=== PATIENT | male | born 2005 | race Caucasian/White ===

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

== ENCOUNTER → 2023-03-06 08:36 | Outpatient (CLI) | payer OTHER, MEDICAID, SELFPAY ==
[2023-03-06 10:07] LABS: BUN Creatinine Ratio 24.2 (6-22); Blood Urea Nitrogen 15 mg/dL (9-20); Estimated Glomerular Filt Rate > 60 mL/min (>60)
[2023-03-06 10:17] LABS: Follicle Stimulating Hormone 1.41 mIU/mL; Luteinizing Hormone 10.4 mIU/mL
[2023-03-06 10:33] LABS: Estradiol, Total 148.1 pg/mL
[2023-03-06 20:47] LABS: HEMOLYSIS < 15 (0-50); Potassium 4.2 mmol/L (3.4-5.1)
[2023-03-06 21:24] LABS: Testosterone 436 ng/dL (132-813)
== END ==
PROVIDERS: Family Provider Pediatrics; PCP Pediatrics; Referring Provider Nurse Practitioner Family; Visit Provider Nurse Practitioner Family
DX: F64.9 Gender identity disorder, unspecified (principal)
CPT/HCPCS: 36415; 82565; 82670; 83001; 83002; 84132; 84403; 84520

== ENCOUNTER 2023-05-10 10:00 | Outpatient (RCR) | payer OTHER, MEDICAID, SELFPAY ==
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
--- NOTE | 2022-07-26 17:47 | PT.OPPOC ---
Physical, Occupational & Speech Therapy At [facility] Current Diagnoses Stiffness of unspecified joint, not elsewhere classified (07/26/22) Muscle weakness (generalized) (07/26/22) Other lack of coordination (07/26/22) Unspecified lack of coordination (07/26/22) Visit Care Team Role Provider Type Risa Drake DO Attending Provider Physician Family Provider Primary Care Provider Referring Provider Specialty: Pediatrics Address: [address] [place] [address], [id number] Email: Plan Of Care PT-OP-T Assessment and Plan Start: 07/26/22 15:22 Freq: Status: Active Protocol: Document 07/26/22 15:22 [facility] (Rec: 07/26/22 16:04 [facility] [id number]) Physical Therapy Assessment Rehab Potential Rehabilitation Potential Good Evaluation Complexity Number of Personal Factors/Comorbidities 3 or More Number of Body Systems Impaired 4 or More Clinical Presentation at Evaluation Stable Impairments Impairments Activity Tolerance,Balance, Coordination,Functional Activities,Functional Mobility ,Gait,Pain,Posture,ROM,Soft Tissue Mobility,Strength Goals coordination Short Term Goal (STG) Pt will be able to walk line fwd tandem w/o stepping off at least 20 ft. STG Duration 09/04/22 Chain Dyer Goal (LTG) Pt will be able to walk line backwards tandem w/o stepping off at least 15 ft. LTG Duration 10/18/22 pain Chain Dyer Goal (LTG) Pt will report a 75% reduction in abdomen, thigh pain and thoracic pain. LTG Duration 10/18/22 ROM Short Term Goal (STG) Pt will have B DF to neutral in knee flexed position STG Duration 09/04/22 Chain Dyer Goal (LTG) Pt will have B DF to at least 5 deg in knee ext and flexed positon to improve pt's ability to drive and imrpove LTG Duration 10/18/22 balance Short Term Goal (STG) Pt will be able to do SLS for at least 12 sec B STG Duration 08/30/22 Custodial Goal (LTG) Pt will be able to SLS for at least 30 sec B to show improved stability LTG Duration 10/18/22 Assessment Summary Assessment Pt presents w/dad w/their main complaints that pt trips a lot and has dec coordination. pt was born drug affected and was diagnosed w/ASD. 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 She has difficulty w/driving , which may be partially d/t pt has difficulty w/DF as she has restricted ROM . She does also demonstrate impaired coordination, balance, fwd flexed posture and dec response time w/balance activities. She would benefit from skilled PT to work on these deficits to help her be more indep and safe in order to be able to particiapte in job duties and more home duties. Physical Therapy Plan Frequency and Duration Frequency of Treatment 1-2x/wk Duration of treatment (weeks) 12 Plan of Care Start Date 07/26/22 Plan of Care End Date 10/18/22 Therapeutic Interventions Therapeutic Interventions Aquatic Therapy,Balance Training,Coordination Training ,Gait Training,Home Exercise Program,Joint Mobilizations, Manual Therapy,Neuromuscular Re-education,Orthotic/ Prosthetic Management,Patient/ Caregiver Education,Self-Care/ Home Management,Sensory Integration,Soft Tissue Mobilization,Taping, Therapeutic Activities, Therapeutic Exercises Modalities Cold Pack/Ice Massage,Electric Stimulation,Hot Packs Next Visit Focus/Plan Next Note Type Treatment Note Next Visit Plan assess pt consent for ankle mobilizations; teach self release w/tennis ball/foam roll; down dog stretch, stair stretch, DF at wall for HEP; obstacle course for balance, balance board w/balloon rangel Plan of Care Dates Plan of Care Start Date 07/26/22 Plan of Care End Date 10/18/22 Electronically Signed by: Annabelle Cooper, PT 07/26/22 2630 If you are in agreement with this Plan of Care, please return a signed and dated copy. I have reviewed this Plan of Care and certify that the skilled therapy services above are required to meet the patient?s needs. Physician Signature Date Printed Name and Credentials Clinical Instructor Signature Printed Name and Credentials
--- NOTE | 2022-08-02 17:04 | PT-OP ANOTE ---
Pt's dad called and VM left re: no show and policy. Edu of next 2 scheduled appts and asked to call if pt unable to attend future appts.
--- NOTE | 2022-08-09 15:43 | PT.OTN ---
Current Diagnoses Stiffness of unspecified joint, not elsewhere classified (08/09/22) Muscle weakness (generalized) (08/09/22) Other lack of coordination (08/09/22) Unspecified lack of coordination (08/09/22) Physical Therapy Treatment Note PT-OP-A Visit Information Start: 07/26/22 15:22 Freq: Status: Active Protocol: Document 08/09/22 10:43 [facility] (Rec: 08/09/22 15:43 [facility] [id number]) Out-Patient Physical Therapy Visit Information Visit Information Visit Type Treatment Note Visit Start Time 11:21 Visit Stop Time 12:01 Total Visit Minutes 40 Visit Number 2 Number of TEST EVALUATOR Visits 0 PT-OP-B Current Condition Start: 07/26/22 15:22 Freq: Status: Active Protocol: Document 07/26/22 15:22 [facility] (Rec: 07/26/22 16:04 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 Pt has bio brother that has been in PT since 4 months. Focus was on speech therapy. She didn't do any PT. She has had issues with coordination, toe walking and balance. They are noticing a problem while pt is working on driving. Recently they discovered she has low vit B 12 levels. Has eating disorder where she just eats when she feels like it and changes food preferences. She goes a couple days before [facility] has a good size bowel movement and has constipation and c/o lots of belly pain. She had acid reflux a lot as a kid. Pt reports she falls and trips a lot and will feel nervous going up/down big stair cases. 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 She has exercise induced asthma issues so struggles with longer distance heavy activity. Has hx of concussion w/running backwards. Pt did take dance when younger and liked them but wasn't advancing in them. Dad does report issues w/fine motor skills. Did get an eval w/OT here but was told she didn't need it. Pt reports ant B thighs cramp up and pain in mid thoracic. She has some L pec and lat region. Pt likes creative writing, theater, video creation, and video games. Pt had difficulty with balancing on a bike and went off the [place] trail and down into ditch. Treatment Goals Patient/Caregiver Goals Dec falling over and tripping; improve timing and coordination for dancing PT-OP-C Subjective Start: 07/26/22 15:22 Freq: Status: Active Protocol: Document 08/09/22 10:43 [facility] (Rec: 08/09/22 15:43 [facility] [id number]) OP-PT Subjective Patient Comments Patient Comments Pt agreeable to do exercises. Dad apologizes about missing last appt. pt had asthma attack at school and he was busy w/that and forgot to call PT-OP-D Balance Start: 07/26/22 15:22 Freq: Status: Active Protocol: Document 07/26/22 15:22 [facility] (Rec: 07/26/22 16:04 [facility] [id number]) Balance Tests Single Limb Standing Single Limb- Right 8 sec Single Limb- Left 8 sec Other Other Balance Tests Performed fwd walk tandem about 3 in a row max; can walk on line mult steps if not tandem-does keep arms out to side; backwards walk on line about 3 steps before stepping off w/hands out to sides to help w/balance ; pt can skip but shows dec reciprocation PT-OP-G Mobility & Gait Start: 07/26/22 15:22 Freq: Status: Active Protocol: Document 07/26/22 15:22 [facility] (Rec: 07/26/22 17:33 [facility] [id number]) OP Gait Assessment Comments Gait Comments Pt amb w/heel strike today but overall dec push off and significant toe out and pronation. Running: slower speed and dec push off and foot clearance, head down PT-OP-J Posture/Palpation/Skin Start: 07/26/22 15:22 Freq: Status: Active Protocol: Document 07/26/22 15:22 [facility] (Rec: 07/26/22 17:33 [facility] [id number]) Posture Evaluation Comments Posture Comments Pt stands and sits w/excessive thoracic kyphosis & cervical flexion and tends to walk w/ head down. PT-OP-K Range of Motion Start: 07/26/22 15:22 Freq: Status: Active Protocol: Document 07/26/22 15:22 [facility] (Rec: 07/26/22 17:33 [facility] [id number]) Ankle and Foot Goniometric Range of Motion Ankle and Foot Right Active Dorsiflexion with Knee Flexed 6 Dorsiflexion with Knee Extended 10 Comments lacking DF to neutral in both positions Left Active Dorsiflexion with Knee Flexed 16 Dorsiflexion with Knee Extended 22 Comments lacking DF to neutral in both positions PT-OP-Q Treatments Start: 07/26/22 15:22 Freq: Status: Active Protocol: Document 08/09/22 10:43 [facility] (Rec: 08/09/22 15:43 [facility] [id number]) Gym Equipment Shuttle Balance red clips Details WBOS fwd w/balloon volley w/ day w/occ 1 hand on rail Therapeutic Exercises Standing Exercises stretch Standing Exercise Name 1. DL step 2. fwd lean B Side bilateral Reps/Minutes 45 sec ea DF Side bilateral Reps/Minutes 15 Other Exercises roll out Other Exercise Name tennis ball, foam roll, rolling pin Side bilateral Reps/Minutes 5min downdog Side bilateral Reps/Minutes 15 sec x2 Neuro Re-Education Treatment Balance Activities beam Details fwd/back on beam w/occ TOOL SALVAGE WORKER Reps/Duration 6x Comments w/throwing mota bag at [place] t end tilt board Comments fwd & side facing board: w/ squat to get ball & roll at cones x10 ea PT-OP-T Assessment and Plan Start: 07/26/22 15:22 Freq: Status: Active Protocol: Document 08/09/22 10:43 [facility] (Rec: 08/09/22 15:43 [facility] [id number]) Physical Therapy Assessment Goals coordination Short Term Goal (STG) Pt will be able to walk line fwd tandem w/o stepping off at least 20 ft. STG Duration 09/04/22 Department Clerk Goal (LTG) Pt will be able to walk line backwards tandem w/o stepping off at least 15 ft. LTG Duration 10/18/22 pain Department Clerk Goal (LTG) Pt will report a 75% reduction in abdomen, thigh pain and thoracic pain. LTG Duration 10/18/22 ROM Short Term Goal (STG) Pt will have B DF to neutral in knee flexed position STG Duration 09/04/22 Department Clerk Goal (LTG) Pt will have B DF to at least 5 deg in knee ext and flexed positon to improve pt's ability to drive and imrpove LTG Duration 10/18/22 balance Short Term Goal (STG) Pt will be able to do SLS for at least 12 sec B STG Duration 08/30/22 Half-Way Goal (LTG) Pt will be able to SLS for at least 30 sec B to show improved stability LTG Duration 10/18/22 Assessment Summary Assessment Pt was challenged by all balance activities today and had a lot of difficulty with these activities. Inc cues required for all exercises for form and inc effort w/good form w/exercises. Physical Therapy Plan Frequency and Duration Frequency of Treatment 1-2x/wk Duration of treatment (weeks) 12 Plan of Care Start Date 07/26/22 Plan of Care End Date 10/18/22 Next Visit Focus/Plan Next Note Type Treatment Note Next Visit Plan review exercises, obstacle course for balance, balloon volley on board, other uneven surfaces w/throwing games
--- NOTE | 2022-08-16 18:03 | PT.OTN ---
Current Diagnoses Stiffness of unspecified joint, not elsewhere classified (08/16/22) Muscle weakness (generalized) (08/16/22) Other lack of coordination (08/16/22) Unspecified lack of coordination (08/16/22) Physical Therapy Treatment Note PT-OP-A Visit Information Start: 07/26/22 15:22 Freq: Status: Active Protocol: Document 08/16/22 16:54 [facility] (Rec: 08/16/22 18:03 [facility] [id number]) Out-Patient Physical Therapy Visit Information Visit Information Visit Type Treatment Note Visit Start Time 16:52 Visit Stop Time 17:35 Total Visit Minutes 43 Visit Number 3 Number of GENERAL REPAIRER Visits 0 PT-OP-B Current Condition Start: 07/26/22 15:22 Freq: Status: Active Protocol: Document 07/26/22 15:22 [facility] (Rec: 07/26/22 16:04 [facility] [id number]) Current Condition History of Current Condition Onset Date youth Current Complaints Dec coordination & inc falls History of Current Condition 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 Pt has bio brother that has been in PT since 4 months. Focus was on speech therapy. She didn't do any PT. She has had issues with coordination, toe walking and balance. They are noticing a problem while pt is working on driving. Recently they discovered she has low vit B 12 levels. Has eating disorder where she just eats when she feels like it and changes food preferences. She goes a couple days before [facility] has a good size bowel movement and has constipation and c/o lots of belly pain. She had acid reflux a lot as a kid. Pt reports she falls and trips a lot and will feel nervous going up/down big stair cases. 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 She has exercise induced asthma issues so struggles with longer distance heavy activity. Has hx of concussion w/running backwards. Pt did take dance when younger and liked them but wasn't advancing in them. Dad does report issues w/fine motor skills. Did get an eval w/OT here but was told she didn't need it. Pt reports ant B thighs cramp up and pain in mid thoracic. She has some L pec and lat region. Pt likes creative writing, theater, video creation, and video games. Pt had difficulty with balancing on a bike and went off the [place] trail and down into ditch. Treatment Goals Patient/Caregiver Goals Dec falling over and tripping; improve timing and coordination for dancing PT-OP-C Subjective Start: 07/26/22 15:22 Freq: Status: Active Protocol: Document 08/16/22 16:54 [facility] (Rec: 08/16/22 18:03 [facility] [id number]) OP-PT Subjective Patient Comments Patient Comments Pt reports doing her exercises PT-OP-D Balance Start: 07/26/22 15:22 Freq: Status: Active Protocol: Document 07/26/22 15: [facility] (Rec: 07/26/22 16:04 [facility] [id number]) Balance Tests Single Limb Standing Single Limb- Right 8 sec Single Limb- Left 8 sec Other Other Balance Tests Performed fwd walk tandem about 3 in a row max; can walk on line mult steps if not tandem-does keep arms out to side; backwards walk on line about 3 steps before stepping off w/hands out to sides to help w/balance ; pt can skip but shows dec reciprocation PT-OP-G Mobility & Gait Start: 07/26/22 15:22 Freq: Status: Active Protocol: Document 07/26/22 15:22 [facility] (Rec: 07/26/22 17:33 [facility] [id number]) OP Gait Assessment Comments Gait Comments Pt amb w/heel strike today but overall dec push off and significant toe out and pronation. Running: slower speed and dec push off and foot clearance, head down PT-OP-J Posture/Palpation/Skin Start: 07/26/22 15:22 Freq: Status: Active Protocol: Document 07/26/22 15:22 [facility] (Rec: 07/26/22 17:33 [facility] [id number]) Posture Evaluation Comments Posture Comments Pt stands and sits w/excessive thoracic kyphosis & cervical flexion and tends to walk w/ head down. PT-OP-K Range of Motion Start: 07/26/22 15:22 Freq: Status: Active Protocol: Document 07/26/22 15:22 [facility] (Rec: 07/26/22 17:33 [facility] [id number]) Ankle and Foot Goniometric Range of Motion Ankle and Foot Right Active Dorsiflexion with Knee Flexed 6 Dorsiflexion with Knee Extended 10 Comments lacking DF to neutral in both positions Left Active Dorsiflexion with Knee Flexed 16 Dorsiflexion with Knee Extended 22 Comments lacking DF to neutral in both positions PT-OP-Q Treatments Start: 07/26/22 15:22 Freq: Status: Active Protocol: Document 08/16/22 16:54 [facility] (Rec: 08/16/22 18:03 [facility] [id number]) Gym Equipment Shuttle Balance red clips Details WBOS fwd w/balloon volley w/ day w/occ 1 hand on rail Therapeutic Exercises Standing Exercises stretch Standing Exercise Name 1. DL step 2. fwd lean B Side bilateral Reps/Minutes 30 sec ea DF Side bilateral Reps/Minutes 15 Other Exercises roll out Other Exercise Name tennis ball, foam roll, rolling pin Side bilateral Reps/Minutes 5min downdog Side bilateral Reps/Minutes 15 sec x2 Manual Therapy Treatment Joint Mobilizations tibfib Joint distal B Direction AP Tibia FM talus Joint distraction B & AP FM calcaneus Joint distraction B FM Neuro Re-Education Treatment Balance Activities bosu Details black side w/1 SENIOR NETWORK ARCHITECT then throw ball foam Details squat (max cues for heels down and bend knees) to get ball to throw Reps/Duration 15 Self-Care/Home Management Treatment Education Caregiver Education discussed use of book or slant under toes to stretch calves in sitting. Discussed use of stretching brace during TV/ computer timex4 min PT-OP-T Assessment and Plan Start: 07/26/22 15:22 Freq: Status: Active Protocol: Document 08/16/22 16:54 [facility] (Rec: 08/16/22 18:03 [facility] [id number]) Physical Therapy Assessment Goals coordination Short Term Goal (STG) Pt will be able to walk line fwd tandem w/o stepping off at least 20 ft. STG Duration 09/04/22 Buncher Operator Goal (LTG) Pt will be able to walk line backwards tandem w/o stepping off at least 15 ft. LTG Duration 10/18/22 pain Long-Term Goal (LTG) Pt will report a 75% reduction in abdomen, thigh pain and thoracic pain. LTG Duration 10/18/22 ROM Short Term Goal (STG) Pt will have B DF to neutral in knee flexed position STG Duration 09/04/22 Buncher Operator Goal (LTG) Pt will have B DF to at least 5 deg in knee ext and flexed positon to improve pt's ability to drive and imrpove LTG Duration 10/18/22 balance Short Term Goal (STG) Pt will be able to do SLS for at least 12 sec B STG Duration 08/30/22 Long-Term Goal (LTG) Pt will be able to SLS for at least 30 sec B to show improved stability LTG Duration 10/18/22 Assessment Summary Assessment Pt did well with exercises w/ minimal cues but does require cues w/active DF exercise. Improved PROM ankles w/mobs but still limited by calves. Pt did better w/balance today Physical Therapy Plan Frequency and Duration Frequency of Treatment 1-2x/wk Duration of treatment (weeks) 12 Plan of Care Start Date 07/26/22 Plan of Care End Date 10/18/22 Next Visit Focus/Plan Next Note Type Treatment Note Next Visit Plan review exercises, obstacle course for balance, balloon volley on board, other uneven surfaces w/throwing games; seated Tball DF
--- NOTE | 2022-08-30 18:30 | PT.OTN ---
Current Diagnoses Stiffness of unspecified joint, not elsewhere classified (08/30/22) Muscle weakness (generalized) (08/30/22) Other lack of coordination (08/30/22) Unspecified lack of coordination (08/30/22) Physical Therapy Treatment Note PT-OP-A Visit Information Start: 07/26/22 15:22 Freq: Status: Active Protocol: Document 08/30/22 16:10 [facility] (Rec: 08/30/22 18:30 [facility] [id number]) Out-Patient Physical Therapy Visit Information Visit Information Visit Type Treatment Note Visit Start Time 16:07 Visit Stop Time 16:45 Total Visit Minutes 38 Visit Number 5 Number of SOCIAL WORK PROGRAM COORDINATOR Visits 0 PT-OP-B Current Condition Start: 07/26/22 15:22 Freq: Status: Active Protocol: Document 07/26/22 15:22 [facility] (Rec: 07/26/22 16:04 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 Pt has bio brother that has been in PT since 4 months. Focus was on speech therapy. She didn't do any PT. She has had issues with coordination, toe walking and balance. They are noticing a problem while pt is working on driving. Recently they discovered she has low vit B 12 levels. Has eating disorder where she just eats when she feels like it and changes food preferences. She goes a couple days before [facility] has a good size bowel movement and has constipation and c/o lots of belly pain. She had acid reflux a lot as a kid. Pt reports she falls and trips a lot and will feel nervous going up/down big stair cases. 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 She has exercise induced asthma issues so struggles with longer distance heavy activity. Has hx of concussion w/running backwards. Pt did take dance when younger and liked them but wasn't advancing in them. Dad does report issues w/fine motor skills. Did get an eval w/OT here but was told she didn't need it. Pt reports ant B thighs cramp up and pain in mid thoracic. She has some L pec and lat region. Pt likes creative writing, theater, video creation, and video games. Pt had difficulty with balancing on a bike and went off the [employer] trail and down into ditch. Treatment Goals Patient/Caregiver Goals Dec falling over and tripping; improve timing and coordination for dancing PT-OP-C Subjective Start: 07/26/22 15:22 Freq: Status: Active Protocol: Document 08/30/22 16:10 [facility] (Rec: 08/30/22 18:30 [facility] [id number]) OP-PT Subjective Patient Comments Patient Comments pt reports not doing exercises . dad bought her slant boards to use under her feet to stretch calves PT-OP-D Balance Start: 07/26/22 15:22 Freq: Status: Active Protocol: Document 07/26/22 15:22 [facility] (Rec: 07/26/22 16:04 [facility] [id number]) Balance Tests Single Limb Standing Single Limb- Right 8 sec Single Limb- Left 8 sec Other Other Balance Tests Performed fwd walk tandem about 3 in a row max; can walk on line mult steps if not tandem-does keep arms out to side; backwards walk on line about 3 steps before stepping off w/hands out to sides to help w/balance ; pt can skip but shows dec reciprocation PT-OP-G Mobility & Gait Start: 07/26/22 15:22 Freq: Status: Active Protocol: Document 07/26/22 15:22 [facility] (Rec: 07/26/22 17:33 [facility] [id number]) OP Gait Assessment Comments Gait Comments Pt amb w/heel strike today but overall dec push off and significant toe out and pronation. Running: slower speed and dec push off and foot clearance, head down PT-OP-J Posture/Palpation/Skin Start: 07/26/22 15:22 Freq: Status: Active Protocol: Document 07/26/22 15:22 [facility] (Rec: 07/26/22 17:33 [facility] [id number]) Posture Evaluation Comments Posture Comments Pt stands and sits w/excessive thoracic kyphosis & cervical flexion and tends to walk w/ head down. PT-OP-K Range of Motion Start: 07/26/22 15:22 Freq: Status: Active Protocol: Document 07/26/22 15:22 [facility] (Rec: 07/26/22 17:33 [facility] [id number]) Ankle and Foot Goniometric Range of Motion Ankle and Foot Right Active Dorsiflexion with Knee Flexed 6 Dorsiflexion with Knee Extended 10 Comments lacking DF to neutral in both positions Left Active Dorsiflexion with Knee Flexed 16 Dorsiflexion with Knee Extended 22 Comments lacking DF to neutral in both positions PT-OP-Q Treatments Start: 07/26/22 15:22 Freq: Status: Active Protocol: Document 08/30/22 16:10 [facility] (Rec: 08/30/22 18:30 [facility] [id number]) Gym Equipment Shuttle Balance red clips Details WBOS & NBOS fwd w/balloon volley w/day w/occ 1 hand on rail Therapeutic Ball walk outs Ball Size/Color 65cm Body Position Prone Reps/Duration 12 Comments to grab mota bag then throw mota bag at hoop seated Ball Size/Color 65cm Comments alt DF then march x6 B to grab mota bag then throw mota bag at hoop Therapeutic Exercises Standing Exercises stretch Standing Exercise Name 1. DL step 2. fwd lean B Side bilateral Reps/Minutes 30 sec ea DF Side bilateral Reps/Minutes 20 Comments alt Neuro Re-Education Treatment Balance Activities bosu Comments standing on blackside w/1 PHP SOFTWARE ENGINEER to throw at hoop step ups to blue side x6 B and balacne on top to throw at hoop beam Comments fwd walk on own & back walk PHP SOFTWARE ENGINEER x10 PT-OP-T Assessment and Plan Start: 07/26/22 15:22 Freq: Status: Active Protocol: Document 08/30/22 16:10 [facility] (Rec: 08/30/22 18:30 [facility] [id number]) Physical Therapy Assessment Goals coordination Short Term Goal (STG) Pt will be able to walk line fwd tandem w/o stepping off at least 20 ft. STG Duration 09/04/22 Correction Goal (LTG) Pt will be able to walk line backwards tandem w/o stepping off at least 15 ft. LTG Duration 10/18/22 pain Sports Book Writer Goal (LTG) Pt will report a 75% reduction in abdomen, thigh pain and thoracic pain. LTG Duration 10/18/22 ROM Short Term Goal (STG) Pt will have B DF to neutral in knee flexed position STG Duration 09/04/22 Correction Goal (LTG) Pt will have B DF to at least 5 deg in knee ext and flexed positon to improve pt's ability to drive and imrpove LTG Duration 10/18/22 balance Short Term Goal (STG) Pt will be able to do SLS for at least 12 sec B STG Duration 08/30/22 Sports Book Writer Goal (LTG) Pt will be able to SLS for at least 30 sec B to show improved stability LTG Duration 10/18/22 Assessment Summary Assessment Pt did well with balance activities today showing improved overall stability. Cueing still required w/ exercsies. Physical Therapy Plan Frequency and Duration Frequency of Treatment 1-2x/wk Duration of treatment (weeks) 12 Plan of Care Start Date 07/26/22 Plan of Care End Date 10/18/22 Next Visit Focus/Plan Next Note Type Treatment Note Next Visit Plan review exercises, obstacle course for balance, balloon volley on board, other uneven surfaces w/throwing games; seated Tball DF
--- NOTE | 2022-09-06 17:00 | PT.OTN ---
Current Diagnoses Stiffness of unspecified joint, not elsewhere classified (09/06/22) Muscle weakness (generalized) (09/06/22) Other lack of coordination (09/06/22) Unspecified lack of coordination (09/06/22) Physical Therapy Treatment Note PT-OP-A Visit Information Start: 07/26/22 15:22 Freq: Status: Active Protocol: Document 09/06/22 16:03 NB (Rec: 01/13/23 14:21 NB [id number]) Out-Patient Physical Therapy Visit Information Visit Information Visit Type Treatment Note Visit Start Time 16:05 Visit Stop Time 16:50 Total Visit Minutes 45 Visit Number 6 Number of SHANK INSPECTOR Visits 1 PT-OP-B Current Condition Start: 07/26/22 15:22 Freq: Status: Active Protocol: Document 07/26/22 15:22 [facility] (Rec: 07/26/22 16:04 [facility] [id number]) Current Condition History of Current Condition Onset Date youth Current Complaints Dec coordination & inc falls History of Current Condition 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 Pt has bio brother that has been in PT since 4 months. Focus was on speech therapy. She didn't do any PT. She has had issues with coordination, toe walking and balance. They are noticing a problem while pt is working on driving. Recently they discovered she has low vit B 12 levels. Has eating disorder where she just eats when she feels like it and changes food preferences. She goes a couple days before seh has a good size bowel movement and has constipation and c/o lots of belly pain. She had acid reflux a lot as a kid. Pt reports she falls and trips a lot and will feel nervous going up/down big stair cases. 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 She has exercise induced asthma issues so struggles with longer distance heavy activity. Has hx of concussion w/running backwards. Pt did take dance when younger and liked them but wasn't advancing in them. Dad does report issues w/fine motor skills. Did get an eval w/OT here but was told she didn't need it. Pt reports ant B thighs cramp up and pain in mid thoracic. She has some L pec and lat region. Pt likes creative writing, theater, video creation, and video games. Pt had difficulty with balancing on a bike and went [place] the [place] and down into ditch. Treatment Goals Patient/Caregiver Goals Dec falling over and tripping; improve timing and coordination for dancing PT-OP-C Subjective Start: 07/26/22 15:22 Freq: Status: Active Protocol: Document 09/06/22 16:03 [facility] (Rec: 01/13/23 14:21 [facility] [id number]) OP-PT Subjective Patient Comments Patient Comments Pt reports not doing ex's but looking into [facility] for home. PT-OP-D Balance Start: 07/26/22 15:22 Freq: Status: Active Protocol: Document 07/26/22 15:22 [facility] (Rec: 07/26/22 16:04 [facility] [id number]) Balance Tests Single Limb Standing Single Limb- Right 8 sec Single Limb- Left 8 sec Other Other Balance Tests Performed fwd walk tandem about 3 in a row max; can walk on line mult steps if not tandem-does keep arms out to side; backwards walk on line about 3 steps before stepping off w/hands out to sides to help w/balance ; pt can skip but shows dec reciprocation PT-OP-G Mobility & Gait Start: 07/26/22 15:22 Freq: Status: Active Protocol: Document 07/26/22 15:22 [facility] (Rec: 07/26/22 17:33 [facility] [id number]) OP Gait Assessment Comments Gait Comments Pt amb w/heel strike today but overall dec push off and significant toe out and pronation. Running: slower speed and dec push off and foot clearance, head down PT-OP-J Posture/Palpation/Skin Start: 07/26/22 15:22 Freq: Status: Active Protocol: Document 07/26/22 15:22 [facility] (Rec: 07/26/22 17:33 [facility] [id number]) Posture Evaluation Comments Posture Comments Pt stands and sits w/excessive thoracic kyphosis & cervical flexion and tends to walk w/ head down. PT-OP-K Range of Motion Start: 07/26/22 15:22 Freq: Status: Active Protocol: Document 07/26/22 15:22 [facility] (Rec: 07/26/22 17:33 [facility] [id number]) Ankle and Foot Goniometric Range of Motion Ankle and Foot Right Active Dorsiflexion with Knee Flexed 6 Dorsiflexion with Knee Extended 10 Comments lacking DF to neutral in both positions Left Active Dorsiflexion with Knee Flexed 16 Dorsiflexion with Knee Extended 22 Comments lacking DF to neutral in both positions PT-OP-Q Treatments Start: 07/26/22 15:22 Freq: Status: Active Protocol: Document 09/06/22 16:03 [facility] (Rec: 01/13/23 14:21 [facility] [id number]) Gym Equipment Shuttle Balance red clips Details a/p and m/l balloon volleyball in various stance: Comments anterioposterior: WBOS; hip internal rotation stance, staggered stance mediolateral: weightshifting; balloon volley w/dad w/occ 1 hand on rail Therapeutic Ball walk outs Ball Size/Color 65cm Body Position Prone Reps/Duration 12 Comments to grab mota bag then throw mota bag at hoop seated Exercise Details Double leg and Single leg Ball Size/Color 65cm Comments alt DF then october x6 B to grab mota bag then throw mota bag at bucket Therapeutic Exercises Standing Exercises stretch Standing Exercise Name 1. Double Leg DARRON 2. Calf stretch at wall (gastroc and soleus) Side bilateral Reps/Minutes 1. 30s 2. 60s ea (with pt singing for hold time at least 30s) DF Side bilateral Reps/Minutes 20 Comments alt PT-OP-T Assessment and Plan Start: 07/26/22 15:22 Freq: Status: Active Protocol: Document 09/06/22 16:03 [facility] (Rec: 01/13/23 14:21 [facility] [id number]) Physical Therapy Assessment Impairments Impairments Activity Tolerance,Balance, Coordination,Functional Activities,Functional Mobility ,Gait,Pain,Posture,ROM,Soft Tissue Mobility,Strength Goals coordination Short Term Goal (STG) Pt will be able to walk line fwd tandem w/o stepping off at least 20 ft. STG Duration 09/04/22 Rn Vascular Goal (LTG) Pt will be able to walk line backwards tandem w/o stepping off at least 15 ft. LTG Duration 10/18/22 pain Rn Vascular Goal (LTG) Pt will report a 75% reduction in abdomen, thigh pain and thoracic pain. LTG Duration 10/18/22 ROM Short Term Goal (STG) Pt will have B DF to neutral in knee flexed position STG Duration 09/04/22 Rn Vascular Goal (LTG) Pt will have B DF to at least 5 deg in knee ext and flexed positon to improve pt's ability to drive and imrpove LTG Duration 10/18/22 balance Short Term Goal (STG) Pt will be able to do SLS for at least 12 sec B STG Duration 08/30/22 Nursing Home Goal (LTG) Pt will be able to SLS for at least 30 sec B to show improved stability LTG Duration 10/18/22 Assessment Summary Assessment Pt requires cues for sufficient hold time with stretches and for upright posture with core ex's. She requires cues for glute activation and upright posture on shuttle balance. Physical Therapy Plan Frequency and Duration Frequency of Treatment 1x/wk Duration of treatment (weeks) 12 Plan of Care Start Date 07/26/22 Plan of Care End Date 10/18/22 Next Visit Focus/Plan Next Note Type Treatment Note Next Visit Plan review exercises, obstacle course for balance, balloon volley on board, other uneven surfaces w/throwing games; seated Tball DF
--- NOTE | 2022-09-12 17:00 | PT.OTN ---
Current Diagnoses Stiffness of unspecified joint, not elsewhere classified (09/12/22) Muscle weakness (generalized) (09/12/22) Other lack of coordination (09/12/22) Unspecified lack of coordination (09/12/22) Physical Therapy Treatment Note PT-OP-A Visit Information Start: 07/26/22 15:22 Freq: Status: Active Protocol: Document 09/12/22 15:25 [facility] (Rec: 09/12/22 16:10 [facility] [id number]) Out-Patient Physical Therapy Visit Information Visit Information Visit Type Treatment Note Visit Start Time 14:25 Visit Stop Time 16:10 Total Visit Minutes 45 Visit Number 7 Number of SCHOOL JANITOR Visits 2 PT-OP-B Current Condition Start: 07/26/22 15:22 Freq: Status: Active Protocol: Document 07/26/22 15:22 [facility] (Rec: 07/26/22 16:04 [facility] [id number]) Current Condition History of Current Condition Onset Date youth Current Complaints Dec coordination & inc falls History of Current Condition 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 Pt has bio brother that has been in PT since 4 months. Focus was on speech therapy. She didn't do any PT. She has had issues with coordination, toe walking and balance. They are noticing a problem while pt is working on driving. Recently they discovered she has low vit B 12 levels. Has eating disorder where she just eats when she feels like it and changes food preferences. She goes a couple days before seh has a good size bowel movement and has constipation and c/o lots of belly pain. She had acid reflux a lot as a kid. Pt reports she falls and trips a lot and will feel nervous going up/down big stair cases. 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 She has exercise induced asthma issues so struggles with longer distance heavy activity. Has hx of concussion w/running backwards. Pt did take dance when younger and liked them but wasn't advancing in them. Dad does report issues w/fine motor skills. Did get an eval w/OT here but was told she didn't need it. Pt reports ant B thighs cramp up and pain in mid thoracic. She has some L pec and lat region. Pt likes creative writing, theater, video creation, and video games. Pt had difficulty with balancing on a bike and went off the [place] trail and down into ditch. Treatment Goals Patient/Caregiver Goals Dec falling over and tripping; improve timing and coordination for dancing PT-OP-C Subjective Start: 07/26/22 15:22 Freq: Status: Active Protocol: Document 09/12/22 15:25 [facility] (Rec: 09/12/22 16:10 [facility] [id number]) OP-PT Subjective Patient Comments Patient Comments Pt and dad report pt got a slant board, [facility], and a foam pad, but pt is inconsistent using it. PT-OP-D Balance Start: 07/26/22 15:22 Freq: Status: Active Protocol: Document 07/26/22 15:22 [facility] (Rec: 07/26/22 16:04 [facility] [id number]) Balance Tests Single Limb Standing Single Limb- Right 8 sec Single Limb- Left 8 sec Other Other Balance Tests Performed fwd walk tandem about 3 in a row max; can walk on line mult steps if not tandem-does keep arms out to side; backwards walk on line about 3 steps before stepping off w/hands out to sides to help w/balance ; pt can skip but shows dec reciprocation PT-OP-G Mobility & Gait Start: 07/26/22 15:22 Freq: Status: Active Protocol: Document 07/26/22 15:22 [facility] (Rec: 07/26/22 17:33 [facility] [id number]) OP Gait Assessment Comments Gait Comments Pt amb w/heel strike today but overall dec push off and significant toe out and pronation. Running: slower speed and dec push off and foot clearance, head down PT-OP-J Posture/Palpation/Skin Start: 07/26/22 15:22 Freq: Status: Active Protocol: Document 07/26/22 15:22 [facility] (Rec: 07/26/22 17:33 [facility] [id number]) Posture Evaluation Comments Posture Comments Pt stands and sits w/excessive thoracic kyphosis & cervical flexion and tends to walk w/ head down. PT-OP-K Range of Motion Start: 07/26/22 15:22 Freq: Status: Active Protocol: Document 07/26/22 15:22 [facility] (Rec: 07/26/22 17:33 [facility] [id number]) Ankle and Foot Goniometric Range of Motion Ankle and Foot Right Active Dorsiflexion with Knee Flexed 6 Dorsiflexion with Knee Extended 10 Comments lacking DF to neutral in both positions Left Active Dorsiflexion with Knee Flexed 16 Dorsiflexion with Knee Extended 22 Comments lacking DF to neutral in both positions PT-OP-Q Treatments Start: 07/26/22 15:22 Freq: Status: Active Protocol: Document 09/12/22 15:25 [facility] (Rec: 01/13/23 14:57 [facility] [id number]) Gym Equipment Shuttle Balance red clips Details a/p and m/l balloon volleyball in various stance: Comments anterioposterior: WBOS; hip internal rotation stance, staggered stance mediolateral: balloon volley w /dad w/occ 1 hand on rail cues for glute activation and upright posture Therapeutic Ball walk outs Body Position Prone Reps/Duration 12 Comments to grab mota bag then throw mota bag at hoop seated Exercise Details Double leg and Single leg Ball Size/Color 65cm Comments alt DF then october x6 B to grab mota bag then throw mota bag at bucket Therapeutic Exercises Standing Exercises stretch Standing Exercise Name 1. Double Leg DARRON 2. Calf stretch at wall (gastroc and soleus) Side bilateral Reps/Minutes 1. 30s 2. 60s ea (with pt singing for hold time at least 30s) DF Side bilateral Reps/Minutes 20 Comments alt, visual target for max DF bilaterally Other Exercises downdog Side bilateral Reps/Minutes 15 sec x2 Neuro Re-Education Treatment Balance Activities bosu Comments -standing on blackside w/1 PROTECTION CONSULTANT to throw at hoop -step ups to blue side x6 B and balance on top to throw at hoop beam Details tandem fwd/bwd Reps/Duration 12 ft x5 ea Comments tandem fwd/bwd (floor is Purple Harrya game) tilt board Comments fwd & side facing board: w/ squat to get ball & roll at cones x10 ea [ End ] PT-OP-T Assessment and Plan Start: 07/26/22 15:22 Freq: Status: Active Protocol: Document 09/12/22 15:25 [facility] (Rec: 09/12/22 16:10 [facility] [id number]) Physical Therapy Assessment Impairments Impairments Activity Tolerance,Balance, Coordination,Functional Activities,Functional Mobility ,Gait,Pain,Posture,ROM,Soft Tissue Mobility,Strength Goals coordination Short Term Goal (STG) Pt will be able to walk line fwd tandem w/o stepping off at least 20 ft. STG Duration 09/04/22 Configuration Management Analyst Goal (LTG) Pt will be able to walk line backwards tandem w/o stepping off at least 15 ft. LTG Duration 10/18/22 pain Configuration Management Analyst Goal (LTG) Pt will report a 75% reduction in abdomen, thigh pain and thoracic pain. LTG Duration 10/18/22 ROM Short Term Goal (STG) Pt will have B DF to neutral in knee flexed position STG Duration 09/04/22 Care Home Goal (LTG) Pt will have B DF to at least 5 deg in knee ext and flexed positon to improve pt's ability to drive and imrpove LTG Duration 10/18/22 balance Short Term Goal (STG) Pt will be able to do SLS for at least 12 sec B STG Duration 08/30/22 Care Home Goal (LTG) Pt will be able to SLS for at least 30 sec B to show improved stability LTG Duration 10/18/22 Assessment Summary Assessment Pt is able to complete 5 laps forward and backward tandem on 12 ft beam without loss of balance today. They continue to require cues for glute activation and upright posture with tendency towards forward flexed posture. Physical Therapy Plan Frequency and Duration Frequency of Treatment 1-2x/wk Duration of treatment (weeks) 12 Plan of Care Start Date 07/26/22 Plan of Care End Date 10/18/22 Therapeutic Interventions Therapeutic Interventions Aquatic Therapy,Balance Training,Coordination Training ,Gait Training,Home Exercise Program,Joint Mobilizations, Manual Therapy,Neuromuscular Re-education,Orthotic/ Prosthetic Management,Patient/ Caregiver Education,Self-Care/ Home Management,Sensory Integration,Soft Tissue Mobilization,Taping, Therapeutic Activities, Therapeutic Exercises Modalities Cold Pack/Ice Massage,Electric Stimulation,Hot Packs Next Visit Focus/Plan Next Note Type Treatment Note Next Visit Plan review exercises, obstacle course for balance, balloon volley on board, other uneven surfaces w/throwing games; seated Tball DF
--- NOTE | 2022-09-27 16:07 | PT.OTN ---
Current Diagnoses Stiffness of unspecified joint, not elsewhere classified (09/27/22) Muscle weakness (generalized) (09/27/22) Other lack of coordination (09/27/22) Unspecified lack of coordination (09/27/22) Physical Therapy Treatment Note PT-OP-A Visit Information Start: 07/26/22 15:22 Freq: Status: Active Protocol: Document 09/27/22 14:29 [facility] (Rec: 09/27/22 16:07 [facility] [id number]) Out-Patient Physical Therapy Visit Information Visit Information Visit Type Treatment Note Visit Start Time 15:24 Visit Stop Time 16:02 Total Visit Minutes 38 Visit Number 7 Number of DATA WAREHOUSE SPECIALIST Visits 0 PT-OP-B Current Condition Start: 07/26/22 15:22 Freq: Status: Active Protocol: Document 07/26/22 15:22 [facility] (Rec: 07/26/22 16:04 [facility] [id number]) Current Condition History of Current Condition Onset Date youth Current Complaints Dec coordination & inc falls History of Current Condition 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 Pt has bio brother that has been in PT since 4 months. Focus was on speech therapy. She didn't do any PT. She has had issues with coordination, toe walking and balance. They are noticing a problem while pt is working on driving. Recently they discovered she has low vit B 12 levels. Has eating disorder where she just eats when she feels like it and changes food preferences. She goes a couple days before [facility] has a good size bowel movement and has constipation and c/o lots of belly pain. She had acid reflux a lot as a kid. Pt reports she falls and trips a lot and will feel nervous going up/down big stair cases. 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 She has exercise induced asthma issues so struggles with longer distance heavy activity. Has hx of concussion w/running backwards. Pt did take dance when younger and liked them but wasn't advancing in them. Dad does report issues w/fine motor skills. Did get an eval w/OT here but was told she didn't need it. Pt reports ant B thighs cramp up and pain in mid thoracic. She has some L pec and lat region. Pt likes creative writing, theater, video creation, and video games. Pt had difficulty with balancing on a bike and went off the [place] trail and down into ditch. Treatment Goals Patient/Caregiver Goals Dec falling over and tripping; improve timing and coordination for dancing PT-OP-C Subjective Start: 07/26/22 15:22 Freq: Status: Active Protocol: Document 09/27/22 14:29 [facility] (Rec: 09/27/22 16:07 [facility] [id number]) OP-PT Subjective Patient Comments Patient Comments Pt has been using bosu at home PT-OP-D Balance Start: 07/26/22 15:22 Freq: Status: Active Protocol: Document 07/26/22 15:22 [facility] (Rec: 07/26/22 16:04 [facility] [id number]) Balance Tests Single Limb Standing Single Limb- Right 8 sec Single Limb- Left 8 sec Other Other Balance Tests Performed fwd walk tandem about 3 in a row max; can walk on line mult steps if not tandem-does keep arms out to side; backwards walk on line about 3 steps before stepping off w/hands out to sides to help w/balance ; pt can skip but shows dec reciprocation PT-OP-G Mobility & Gait Start: 07/26/22 15:22 Freq: Status: Active Protocol: Document 07/26/22 15:22 [facility] (Rec: 07/26/22 17:33 [facility] [id number]) OP Gait Assessment Comments Gait Comments Pt amb w/heel strike today but overall dec push off and significant toe out and pronation. Running: slower speed and dec push off and foot clearance, head down PT-OP-J Posture/Palpation/Skin Start: 07/26/22 15:22 Freq: Status: Active Protocol: Document 07/26/22 15:22 [facility] (Rec: 07/26/22 17:33 [facility] [id number]) Posture Evaluation Comments Posture Comments Pt stands and sits w/excessive thoracic kyphosis & cervical flexion and tends to walk w/ head down. PT-OP-K Range of Motion Start: 07/26/22 15:22 Freq: Status: Active Protocol: Document 07/26/22 15:22 [facility] (Rec: 07/26/22 17:33 [facility] [id number]) Ankle and Foot Goniometric Range of Motion Ankle and Foot Right Active Dorsiflexion with Knee Flexed 6 Dorsiflexion with Knee Extended 10 Comments lacking DF to neutral in both positions Left Active Dorsiflexion with Knee Flexed 16 Dorsiflexion with Knee Extended 22 Comments lacking DF to neutral in both positions PT-OP-Q Treatments Start: 07/26/22 15:22 Freq: Status: Active Protocol: Document 09/27/22 14:29 [facility] (Rec: 09/27/22 16:07 [facility] [id number]) Gym Equipment Therapeutic Ball seated Ball Size/Color 65cm Comments alt DF then march x6 B to grab mota bag then throw mota bag at hoop Therapeutic Exercises Standing Exercises stretch Standing Exercise Name 1. DL step 2. fwd lean B Side bilateral Reps/Minutes 30 sec ea DF Side bilateral Reps/Minutes 20 Comments alt Other Exercises downdog Side bilateral Reps/Minutes 30 sec Neuro Re-Education Treatment Balance Activities bosu Comments 1. squats on blue side x5 2. marches x8 B 3. lat step ups w/catch & fwd step ups w/catch 4. blue side w/ball toss 5. black side throwing mota bags w/TRAVELING CRANE OPERATOR prn beam Comments fwd walk on own & back walk TRAVELING CRANE OPERATOR x10 PT-OP-T Assessment and Plan Start: 07/26/22 15:22 Freq: Status: Active Protocol: Document 09/27/22 14:29 [facility] (Rec: 09/27/22 16:07 [facility] [id number]) Physical Therapy Assessment Goals coordination Short Term Goal (STG) Pt will be able to walk line fwd tandem w/o stepping off at least 20 ft. STG Duration 09/04/22 Retirement Goal (LTG) Pt will be able to walk line backwards tandem w/o stepping off at least 15 ft. LTG Duration 10/18/22 pain Turn Machine Operator Goal (LTG) Pt will report a 75% reduction in abdomen, thigh pain and thoracic pain. LTG Duration 10/18/22 ROM Short Term Goal (STG) Pt will have B DF to neutral in knee flexed position STG Duration 09/04/22 Retirement Goal (LTG) Pt will have B DF to at least 5 deg in knee ext and flexed positon to improve pt's ability to drive and imrpove LTG Duration 10/18/22 balance Short Term Goal (STG) Pt will be able to do SLS for at least 12 sec B STG Duration 08/30/22 Retirement Goal (LTG) Pt will be able to SLS for at least 30 sec B to show improved stability LTG Duration 10/18/22 Assessment Summary Assessment Pt cont to improve w/balance activities and did well with them today. She did require cues w/all exercises Physical Therapy Plan Frequency and Duration Frequency of Treatment 1-2x/wk Duration of treatment (weeks) 12 Plan of Care Start Date 07/26/22 Plan of Care End Date 10/18/22 Next Visit Focus/Plan Next Note Type Treatment Note Next Visit Plan review exercises, obstacle course for balance, balloon volley on board, other uneven surfaces w/throwing games; seated Tball DF
--- NOTE | 2022-10-11 18:54 | PT.OTN ---
Current Diagnoses Stiffness of unspecified joint, not elsewhere classified (10/11/22) Muscle weakness (generalized) (10/11/22) Other lack of coordination (10/11/22) Unspecified lack of coordination (10/11/22) Physical Therapy Treatment Note PT-OP-A Visit Information Start: 07/26/22 15:22 Freq: Status: Active Protocol: Document 10/11/22 18:45 [facility] (Rec: 10/12/22 18:54 [facility] [id number]) Out-Patient Physical Therapy Visit Information Visit Information Visit Type Progress Note Visit Start Time 15:20 Visit Stop Time 16:00 Total Visit Minutes 40 Visit Number 8 Number of ROOF TRUSS MACHINE TENDER Visits 0 PT-OP-B Current Condition Start: 07/26/22 15:22 Freq: Status: Active Protocol: Document 07/26/22 15:22 [facility] (Rec: 07/26/22 16:04 [facility] [id number]) Current Condition History of Current Condition Onset Date youth Current Complaints Dec coordination & inc falls History of Current Condition 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 Pt has bio brother that has been in PT since 4 months. Focus was on speech therapy. She didn't do any PT. She has had issues with coordination, toe walking and balance. They are noticing a problem while pt is working on driving. Recently they discovered she has low vit B 12 levels. Has eating disorder where she just eats when she feels like it and changes food preferences. She goes a couple days before [facility] has a good size bowel movement and has constipation and c/o lots of belly pain. She had acid reflux a lot as a kid. Pt reports she falls and trips a lot and will feel nervous going up/down big stair cases. 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 She has exercise induced asthma issues so struggles with longer distance heavy activity. Has hx of concussion w/running backwards. Pt did take dance when younger and liked them but wasn't advancing in them. Dad does report issues w/fine motor skills. Did get an eval w/OT here but was told she didn't need it. Pt reports ant B thighs cramp up and pain in mid thoracic. She has some L pec and lat region. Pt likes creative writing, theater, video creation, and video games. Pt had difficulty with balancing on a bike and went off the [place] trail and down into ditch. Treatment Goals Patient/Caregiver Goals Dec falling over and tripping; improve timing and coordination for dancing PT-OP-C Subjective Start: 07/26/22 15:22 Freq: Status: Active Protocol: Document 10/11/22 18:45 [facility] (Rec: 10/12/22 18:54 [id number]-PT Subjective Patient Comments Patient Comments Pt reports not stretching much but cont to use bosu PT-OP-D Balance Start: 07/26/22 15:22 Freq: Status: Active Protocol: Document 10/11/22 18:45 [facility] (Rec: 10/12/22 18:54 [id number] Balance Tests Single Limb Standing Single Limb- Right 17 sec Single Limb- Left 13sec PT-OP-G Mobility & Gait Start: 07/26/22 15:22 Freq: Status: Active Protocol: Document 07/26/22 15:22 [facility] (Rec: 07/26/22 17:33 [id number] OP Gait Assessment Comments Gait Comments Pt amb w/heel strike today but overall dec push off and significant toe out and pronation. Running: slower speed and dec push off and foot clearance, head down PT-OP-J Posture/Palpation/Skin Start: 07/26/22 15:22 Freq: Status: Active Protocol: Document 07/26/22 15:22 [facility] (Rec: 07/26/22 17:33 [id number]) Posture Evaluation Comments Posture Comments Pt stands and sits w/excessive thoracic kyphosis & cervical flexion and tends to walk w/ head down. PT-OP-K Range of Motion Start: 07/26/22 15:22 Freq: Status: Active Protocol: Document 10/11/22 18:45 [facility] (Rec: 10/12/22 18:54 [facility] [id number]) Ankle and Foot Goniometric Range of Motion Ankle and Foot Right Active Dorsiflexion with Knee Flexed 7 Dorsiflexion with Knee Extended 16 Comments lacking DF to neutral in both positions Left Active Dorsiflexion with Knee Flexed 10 Dorsiflexion with Knee Extended 15 Comments lacking DF to neutral in both positions PT-OP-Q Treatments Start: 07/26/22 15:22 Freq: Status: Active Protocol: Document 10/11/22 18:45 [facility] (Rec: 10/12/22 18:54 [facility] [id number]) Therapeutic Exercises Standing Exercises stretch Standing Exercise Name fwd lean on bosu Side bilateral Reps/Minutes 30 sec Manual Therapy Treatment Soft Tissue Mobilization calf Body Location b Mobilization Type Rolling Intensity/Depth Moderate Comments w/passive DF Joint Mobilizations tibfib Joint distal B Direction AP Tibia FM talus Joint distraction B FM calcaneus Joint distraction B FM Neuro Re-Education Treatment Balance Activities SLS Details trials bosu Comments standing balance beam Comments fwd/back tandem walk on line PT-OP-T Assessment and Plan Start: 07/26/22 15:22 Freq: Status: Active Protocol: Document 10/11/22 18:45 [facility] (Rec: 10/12/22 18:54 [facility] [id number]) Physical Therapy Assessment Goals coordination Short Term Goal (STG) Pt will be able to walk line fwd tandem w/o stepping off at least 20 ft. 10/12-18ft STG Duration 12/03/22 Air Force Pilot Goal (LTG) Pt will be able to walk line backwards tandem w/o stepping off at least 15 ft. LTG Duration achieved 10/11 pain Nursing Home Goal (LTG) Pt will report a 75% reduction in abdomen, thigh pain and thoracic pain. 10/11-no change LTG Duration 01/03/23 ROM Short Term Goal (STG) Pt will have B DF to neutral in knee flexed position 10/12-improved on L but still limited STG Duration 11/19/22 Nursing Home Goal (LTG) Pt will have B DF to at least 5 deg in knee ext and flexed positon to improve pt's ability to drive and imrpove 10/12-improved on L but still limited LTG Duration 01/03/23 balance Short Term Goal (STG) Pt will be able to do SLS for at least 12 sec B STG Duration achieved 10/11 Nursing Home Goal (LTG) Pt will be able to SLS for at least 30 sec B to show improved stability 10/12-improved LTG Duration 01/03 Assessment Summary Assessment Pt is making excellent progrss w/balance and coordination but is stillv ludwig limited in DF ROM. She is not as active in her stretching activities at home as she is her balance activites. She would benefit from cont PT to work on DF ROM and strength. Physical Therapy Plan Frequency and Duration Frequency of Treatment 1-2x/wk Duration of treatment (weeks) 12 Plan of Care Start Date 10/11/22 Plan of Care End Date 01/03/23 Therapeutic Interventions Therapeutic Interventions Aquatic Therapy,Balance Training,Coordination Training ,Gait Training,Home Exercise Program,Joint Mobilizations, Manual Therapy,Neuromuscular Re-education,Orthotic/ Prosthetic Management,Patient/ Caregiver Education,Self-Care/ Home Management,Sensory Integration,Soft Tissue Mobilization,Taping, Therapeutic Activities, Therapeutic Exercises Modalities Cold Pack/Ice Massage,Electric Stimulation,Hot Packs Next Visit Focus/Plan Next Note Type Treatment Note Next Visit Plan review exercises, obstacle course for balance, balloon volley on board, other uneven surfaces w/throwing games; seated Tball DF
--- NOTE | 2022-10-11 18:55 | PT.OPPOC ---
Physical, Occupational & Speech Therapy At [facility] Current Diagnoses Stiffness of unspecified joint, not elsewhere classified (10/11/22) Muscle weakness (generalized) (10/11/22) Other lack of coordination (10/11/22) Unspecified lack of coordination (10/11/22) Visit Care Team Role Provider Type Risa Drake DO Attending Provider Physician Family Provider Primary Care Provider Referring Provider Specialty: Pediatrics Address: [address] [place] [address], [id number] Email: Plan Of Care PT-OP-T Assessment and Plan Start: 07/26/22 15:22 Freq: Status: Active Protocol: Document 10/11/22 18:45 [facility] (Rec: 10/12/22 18:54 [facility] [id number]) Physical Therapy Assessment Goals coordination Short Term Goal (STG) Pt will be able to walk line fwd tandem w/o stepping off at least 20 ft. 10/12-18ft STG Duration 12/03/22 Circulation Director Goal (LTG) Pt will be able to walk line backwards tandem w/o stepping off at least 15 ft. LTG Duration achieved 10/11 pain Prison Goal (LTG) Pt will report a 75% reduction in abdomen, thigh pain and thoracic pain. 10/11-no change LTG Duration 01/03/23 ROM Short Term Goal (STG) Pt will have B DF to neutral in knee flexed position 10/12-improved on L but still limited STG Duration 11/19/22 Circulation Director Goal (LTG) Pt will have B DF to at least 5 deg in knee ext and flexed positon to improve pt's ability to drive and imrpove 10/12-improved on L but still limited LTG Duration 01/03/23 balance Short Term Goal (STG) Pt will be able to do SLS for at least 12 sec B STG Duration achieved 10/11 Circulation Director Goal (LTG) Pt will be able to SLS for at least 30 sec B to show improved stability 10/12-improved LTG Duration 01/03 Assessment Summary Assessment Pt is making excellent progrss w/balance and coordination but is stillv ludwig limited in DF ROM. She is not as active in her stretching activities at home as she is her balance activites. She would benefit from cont PT to work on DF ROM and strength. Physical Therapy Plan Frequency and Duration Frequency of Treatment 1-2x/wk Duration of treatment (weeks) 12 Plan of Care Start Date 10/11/22 Plan of Care End Date 01/03/23 Therapeutic Interventions Therapeutic Interventions Aquatic Therapy,Balance Training,Coordination Training ,Gait Training,Home Exercise Program,Joint Mobilizations, Manual Therapy,Neuromuscular Re-education,Orthotic/ Prosthetic Management,Patient/ Caregiver Education,Self-Care/ Home Management,Sensory Integration,Soft Tissue Mobilization,Taping, Therapeutic Activities, Therapeutic Exercises Modalities Cold Pack/Ice Massage,Electric Stimulation,Hot Packs Next Visit Focus/Plan Next Note Type Treatment Note Next Visit Plan review exercises, obstacle course for balance, balloon volley on board, other uneven surfaces w/throwing games; seated Tball DF Plan of Care Dates Plan of Care Start Date 10/11/22 Plan of Care End Date 01/03/23 Electronically Signed by: Annabelle Cooper, PT 10/12/22 1729 If you are in agreement with this Plan of Care, please return a signed and dated copy. I have reviewed this Plan of Care and certify that the skilled therapy services above are required to meet the patient?s needs. Physician Signature Date Printed Name and Credentials Clinical Instructor Signature Printed Name and Credentials
--- NOTE | 2022-10-25 16:29 | PT.OTN ---
Current Diagnoses Stiffness of unspecified joint, not elsewhere classified (10/25/22) Muscle weakness (generalized) (10/25/22) Other lack of coordination (10/25/22) Unspecified lack of coordination (10/25/22) Physical Therapy Treatment Note PT-OP-A Visit Information Start: 07/26/22 15:22 Freq: Status: Active Protocol: Document 10/25/22 16:12 [facility] (Rec: 10/25/22 16:29 [facility] [id number]) Out-Patient Physical Therapy Visit Information Visit Information Visit Type Treatment Note Visit Start Time 15:22 Visit Stop Time 16:02 Total Visit Minutes 40 Visit Number 9 Number of LOCK MAINTENANCE SUPERVISOR Visits 0 PT-OP-B Current Condition Start: 07/26/22 15:22 Freq: Status: Active Protocol: Document 07/26/22 15:22 [facility] (Rec: 07/26/22 16:04 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 Pt has bio brother that has been in PT since 4 months. Focus was on speech therapy. She didn't do any PT. She has had issues with coordination, toe walking and balance. They are noticing a problem while pt is working on driving. Recently they discovered she has low vit B 12 levels. Has eating disorder where she just eats when she feels like it and changes food preferences. She goes a couple days before [facility] has a good size bowel movement and has constipation and c/o lots of belly pain. She had acid reflux a lot as a kid. Pt reports she falls and trips a lot and will feel nervous going up/down big stair cases. 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 She has exercise induced asthma issues so struggles with longer distance heavy activity. Has hx of concussion w/running backwards. Pt did take dance when younger and liked them but wasn't advancing in them. Dad does report issues w/fine motor skills. Did get an eval w/OT here but was told she didn't need it. Pt reports ant B thighs cramp up and pain in mid thoracic. She has some L pec and lat region. Pt likes creative writing, theater, video creation, and video games. Pt had difficulty with balancing on a bike and went off the [place] trail and down into ditch. Treatment Goals Patient/Caregiver Goals Dec falling over and tripping; improve timing and coordination for dancing PT-OP-C Subjective Start: 07/26/22 15:22 Freq: Status: Active Protocol: Document 10/25/22 16:12 [facility] (Rec: 10/25/22 16:29 [facility] [id number]) OP-PT Subjective Patient Comments Patient Comments Pt reports she cont to balance on bosu but doesn't stretch as much PT-OP-D Balance Start: 07/26/22 15:22 Freq: Status: Active Protocol: Document 10/11/22 18:45 [facility] (Rec: 10/12/22 18:54 [facility] [id number]) Balance Tests Single Limb Standing Single Limb- Right 17 sec Single Limb- Left 13sec PT-OP-G Mobility & Gait Start: 07/26/22 15:22 Freq: Status: Active Protocol: Document 07/26/22 15:22 [facility]Rec: [facility]26[facility]22 17:[id number] Gait Assessment Comments Gait Comments Pt amb w/heel strike today but overall dec push off and significant toe out and pronation. Running: slower speed and dec push off and foot clearance, head down PT-OP-J Posture/Palpation/Skin Start: 07/26/22 15:22 Freq: Status: Active Protocol: Document 07/26/22 15:22 [facility] (Rec: 07/26/22 17:33 [facility] [id number]) Posture Evaluation Comments Posture Comments Pt stands and sits w/excessive thoracic kyphosis & cervical flexion and tends to walk w/ head down. PT-OP-K Range of Motion Start: 07/26/22 15:22 Freq: Status: Active Protocol: Document 10/11/22 18:45 [facility] (Rec: 10/12/22 18:54 [facility] [id number]) Ankle and Foot Goniometric Range of Motion Ankle and Foot Right Active Dorsiflexion with Knee Flexed 7 Dorsiflexion with Knee Extended 16 Comments lacking DF to neutral in both positions Left Active Dorsiflexion with Knee Flexed 10 Dorsiflexion with Knee Extended 15 Comments lacking DF to neutral in both positions PT-OP-Q Treatments Start: 12/06/22 15:22 Freq: Status: Active Protocol: Document 10/25/22 16:12 [facility] (Rec: 10/25/22 16:29 [facility] [id number]) Manual Therapy Treatment Soft Tissue Mobilization calf Body Location b calf and achilles Mobilization Type Rolling Intensity/Depth Moderate Comments w/passive DF Joint Mobilizations talus Joint distraction B FM & R percussion AP calcaneus Joint distraction B FM Neuro Re-Education Treatment Balance Activities bosu Comments fwd step up and down x10 B sidestep up and down x5 B Coordination Activities step up/down Details 8 in step x10 B stairs Details up lobby stairs no rail, down w/rail Equipment red sm wt ball in hand Reps/Duration 1x Comments cues for full foot on step PT-OP-T Assessment and Plan Start: 07/26/22 15:22 Freq: Status: Active Protocol: Document 10/25/22 16:12 [facility] (Rec: 10/25/22 16:29 [facility] [id number]) Physical Therapy Assessment Goals coordination Short Term Goal (STG) Pt will be able to walk line fwd tandem w/o stepping off at least 20 ft. 10/12-18ft STG Duration 12/03/22 File Keeper Goal (LTG) Pt will be able to walk line backwards tandem w/o stepping off at least 15 ft. LTG Duration achieved 10/11 pain File Keeper Goal (LTG) Pt will report a 75% reduction in abdomen, thigh pain and thoracic pain. 10/11-no change LTG Duration 01/03/23 ROM Short Term Goal (STG) Pt will have B DF to neutral in knee flexed position 10/12-improved on L but still limited STG Duration 11/19/22 [facility] Goal (LTG) Pt will have B DF to at least 5 deg in knee ext and flexed positon to improve pt's ability to drive and imrpove 10/12-improved on L but still limited LTG Duration 01/03/23 balance Short Term Goal (STG) Pt will be able to do SLS for at least 12 sec B STG Duration achieved 10/11 File Keeper Goal (LTG) Pt will be able to SLS for at least 30 sec B to show improved stability 10/12-improved LTG Duration 01/03 Assessment Summary Assessment Pt did well with stair tasks today and showed good control w/step ups even w/wt in hand. 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 Physical Therapy Plan Frequency and Duration Frequency of Treatment 1-2x/wk Duration of treatment (weeks) 12 Plan of Care Start Date 10/11/22 Plan of Care End Date 01/03/23 Next Visit Focus/Plan Next Note Type Treatment Note Next Visit Plan review exercises, obstacle course for balance, balloon volley on board, other uneven surfaces w/throwing games; seated Tball DF & other active DF
--- NOTE | 2022-11-09 17:16 | PT.OTN ---
Current Diagnoses Stiffness of unspecified joint, not elsewhere classified (11/09/22) Muscle weakness (generalized) (11/09/22) Other lack of coordination (11/09/22) Unspecified lack of coordination (11/09/22) Physical Therapy Treatment Note PT-OP-A Visit Information Start: 07/26/22 15:22 Freq: Status: Active Protocol: Document 11/09/22 15:17 [facility] (Rec: 11/09/22 17:16 [facility] [id number]) Out-Patient Physical Therapy Visit Information Visit Information Visit Type Treatment Note Visit Start Time 13:19 Visit Stop Time 16:00 Total Visit Minutes 41 Visit Number 10 Number of ASSISTANT PRODUCER Visits 0 PT-OP-B Current Condition Start: 07/26/22 15:22 Freq: Status: Active Protocol: Document 07/26/22 15:22 [facility] (Rec: 07/26/22 16:04 [facility] [id number]) Current Condition History of Current Condition Onset Date youth Current Complaints Dec coordination & inc falls History of Current Condition 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 Pt has bio brother that has been in PT since 4 months. Focus was on speech therapy. She didn't do any PT. She has had issues with coordination, toe walking and balance. They are noticing a problem while pt is working on driving. Recently they discovered she has low vit B 12 levels. Has eating disorder where she just eats when she feels like it and changes food preferences. She goes a couple days before [facility] has a good size bowel movement and has constipation and c/o lots of belly pain. She had acid reflux a lot as a kid. Pt reports she falls and trips a lot and will feel nervous going up/down big stair cases. 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 She has exercise induced asthma issues so struggles with longer distance heavy activity. Has hx of concussion w/running backwards. Pt did take dance when younger and liked them but wasn't advancing in them. Dad does report issues w/fine motor skills. Did get an eval w/OT here but was told she didn't need it. Pt reports ant B thighs cramp up and pain in mid thoracic. She has some L pec and lat region. Pt likes creative writing, theater, video creation, and video games. Pt had difficulty with balancing on a bike and went off the [employer] trail and down into ditch. Treatment Goals Patient/Caregiver Goals Dec falling over and tripping; improve timing and coordination for dancing PT-OP-C Subjective Start: 07/26/22 15:22 Freq: Status: Active Protocol: Document 11/09/22 15:17 [facility] (Rec: 11/09/22 17:16 [facility] [id number]) OP-PT Subjective Patient Comments Patient Comments pt reports still not doing stretches PT-OP-D Balance Start: 07/26/22 15:22 Freq: Status: Active Protocol: Document 10/11/22 18:45 [facility] (Rec: 10/12/22 18:54 [facility] [id number]) Balance Tests Single Limb Standing Single Limb- Right 17 sec Single Limb- Left 13sec PT-OP-G Mobility & Gait Start: 07/26/22 15:22 Freq: Status: Active Protocol: Document 07/26/22 15:22 [facility] (Rec: 07/26/22 17:33 [facility] [id number]) OP Gait Assessment Comments Gait Comments Pt amb w/heel strike today but overall dec push off and significant toe out and pronation. Running: slower speed and dec push off and foot clearance, head down PT-OP-J Posture/Palpation/Skin Start: 07/26/22 15:22 Freq: Status: Active Protocol: Document 07/26/22 15:22 [facility] (Rec: 07/26/22 17:33 [facility] [id number]) Posture Evaluation Comments Posture Comments Pt stands and sits w/excessive thoracic kyphosis & cervical flexion and tends to walk w/ head down. PT-OP-K Range of Motion Start: 07/26/22 15:22 Freq: Status: Active Protocol: Document 10/11/22 18:45 [facility] (Rec: 10/12/22 18:54 [facility] [id number]) Ankle and Foot Goniometric Range of Motion Ankle and Foot Right Active Dorsiflexion with Knee Flexed 7 Dorsiflexion with Knee Extended 16 Comments lacking DF to neutral in both positions Left Active Dorsiflexion with Knee Flexed 10 Dorsiflexion with Knee Extended 15 Comments lacking DF to neutral in both positions PT-OP-Q Treatments Start: 07/26/22 15:22 Freq: Status: Active Protocol: Document 11/09/22 15:17 [facility] (Rec: 11/09/22 17:16 [facility] [id number]) Gym Equipment Shuttle Balance red clips Comments WBOS & NBOS fwd w/balloon volley w/aide w/occ 1 hand on rail Therapeutic Exercises Standing Exercises stretch Standing Exercise Name stairs Side bilateral Reps/Minutes 30 sec DF Side bilateral Reps/Minutes 20 Comments alt Other Exercises downdog Side bilateral Reps/Minutes 2x20 sec Manual Therapy Treatment Soft Tissue Mobilization calf Body Location b calf and achilles Mobilization Type Rolling Intensity/Depth Moderate Comments w/passive DF Joint Mobilizations tibfib Joint distal B Direction AP Tibia FM Comments percussion talus Joint distraction B FM & B percussion AP calcaneus Joint distraction B FM Neuro Re-Education Treatment Coordination Activities step up/down Details 2 8 in steps recip up and down 7# BUE Reps/Duration 8 Comments cues for slowly down; pt turned at top stairs Details up lobby stairs no rail, down occ hand touch rail Equipment 7# wt B hands Reps/Duration 1x Comments cues for full foot on step PT-OP-T Assessment and Plan Start: 07/26/22 15:22 Freq: Status: Active Protocol: Document 11/09/22 15:17 [facility] (Rec: 11/09/22 17:16 [facility] [id number]) Physical Therapy Assessment Goals coordination Short Term Goal (STG) Pt will be able to walk line fwd tandem w/o stepping off at least 20 ft. 10/12-18ft STG Duration 12/03/22 Longterm Goal (LTG) Pt will be able to walk line backwards tandem w/o stepping off at least 15 ft. LTG Duration achieved 10/11 pain Java Grails Developer Goal (LTG) Pt will report a 75% reduction in abdomen, thigh pain and thoracic pain. 10/11-no change LTG Duration 01/03/23 ROM Short Term Goal (STG) Pt will have B DF to neutral in knee flexed position 10/12-improved on L but still limited STG Duration 11/19/22 Longterm Goal (LTG) Pt will have B DF to at least 5 deg in knee ext and flexed positon to improve pt's ability to drive and imrpove 10/12-improved on L but still limited LTG Duration 01/03/23 balance Short Term Goal (STG) Pt will be able to do SLS for at least 12 sec B STG Duration achieved 10/11 Java Grails Developer Goal (LTG) Pt will be able to SLS for at least 30 sec B to show improved stability 10/12-improved LTG Duration 01/03 Assessment Summary Assessment Pt encouraged to do all exercises at home also. She did better w/balance on stairs but was nervous and required encouragement to reciprocate w /wts in B hands. improved DF w /manual Physical Therapy Plan Frequency and Duration Frequency of Treatment 1-2x/wk Duration of treatment (weeks) 12 Plan of Care Start Date 10/11/22 Plan of Care End Date 01/03/23 Next Visit Focus/Plan Next Note Type Treatment Note Next Visit Plan review exercises, obstacle course for balance, balloon volley on board, other uneven surfaces w/throwing games; seated Tball DF & other active DF
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
--- NOTE | 2022-12-14 17:49 | PT.OPPOC ---
Physical, Occupational & Speech Therapy At [facility] Current Diagnoses Stiffness of unspecified joint, not elsewhere classified (12/14/22) Muscle weakness (generalized) (12/14/22) Other lack of coordination (12/14/22) Unspecified lack of coordination (12/14/22) Visit Care Team Role Provider Type Risa Drake DO Attending Provider Physician Family Provider Primary Care Provider Referring Provider Specialty: Pediatrics Address: [address] [place] [address], [id number] Email: Plan Of Care PT-OP-T Assessment and Plan Start: 07/26/22 15:22 Freq: Status: Active Protocol: Document 12/14/22 17:04 [facility] (Rec: 12/14/22 17:48 [facility] [id number]) Physical Therapy Assessment Goals stairs Prison Goal (LTG) Pt will be able to reciprocate up/down stairs w/wt in hand ( like groceries) safely w/o rail. 12/14-pt able to but does occ have to step to catch her balance or lean against rail LTG Duration 03/08 coordination Short Term Goal (STG) Pt will be able to walk line fwd tandem w/o stepping off at least 20 ft. 10/12-18ft STG Duration achieved 12/14 Prison Goal (LTG) Pt will be able to walk line backwards tandem w/o stepping off at least 15 ft. LTG Duration achieved 10/11 pain Prison Goal (LTG) Pt will report a 75% reduction in abdomen, thigh pain and thoracic pain. 10/11-no change 12/14-dad reports about 30% fewer complaints LTG Duration 03/06 ROM Short Term Goal (STG) Pt will have B DF to neutral in knee flexed position 10/12-improved on L but still limited 12/14-improved but still limited STG Duration 01/19 R&D Lab Technician Goal (LTG) Pt will have B DF to at least 5 deg in knee ext and flexed positon to improve pt's ability to drive and imrpove 10/12-improved on L but still limited LTG Duration 03/08 balance Short Term Goal (STG) Pt will be able to do SLS for at least 12 sec B STG Duration achieved 10/11 R&D Lab Technician Goal (LTG) Pt will be able to SLS for at least 30 sec B to show improved stability 10/12-improved 12/14-22 sec L; 23 sec R LTG Duration 03/08 Assessment Summary Assessment Pt is making slow progress towards ankle mobility goals likely d/t achilles shortening being significant since she was a toddler and started toe walking and had no intervention until now. She has been unable to drive d/t inability to get DF ROM and dec DF control. She is improving w/balance though and is showing more stabiltiy w/ stairs which is important as she will be goign to college this year and will likely have to carry groceries and/or school equipment up/down stairs. Physical Therapy Plan Frequency and Duration Frequency of Treatment 1x/wk Duration of treatment (weeks) 12 Plan of Care Start Date 12/14/22 Plan of Care End Date 03/08/23 Therapeutic Interventions Therapeutic Interventions Aquatic Therapy,Balance Training,Coordination Training ,Gait Training,Home Exercise Program,Joint Mobilizations, Manual Therapy,Neuromuscular Re-education,Orthotic/ Prosthetic Management,Patient/ Caregiver Education,Self-Care/ Home Management,Sensory Integration,Soft Tissue Mobilization,Taping, Therapeutic Activities, Therapeutic Exercises Modalities Cold Pack/Ice Massage,Electric Stimulation,Hot Packs Next Visit Focus/Plan Next Note Type Treatment Note Next Visit Plan review exercises, obstacle course for balance, balloon volley on board, other uneven surfaces w/throwing games; seated Tball DF & other active DF; cont tow rok on stair ability Plan of Care Dates Plan of Care Start Date 12/14/22 Plan of Care End Date 03/08/23 Electronically Signed by: Annabelle Cooper, PT 12/14/22 [id number] If you are in agreement with this Plan of Care, please return a signed and dated copy. I have reviewed this Plan of Care and certify that the skilled therapy services above are required to meet the patient?s needs. Physician Signature Date Printed Name and Credentials Clinical Instructor Signature Printed Name and Credentials
--- NOTE | 2022-12-21 17:54 | PT.OTN ---
Current Diagnoses Stiffness of unspecified joint, not elsewhere classified (12/21/22) Muscle weakness (generalized) (12/21/22) Other lack of coordination (12/21/22) Unspecified lack of coordination (12/21/22) Physical Therapy Treatment Note PT-OP-A Visit Information Start: 07/26/22 15:22 Freq: Status: Active Protocol: Document 12/21/22 16:50 [facility] (Rec: 12/21/22 17:54 [facility] [id number]) Out-Patient Physical Therapy Visit Information Visit Information Visit Type Treatment Note Visit Start Time 16:48 Visit Stop Time 17:30 Total Visit Minutes 42 Visit Number 14 Number of ORANGE PEEL OPERATOR Visits 0 PT-OP-B Current Condition Start: 07/26/22 15:22 Freq: Status: Active Protocol: Document 07/26/22 15:22 [facility] (Rec: 07/26/22 16:04 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 Pt has bio brother that has been in PT since 4 months. Focus was on speech therapy. She didn't do any PT. She has had issues with coordination, toe walking and balance. They are noticing a problem while pt is working on driving. Recently they discovered she has low vit B 12 levels. Has eating disorder where she just eats when she feels like it and changes food preferences. She goes a couple days before [facility] has a good size bowel movement and has constipation and c/o lots of belly pain. She had acid reflux a lot as a kid. Pt reports she falls and trips a lot and will feel nervous going up/down big stair cases. 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 She has exercise induced asthma issues so struggles with longer distance heavy activity. Has hx of concussion w/running backwards. Pt did take dance when younger and liked them but wasn't advancing in them. Dad does report issues w/fine motor skills. Did get an eval w/OT here but was told she didn't need it. Pt reports ant B thighs cramp up and pain in mid thoracic. She has some L pec and lat region. Pt likes creative writing, theater, video creation, and video games. Pt had difficulty with balancing on a bike and went off the [place] trail and down into ditch. Treatment Goals Patient/Caregiver Goals Dec falling over and tripping; improve timing and coordination for dancing PT-OP-C Subjective Start: 07/26/22 15:22 Freq: Status: Active Protocol: Document 12/21/22 16:50 [facility] (Rec: 12/21/22 17:54 [facility] [id number]) OP-PT Subjective Patient Comments Patient Comments Pt reports doing her DF exercise only still PT-OP-D Balance Start: 07/26/22 15:22 Freq: Status: Active Protocol: Document 10/11/22 18:45 [facility] ([facility]12[facility]22 [id number] Balance Tests Single Limb Standing Single Limb- Right 17 sec Single Limb- Left 13sec PT-OP-G Mobility & Gait Start: 07/26/22 15:22 Freq: Status: Active Protocol: Document 07/26/22 15:22 [facility] (Rec: 07/26/22 17:33 [id number] OP Gait Assessment Comments Gait Comments Pt amb w/heel strike today but overall dec push off and significant toe out and pronation. Running: slower speed and dec push off and foot clearance, head down PT-OP-J Posture/Palpation/Skin Start: 07/26/22 15:22 Freq: Status: Active Protocol: Document 07/26/22 15:22 [facility] (Rec: 07/26/22 17:33 [facility] [id number]) Posture Evaluation Comments Posture Comments Pt stands and sits w/excessive thoracic kyphosis & cervical flexion and tends to walk w/ head down. PT-OP-K Range of Motion Start: 07/26/22 15:22 Freq: Status: Active Protocol: Document 12/14/22 17:04 [facility] (Rec: 12/14/22 17:48 [facility] [id number]) Ankle and Foot Goniometric Range of Motion Ankle and Foot Right Active Dorsiflexion with Knee Flexed 3 Dorsiflexion with Knee Extended 6 Comments lacking DF to neutral in both positions; PROM inn knee ext 1 Left Active Dorsiflexion with Knee Flexed 6 Dorsiflexion with Knee Extended 15 Comments lacking DF to neutral in both positions; PROM to 12 in knee ext PT-OP-Q Treatments Start: 07/26/22 15:22 Freq: Status: Active Protocol: Document 12/21/22 16:50 [facility] (Rec: 12/21/22 17:54 [facility] [id number]) Therapeutic Exercises Standing Exercises stretch Standing Exercise Name 1.stairs 2. fwd lean gastroc SL 2. fwd lean soleus SL Side bilateral Reps/Minutes 30 sec ea DF Side bilateral Reps/Minutes 20 Comments alt Other Exercises downdog Side bilateral Reps/Minutes 30 sec Manual Therapy Treatment Soft Tissue Mobilization calf Body Location b calf and achilles Mobilization Type Rolling Intensity/Depth Moderate Comments w/passive & active DF Neuro Re-Education Treatment Balance Activities bosu Comments fwd step up and down x10 B sidestep up and down x10 B 7lb wts in B hands Coordination Activities stairs Details up lobby stairs no rail, down occ hand touch rail Equipment 7# wt B hands Reps/Duration 1x Comments cues for full foot on step Self-Care/Home Management Treatment Education Other Education 4 min: brace set up and use; pt talked through set up B PT-OP-T Assessment and Plan Start: 07/26/22 15:22 Freq: Status: Active Protocol: Document 12/21/22 16:50 [facility] (Rec: 12/21/22 17:54 [facility] [id number]) Physical Therapy Assessment Goals stairs First Responder Goal (LTG) Pt will be able to reciprocate up/down stairs w/wt in hand ( like groceries) safely w/o rail. 12/14-pt able to but does occ have to step to catch her balance or lean against rail LTG Duration 03/08 coordination Short Term Goal (STG) Pt will be able to walk line fwd tandem w/o stepping off at least 20 ft. 10/12-18ft STG Duration achieved 12/14 First Responder Goal (LTG) Pt will be able to walk line backwards tandem w/o stepping off at least 15 ft. LTG Duration achieved 10/11 pain First Responder Goal (LTG) Pt will report a 75% reduction in abdomen, thigh pain and thoracic pain. 10/11-no change 12/14-dad reports about 30% fewer complaints LTG Duration 03/06 ROM Short Term Goal (STG) Pt will have B DF to neutral in knee flexed position 10/12-improved on L but still limited 12/14-improved but still limited STG Duration 01/19 [facility] Goal (LTG) Pt will have B DF to at least 5 deg in knee ext and flexed positon to improve pt's ability to drive and imrpove 10/12-improved on L but still limited LTG Duration 03/08 balance Short Term Goal (STG) Pt will be able to do SLS for at least 12 sec B STG Duration achieved 10/11 [facility] Goal (LTG) Pt will be able to SLS for at least 30 sec B to show improved stability 10/12-improved 12/14-22 sec L; 23 sec R LTG Duration 03/08 Assessment Summary Assessment Pt did better w/bosu step up/ downs along w/stairs today. She had initial difficulty w/ decent but that imrpoved by end of steps. Physical Therapy Plan Frequency and Duration Frequency of Treatment 1x/wk Duration of treatment (weeks) 12 Plan of Care Start Date 12/14/22 Plan of Care End Date 03/08/23 Next Visit Focus/Plan Next Note Type Treatment Note Next Visit Plan review exercises, obstacle course for balance, balloon volley on board, other uneven surfaces w/throwing games; seated Tball DF & other active DF; cont tow rok on stair ability
--- NOTE | 2023-01-05 08:17 | PT.OTN ---
Current Diagnoses Stiffness of unspecified joint, not elsewhere classified (01/05/23) Muscle weakness (generalized) (01/05/23) Other lack of coordination (01/05/23) Unspecified lack of coordination (01/05/23) Physical Therapy Treatment Note PT-OP-A Visit Information Start: 07/26/22 15:22 Freq: Status: Active Protocol: Document 01/05/23 07:27 [facility] (Rec: 01/05/23 08:17 [facility] [id number]) Out-Patient Physical Therapy Visit Information Visit Information Visit Type Treatment Note Visit Start Time 07:30 Visit Stop Time 08:13 Total Visit Minutes 43 Visit Number 15 Number of BOARD OF DIRECTORS Visits 0 PT-OP-B Current Condition Start: 07/26/22 15:22 Freq: Status: Active Protocol: Document 07/26/22 15:22 [facility] (Rec: 07/26/22 16:04 [facility] [id number]) Current Condition History of Current Condition Onset Date youth Current Complaints Dec coordination & inc falls History of Current Condition 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 Pt has bio brother that has been in PT since 4 months. Focus was on speech therapy. She didn't do any PT. She has had issues with coordination, toe walking and balance. They are noticing a problem while pt is working on driving. Recently they discovered she has low vit B 12 levels. Has eating disorder where she just eats when she feels like it and changes food preferences. She goes a couple days before [facility] has a good size bowel movement and has constipation and c/o lots of belly pain. She had acid reflux a lot as a kid. Pt reports she falls and trips a lot and will feel nervous going up/down big stair cases. 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 She has exercise induced asthma issues so struggles with longer distance heavy activity. Has hx of concussion w/running backwards. Pt did take dance when younger and liked them but wasn't advancing in them. Dad does report issues w/fine motor skills. Did get an eval w/OT here but was told she didn't need it. Pt reports ant B thighs cramp up and pain in mid thoracic. She has some L pec and lat region. Pt likes creative writing, theater, video creation, and video games. Pt had difficulty with balancing on a bike and went off the [place] trail and down into ditch. Treatment Goals Patient/Caregiver Goals Dec falling over and tripping; improve timing and coordination for dancing PT-OP-C Subjective Start: 07/26/22 15:22 Freq: Status: Active Protocol: Document 01/05/23 07:27 [facility] (Rec: 01/05/23 08:17 [facility] [id number]) OP-PT Subjective Patient Comments Patient Comments Pt reports doing her DF exercise only still PT-OP-D Balance Start: 07/26/22 15:22 Freq: Status: Active Protocol: Document 10/11/22 18:45 [facility] (Rec: 10/12/22 18:54 [id number] Balance Tests Single Limb Standing Single Limb- Right 17 sec Single Limb- Left 13sec PT-OP-G Mobility & Gait Start: 07/26/22 15:22 Freq: Status: Active Protocol: Document 07/26/22 15:22 [facility] (Rec: 07/26/22 17:33 [facility] [id number]) OP Gait Assessment Comments Gait Comments Pt amb w/heel strike today but overall dec push off and significant toe out and pronation. Running: slower speed and dec push off and foot clearance, head down PT-OP-J Posture/Palpation/Skin Start: 07/26/22 15:22 Freq: Status: Active Protocol: Document 07/26/22 15:22 [facility] (Rec: 07/26/22 17:33 [facility] [id number]) Posture Evaluation Comments Posture Comments Pt stands and sits w/excessive thoracic kyphosis & cervical flexion and tends to walk w/ head down. PT-OP-K Range of Motion Start: 07/26/22 15:22 Freq: Status: Active Protocol: Document 12/14/22 17:04 [facility] (Rec: 12/14/22 17:48 [facility] [id number]) Ankle and Foot Goniometric Range of Motion Ankle and Foot Right Active Dorsiflexion with Knee Flexed 3 Dorsiflexion with Knee Extended 6 Comments lacking DF to neutral in both positions; PROM inn knee ext 1 Left Active Dorsiflexion with Knee Flexed 6 Dorsiflexion with Knee Extended 15 Comments lacking DF to neutral in both positions; PROM to 12 in knee ext PT-OP-Q Treatments Start: 07/26/22 15:22 Freq: Status: Active Protocol: Document 01/05/23 07:27 [facility] (Rec: 01/05/23 08:17 [facility] [id number]) Therapeutic Exercises Standing Exercises DARRON Standing Exercise Name stretch Side bilateral Reps/Minutes 1 min stretch Standing Exercise Name 1.stairs 2. fwd lean gastroc SL 2. fwd lean soleus SL Side bilateral Reps/Minutes 1.45 sec 2.30 sec ea DF Side bilateral Reps/Minutes 10 Comments alt Other Exercises roll out Other Exercise Name tennis ball, foam roll, rolling pin Side bilateral Reps/Minutes 5min downdog Side bilateral Reps/Minutes 30 sec Manual Therapy Treatment Soft Tissue Mobilization calf Body Location b calf and achilles Mobilization Type Rolling Intensity/Depth Moderate Comments w/passive & active DF Neuro Re-Education Treatment Balance Activities dynadisc Comments blance w/occ min to mod A w/ throw of blue tball to dad bosu Comments fwd step up and down x10 B 5lb wts in B hands Coordination Activities stairs Details up lobby stairs no rail, down occ hand touch rail Equipment 5# wt B hands Reps/Duration 1x Comments cues for full foot on step PT-OP-T Assessment and Plan Start: 07/26/22 15:22 Freq: Status: Active Protocol: Document 01/05/23 07:27 [facility] (Rec: 01/05/23 08:17 [facility] [id number]) Physical Therapy Assessment Goals stairs Water Quality Analyst Goal (LTG) Pt will be able to reciprocate up/down stairs w/wt in hand ( like groceries) safely w/o rail. 12/14-pt able to but does occ have to step to catch her balance or lean against rail LTG Duration 03/08 coordination Short Term Goal (STG) Pt will be able to walk line fwd tandem w/o stepping off at least 20 ft. 10/12-18ft STG Duration achieved 12/14 Water Quality Analyst Goal (LTG) Pt will be able to walk line backwards tandem w/o stepping off at least 15 ft. LTG Duration achieved 10/11 pain Chcf Goal (LTG) Pt will report a 75% reduction in abdomen, thigh pain and thoracic pain. 10/11-no change 12/14-dad reports about 30% fewer complaints LTG Duration 03/06 ROM Short Term Goal (STG) Pt will have B DF to neutral in knee flexed position 10/12-improved on L but still limited 12/14-improved but still limited STG Duration 01/19 Water Quality Analyst Goal (LTG) Pt will have B DF to at least 5 deg in knee ext and flexed positon to improve pt's ability to drive and imrpove 10/12-improved on L but still limited LTG Duration 03/08 balance Short Term Goal (STG) Pt will be able to do SLS for at least 12 sec B STG Duration achieved 10/11 Water Quality Analyst Goal (LTG) Pt will be able to SLS for at least 30 sec B to show improved stability 10/12-improved 12/14-22 sec L; 23 sec R LTG Duration 03/08 Assessment Summary Assessment Pt requries some cues for set up still w/stretches and is encouraged to pick one more exercise to be doing at home also. She is doing better w/ step activities. Physical Therapy Plan Frequency and Duration Frequency of Treatment 1x/wk Duration of treatment (weeks) 12 Plan of Care Start Date 12/14/22 Plan of Care End Date 03/08/23 Next Visit Focus/Plan Next Note Type Treatment Note Next Visit Plan review exercises, obstacle course for balance, balloon volley on board, other uneven surfaces w/throwing games; seated Tball DF & other active DF; cont tow rok on stair ability
--- NOTE | 2023-01-12 08:20 | PT.OTN ---
Current Diagnoses Stiffness of unspecified joint, not elsewhere classified (01/12/23) Muscle weakness (generalized) (01/12/23) Other lack of coordination (01/12/23) Unspecified lack of coordination (01/12/23) Physical Therapy Treatment Note PT-OP-A Visit Information Start: 07/26/22 15:22 Freq: Status: Active Protocol: Document 01/12/23 07:31 [facility] (Rec: 01/12/23 08:20 [facility] [id number]) Out-Patient Physical Therapy Visit Information Visit Information Visit Type Treatment Note Visit Start Time 07:31 Visit Stop Time 08:13 Total Visit Minutes 42 Visit Number 16 Number of FISHING VESSEL OPERATOR Visits 0 PT-OP-B Current Condition Start: 07/26/22 15:22 Freq: Status: Active Protocol: Document 07/26/22 15:22 [facility] (Rec: 07/26/22 16:04 [facility] [id number]) Current Condition History of Current Condition Onset Date youth Current Complaints Dec coordination & inc falls History of Current Condition 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 Pt has bio brother that has been in PT since 4 months. Focus was on speech therapy. She didn't do any PT. She has had issues with coordination, toe walking and balance. They are noticing a problem while pt is working on driving. Recently they discovered she has low vit B 12 levels. Has eating disorder where she just eats when she feels like it and changes food preferences. She goes a couple days before [facility] has a good size bowel movement and has constipation and c/o lots of belly pain. She had acid reflux a lot as a kid. Pt reports she falls and trips a lot and will feel nervous going up/down big stair cases. 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 She has exercise induced asthma issues so struggles with longer distance heavy activity. Has hx of concussion w/running backwards. Pt did take dance when younger and liked them but wasn't advancing in them. Dad does report issues w/fine motor skills. Did get an eval w/OT here but was told she didn't need it. Pt reports ant B thighs cramp up and pain in mid thoracic. She has some L pec and lat region. Pt likes creative writing, theater, video creation, and video games. Pt had difficulty with balancing on a bike and went off the [place] trail and down into ditch. Treatment Goals Patient/Caregiver Goals Dec falling over and tripping; improve timing and coordination for dancing PT-OP-C Subjective Start: 07/26/22 15:22 Freq: Status: Active Protocol: Document 01/12/23 07:31 [facility] (Rec: 01/12/23 08:20 [facility] [id number]) OP-PT Subjective Patient Comments Patient Comments pt reports noncompliance w/ stretches PT-OP-D Balance Start: 07/26/22 15:22 Freq: Status: Active Protocol: Document 10/11/22 18:45 [facility] (Rec: 10/12/22 18:54 [id number]) Balance Tests Single Limb Standing Single Limb- Right 17 sec Single Limb- Left 13sec PT-OP-G Mobility & Gait Start: 07/26/22 15:22 Freq: Status: Active Protocol: Document 07/26/22 15:22 [facility] (Rec: 07/26/22 17:33 [id number] OP Gait Assessment Comments Gait Comments Pt amb w/heel strike today but overall dec push off and significant toe out and pronation. Running: slower speed and dec push off and foot clearance, head down PT-OP-J Posture/Palpation/Skin Start: 07/26/22 15:22 Freq: Status: Active Protocol: Document 07/26/22 15:22 [facility] (Rec: 07/26/22 17:33 [facility] [id number]) Posture Evaluation Comments Posture Comments Pt stands and sits w/excessive thoracic kyphosis & cervical flexion and tends to walk w/ head down. PT-OP-K Range of Motion Start: 07/26/22 15:22 Freq: Status: Active Protocol: Document 12/14/22 17:04 [facility] (Rec: 12/14/22 17:48 [facility] [id number]) Ankle and Foot Goniometric Range of Motion Ankle and Foot Right Active Dorsiflexion with Knee Flexed 3 Dorsiflexion with Knee Extended 6 Comments lacking DF to neutral in both positions; PROM inn knee ext 1 Left Active Dorsiflexion with Knee Flexed 6 Dorsiflexion with Knee Extended 15 Comments lacking DF to neutral in both positions; PROM to 12 in knee ext PT-OP-Q Treatments Start: 07/26/22 15:22 Freq: Status: Active Protocol: Document 01/12/23 07:31 [facility] (Rec: 01/12/23 08:20 [facility] [id number]) Manual Therapy Treatment Soft Tissue Mobilization calf Body Location b calf and achilles Mobilization Type Rolling Intensity/Depth Moderate Comments w/passive & active DF Joint Mobilizations calcaneus Joint distraction B FM Neuro Re-Education Treatment Balance Activities bosu Comments SLS blakc and blue side ea B squats black side x12 Coordination Activities stairs Details up lobby stairs no rail, down occ hand touch rail Equipment 10# wt B hands Reps/Duration 1x Comments cues for full foot on step PT-OP-T Assessment and Plan Start: 07/26/22 15:22 Freq: Status: Active Protocol: Document 01/12/23 07:31 [facility] (Rec: 01/12/23 08:20 [facility] [id number]) Physical Therapy Assessment Goals stairs Senior Sharepoint Architect Goal (LTG) Pt will be able to reciprocate up/down stairs w/wt in hand ( like groceries) safely w/o rail. 12/14-pt able to but does occ have to step to catch her balance or lean against rail LTG Duration 03/08 coordination Short Term Goal (STG) Pt will be able to walk line fwd tandem w/o stepping off at least 20 ft. 10/12-18ft STG Duration achieved 12/14 Senior Sharepoint Architect Goal (LTG) Pt will be able to walk line backwards tandem w/o stepping off at least 15 ft. LTG Duration achieved 10/11 pain Detention Goal (LTG) Pt will report a 75% reduction in abdomen, thigh pain and thoracic pain. 10/11-no change 12/14-dad reports about 30% fewer complaints LTG Duration 03/06 ROM Short Term Goal (STG) Pt will have B DF to neutral in knee flexed position 10/12-improved on L but still limited 12/14-improved but still limited STG Duration 01/19 Senior Sharepoint Architect Goal (LTG) Pt will have B DF to at least 5 deg in knee ext and flexed positon to improve pt's ability to drive and imrpove 10/12-improved on L but still limited LTG Duration 03/08 balance Short Term Goal (STG) Pt will be able to do SLS for at least 12 sec B STG Duration achieved 10/11 Senior Sharepoint Architect Goal (LTG) Pt will be able to SLS for at least 30 sec B to show improved stability 10/12-improved 12/14-22 sec L; 23 sec R LTG Duration 03/08 Assessment Summary Assessment Pt did well with seated DF but did require cues to keep toes up during lifts. She was encouraged to stretch at home. Bosu activities wwere dificult Physical Therapy Plan Frequency and Duration Frequency of Treatment 1x/wk Duration of treatment (weeks) 12 Plan of Care Start Date 12/14/22 Plan of Care End Date 03/08/23 Next Visit Focus/Plan Next Note Type Treatment Note Next Visit Plan review exercises, obstacle course for balance, balloon volley on board, other uneven surfaces w/throwing games; seated Tball DF & other active DF; cont tow rok on stair ability
--- NOTE | 2023-01-17 13:33 | PT.OTN ---
Current Diagnoses Stiffness of unspecified joint, not elsewhere classified (01/17/23) Muscle weakness (generalized) (01/17/23) Other lack of coordination (01/17/23) Unspecified lack of coordination (01/17/23) Physical Therapy Treatment Note PT-OP-A Visit Information Start: 07/26/22 15:22 Freq: Status: Active Protocol: Document 01/17/23 12:46 [facility] (Rec: 01/17/23 13:33 [facility] [id number]) Out-Patient Physical Therapy Visit Information Visit Information Visit Type Treatment Note Visit Start Time 12:46 Visit Stop Time 13:27 Total Visit Minutes 41 Visit Number 17 Number of ELECTRICAL SUPERINTENDENT Visits 0 PT-OP-B Current Condition Start: 07/26/22 15:22 Freq: Status: Active Protocol: Document 07/26/22 15:22 [facility] (Rec: 07/26/22 16:04 [facility] [id number]) Current Condition History of Current Condition Onset Date youth Current Complaints Dec coordination & inc falls History of Current Condition 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 Pt has bio brother that has been in PT since 4 months. Focus was on speech therapy. She didn't do any PT. She has had issues with coordination, toe walking and balance. They are noticing a problem while pt is working on driving. Recently they discovered she has low vit B 12 levels. Has eating disorder where she just eats when she feels like it and changes food preferences. She goes a couple days before [facility] has a good size bowel movement and has constipation and c/o lots of belly pain. She had acid reflux a lot as a kid. Pt reports she falls and trips a lot and will feel nervous going up/down big stair cases. 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 She has exercise induced asthma issues so struggles with longer distance heavy activity. Has hx of concussion w/running backwards. Pt did take dance when younger and liked them but wasn't advancing in them. Dad does report issues w/fine motor skills. Did get an eval w/OT here but was told she didn't need it. Pt reports ant B thighs cramp up and pain in mid thoracic. She has some L pec and lat region. Pt likes creative writing, theater, video creation, and video games. Pt had difficulty with balancing on a bike and went off the [place] trail and down into ditch. Treatment Goals Patient/Caregiver Goals Dec falling over and tripping; improve timing and coordination for dancing PT-OP-C Subjective Start: 07/26/22 15:22 Freq: Status: Active Protocol: Document 01/17/23 12:46 [facility] (Rec: 01/17/23 13:33 [id number] OP-PT Subjective Patient Comments Patient Comments Pt is worried aobut having to blance to do a quick change in her show. PT-OP-D Balance Start: 07/26/22 15:22 Freq: Status: Active Protocol: Document 10/11/22 18:45 [facility] (Rec: 10/12/22 18:54 [id number] Balance Tests Single Limb Standing Single Limb- Right 17 sec Single Limb- Left 13sec PT-OP-G Mobility & Gait Start: 07/26/22 15:22 Freq: Status: Active Protocol: Document 07/26/22 15:22 [facility] (Rec: 07/26/22 17:33 [id number] OP Gait Assessment Comments Gait Comments Pt amb w/heel strike today but overall dec push off and significant toe out and pronation. Running: slower speed and dec push off and foot clearance, head down PT-OP-J Posture/Palpation/Skin Start: 07/26/22 15:22 Freq: Status: Active Protocol: Document 07/26/22 15:22 [facility] (Rec: 07/26/22 17:33 [id number] Posture Evaluation Comments Posture Comments Pt stands and sits w/excessive thoracic kyphosis & cervical flexion and tends to walk w/ head down. PT-OP-K Range of Motion Start: 07/26/22 15:22 Freq: Status: Active Protocol: Document 12/14/22 17:04 [facility] (Rec: 12/14/22 17:48 [facility] [id number]) Ankle and Foot Goniometric Range of Motion Ankle and Foot Right Active Dorsiflexion with Knee Flexed 3 Dorsiflexion with Knee Extended 6 Comments lacking DF to neutral in both positions; PROM inn knee ext 1 Left Active Dorsiflexion with Knee Flexed 6 Dorsiflexion with Knee Extended 15 Comments lacking DF to neutral in both positions; PROM to 12 in knee ext PT-OP-Q Treatments Start: 07/26/22 15:22 Freq: Status: Active Protocol: Document 01/17/23 12:46 [facility] (Rec: 01/17/23 13:33 [facility] [id number]) Therapeutic Exercises Standing Exercises DARRON Standing Exercise Name stretch Side bilateral Reps/Minutes 1 min Manual Therapy Treatment Soft Tissue Mobilization calf Body Location b calf and achilles Mobilization Type Rolling Intensity/Depth Moderate Comments w/passive & active DF Joint Mobilizations midfoot Comments cuneiform gapping FM B (1 and 2) naviculr gapping FM B tibfib Joint PA tib FM B calcaneus Joint R distraction FM Neuro Re-Education Treatment Balance Activities SLS Comments imitating pulling up pant legs w/lifitng LEs x3 B bosu Comments black side squats x15 bosu lift LE imitating putting pants on B x10 ea Coordination Activities stairs Details up lobby stairs no rail, down occ hand touch rail Equipment 10# wt B hands Reps/Duration 1x Comments cues for full foot on step PT-OP-T Assessment and Plan Start: 07/26/22 15:22 Freq: Status: Active Protocol: Document 01/17/23 12:46 [facility] (Rec: 01/17/23 13:33 [facility] [id number]) Physical Therapy Assessment Goals stairs Automobile Wrecker Goal (LTG) Pt will be able to reciprocate up/down stairs w/wt in hand ( like groceries) safely w/o rail. 12/14-pt able to but does occ have to step to catch her balance or lean against rail LTG Duration 03/08 coordination Short Term Goal (STG) Pt will be able to walk line fwd tandem w/o stepping off at least 20 ft. 10/12-18ft STG Duration achieved 12/14 Automobile Wrecker Goal (LTG) Pt will be able to walk line backwards tandem w/o stepping off at least 15 ft. LTG Duration achieved 10/11 pain Automobile Wrecker Goal (LTG) Pt will report a 75% reduction in abdomen, thigh pain and thoracic pain. 10/11-no change 12/14-dad reports about 30% fewer complaints LTG Duration 03/06 ROM Short Term Goal (STG) Pt will have B DF to neutral in knee flexed position 10/12-improved on L but still limited 12/14-improved but still limited STG Duration 01/19 Automobile Wrecker Goal (LTG) Pt will have B DF to at least 5 deg in knee ext and flexed positon to improve pt's ability to drive and imrpove 10/12-improved on L but still limited LTG Duration 03/08 balance Short Term Goal (STG) Pt will be able to do SLS for at least 12 sec B STG Duration achieved 10/11 Automobile Wrecker Goal (LTG) Pt will be able to SLS for at least 30 sec B to show improved stability 10/12-improved 12/14-22 sec L; 23 sec R LTG Duration 03/08 Assessment Summary Assessment Pt did well with donning shoes in standing quickly an was able to do it in 5 sec. She struggled w/bosu imitation of lifitn gleg to pant leg but did it w/occ touch to PT. PT did best today w/stairs w/ weight Physical Therapy Plan Frequency and Duration Frequency of Treatment 1x/wk Duration of treatment (weeks) 12 Plan of Care Start Date 12/14/22 Plan of Care End Date 03/08/23 Next Visit Focus/Plan Next Note Type Treatment Note Next Visit Plan review exercises, obstacle course for balance, balloon volley on board, other uneven surfaces w/throwing games; seated Tball DF & other active DF; cont tow rok on stair ability
--- NOTE | 2023-01-25 18:12 | PT.OTN ---
Addendum entered by Stacey Buenrostro 01/25/23 18:14: . Original Note: Current Diagnoses Stiffness of unspecified joint, not elsewhere classified (01/25/23) Muscle weakness (generalized) (01/25/23) Other lack of coordination (01/25/23) Unspecified lack of coordination (01/25/23) Physical Therapy Treatment Note PT-OP-A Visit Information Start: 07/26/22 15:22 Freq: Status: Active Protocol: Document 01/25/23 17:38 (Rec: 01/25/23 18:11 [id number]) Out-Patient Physical Therapy Visit Information Visit Information Visit Type Treatment Note Visit Start Time 16:04 Visit Stop Time 16:46 Total Visit Minutes 42 Visit Number 18 Number of LANDSC[employer]ING [employer] GR[employer]DS[employer]ING [employer]ORER Visits 0 PT-OP-B Current Condition Start: 07/26/22 15:22 Freq: Status: Active Protocol: Document 07/26/22 15:22 [facility] (Rec: 07/26/22 16:04 [facility] [id number]) Current Condition History of Current Condition Onset Date youth Current Complaints Dec coordination & inc falls History of Current Condition 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 Pt has bio brother that has been in PT since 4 months. Focus was on speech therapy. She didn't do any PT. She has had issues with coordination, toe walking and balance. They are noticing a problem while pt is working on driving. Recently they discovered she has low vit B 12 levels. Has eating disorder where she just eats when she feels like it and changes food preferences. She goes a couple days before [facility] has a good size bowel movement and has constipation and c/o lots of belly pain. She had acid reflux a lot as a kid. Pt reports she falls and trips a lot and will feel nervous going up/down big stair cases. 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 She has exercise induced asthma issues so struggles with longer distance heavy activity. Has hx of concussion w/running backwards. Pt did take dance when younger and liked them but wasn't advancing in them. Dad does report issues w/fine motor skills. Did get an eval w/OT here but was told she didn't need it. Pt reports ant B thighs cramp up and pain in mid thoracic. She has some L pec and lat region. Pt likes creative writing, theater, video creation, and video games. Pt had difficulty with balancing on a bike and went off the [place] trail and down into ditch. Treatment Goals Patient/Caregiver Goals Dec falling over and tripping; improve timing and coordination for dancing PT-OP-C Subjective Start: 07/26/22 15:22 Freq: Status: Active Protocol: Document 01/25/23 17:38 (Rec: 01/25/23 18:11 [id number]) OP-PT Subjective Patient Comments Patient Comments Pt reports cramping in RLE. The cramping woke her up early in the morning. Would like instruction on how to put on brace. Pt notes that she has not been doing her exercises and stretches reguraly. PT-OP-D Balance Start: 07/26/22 15:22 Freq: Status: Active Protocol: Document 10/11/22 18:45 [facility] (Rec: 10/12/22 18:54 [facility] [id number]) Balance Tests Single Limb Standing Single Limb- Right 17 sec Single Limb- Left 13sec PT-OP-G Mobility & Gait Start: 07/26/22 15:22 Freq: Status: Active Protocol: Document 07/26/22 15:22 [facility] (Rec: 07/26/22 17:33 [facility] [id number]) OP Gait Assessment Comments Gait Comments Pt amb w/heel strike today but overall dec push off and significant toe out and pronation. Running: slower speed and dec push off and foot clearance, head down PT-OP-J Posture/Palpation/Skin Start: 07/26/22 15:22 Freq: Status: Active Protocol: Document 07/26/22 15:22 [facility] (Rec: 07/26/22 17:33 [facility] [id number]) Posture Evaluation Comments Posture Comments Pt stands and sits w/excessive thoracic kyphosis & cervical flexion and tends to walk w/ head down. PT-OP-K Range of Motion Start: 07/26/22 15:22 Freq: Status: Active Protocol: Document 12/14/22 17:04 [facility] (Rec: 12/14/22 17:48 [facility] [id number]) Ankle and Foot Goniometric Range of Motion Ankle and Foot Right Active Dorsiflexion with Knee Flexed 3 Dorsiflexion with Knee Extended 6 Comments lacking DF to neutral in both positions; PROM inn knee ext 1 Left Active Dorsiflexion with Knee Flexed 6 Dorsiflexion with Knee Extended 15 Comments lacking DF to neutral in both positions; PROM to 12 in knee ext PT-OP-Q Treatments Start: 07/26/22 15:22 Freq: Status: Active Protocol: Document 01/25/23 17:38 (Rec: 01/25/23 18:11 [id number]) Therapeutic Exercises Standing Exercises stretch Standing Exercise Name 1.stairs 2. fwd lean gastroc SL 3. fwd lean soleus SL Side bilateral Reps/Minutes 1.45 sec 2&3.30 sec ea DF Standing Exercise Name at stairs Side bilateral Reps/Minutes 10 Comments alt Manual Therapy Treatment Soft Tissue Mobilization calf Body Location b calf and achilles Mobilization Type Rolling Intensity/Depth Moderate Comments w/passive & active DF Neuro Re-Education Treatment Balance Activities bosu Comments black side squats x10 blue side SL step ups x4 ea Coordination Activities stairs Details up lobby stairs no rail, down occ hand touch rail Equipment 10# wt B hands Reps/Duration 1x Comments cues for full foot on step and to not use rail as support Self-Care/Home Management Treatment Education Caregiver Education Donning/doffing brace for stretching. How to appropriately tighten and placement of straps. Pt and dad did most of the activity w /PT talking them through and supervision x15 min Other Education Performing exercises/stretches routinely and correctly will help with sensations of cramping over time. PT-OP-T Assessment and Plan Start: 07/26/22 15:22 Freq: Status: Active Protocol: Document 01/25/23 17:38 (Rec: 01/25/23 18:11 [id number]) Physical Therapy Assessment Assessment Summary Assessment Pt reports major cramping in RLE. She struggled donning/ doffing her stretching brace. She was able to recall and demonstrate her exercises/ stretches with cueing. Pt verbalized feelings of tightness and dsicomfort while performing them. She struggled keeping knees apart during bosu squats. Physical Therapy Plan Frequency and Duration Frequency of Treatment 1x/wk Duration of treatment (weeks) 12 Plan of Care Start Date 12/14/22 Plan of Care End Date 03/08/23 Next Visit Focus/Plan Next Note Type Treatment Note Next Visit Plan dynamic coordination activities that include DF; monster walk; 3 way balance
--- NOTE | 2023-01-25 18:15 | PT.OTN ---
Current Diagnoses Stiffness of unspecified joint, not elsewhere classified (01/25/23) Muscle weakness (generalized) (01/25/23) Other lack of coordination (01/25/23) Unspecified lack of coordination (01/25/23) Physical Therapy Treatment Note PT-OP-A Visit Information Start: 07/26/22 15:22 Freq: Status: Active Protocol: Document 01/25/23 17:38 (Rec: 01/25/23 18:11 [id number]) Out-Patient Physical Therapy Visit Information Visit Information Visit Type Treatment Note Visit Start Time 16:04 Visit Stop Time 16:46 Total Visit Minutes 42 Visit Number 18 Number of REPORTING LEAD Visits 0 PT-OP-B Current Condition Start: 07/26/22 15:22 Freq: Status: Active Protocol: Document 07/26/22 15:22 [facility] (Rec: 07/26/22 16:04 [facility] [id number]) Current Condition History of Current Condition Onset Date youth Current Complaints Dec coordination & inc falls History of Current Condition 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 Pt has bio brother that has been in PT since 4 months. Focus was on speech therapy. She didn't do any PT. She has had issues with coordination, toe walking and balance. They are noticing a problem while pt is working on driving. Recently they discovered she has low vit B 12 levels. Has eating disorder where she just eats when she feels like it and changes food preferences. She goes a couple days before seh has a good size bowel movement and has constipation and c/o lots of belly pain. She had acid reflux a lot as a kid. Pt reports she falls and trips a lot and will feel nervous going up/down big stair cases. 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 She has exercise induced asthma issues so struggles with longer distance heavy activity. Has hx of concussion w/running backwards. Pt did take dance when younger and liked them but wasn't advancing in them. Dad does report issues w/fine motor skills. Did get an eval w/OT here but was told she didn't need it. Pt reports ant B thighs cramp up and pain in mid thoracic. She has some L pec and lat region. Pt likes creative writing, theater, video creation, and video games. Pt had difficulty with balancing on a bike and went off the [place] trail and down into ditch. Treatment Goals Patient/Caregiver Goals Dec falling over and tripping; improve timing and coordination for dancing PT-OP-C Subjective Start: 07/26/22 15:22 Freq: Status: Active Protocol: Document 01/25/23 17:38 [facility] (Rec: 01/25/23 18:11 [id number]) OP-PT Subjective Patient Comments Patient Comments Pt reports cramping in RLE. The cramping woke her up early in the morning. Would like instruction on how to put on brace. Pt notes that she has not been doing her exercises and stretches reguraly. PT-OP-D Balance Start: 07/26/22 15:22 Freq: Status: Active Protocol: Document 10/11/22 18:45 [facility] (Rec: 10/12/22 18:54 [facility] [id number]) Balance Tests Single Limb Standing Single Limb- Right 17 sec Single Limb- Left 13sec PT-OP-G Mobility & Gait Start: 07/26/22 15:22 Freq: Status: Active Protocol: Document 07/26/22 15:22 [facility] (Rec: 07/26/22 17:33 [facility] [id number]) OP Gait Assessment Comments Gait Comments Pt amb w/heel strike today but overall dec push off and significant toe out and pronation. Running: slower speed and dec push off and foot clearance, head down PT-OP-J Posture/Palpation/Skin Start: 07/26/22 15:22 Freq: Status: Active Protocol: Document 07/26/22 15:22 [facility] (Rec: 07/26/22 17:33 [facility] [id number]) Posture Evaluation Comments Posture Comments Pt stands and sits w/excessive thoracic kyphosis & cervical flexion and tends to walk w/ head down. PT-OP-K Range of Motion Start: 07/26/22 15:22 Freq: Status: Active Protocol: Document 12/14/22 17:04 [facility] (Rec: 12/14/22 17:48 [facility] [id number]) Ankle and Foot Goniometric Range of Motion Ankle and Foot Right Active Dorsiflexion with Knee Flexed 3 Dorsiflexion with Knee Extended 6 Comments lacking DF to neutral in both positions; PROM inn knee ext 1 Left Active Dorsiflexion with Knee Flexed 6 Dorsiflexion with Knee Extended 15 Comments lacking DF to neutral in both positions; PROM to 12 in knee ext PT-OP-Q Treatments Start: 07/26/22 15:22 Freq: Status: Active Protocol: Document 01/25/23 17:38 (Rec: 01/25/23 18:11 [id number]) Therapeutic Exercises Standing Exercises stretch Standing Exercise Name 1.stairs 2. fwd lean gastroc SL 3. fwd lean soleus SL Side bilateral Reps/Minutes 1.45 sec 2&3.30 sec ea DF Standing Exercise Name at stairs Side bilateral Reps/Minutes 10 Comments alt Manual Therapy Treatment Soft Tissue Mobilization calf Body Location b calf and achilles Mobilization Type Rolling Intensity/Depth Moderate Comments w/passive & active DF Neuro Re-Education Treatment Balance Activities bosu Comments black side squats x10 blue side SL step ups x4 ea Coordination Activities stairs Details up lobby stairs no rail, down occ hand touch rail Equipment 10# wt B hands Reps/Duration 1x Comments cues for full foot on step and to not use rail as support Self-Care/Home Management Treatment Education Caregiver Education Donning/doffing brace for stretching. How to appropriately tighten and placement of straps. Pt and dad did most of the activity w /PT talking them through and supervision x15 min Other Education Performing exercises/stretches routinely and correctly will help with sensations of cramping over time. PT-OP-T Assessment and Plan Start: 07/26/22 15:22 Freq: Status: Active Protocol: Document 01/25/23 17:38 (Rec: 01/25/23 18:11 [id number]) Physical Therapy Assessment Assessment Summary Assessment Pt reports major cramping in RLE. She struggled donning/ doffing her stretching brace. She was able to recall and demonstrate her exercises/ stretches with cueing. Pt verbalized feelings of tightness and dsicomfort while performing them. She struggled keeping knees apart during bosu squats. Physical Therapy Plan Frequency and Duration Frequency of Treatment 1x/wk Duration of treatment (weeks) 12 Plan of Care Start Date 12/14/22 Plan of Care End Date 03/08/23 Next Visit Focus/Plan Next Note Type Treatment Note Next Visit Plan dynamic coordination activities that include DF; monster walk; 3 way balance
--- NOTE | 2023-01-25 18:40 | PT.OTN ---
Current Diagnoses Stiffness of unspecified joint, not elsewhere classified (01/25/23) Muscle weakness (generalized) (01/25/23) Other lack of coordination (01/25/23) Unspecified lack of coordination (01/25/23) Physical Therapy Treatment Note PT-OP-A Visit Information Start: 07/26/22 15:22 Freq: Status: Active Protocol: Document 01/25/23 17:38 (Rec: 01/25/23 18:11 [id number]) Out-Patient Physical Therapy Visit Information Visit Information Visit Type Treatment Note Visit Start Time 16:04 Visit Stop Time 16:46 Total Visit Minutes 42 Visit Number 18 Number of CLIENT SERVICES ACCOUNT MANAGER Visits 0 PT-OP-B Current Condition Start: 07/26/22 15:22 Freq: Status: Active Protocol: Document 07/26/22 15:22 [facility] (Rec: 07/26/22 16:04 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 Pt has bio brother that has been in PT since 4 months. Focus was on speech therapy. She didn't do any PT. She has had issues with coordination, toe walking and balance. They are noticing a problem while pt is working on driving. Recently they discovered she has low vit B 12 levels. Has eating disorder where she just eats when she feels like it and changes food preferences. She goes a couple days before seh has a good size bowel movement and has constipation and c/o lots of belly pain. She had acid reflux a lot as a kid. Pt reports she falls and trips a lot and will feel nervous going up/down big stair cases. 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 She has exercise induced asthma issues so struggles with longer distance heavy activity. Has hx of concussion w/running backwards. Pt did take dance when younger and liked them but wasn't advancing in them. Dad does report issues w/fine motor skills. Did get an eval w/OT here but was told she didn't need it. Pt reports ant B thighs cramp up and pain in mid thoracic. She has some L pec and lat region. Pt likes creative writing, theater, video creation, and video games. Pt had difficulty with balancing on a bike and went off the [place] trail and down into ditch. Treatment Goals Patient/Caregiver Goals Dec falling over and tripping; improve timing and coordination for dancing PT-OP-C Subjective Start: 07/26/22 15:22 Freq: Status: Active Protocol: Document 01/25/23 17:38 [facility] (Rec: 01/25/23 18:11 [id number]) OP-PT Subjective Patient Comments Patient Comments Pt reports cramping in RLE. The cramping woke her up early in the morning. Would like instruction on how to put on brace. Pt notes that she has not been doing her exercises and stretches reguraly. PT-OP-D Balance Start: 07/26/22 15:22 Freq: Status: Active Protocol: Document 10/11/22 18:45 [facility] (Rec: 10/12/22 18:54 [facility] [id number]) Balance Tests Single Limb Standing Single Limb- Right 17 sec Single Limb- Left 13sec PT-OP-G Mobility & Gait Start: 07/26/22 15:22 Freq: Status: Active Protocol: Document 07/26/22 15:22 [facility] (Rec: 07/26/22 17:33 [facility] [id number]) OP Gait Assessment Comments Gait Comments Pt amb w/heel strike today but overall dec push off and significant toe out and pronation. Running: slower speed and dec push off and foot clearance, head down PT-OP-J Posture/Palpation/Skin Start: 07/26/22 15:22 Freq: Status: Active Protocol: Document 07/26/22 15:22 [facility] (Rec: 07/26/22 17:33 [facility] [id number]) Posture Evaluation Comments Posture Comments Pt stands and sits w/excessive thoracic kyphosis & cervical flexion and tends to walk w/ head down. PT-OP-K Range of Motion Start: 07/26/22 15:22 Freq: Status: Active Protocol: Document 12/14/22 17:04 [facility] (Rec: 12/14/22 17:48 [facility] [id number]) Ankle and Foot Goniometric Range of Motion Ankle and Foot Right Active Dorsiflexion with Knee Flexed 3 Dorsiflexion with Knee Extended 6 Comments lacking DF to neutral in both positions; PROM inn knee ext 1 Left Active Dorsiflexion with Knee Flexed 6 Dorsiflexion with Knee Extended 15 Comments lacking DF to neutral in both positions; PROM to 12 in knee ext PT-OP-Q Treatments Start: 07/26/22 15:22 Freq: Status: Active Protocol: Document 01/25/23 17:38 (Rec: 01/25/23 18:11 [id number]) Therapeutic Exercises Standing Exercises stretch Standing Exercise Name 1.stairs 2. fwd lean gastroc SL 3. fwd lean soleus SL Side bilateral Reps/Minutes 1.45 sec 2&3.30 sec ea DF Standing Exercise Name at stairs Side bilateral Reps/Minutes 10 Comments alt Manual Therapy Treatment Soft Tissue Mobilization calf Body Location b calf and achilles Mobilization Type Rolling Intensity/Depth Moderate Comments w/passive & active DF Neuro Re-Education Treatment Balance Activities bosu Comments black side squats x10 blue side SL step ups x4 ea Coordination Activities stairs Details up lobby stairs no rail, down occ hand touch rail Equipment 10# wt B hands Reps/Duration 1x Comments cues for full foot on step and to not use rail as support Self-Care/Home Management Treatment Education Caregiver Education Donning/doffing brace for stretching. How to appropriately tighten and placement of straps. Pt and dad did most of the activity w /PT talking them through and supervision x15 min Other Education Performing exercises/stretches routinely and correctly will help with sensations of cramping over time. PT-OP-T Assessment and Plan Start: 07/26/22 15:22 Freq: Status: Active Protocol: Document 01/25/23 17:38 (Rec: 01/25/23 18:11 [id number]) Physical Therapy Assessment Assessment Summary Assessment Pt reports major cramping in RLE. She struggled donning/ doffing her stretching brace. She was able to recall and demonstrate her exercises/ stretches with cueing. Pt verbalized feelings of tightness and dsicomfort while performing them. She struggled keeping knees apart during bosu squats. Physical Therapy Plan Frequency and Duration Frequency of Treatment 1x/wk Duration of treatment (weeks) 12 Plan of Care Start Date 12/14/22 Plan of Care End Date 03/08/23 Next Visit Focus/Plan Next Note Type Treatment Note Next Visit Plan dynamic coordination activities that include DF; monster walk; 3 way balance
--- NOTE | 2023-02-02 18:09 | PT.OTN ---
Addendum entered and electronically signed by Annabelle Cooper, PT 02/02/23 18:17: PT direct supervision to PT student. Original Note: Current Diagnoses Stiffness of unspecified joint, not elsewhere classified (02/02/23) Muscle weakness (generalized) (02/02/23) Other lack of coordination (02/02/23) Unspecified lack of coordination (02/02/23) Physical Therapy Treatment Note PT-OP-A Visit Information Start: 07/26/22 15:22 Freq: Status: Active Protocol: Document 02/02/23 14:24 (Rec: 02/02/23 14:38 [id number]) Out-Patient Physical Therapy Visit Information Visit Information Visit Type Treatment Note Visit Start Time 11:33 Visit Stop Time 12:16 Total Visit Minutes 43 Visit Number 19 Number of DESULPHURIZER OPERATOR Visits 0 PT-OP-B Current Condition Start: 07/26/22 15:22 Freq: Status: Active Protocol: Document 07/26/22 15:22 [facility] (Rec: 07/26/22 16:04 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 Pt has bio brother that has been in PT since 4 months. Focus was on speech therapy. She didn't do any PT. She has had issues with coordination, toe walking and balance. They are noticing a problem while pt is working on driving. Recently they discovered she has low vit B 12 levels. Has eating disorder where she just eats when she feels like it and changes food preferences. She goes a couple days before h has a good size bowel movement and has constipation and c/o lots of belly pain. She had acid reflux a lot as a kid. Pt reports she falls and trips a lot and will feel nervous going up/down big stair cases. 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 She has exercise induced asthma issues so struggles with longer distance heavy activity. Has hx of concussion w/running backwards. Pt did take dance when younger and liked them but wasn't advancing in them. Dad does report issues w/fine motor skills. Did get an eval w/OT here but was told she didn't need it. Pt reports ant B thighs cramp up and pain in mid thoracic. She has some L pec and lat region. Pt likes creative writing, theater, video creation, and video games. Pt had difficulty with balancing on a bike and went off the [place] trail and down into ditch. Treatment Goals Patient/Caregiver Goals Dec falling over and tripping; improve timing and coordination for dancing PT-OP-C Subjective Start: 07/26/22 15:22 Freq: Status: Active Protocol: Document 02/02/23 14:24 (Rec: 02/02/23 14:38 [id number]) OP-PT Subjective Patient Comments Patient Comments Pt notes that they did not do any stretching. Cramping still wakes them up in the night. PT-OP-D Balance Start: 07/26/22 15:22 Freq: Status: Active Protocol: Document 10/11/22 18:45 [facility] (Rec: 10/12/22 18:54 [facility] [id number]) Balance Tests Single Limb Standing Single Limb- Right 17 sec Single Limb- Left 13sec PT-OP-G Mobility & Gait Start: 07/26/22 15:22 Freq: Status: Active Protocol: Document 07/26/22 15:22 [facility] (Rec: 07/26/22 17:33 [facility] [id number]) OP Gait Assessment Comments Gait Comments Pt amb w/heel strike today but overall dec push off and significant toe out and pronation. Running: slower speed and dec push off and foot clearance, head down PT-OP-J Posture/Palpation/Skin Start: 07/26/22 15:22 Freq: Status: Active Protocol: Document 07/26/22 15:22 [facility] (Rec: 07/26/22 17:33 [facility] [id number]) Posture Evaluation Comments Posture Comments Pt stands and sits w/excessive thoracic kyphosis & cervical flexion and tends to walk w/ head down. PT-OP-K Range of Motion Start: 07/26/22 15:22 Freq: Status: Active Protocol: Document 12/14/22 17:04 [facility] (Rec: 12/14/22 17:48 [facility] [id number]) Ankle and Foot Goniometric Range of Motion Ankle and Foot Right Active Dorsiflexion with Knee Flexed 3 Dorsiflexion with Knee Extended 6 Comments lacking DF to neutral in both positions; PROM inn knee ext 1 Left Active Dorsiflexion with Knee Flexed 6 Dorsiflexion with Knee Extended 15 Comments lacking DF to neutral in both positions; PROM to 12 in knee ext PT-OP-Q Treatments Start: 07/26/22 15:22 Freq: Status: Active Protocol: Document 02/02/23 14:24 (Rec: 02/02/23 14:38 [id number]) Gym Equipment Therapeutic Ball seated Ball Size/Color Green yoga ball Comments alt DF then october x6 B to grab mota bag then throw mota bag at hoop Therapeutic Exercises Standing Exercises stretch Standing Exercise Name 1.stairs 2. fwd lean gastroc SL 3. fwd lean soleus SL Side bilateral Reps/Minutes 1.2x30 sec 2&3 2x30 sec ea DF Standing Exercise Name at stairs Side bilateral Reps/Minutes 12x Comments alt Manual Therapy Treatment Soft Tissue Mobilization calf Body Location b calf and achilles Mobilization Type Rolling Intensity/Depth Moderate Comments w/passive & active DF Joint Mobilizations calcaneus Joint R & L distraction FM Neuro Re-Education Treatment Balance Activities bosu Comments black side squats x10 blue side:SL step ups, step on and over, side step on and over x4 ea tilt board Comments fwd & side facing board: working on trunk control and posture. Practicing wt shifting fwd/back and side/ side [ End ] Coordination Activities stairs Details up lobby stairs no rail, down occ hand touch rail Equipment 10# wt B hands Reps/Duration 1x Comments cues for full foot on step going up and down PT-OP-T Assessment and Plan Start: 07/26/22 15:22 Freq: Status: Active Protocol: Document 02/02/23 14:24 (Rec: 02/02/23 14:38 [id number]) Physical Therapy Assessment Goals stairs Intermediate Goal (LTG) Pt will be able to reciprocate up/down stairs w/wt in hand ( like groceries) safely w/o rail. 12/14-pt able to but does occ have to step to catch her balance or lean against rail LTG Duration 03/08 coordination Short Term Goal (STG) Pt will be able to walk line fwd tandem w/o stepping off at least 20 ft. 10/12-18ft STG Duration achieved 12/14 Intermediate Goal (LTG) Pt will be able to walk line backwards tandem w/o stepping off at least 15 ft. LTG Duration achieved 10/11 pain Rubber Compounder Mixer Goal (LTG) Pt will report a 75% reduction in abdomen, thigh pain and thoracic pain. 10/11-no change 12/14-dad reports about 30% fewer complaints LTG Duration 03/06 ROM Short Term Goal (STG) Pt will have B DF to neutral in knee flexed position 10/12-improved on L but still limited 12/14-improved but still limited STG Duration 01/19 Intermediate Goal (LTG) Pt will have B DF to at least 5 deg in knee ext and flexed positon to improve pt's ability to drive and imrpove 10/12-improved on L but still limited LTG Duration 03/08 balance Short Term Goal (STG) Pt will be able to do SLS for at least 12 sec B STG Duration achieved 10/11 Intermediate Goal (LTG) Pt will be able to SLS for at least 30 sec B to show improved stability 10/12-improved 12/14-22 sec L; 23 sec R LTG Duration 03/08 Assessment Summary Assessment Pt reports that they are still getting cramping in B leg at night. She sleeps with a massage tool at night for relief. She was able to demonstrate exercises and stretches but needed cueing for posture and trunk control. She was able to go up and down the stairs with #10 today without leaning on the rail. Physical Therapy Plan Frequency and Duration Frequency of Treatment 1x/wk Duration of treatment (weeks) 12 Plan of Care Start Date 12/14/22 Plan of Care End Date 03/08/23 Next Visit Focus/Plan Next Note Type Treatment Note Next Visit Plan dynamic coordination activities monster walk; 3 way balance to challenge DF and coordination.
--- NOTE | 2023-02-09 17:09 | PT.OTN ---
Addendum entered and electronically signed by Annabelle Cooper, PT 02/09/23 17:33: PT direct supervision and direction to PT student. Original Note: Current Diagnoses Stiffness of unspecified joint, not elsewhere classified (02/09/23) Muscle weakness (generalized) (02/09/23) Other lack of coordination (02/09/23) Unspecified lack of coordination (02/09/23) Physical Therapy Treatment Note PT-OP-A Visit Information Start: 07/26/22 15:22 Freq: Status: Active Protocol: Document 02/09/23 12:43 (Rec: 02/09/23 12:59 [id number]) Out-Patient Physical Therapy Visit Information Visit Information Visit Type Treatment Note Visit Start Time 11:33 Visit Stop Time 12:15 Total Visit Minutes 42 Visit Number 20 Number of METEOROLOGICAL OBSERVER Visits 0 PT-OP-B Current Condition Start: 07/26/22 15:22 Freq: Status: Active Protocol: Document 07/26/22 15:22 [facility] (Rec: 07/26/22 16:04 [facility] [id number]) Current Condition History of Current Condition Onset Date youth Current Complaints Dec coordination & inc falls History of Current Condition 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 Pt has bio brother that has been in PT since 4 months. Focus was on speech therapy. She didn't do any PT. She has had issues with coordination, toe walking and balance. They are noticing a problem while pt is working on driving. Recently they discovered she has low vit B 12 levels. Has eating disorder where she just eats when she feels like it and changes food preferences. She goes a couple days before h has a good size bowel movement and has constipation and c/o lots of belly pain. She had acid reflux a lot as a kid. Pt reports she falls and trips a lot and will feel nervous going up/down big stair cases. 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 She has exercise induced asthma issues so struggles with longer distance heavy activity. Has hx of concussion w/running backwards. Pt did take dance when younger and liked them but wasn't advancing in them. Dad does report issues w/fine motor skills. Did get an eval w/OT here but was told she didn't need it. Pt reports ant B thighs cramp up and pain in mid thoracic. She has some L pec and lat region. Pt likes creative writing, theater, video creation, and video games. Pt had difficulty with balancing on a bike and went off the [place] and down into ditch. Treatment Goals Patient/Caregiver Goals Dec falling over and tripping; improve timing and coordination for dancing PT-OP-C Subjective Start: 07/26/22 15:22 Freq: Status: Active Protocol: Document 02/09/23 12:43 (Rec: 02/09/23 12:59 [id number]) OP-PT Subjective Patient Comments Patient Comments Pt did not do exercises at home. PT-OP-D Balance Start: 07/26/22 15:22 Freq: Status: Active Protocol: Document 10/11/22 18:45 [facility] (Rec: 10/12/22 18:54 [facility] [id number]) Balance Tests Single Limb Standing Single Limb- Right 17 sec Single Limb- Left 13sec PT-OP-G Mobility & Gait Start: 07/26/22 15:22 Freq: Status: Active Protocol: Document 07/26/22 15:22 [facility] (Rec: 07/26/22 17:33 [facility] [id number]) OP Gait Assessment Comments Gait Comments Pt amb w/heel strike today but overall dec push off and significant toe out and pronation. Running: slower speed and dec push off and foot clearance, head down PT-OP-J Posture/Palpation/Skin Start: 07/26/22 15:22 Freq: Status: Active Protocol: Document 07/26/22 15:22 [facility] (Rec: 07/26/22 17:33 [facility] [id number]) Posture Evaluation Comments Posture Comments Pt stands and sits w/excessive thoracic kyphosis & cervical flexion and tends to walk w/ head down. PT-OP-K Range of Motion Start: 07/26/22 15:22 Freq: Status: Active Protocol: Document 12/14/22 17:04 [facility] (Rec: 12/14/22 17:48 [facility] [id number]) Ankle and Foot Goniometric Range of Motion Ankle and Foot Right Active Dorsiflexion with Knee Flexed 3 Dorsiflexion with Knee Extended 6 Comments lacking DF to neutral in both positions; PROM inn knee ext 1 Left Active Dorsiflexion with Knee Flexed 6 Dorsiflexion with Knee Extended 15 Comments lacking DF to neutral in both positions; PROM to 12 in knee ext PT-OP-Q Treatments Start: 07/26/22 15:22 Freq: Status: Active Protocol: Document 02/09/23 12:43 (Rec: 02/09/23 12:59 [id number]) Therapeutic Exercises Standing Exercises Band walks Standing Exercise Name lateral side step and monster walks Resistance blue band Reps/Minutes 2x20ft ea Comments cues for feet position, dont drag feet, and posture DARRON Standing Exercise Name while doing balloon toss Side bilateral Reps/Minutes 2x 1 min stretch Standing Exercise Name 1.stairs 2. fwd lean gastroc SL 3. fwd lean soleus SL Side bilateral Reps/Minutes 1.2x30 sec &3 2x30 sec ea Manual Therapy Treatment Soft Tissue Mobilization calf Body Location b calf and achilles Mobilization Type Rolling Intensity/Depth Moderate Comments w/passive & active DF Neuro Re-Education Treatment Balance Activities 3 way balance Equipment 3 foam rollers as targets Reps/Duration 15x ea Comments tandem stance reaching 3 different directions bosu Comments black side squats x10 Coordination Activities stairs Details up lobby stairs no rail, down occ hand touch rail Equipment 10# wt B hands Reps/Duration 1x Comments cues for full foot on step going up and down PT-OP-T Assessment and Plan Start: 07/26/22 15:22 Freq: Status: Active Protocol: Document 02/09/23 12:43 (Rec: 02/09/23 12:59 [id number]) Physical Therapy Assessment Goals stairs Care Home Goal (LTG) Pt will be able to reciprocate up/down stairs w/wt in hand ( like groceries) safely w/o rail. 12/14-pt able to but does occ have to step to catch her balance or lean against rail LTG Duration 03/08 coordination Short Term Goal (STG) Pt will be able to walk line fwd tandem w/o stepping off at least 20 ft. 10/12-18ft STG Duration achieved 12/14 Care Home Goal (LTG) Pt will be able to walk line backwards tandem w/o stepping off at least 15 ft. LTG Duration achieved 10/11 pain Care Home Goal (LTG) Pt will report a 75% reduction in abdomen, thigh pain and thoracic pain. 10/11-no change 12/14-dad reports about 30% fewer complaints LTG Duration 03/06 ROM Short Term Goal (STG) Pt will have B DF to neutral in knee flexed position 10/12-improved on L but still limited 12/14-improved but still limited STG Duration 01/19 Roof Truss Machine Tender Goal (LTG) Pt will have B DF to at least 5 deg in knee ext and flexed positon to improve pt's ability to drive and imrpove 10/12-improved on L but still limited LTG Duration 03/08 balance Short Term Goal (STG) Pt will be able to do SLS for at least 12 sec B STG Duration achieved 10/11 Care Home Goal (LTG) Pt will be able to SLS for at least 30 sec B to show improved stability 10/12-improved 12/14-22 sec L; 23 sec R LTG Duration 03/08 Assessment Summary Assessment Pt reports that they are still experiencing cramping. She was able to do her stretches without cuing. New balance exercises were challenging. banded lateral side steps and monster walks required cueing and encouragement. Going up and down stairs today required less cuing and she was able to complete it without leaning into the rail. Physical Therapy Plan Frequency and Duration Frequency of Treatment 1x/wk Duration of treatment (weeks) 12 Plan of Care Start Date 12/14/22 Plan of Care End Date 03/08/23 Next Visit Focus/Plan Next Note Type Treatment Note Next Visit Plan incorporate more dynamic coordination activities; review HEP, banded side steps and monster walks, and 3 way balance
--- NOTE | 2023-02-23 17:24 | PT.OTN ---
Addendum entered and electronically signed by Annabelle Cooper, PT 02/27/23 07:56: PT direct supervision and direction to PT student. Original Note: Current Diagnoses Stiffness of unspecified joint, not elsewhere classified (02/23/23) Muscle weakness (generalized) (02/23/23) Other lack of coordination (02/23/23) Unspecified lack of coordination (02/23/23) Physical Therapy Treatment Note PT-OP-A Visit Information Start: 07/26/22 15:22 Freq: Status: Active Protocol: Document 02/23/23 13:41 (Rec: 02/23/23 14:14 [id number]) Out-Patient Physical Therapy Visit Information Visit Information Visit Type Progress Note Visit Start Time 11:35 Visit Stop Time 12:18 Total Visit Minutes 43 Visit Number 21 Number of BOILER CONTROL TECHNICIAN Visits 0 PT-OP-B Current Condition Start: 07/26/22 15:22 Freq: Status: Active Protocol: Document 07/26/22 15:22 [facility] (Rec: 07/26/22 16:04 [facility] [id number]) Current Condition History of Current Condition Onset Date youth Current Complaints Dec coordination & inc falls History of Current Condition 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 Pt has bio brother that has been in PT since 4 months. Focus was on speech therapy. She didn't do any PT. She has had issues with coordination, toe walking and balance. They are noticing a problem while pt is working on driving. Recently they discovered she has low vit B 12 levels. Has eating disorder where she just eats when she feels like it and changes food preferences. She goes a couple days before h has a good size bowel movement and has constipation and c/o lots of belly pain. She had acid reflux a lot as a kid. Pt reports she falls and trips a lot and will feel nervous going up/down big stair cases. 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 She has exercise induced asthma issues so struggles with longer distance heavy activity. Has hx of concussion w/running backwards. Pt did take dance when younger and liked them but wasn't advancing in them. Dad does report issues w/fine motor skills. Did get an eval w/OT here but was told she didn't need it. Pt reports ant B thighs cramp up and pain in mid thoracic. She has some L pec and lat region. Pt likes creative writing, theater, video creation, and video games. Pt had difficulty with balancing on a bike and went off the [place] trail and down into ditch. Treatment Goals Patient/Caregiver Goals Dec falling over and tripping; improve timing and coordination for dancing PT-OP-C Subjective Start: 07/26/22 15:22 Freq: Status: Active Protocol: Document 02/23/23 13:41 (Rec: 02/23/23 14:14 [id number]) OP-PT Subjective Patient Comments Patient Comments Pt fell asleep in the sun at camp and got a sunburn all over her body. Pt not doing exercises or HEP routinely. PT-OP-D Balance Start: 07/26/22 15:22 Freq: Status: Active Protocol: Document 10/11/22 18:45 [facility] (Rec: 10/12/22 18:54 [facility] [id number]) Balance Tests Single Limb Standing Single Limb- Right 17 sec Single Limb- Left 13sec PT-OP-G Mobility & Gait Start: 07/26/22 15:22 Freq: Status: Active Protocol: Document 07/26/22 15:22 [facility] (Rec: 07/26/22 17:33 [facility] [id number]) OP Gait Assessment Comments Gait Comments Pt amb w/heel strike today but overall dec push off and significant toe out and pronation. Running: slower speed and dec push off and foot clearance, head down PT-OP-J Posture/Palpation/Skin Start: 07/26/22 15:22 Freq: Status: Active Protocol: Document 07/26/22 15:22 [facility] (Rec: 07/26/22 17:33 [facility] [id number]) Posture Evaluation Comments Posture Comments Pt stands and sits w/excessive thoracic kyphosis & cervical flexion and tends to walk w/ head down. PT-OP-K Range of Motion Start: 07/26/22 15:22 Freq: Status: Active Protocol: Document 02/23/23 13:41 (Rec: 02/23/23 16:27 [id number]) Ankle and Foot Goniometric Range of Motion Ankle and Foot Right Active Dorsiflexion with Knee Flexed 3 Dorsiflexion with Knee Extended 5 Comments lacking DF to neutral in both positions Left Active Dorsiflexion with Knee Flexed 5 Dorsiflexion with Knee Extended 9 Comments lacking DF in both directions PT-OP-Q Treatments Start: 07/26/22 15:22 Freq: Status: Active Protocol: Document 02/23/23 13:41 (Rec: 02/23/23 14:14 [id number]) Cardio Equipment Treadmill Duration (Minutes) 8 Speed 1.5 Incline 1.0 Other speed- 1.5 for 4 min/2 for 4min. Therapeutic Exercises Standing Exercises Band walks Standing Exercise Name lateral side step and monster walks Side bilateral Resistance blue band Reps/Minutes 2x20ft ea Comments cues for feet position, dont drag feet, and posture DARRON Side bilateral Reps/Minutes 2x 1 min stretch Standing Exercise Name 1.stairs 2. fwd lean gastroc SL 3. fwd lean soleus SL Side bilateral Reps/Minutes 1.2x30 sec ea DF Standing Exercise Name at stairs Side bilateral Reps/Minutes 12x Comments alt Neuro Re-Education Treatment Balance Activities SLS Details standing on one leg Comments 30 sec ea bosu Comments black side squats x10 Coordination Activities stairs Details up lobby stairs no rail, down occ hand touch rail Equipment 10# wt B hands Reps/Duration 1x Comments cues for full foot on step going up and down PT-OP-T Assessment and Plan Start: 07/26/22 15:22 Freq: Status: Active Protocol: Document 02/23/23 13:41 (Rec: 02/23/23 14:14 [id number]) Physical Therapy Assessment Goals walking Short Term Goal (STG) pt elvira be able to walk 3 blocks so that they can walk to class on campus w/out increased pain STG Duration 04/09/23 Planning Engineer Goal (LTG) Pt will be able to walk at least 1/2 mile with weight to simualte a backapack so that they can walk to classes on campus w/out increased pain. LTG Duration 05/18/23 stairs Care Home Goal (LTG) Pt will be able to reciprocate up/down stairs w/wt in hand ( like groceries) safely w/o rail. 12/14-pt able to but does occ have to step to catch her balance or lean against rail 02/23/23- pt able to walk up/ down stairs with 10# no rail assistance LTG Duration achieved 02/23/23 coordination Short Term Goal (STG) Pt will be able to walk line fwd tandem w/o stepping off at least 20 ft. 10/12-18ft STG Duration achieved 12/14 Planning Engineer Goal (LTG) Pt will be able to walk line backwards tandem w/o stepping off at least 15 ft. LTG Duration achieved 10/11 pain Care Home Goal (LTG) Pt will report a 75% reduction in abdomen, thigh pain and thoracic pain. 10/11-no change 12/14-dad reports about 30% fewer complaints 02/23/23- pt reports that she only gets abdominal pain if someone touches it. She reports no thigh or thoracic pain. LTG Duration achieved 02/23/23 ROM Short Term Goal (STG) Pt will have B DF to neutral in knee flexed position 10/12-improved on L but still limited 12/14-improved but still limited STG Duration 04/09/23 Care Home Goal (LTG) Pt will have B DF to at least 5 deg in knee ext and flexed positon to improve pt's ability to drive and imrpove 10/12-improved on L but still limited LTG Duration 05/18/23 balance Short Term Goal (STG) Pt will be able to do SLS for at least 12 sec B STG Duration achieved 10/11 Planning Engineer Goal (LTG) Pt will be able to SLS for at least 30 sec B to show improved stability 10/12-improved 12/14-22 sec L; 23 sec R 02/23/23- 25sec L, 23 sec R LTG Duration 05/18/23 Assessment Summary Assessment Pt has an intense sunburn on their body from falling asleep in the sun manual was not done today. Pt has shown improvement in thier ability to carry wt up and down stairs without the need of support. She still is still unstable with balance activities. She still lacks dorsifelxion in bilateral ankles. 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 Physical Therapy Plan Frequency and Duration Frequency of Treatment 1x/wk Duration of treatment (weeks) 12 Plan of Care Start Date 02/23/23 Plan of Care End Date 05/18/23 Therapeutic Interventions Therapeutic Interventions Aquatic Therapy,Balance Training,Coordination Training ,Gait Training,Home Exercise Program,Joint Mobilizations, Manual Therapy,Neuromuscular Re-education,Orthotic/ Prosthetic Management,Patient/ Caregiver Education,Self-Care/ Home Management,Sensory Integration,Soft Tissue Mobilization,Taping, Therapeutic Activities, Therapeutic Exercises Modalities Cold Pack/Ice Massage,Electric Stimulation,Hot Packs Next Visit Focus/Plan Next Note Type Treatment Note Next Visit Plan incorporate more dynamic coordination activities; review HEP, banded side steps and monster walks. incorporate more treadmill for strength/ endurance activities.
--- NOTE | 2023-02-23 17:25 | PT.OPPOC ---
Physical, Occupational & Speech Therapy At [facility] Current Diagnoses Stiffness of unspecified joint, not elsewhere classified (02/23/23) Muscle weakness (generalized) (02/23/23) Other lack of coordination (02/23/23) Unspecified lack of coordination (02/23/23) Visit Care Team Role Provider Type Risa Drake DO Attending Provider Physician Family Provider Primary Care Provider Referring Provider Specialty: Pediatrics Address: [address] [place] [address], [id number] Email: Plan Of Care PT-OP-T Assessment and Plan Start: 07/26/22 15:22 Freq: Status: Active Protocol: Document 02/23/23 13:41 (Rec: 02/23/23 14:14 [id number]) Physical Therapy Assessment Goals walking Short Term Goal (STG) pt elvira be able to walk 3 blocks so that they can walk to class on campus w/out increased pain STG Duration 04/09/23 Longterm Goal (LTG) Pt will be able to walk at least 1/2 mile with weight to simualte a backapack so that they can walk to classes on campus w/out increased pain. LTG Duration 05/18/23 stairs Sander And Buffer Goal (LTG) Pt will be able to reciprocate up/down stairs w/wt in hand ( like groceries) safely w/o rail. 12/14-pt able to but does occ have to step to catch her balance or lean against rail 02/23/23- pt able to walk up/ down stairs with 10# no rail assistance LTG Duration achieved 02/23/23 coordination Short Term Goal (STG) Pt will be able to walk line fwd tandem w/o stepping off at least 20 ft. 10/12-18ft STG Duration achieved 12/14 Longterm Goal (LTG) Pt will be able to walk line backwards tandem w/o stepping off at least 15 ft. LTG Duration achieved 10/11 pain Longterm Goal (LTG) Pt will report a 75% reduction in abdomen, thigh pain and thoracic pain. 10/11-no change 12/14-dad reports about 30% fewer complaints 02/23/23- pt reports that she only gets abdominal pain if someone touches it. She reports no thigh or thoracic pain. LTG Duration achieved 02/23/23 ROM Short Term Goal (STG) Pt will have B DF to neutral in knee flexed position 10/12-improved on L but still limited 12/14-improved but still limited STG Duration 04/09/23 Longterm Goal (LTG) Pt will have B DF to at least 5 deg in knee ext and flexed positon to improve pt's ability to drive and imrpove 10/12-improved on L but still limited LTG Duration 05/18/23 balance Short Term Goal (STG) Pt will be able to do SLS for at least 12 sec B STG Duration achieved 10/11 Longterm Goal (LTG) Pt will be able to SLS for at least 30 sec B to show improved stability 10/12-improved 12/14-22 sec L; 23 sec R 02/23/23- 25sec L, 23 sec R LTG Duration 05/18/23 Assessment Summary Assessment Pt has an intense sunburn on their body from falling asleep in the sun manual was not done today. Pt has shown improvement in thier ability to carry wt up and down stairs without the need of support. She still is still unstable with balance activities. She still lacks dorsifelxion in bilateral ankles. 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 Physical Therapy Plan Frequency and Duration Frequency of Treatment 1x/wk Duration of treatment (weeks) 12 Plan of Care Start Date 02/23/23 Plan of Care End Date 05/18/23 Therapeutic Interventions Therapeutic Interventions Aquatic Therapy,Balance Training,Coordination Training ,Gait Training,Home Exercise Program,Joint Mobilizations, Manual Therapy,Neuromuscular Re-education,Orthotic/ Prosthetic Management,Patient/ Caregiver Education,Self-Care/ Home Management,Sensory Integration,Soft Tissue Mobilization,Taping, Therapeutic Activities, Therapeutic Exercises Modalities Cold Pack/Ice Massage,Electric Stimulation,Hot Packs Next Visit Focus/Plan Next Note Type Treatment Note Next Visit Plan incorporate more dynamic coordination activities; review HEP, banded side steps and monster walks. incorporate more treadmill for strength/ endurance activities. Plan of Care Dates Plan of Care Start Date 02/23/23 Plan of Care End Date 05/18/23 Electronically Signed by: Annabelle Cooper, PT 02/23/23 2548 If you are in agreement with this Plan of Care, please return a signed and dated copy. I have reviewed this Plan of Care and certify that the skilled therapy services above are required to meet the patient?s needs. Physician Signature Date Printed Name and Credentials Clinical Instructor Signature Printed Name and Credentials
--- NOTE | 2023-03-02 17:59 | PT.OTN ---
Addendum entered and electronically signed by Annabelle Cooper, PT 03/02/23 18:06: PT direct supervision and direction to PT student. Original Note: Current Diagnoses Stiffness of unspecified joint, not elsewhere classified (03/02/23) Muscle weakness (generalized) (03/02/23) Other lack of coordination (03/02/23) Unspecified lack of coordination (03/02/23) Physical Therapy Treatment Note PT-OP-A Visit Information Start: 07/26/22 15:22 Freq: Status: Active Protocol: Document 03/02/23 11:29 (Rec: 03/02/23 12:23 [id number]) Out-Patient Physical Therapy Visit Information Visit Information Visit Type Treatment Note Visit Start Time 11:31 Visit Stop Time 12:15 Total Visit Minutes 44 Visit Number 22 Number of PRACTICAL NURSING TEACHER Visits 0 PT-OP-B Current Condition Start: 07/26/22 15:22 Freq: Status: Active Protocol: Document 07/26/22 15:22 [facility] (Rec: 07/26/22 16:04 [facility] [id number]) Current Condition History of Current Condition Onset Date youth Current Complaints Dec coordination & inc falls History of Current Condition 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 Pt has bio brother that has been in PT since 4 months. Focus was on speech therapy. She didn't do any PT. She has had issues with coordination, toe walking and balance. They are noticing a problem while pt is working on driving. Recently they discovered she has low vit B 12 levels. Has eating disorder where she just eats when she feels like it and changes food preferences. She goes a couple days before h has a good size bowel movement and has constipation and c/o lots of belly pain. She had acid reflux a lot as a kid. Pt reports she falls and trips a lot and will feel nervous going up/down big stair cases. 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 She has exercise induced asthma issues so struggles with longer distance heavy activity. Has hx of concussion w/running backwards. Pt did take dance when younger and liked them but wasn't advancing in them. Dad does report issues w/fine motor skills. Did get an eval w/OT here but was told she didn't need it. Pt reports ant B thighs cramp up and pain in mid thoracic. She has some L pec and lat region. Pt likes creative writing, theater, video creation, and video games. Pt had difficulty with balancing on a bike and went off the [place] trail and down into ditch. Treatment Goals Patient/Caregiver Goals Dec falling over and tripping; improve timing and coordination for dancing PT-OP-C Subjective Start: 07/26/22 15:22 Freq: Status: Active Protocol: Document 03/02/23 11:29 [facility] (Rec: 03/02/23 12:23 [id number]) OP-PT Subjective Patient Comments Patient Comments pt has nothing new to report. She has not been doing her HEP and did not go for a walk. PT-OP-D Balance Start: 07/26/22 15:22 Freq: Status: Active Protocol: Document 10/11/22 18:45 [facility] (Rec: 10/12/22 18:54 [facility] [id number]) Balance Tests Single Limb Standing Single Limb- Right 17 sec Single Limb- Left 13sec PT-OP-G Mobility & Gait Start: 07/26/22 15:22 Freq: Status: Active Protocol: Document 07/26/22 15:22 [facility] (Rec: 07/26/22 17:33 [facility] [id number]) OP Gait Assessment Comments Gait Comments Pt amb w/heel strike today but overall dec push off and significant toe out and pronation. Running: slower speed and dec push off and foot clearance, head down PT-OP-J Posture/Palpation/Skin Start: 07/26/22 15:22 Freq: Status: Active Protocol: Document 07/26/22 15:22 [facility] (Rec: 07/26/22 17:33 [facility] [id number]) Posture Evaluation Comments Posture Comments Pt stands and sits w/excessive thoracic kyphosis & cervical flexion and tends to walk w/ head down. PT-OP-K Range of Motion Start: 07/26/22 15:22 Freq: Status: Active Protocol: Document 02/23/23 13:41 [facility] (Rec: 02/23/23 16:27 [id number]) Ankle and Foot Goniometric Range of Motion Ankle and Foot Right Active Dorsiflexion with Knee Flexed 3 Dorsiflexion with Knee Extended 5 Comments lacking DF to neutral in both positions Left Active Dorsiflexion with Knee Flexed 5 Dorsiflexion with Knee Extended 9 Comments lacking DF in both directions PT-OP-Q Treatments Start: 07/26/22 15:22 Freq: Status: Active Protocol: Document 03/02/23 11:29 (Rec: 03/02/23 12:23 [id number]) Cardio Equipment Treadmill Duration (Minutes) 8 Speed 1.5 Incline 1.0 Other speed 2 for 5 min/ 1.5 for 3min Therapeutic Exercises Standing Exercises Step ups Standing Exercise Name step ups with with high knee, 5 second hold w/ ext support. Equipment Used 8 box Reps/Minutes 10x Comments ext support and LINE HAUL TRUCK DRIVER as needed. max cues for posture and head positioning Drinking Birds Standing Exercise Name Standing drinking birds w/ support. Small dips. Side bilateral Reps/Minutes 10x Comments max cues for posture and body position Band walks Standing Exercise Name lateral side step and monster walks Side bilateral Resistance blue band Reps/Minutes 2x20ft ea Comments cues for feet position, dont drag feet, and posture DARRON Side bilateral Reps/Minutes 2x 1 min stretch Standing Exercise Name seated HS stretch Side bilateral Reps/Minutes 2x 30 sec DF Standing Exercise Name seated w/ 2# ankle wts to lift mota bags Side bilateral Reps/Minutes 18x Comments alt Neuro Re-Education Treatment Balance Activities SLS Details standing on one leg w/ half moons Comments 30 sec ea x2 Coordination Activities stairs Details No rails encouraged Equipment 10# wt B hands, #2 ankle wts Reps/Duration 1x Comments 1. only ankle wts up down stairs in clinic 4 & 6. x4 2. ankle wts & 10# B hands wtsup down stairs in clinic 4 & 6. x4 3.ankle wts and 10# B hands stairs in lobby cues for full foot on step going up and down. Pt needed more encouragement stepping down PT-OP-T Assessment and Plan Start: 07/26/22 15:22 Freq: Status: Active Protocol: Document 03/02/23 11:29 (Rec: 03/02/23 13:12 [id number]) Physical Therapy Assessment Goals walking Short Term Goal (STG) pt elvira be able to walk 3 blocks so that they can walk to class on campus w/out increased pain STG Duration 04/09/23 Shelter Goal (LTG) Pt will be able to walk at least 1/2 mile with weight to simualte a backapack so that they can walk to classes on campus w/out increased pain. LTG Duration 05/18/23 stairs Sailing Instructor Goal (LTG) Pt will be able to reciprocate up/down stairs w/wt in hand ( like groceries) safely w/o rail. 12/14-pt able to but does occ have to step to catch her balance or lean against rail 02/23/23- pt able to walk up/ down stairs with 10# no rail assistance LTG Duration achieved 02/23/23 coordination Short Term Goal (STG) Pt will be able to walk line fwd tandem w/o stepping off at least 20 ft. 10/12-18ft STG Duration achieved 12/14 Sailing Instructor Goal (LTG) Pt will be able to walk line backwards tandem w/o stepping off at least 15 ft. LTG Duration achieved 10/11 pain Shelter Goal (LTG) Pt will report a 75% reduction in abdomen, thigh pain and thoracic pain. 10/11-no change 12/14-dad reports about 30% fewer complaints 02/23/23- pt reports that she only gets abdominal pain if someone touches it. She reports no thigh or thoracic pain. LTG Duration achieved 02/23/23 ROM Short Term Goal (STG) Pt will have B DF to neutral in knee flexed position 10/12-improved on L but still limited 12/14-improved but still limited STG Duration 04/09/23 Shelter Goal (LTG) Pt will have B DF to at least 5 deg in knee ext and flexed positon to improve pt's ability to drive and imrpove 10/12-improved on L but still limited LTG Duration 05/18/23 balance Short Term Goal (STG) Pt will be able to do SLS for at least 12 sec B STG Duration achieved 10/11 Shelter Goal (LTG) Pt will be able to SLS for at least 30 sec B to show improved stability 10/12-improved 12/14-22 sec L; 23 sec R 02/23/23- 25sec L, 23 sec R LTG Duration 05/18/23 Assessment Summary Assessment Pt notes that her sunburn in better, still manual was not done today. pt needed cueing for foot placement when walking on the trreadmill. LINE HAUL TRUCK DRIVER was offered during step up and balance exercises. pt did well with increased wt. She required more verbal support when stepping down the stairs. slow walking was encouraged. Physical Therapy Plan Frequency and Duration Frequency of Treatment 1x/wk Duration of treatment (weeks) 12 Plan of Care Start Date 02/23/23 Plan of Care End Date 05/18/23 Next Visit Focus/Plan Next Note Type Treatment Note Next Visit Plan incorporate more dynamic coordination activities; review HEP, banded side steps and monster walks. incorporate more treadmill for strength/ endurance activities.
--- NOTE | 2023-03-09 17:50 | PT.OTN ---
Addendum entered and electronically signed by Annabelle Cooper, PT 03/09/23 18:10: PT direct supervision and direction to PT student. Original Note: Current Diagnoses Stiffness of unspecified joint, not elsewhere classified (03/09/23) Muscle weakness (generalized) (03/09/23) Other lack of coordination (03/09/23) Unspecified lack of coordination (03/09/23) Physical Therapy Treatment Note PT-OP-A Visit Information Start: 07/26/22 15:22 Freq: Status: Active Protocol: Document 03/09/23 13:12 (Rec: 03/09/23 13:22 [id number]) Out-Patient Physical Therapy Visit Information Visit Information Visit Type Treatment Note Visit Start Time 11:34 Visit Stop Time 12:15 Total Visit Minutes 41 Visit Number 23 Number of BOLT MAKER Visits 0 PT-OP-B Current Condition Start: 07/26/22 15:22 Freq: Status: Active Protocol: Document 07/26/22 15:22 [facility] (Rec: 07/26/22 16:04 [facility] [id number]) Current Condition History of Current Condition Onset Date youth Current Complaints Dec coordination & inc falls History of Current Condition 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 Pt has bio brother that has been in PT since 4 months. Focus was on speech therapy. She didn't do any PT. She has had issues with coordination, toe walking and balance. They are noticing a problem while pt is working on driving. Recently they discovered she has low vit B 12 levels. Has eating disorder where she just eats when she feels like it and changes food preferences. She goes a couple days before h has a good size bowel movement and has constipation and c/o lots of belly pain. She had acid reflux a lot as a kid. Pt reports she falls and trips a lot and will feel nervous going up/down big stair cases. 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 She has exercise induced asthma issues so struggles with longer distance heavy activity. Has hx of concussion w/running backwards. Pt did take dance when younger and liked them but wasn't advancing in them. Dad does report issues w/fine motor skills. Did get an eval w/OT here but was told she didn't need it. Pt reports ant B thighs cramp up and pain in mid thoracic. She has some L pec and lat region. Pt likes creative writing, theater, video creation, and video games. Pt had difficulty with balancing on a bike and went off the [employer] trail and down into ditch. Treatment Goals Patient/Caregiver Goals Dec falling over and tripping; improve timing and coordination for dancing PT-OP-C Subjective Start: 07/26/22 15:22 Freq: Status: Active Protocol: Document 03/09/23 13:12 (Rec: 03/09/23 13:22 [id number]) OP-PT Subjective Patient Comments Patient Comments pt has not been doing her HEP and has not been going on walks. sHe does do some self manual occasionally. PT-OP-D Balance Start: 07/26/22 15:22 Freq: Status: Active Protocol: Document 10/11/22 18:45 [facility] (Rec: 10/12/22 18:54 [facility] [id number]) Balance Tests Single Limb Standing Single Limb- Right 17 sec Single Limb- Left 13sec PT-OP-G Mobility & Gait Start: 07/26/22 15:22 Freq: Status: Active Protocol: Document 07/26/22 15:22 [facility] (Rec: 07/26/22 17:33 [facility] [id number]) OP Gait Assessment Comments Gait Comments Pt amb w/heel strike today but overall dec push off and significant toe out and pronation. Running: slower speed and dec push off and foot clearance, head down PT-OP-J Posture/Palpation/Skin Start: 07/26/22 15:22 Freq: Status: Active Protocol: Document 07/26/22 15:22 [facility] (Rec: 07/26/22 17:33 [facility] [id number]) Posture Evaluation Comments Posture Comments Pt stands and sits w/excessive thoracic kyphosis & cervical flexion and tends to walk w/ head down. PT-OP-K Range of Motion Start: 07/26/22 15:22 Freq: Status: Active Protocol: Document 02/23/23 13:41 (Rec: 02/23/23 16:27 [id number]) Ankle and Foot Goniometric Range of Motion Ankle and Foot Right Active Dorsiflexion with Knee Flexed 3 Dorsiflexion with Knee Extended 5 Comments lacking DF to neutral in both positions Left Active Dorsiflexion with Knee Flexed 5 Dorsiflexion with Knee Extended 9 Comments lacking DF in both directions PT-OP-Q Treatments Start: 07/26/22 15:22 Freq: Status: Active Protocol: Document 03/09/23 13:12 (Rec: 03/09/23 13:22 [id number]) Cardio Equipment Treadmill Duration (Minutes) 8 Speed 2-2.4 Incline 2-4 Other incline 2 for 4min/4 for 4min. cues knee position Therapeutic Exercises Standing Exercises Drinking Birds Standing Exercise Name 1.Standing drinking birds w/ support. Small dips. 2. progressed to walking Side bilateral Reps/Minutes 10x Comments max cues for posture and body position Band walks Standing Exercise Name lateral side step and monster walks Side bilateral Resistance blue band Reps/Minutes 2x20ft ea Comments cues for feet position, dont drag feet, and posture DARRON Side bilateral Reps/Minutes 2x 1 min stretch Standing Exercise Name seated HS stretch Side bilateral Reps/Minutes 2x 30 sec Manual Therapy Treatment Soft Tissue Mobilization calf Body Location b calf and achilles Mobilization Type Rolling Intensity/Depth Moderate Comments w/passive & active DF Joint Mobilizations calcaneus Joint R & L distraction FM Neuro Re-Education Treatment Coordination Activities stairs Details No rails encouraged Equipment 10# wt B hands, #2 ankle wts Reps/Duration 2x Comments 1.ankle wts and 10# B hands stairs in lobby 2.no ankle wts on #10 B hands stairs in lobby cues for full foot on step going up and down. Pt needed more encouragement stepping down PT-OP-T Assessment and Plan Start: 07/26/22 15:22 Freq: Status: Active Protocol: Document 03/09/23 13:12 (Rec: 03/09/23 13:22 [id number]) Physical Therapy Assessment Goals walking Short Term Goal (STG) pt elvira be able to walk 3 blocks so that they can walk to class on campus w/out increased pain STG Duration 04/09/23 Retirement Goal (LTG) Pt will be able to walk at least 1/2 mile with weight to simualte a backapack so that they can walk to classes on campus w/out increased pain. LTG Duration 05/18/23 stairs Retirement Goal (LTG) Pt will be able to reciprocate up/down stairs w/wt in hand ( like groceries) safely w/o rail. 12/14-pt able to but does occ have to step to catch her balance or lean against rail 02/23/23- pt able to walk up/ down stairs with 10# no rail assistance LTG Duration achieved 02/23/23 coordination Short Term Goal (STG) Pt will be able to walk line fwd tandem w/o stepping off at least 20 ft. 10/12-18ft STG Duration achieved 12/14 Retirement Goal (LTG) Pt will be able to walk line backwards tandem w/o stepping off at least 15 ft. LTG Duration achieved 10/11 pain Tactical Deception Plans Officer Goal (LTG) Pt will report a 75% reduction in abdomen, thigh pain and thoracic pain. 10/11-no change 12/14-dad reports about 30% fewer complaints 02/23/23- pt reports that she only gets abdominal pain if someone touches it. She reports no thigh or thoracic pain. LTG Duration achieved 02/23/23 ROM Short Term Goal (STG) Pt will have B DF to neutral in knee flexed position 10/12-improved on L but still limited 12/14-improved but still limited STG Duration 04/09/23 Tactical Deception Plans Officer Goal (LTG) Pt will have B DF to at least 5 deg in knee ext and flexed positon to improve pt's ability to drive and imrpove 10/12-improved on L but still limited LTG Duration 05/18/23 balance Short Term Goal (STG) Pt will be able to do SLS for at least 12 sec B STG Duration achieved 10/11 Tactical Deception Plans Officer Goal (LTG) Pt will be able to SLS for at least 30 sec B to show improved stability 10/12-improved 12/14-22 sec L; 23 sec R 02/23/23- 25sec L, 23 sec R LTG Duration 05/18/23 Assessment Summary Assessment pts sunburn is no longer an issue. following the treadmill manual was done to her achilles and Lower leg. Following manual treatment she did show improved ROM during exercises. She still reports that she is not doing her stretches regularly at home. Pt still needs max cueing for porper mechanics during all exercises and verbal encouragement. She was able to carry the wts up the stairs w / ease after ankle wts were taken off, showing improved strength. Physical Therapy Plan Frequency and Duration Frequency of Treatment 1x/wk Duration of treatment (weeks) 12 Plan of Care Start Date 02/23/23 Plan of Care End Date 05/18/23 Next Visit Focus/Plan Next Note Type Treatment Note Next Visit Plan incorporate more dynamic coordination activities; review HEP, banded side steps and monster walks. incorporate more treadmill for strength/ endurance activities.
--- NOTE | 2023-03-16 14:37 | PT.OTN ---
Addendum entered and electronically signed by Annabelle Cooper, PT 03/16/23 15:54: PT direct supervision and direction to PT student. Original Note: Current Diagnoses Stiffness of unspecified joint, not elsewhere classified (03/16/23) Muscle weakness (generalized) (03/16/23) Other lack of coordination (03/16/23) Unspecified lack of coordination (03/16/23) Physical Therapy Treatment Note PT-OP-A Visit Information Start: 07/26/22 15:22 Freq: Status: Active Protocol: Document 03/16/23 11:36 (Rec: 03/16/23 11:39 [id number]) Out-Patient Physical Therapy Visit Information Visit Information Visit Type Treatment Note Visit Start Time 11:33 Visit Stop Time 12:15 Total Visit Minutes 42 Visit Number 24 Number of RELASTER Visits 0 PT-OP-B Current Condition Start: 07/26/22 15:22 Freq: Status: Active Protocol: Document 07/26/22 15:22 [facility] (Rec: 07/26/22 16:04 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 Pt has bio brother that has been in PT since 4 months. Focus was on speech therapy. She didn't do any PT. She has had issues with coordination, toe walking and balance. They are noticing a problem while pt is working on driving. Recently they discovered she has low vit B 12 levels. Has eating disorder where she just eats when she feels like it and changes food preferences. She goes a couple days before h has a good size bowel movement and has constipation and c/o lots of belly pain. She had acid reflux a lot as a kid. Pt reports she falls and trips a lot and will feel nervous going up/down big stair cases. 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 She has exercise induced asthma issues so struggles with longer distance heavy activity. Has hx of concussion w/running backwards. Pt did take dance when younger and liked them but wasn't advancing in them. Dad does report issues w/fine motor skills. Did get an eval w/OT here but was told she didn't need it. Pt reports ant B thighs cramp up and pain in mid thoracic. She has some L pec and lat region. Pt likes creative writing, theater, video creation, and video games. Pt had difficulty with balancing on a bike and went off the [employer] trail and down into ditch. Treatment Goals Patient/Caregiver Goals Dec falling over and tripping; improve timing and coordination for dancing PT-OP-C Subjective Start: 07/26/22 15:22 Freq: Status: Active Protocol: Document 03/16/23 11:36 [facility] (Rec: 03/16/23 11:39 [id number]) OP-PT Subjective Patient Comments Patient Comments pt notes that she has been feeling some nausea but feels a little better today. She has not been doing her HEP or stretching. PT-OP-D Balance Start: 07/26/22 15:22 Freq: Status: Active Protocol: Document 10/11/22 18:45 [facility] (Rec: 10/12/22 18:54 [facility] [id number]) Balance Tests Single Limb Standing Single Limb- Right 17 sec Single Limb- Left 13sec PT-OP-G Mobility & Gait Start: 07/26/22 15:22 Freq: Status: Active Protocol: Document 07/26/22 15:22 [facility] (Rec: 07/26/22 17:33 [facility] [id number]) OP Gait Assessment Comments Gait Comments Pt amb w/heel strike today but overall dec push off and significant toe out and pronation. Running: slower speed and dec push off and foot clearance, head down PT-OP-J Posture/Palpation/Skin Start: 07/26/22 15:22 Freq: Status: Active Protocol: Document 07/26/22 15:22 [facility] (Rec: 07/26/22 17:33 [facility] [id number]) Posture Evaluation Comments Posture Comments Pt stands and sits w/excessive thoracic kyphosis & cervical flexion and tends to walk w/ head down. PT-OP-K Range of Motion Start: 07/26/22 15:22 Freq: Status: Active Protocol: Document 02/23/23 13:41 [facility] (Rec: 02/23/23 16:27 [id number]) Ankle and Foot Goniometric Range of Motion Ankle and Foot Right Active Dorsiflexion with Knee Flexed 3 Dorsiflexion with Knee Extended 5 Comments lacking DF to neutral in both positions Left Active Dorsiflexion with Knee Flexed 5 Dorsiflexion with Knee Extended 9 Comments lacking DF in both directions PT-OP-Q Treatments Start: 07/26/22 15:22 Freq: Status: Active Protocol: Document 03/16/23 11:36 (Rec: 03/16/23 11:39 [id number]) Cardio Equipment Treadmill Duration (Minutes) 9 Speed 2-2.4 Incline 2-4 Other incline 1 for 2min/2 for 5min/ 4 for 1min/ 0 for 1min. cue knee position Therapeutic Exercises Sitting Exercises AROM DF Sitting Exercise Name cues for full DF. blue band around feet like seated march. Side bilateral Reps/Minutes 12x ea Standing Exercises squat Standing Exercise Name 1. knot picker cloth milk crate w/#15 and carry 10ft. 2. squat @rail for position Side bilateral Equipment Used milk crate w/ wt Comments max cues for getting butt lower and posture Haliimaile carry Standing Exercise Name #7 dumbells in ea hand w/#4 ankle wts around clinic Side bilateral Reps/Minutes 344ft Comments cues for knees up Band walks Standing Exercise Name lateral side step and monster walks Side bilateral Resistance blue band Reps/Minutes 2x20ft ea Comments cues for feet position, dont drag feet, and posture DARRON Side bilateral Reps/Minutes 1 min stretch Standing Exercise Name seated HS stretch Side bilateral Reps/Minutes 2x 30 sec Neuro Re-Education Treatment Coordination Activities stairs Details No rails encouraged Equipment Milk crate w/ weight to simulate laundry Reps/Duration 2x Comments 1.milk crate w/#4 2.milk crate w/#8 cues for full foot on step going up and down. Pt needed more encouragement stepping down PT-OP-T Assessment and Plan Start: 07/26/22 15:22 Freq: Status: Active Protocol: Document 03/16/23 11:36 (Rec: 03/16/23 11:39 [id number]) Physical Therapy Assessment Goals walking Short Term Goal (STG) pt elvira be able to walk 3 blocks so that they can walk to class on campus w/out increased pain STG Duration 04/09/23 Pullman Clerk Goal (LTG) Pt will be able to walk at least 1/2 mile with weight to simualte a backapack so that they can walk to classes on campus w/out increased pain. LTG Duration 05/18/23 stairs Pullman Clerk Goal (LTG) Pt will be able to reciprocate up/down stairs w/wt in hand ( like groceries) safely w/o rail. 12/14-pt able to but does occ have to step to catch her balance or lean against rail 02/23/23- pt able to walk up/ down stairs with 10# no rail assistance LTG Duration achieved 02/23/23 coordination Short Term Goal (STG) Pt will be able to walk line fwd tandem w/o stepping off at least 20 ft. 10/12-18ft STG Duration achieved 12/14 Snf Goal (LTG) Pt will be able to walk line backwards tandem w/o stepping off at least 15 ft. LTG Duration achieved 10/11 pain Snf Goal (LTG) Pt will report a 75% reduction in abdomen, thigh pain and thoracic pain. 10/11-no change 12/14-dad reports about 30% fewer complaints 02/23/23- pt reports that she only gets abdominal pain if someone touches it. She reports no thigh or thoracic pain. LTG Duration achieved 02/23/23 ROM Short Term Goal (STG) Pt will have B DF to neutral in knee flexed position 10/12-improved on L but still limited 12/14-improved but still limited STG Duration 04/09/23 Pullman Clerk Goal (LTG) Pt will have B DF to at least 5 deg in knee ext and flexed positon to improve pt's ability to drive and imrpove 10/12-improved on L but still limited LTG Duration 05/18/23 balance Short Term Goal (STG) Pt will be able to do SLS for at least 12 sec B STG Duration achieved 10/11 Snf Goal (LTG) Pt will be able to SLS for at least 30 sec B to show improved stability 10/12-improved 12/14-22 sec L; 23 sec R 02/23/23- 25sec L, 23 sec R LTG Duration 05/18/23 Assessment Summary Assessment pt did really well w/strength exercises today. She did need verbal encouragement and max cues for posture for all exercises. Pt still lacks dorsiflexion which makes squatting difficult and she has discomfort maintaining proper mechanics. She notes that she was impressed w/ herself that she was able to carry #15 w/ the milk crate. pt did really well going up and down the stairs w/the milk crate. Her speed has improved when carrying things up and down the stairs but she still needs verbal encouragement. Physical Therapy Plan Frequency and Duration Frequency of Treatment 1x/wk Duration of treatment (weeks) 12 Plan of Care Start Date 02/23/23 Plan of Care End Date 05/18/23 Next Visit Focus/Plan Next Note Type Treatment Note Next Visit Plan incorporate more dynamic coordination activities; review HEP, banded side steps and monster walks. advance treadmill as tolerated for strength/endurance activities. Further challenge strength.
--- NOTE | 2023-03-20 09:03 | PT.OTN ---
Current Diagnoses Stiffness of unspecified joint, not elsewhere classified (03/20/23) Muscle weakness (generalized) (03/20/23) Other lack of coordination (03/20/23) Unspecified lack of coordination (03/20/23) Physical Therapy Treatment Note PT-OP-A Visit Information Start: 07/26/22 15:22 Freq: Status: Active Protocol: Document 03/20/23 08:22 [facility] (Rec: 03/20/23 09:03 [facility] [id number]) Out-Patient Physical Therapy Visit Information Visit Information Visit Type Treatment Note Visit Start Time 08:19 Visit Stop Time 09:00 Total Visit Minutes 41 Visit Number 25 Number of MATERIALS BRANCH CHIEF Visits 0 PT-OP-B Current Condition Start: 07/26/22 15:22 Freq: Status: Active Protocol: Document 07/26/22 15:22 [facility] (Rec: 07/26/22 16:04 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 Pt has bio brother that has been in PT since 4 months. Focus was on speech therapy. She didn't do any PT. She has had issues with coordination, toe walking and balance. They are noticing a problem while pt is working on driving. Recently they discovered she has low vit B 12 levels. Has eating disorder where she just eats when she feels like it and changes food preferences. She goes a couple days before [facility] has a good size bowel movement and has constipation and c/o lots of belly pain. She had acid reflux a lot as a kid. Pt reports she falls and trips a lot and will feel nervous going up/down big stair cases. 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 She has exercise induced asthma issues so struggles with longer distance heavy activity. Has hx of concussion w/running backwards. Pt did take dance when younger and liked them but wasn't advancing in them. Dad does report issues w/fine motor skills. Did get an eval w/OT here but was told she didn't need it. Pt reports ant B thighs cramp up and pain in mid thoracic. She has some L pec and lat region. Pt likes creative writing, theater, video creation, and video games. Pt had difficulty with balancing on a bike and went off the [place] and down into ditch. Treatment Goals Patient/Caregiver Goals Dec falling over and tripping; improve timing and coordination for dancing PT-OP-C Subjective Start: 07/26/22 15:22 Freq: Status: Active Protocol: Document 03/20/23 08:22 [facility] (Rec: 03/20/23 09:03 [facility] [id number]) OP-PT Subjective Patient Comments Patient Comments Pt walked at the campus yesterday PT-OP-D Balance Start: 07/26/22 15:22 Freq: Status: Active Protocol: Document 10/11/22 18:45 [facility] (Rec: 10/12/22 18:54 [facility] [id number]) Balance Tests Single Limb Standing Single Limb- Right 17 sec Single Limb- Left 13sec PT-OP-G Mobility & Gait Start: 07/26/22 15:22 Freq: Status: Active Protocol: Document 07/26/22 15:22 [facility] (Rec: 07/26/22 17:33 [facility] [id number]) OP Gait Assessment Comments Gait Comments Pt amb w/heel strike today but overall dec push off and significant toe out and pronation. Running: slower speed and dec push off and foot clearance, head down PT-OP-J Posture/Palpation/Skin Start: 07/26/22 15:22 Freq: Status: Active Protocol: Document 07/26/22 15:22 [facility] (Rec: 07/26/22 17:33 [facility] [id number]) Posture Evaluation Comments Posture Comments Pt stands and sits w/excessive thoracic kyphosis & cervical flexion and tends to walk w/ head down. PT-OP-K Range of Motion Start: 07/26/22 15:22 Freq: Status: Active Protocol: Document 02/23/23 13:41 [facility] (Rec: 02/23/23 16:27 [facility] [id number]) Ankle and Foot Goniometric Range of Motion Ankle and Foot Right Active Dorsiflexion with Knee Flexed 3 Dorsiflexion with Knee Extended 5 Comments lacking DF to neutral in both positions Left Active Dorsiflexion with Knee Flexed 5 Dorsiflexion with Knee Extended 9 Comments lacking DF in both directions PT-OP-Q Treatments Start: 07/26/22 15:22 Freq: Status: Active Protocol: Document 03/20/23 08:22 [facility] (Rec: 03/20/23 09:03 [facility] [id number]) Cardio Equipment Treadmill Duration (Minutes) 9 Speed 1.5-2.5 Incline 3-4 Other gradual inc of incline and speed Gym Equipment Shuttle Balance red clips Details fwd/back wt shift then throw mota bag Reps/Duration 12 Therapeutic Ball seated Exercise Details 2# wt on foot Ball Size/Color Green yoga ball Comments alt DF then october x10 B to grab mota bag then throw mota bag at bin Therapeutic Exercises Sitting Exercises AROM DF Sitting Exercise Name cues for full DF. blue band around feet like seated october. Side bilateral Reps/Minutes 12x ea Standing Exercises Band walks Standing Exercise Name lateral side step and monster walks fwd then back walk Side bilateral Resistance blue band Reps/Minutes 2x20ft ea Comments cues for feet position, dont drag feet, and posture DARRON Side bilateral Reps/Minutes 2 min stretch Standing Exercise Name standing fwd lean 1. gastroc 2 . soleus Side bilateral Reps/Minutes 30 sec ea DF Standing Exercise Name fwd walking DF Side bilateral Reps/Minutes 40ft Neuro Re-Education Treatment Coordination Activities stairs Details No rails encouraged Equipment Milk crate w/ weight to simulate laundry Reps/Duration 2x Comments 1.milk crate w/#10 cues for full foot on step going up and down. Pt needed more encouragement stepping down PT-OP-T Assessment and Plan Start: 07/26/22 15:22 Freq: Status: Active Protocol: Document 03/20/23 08:22 [facility] (Rec: 03/20/23 09:03 [facility] [id number]) Physical Therapy Assessment Goals walking Short Term Goal (STG) pt elvira be able to walk 3 blocks so that they can walk to class on campus w/out increased pain STG Duration 04/09/23 Halfway Goal (LTG) Pt will be able to walk at least 1/2 mile with weight to simualte a backapack so that they can walk to classes on campus w/out increased pain. LTG Duration 05/18/23 stairs Ramp Flight Attendant Goal (LTG) Pt will be able to reciprocate up/down stairs w/wt in hand ( like groceries) safely w/o rail. 12/14-pt able to but does occ have to step to catch her balance or lean against rail 02/23/23- pt able to walk up/ down stairs with 10# no rail assistance LTG Duration achieved 02/23/23 coordination Short Term Goal (STG) Pt will be able to walk line fwd tandem w/o stepping off at least 20 ft. 10/12-18ft STG Duration achieved 12/14 Ramp Flight Attendant Goal (LTG) Pt will be able to walk line backwards tandem w/o stepping off at least 15 ft. LTG Duration achieved 10/11 pain Ramp Flight Attendant Goal (LTG) Pt will report a 75% reduction in abdomen, thigh pain and thoracic pain. 10/11-no change 12/14-dad reports about 30% fewer complaints 02/23/23- pt reports that she only gets abdominal pain if someone touches it. She reports no thigh or thoracic pain. LTG Duration achieved 02/23/23 ROM Short Term Goal (STG) Pt will have B DF to neutral in knee flexed position 10/12-improved on L but still limited 12/14-improved but still limited STG Duration 04/09/23 Ramp Flight Attendant Goal (LTG) Pt will have B DF to at least 5 deg in knee ext and flexed positon to improve pt's ability to drive and imrpove 10/12-improved on L but still limited LTG Duration 05/18/23 balance Short Term Goal (STG) Pt will be able to do SLS for at least 12 sec B STG Duration achieved 10/11 Ramp Flight Attendant Goal (LTG) Pt will be able to SLS for at least 30 sec B to show improved stability 10/12-improved 12/14-22 sec L; 23 sec R 02/23/23- 25sec L, 23 sec R LTG Duration 05/18/23 Assessment Summary Assessment Pt did well with stairs w/less difficulty noted today w/ recipication up/down stairs. She is showing improved initiation w/descending. She required encouragement throughout session. Physical Therapy Plan Frequency and Duration Frequency of Treatment 1x/wk Duration of treatment (weeks) 12 Plan of Care Start Date 02/23/23 Plan of Care End Date 05/18/23 Next Visit Focus/Plan Next Note Type Treatment Note Next Visit Plan cont to work dynamic coordination activities especially to focus on ability to DF
--- NOTE | 2023-04-13 09:03 | PT.OTN ---
Current Diagnoses Stiffness of unspecified joint, not elsewhere classified (04/13/23) Muscle weakness (generalized) (04/13/23) Other lack of coordination (04/13/23) Unspecified lack of coordination (04/13/23) Physical Therapy Treatment Note PT-OP-A Visit Information Start: 07/26/22 15:22 Freq: Status: Active Protocol: Document 04/13/23 07:32 [facility] (Rec: 04/13/23 09:03 [facility] [id number]) Out-Patient Physical Therapy Visit Information Visit Information Visit Type Treatment Note Visit Start Time 08:20 Visit Stop Time 09:00 Total Visit Minutes 40 Visit Number 26 Number of CLOTH BIN PACKER Visits 0 PT-OP-B Current Condition Start: 07/26/22 15:22 Freq: Status: Active Protocol: Document 07/26/22 15:22 [facility] (Rec: 07/26/22 16:04 [facility] [id number]) Current Condition History of Current Condition Onset Date youth Current Complaints Dec coordination & inc falls History of Current Condition 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 Pt has bio brother that has been in PT since 4 months. Focus was on speech therapy. She didn't do any PT. She has had issues with coordination, toe walking and balance. They are noticing a problem while pt is working on driving. Recently they discovered she has low vit B 12 levels. Has eating disorder where she just eats when she feels like it and changes food preferences. She goes a couple days before [facility] has a good size bowel movement and has constipation and c/o lots of belly pain. She had acid reflux a lot as a kid. Pt reports she falls and trips a lot and will feel nervous going up/down big stair cases. 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 She has exercise induced asthma issues so struggles with longer distance heavy activity. Has hx of concussion w/running backwards. Pt did take dance when younger and liked them but wasn't advancing in them. Dad does report issues w/fine motor skills. Did get an eval w/OT here but was told she didn't need it. Pt reports ant B thighs cramp up and pain in mid thoracic. She has some L pec and lat region. Pt likes creative writing, theater, video creation, and video games. Pt had difficulty with balancing on a bike and went off the [place] and down into ditch. Treatment Goals Patient/Caregiver Goals Dec falling over and tripping; improve timing and coordination for dancing PT-OP-C Subjective Start: 07/26/22 15:22 Freq: Status: Active Protocol: Document 04/13/23 07:32 [facility] (Rec: 04/13/23 09:03 [facility] [id number]) OP-PT Subjective Patient Comments Patient Comments Pt reports walking a bit in [place]. Reports she didn't remember a lot of ankle/foot pain. PT-OP-D Balance Start: 07/26/22 15:22 Freq: Status: Active Protocol: Document 10/11/22 18:45 [facility] (Rec: 10/12/22 18:54 [facility] [id number]) Balance Tests Single Limb Standing Single Limb- Right 17 sec Single Limb- Left 13sec PT-OP-G Mobility & Gait Start: 07/26/22 15:22 Freq: Status: Active Protocol: Document 07/26/22 15:22 [facility] (Rec: 07/26/22 17:33 [facility] [id number]) OP Gait Assessment Comments Gait Comments Pt amb w/heel strike today but overall dec push off and significant toe out and pronation. Running: slower speed and dec push off and foot clearance, head down PT-OP-J Posture/Palpation/Skin Start: 07/26/22 15:22 Freq: Status: Active Protocol: Document 07/26/22 15:22 [facility] (Rec: 07/26/22 17:33 [facility] [id number]) Posture Evaluation Comments Posture Comments Pt stands and sits w/excessive thoracic kyphosis & cervical flexion and tends to walk w/ head down. PT-OP-K Range of Motion Start: 07/26/22 15:22 Freq: Status: Active Protocol: Document 02/23/23 13:41 [facility] (Rec: 02/23/23 16:27 [facility] [id number]) Ankle and Foot Goniometric Range of Motion Ankle and Foot Right Active Dorsiflexion with Knee Flexed 3 Dorsiflexion with Knee Extended 5 Comments lacking DF to neutral in both positions Left Active Dorsiflexion with Knee Flexed 5 Dorsiflexion with Knee Extended 9 Comments lacking DF in both directions PT-OP-Q Treatments Start: 07/26/22 15:22 Freq: Status: Active Protocol: Document 04/13/23 07:32 [facility] (Rec: 04/13/23 09:03 [facility] [id number]) Cardio Equipment Treadmill Duration (Minutes) 8 Speed 2-2.5 Incline 2-4 Other gradual inc of incline and speed Therapeutic Exercises Standing Exercises Band walks Standing Exercise Name lateral side step and monster walks fwd then back walk Side bilateral Resistance blue band Reps/Minutes 2x20ft ea Comments cues for feet position, dont drag feet, and posture stretch Standing Exercise Name step stretch Side bilateral Reps/Minutes 1 min DF Standing Exercise Name fwd walking DF Side bilateral Reps/Minutes 40ft Manual Therapy Treatment Soft Tissue Mobilization calf Body Location b calf and achilles Mobilization Type Rolling Intensity/Depth Moderate Comments w/passive & active DF Joint Mobilizations calcaneus Joint B distraction Neuro Re-Education Treatment Balance Activities bosu Comments 1.black side squats x10 2. step up to SLS x10 B 3. lat step up to SLS x10 B Coordination Activities stairs Details No rails encouraged Equipment Milk crate w/ weight to simulate laundry Reps/Duration 1x Comments 1.milk crate w/#10 cues for full foot on step going up and down. Pt needed more encouragement stepping down PT-OP-T Assessment and Plan Start: 07/26/22 15:22 Freq: Status: Active Protocol: Document 04/13/23 07:32 [facility] (Rec: 04/13/23 09:03 [facility] [id number]) Physical Therapy Assessment Goals walking Short Term Goal (STG) pt elvira be able to walk 3 blocks so that they can walk to class on campus w/out increased pain STG Duration 04/09/23 Deaf/Hard Of Hearing Specialist Goal (LTG) Pt will be able to walk at least 1/2 mile with weight to simualte a backapack so that they can walk to classes on campus w/out increased pain. LTG Duration 05/18/23 stairs Deaf/Hard Of Hearing Specialist Goal (LTG) Pt will be able to reciprocate up/down stairs w/wt in hand ( like groceries) safely w/o rail. 12/14-pt able to but does occ have to step to catch her balance or lean against rail 02/23/23- pt able to walk up/ down stairs with 10# no rail assistance LTG Duration achieved 02/23/23 coordination Short Term Goal (STG) Pt will be able to walk line fwd tandem w/o stepping off at least 20 ft. 10/12-18ft STG Duration achieved 12/14 Deaf/Hard Of Hearing Specialist Goal (LTG) Pt will be able to walk line backwards tandem w/o stepping off at least 15 ft. LTG Duration achieved 10/11 pain Deaf/Hard Of Hearing Specialist Goal (LTG) Pt will report a 75% reduction in abdomen, thigh pain and thoracic pain. 10/11-no change 12/14-dad reports about 30% fewer complaints 02/23/23- pt reports that she only gets abdominal pain if someone touches it. She reports no thigh or thoracic pain. LTG Duration achieved 02/23/23 ROM Short Term Goal (STG) Pt will have B DF to neutral in knee flexed position 10/12-improved on L but still limited 12/14-improved but still limited STG Duration 04/09/23 Deaf/Hard Of Hearing Specialist Goal (LTG) Pt will have B DF to at least 5 deg in knee ext and flexed positon to improve pt's ability to drive and imrpove 10/12-improved on L but still limited LTG Duration 05/18/23 balance Short Term Goal (STG) Pt will be able to do SLS for at least 12 sec B STG Duration achieved 10/11 Fpc Goal (LTG) Pt will be able to SLS for at least 30 sec B to show improved stability 10/12-improved 12/14-22 sec L; 23 sec R 02/23/23- 25sec L, 23 sec R LTG Duration 05/18/23 Assessment Summary Assessment Pt did better w/carrying wt during decentt rocio even w/ heavier weight. She requires ceus for DF during steppign exercsies w/bands. Physical Therapy Plan Frequency and Duration Frequency of Treatment 1x/wk Duration of treatment (weeks) 12 Plan of Care Start Date 02/23/23 Plan of Care End Date 05/18/23 Next Visit Focus/Plan Next Note Type Treatment Note Next Visit Plan cont to work dynamic coordination activities especially to focus on ability to DF
--- NOTE | 2023-04-19 14:20 | PT.OTN ---
Current Diagnoses Stiffness of unspecified joint, not elsewhere classified (04/19/23) Muscle weakness (generalized) (04/19/23) Other lack of coordination (04/19/23) Unspecified lack of coordination (04/19/23) Physical Therapy Treatment Note PT-OP-A Visit Information Start: 07/26/22 15:22 Freq: Status: Active Protocol: Document 04/19/23 13:48 [facility] (Rec: 04/19/23 14:20 [facility] [id number]) Out-Patient Physical Therapy Visit Information Visit Information Visit Type Treatment Note Visit Start Time 13:38 Visit Stop Time 14:16 Total Visit Minutes 38 Visit Number 27 Number of COMBATANT SWIMMER Visits 0 PT-OP-B Current Condition Start: 07/26/22 15:22 Freq: Status: Active Protocol: Document 07/26/22 15:22 [facility] (Rec: 07/26/22 16:04 [facility] [id number]) Current Condition History of Current Condition Onset Date youth Current Complaints Dec coordination & inc falls History of Current Condition 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 Pt has bio brother that has been in PT since 4 months. Focus was on speech therapy. She didn't do any PT. She has had issues with coordination, toe walking and balance. They are noticing a problem while pt is working on driving. Recently they discovered she has low vit B 12 levels. Has eating disorder where she just eats when she feels like it and changes food preferences. She goes a couple days before [facility] has a good size bowel movement and has constipation and c/o lots of belly pain. She had acid reflux a lot as a kid. Pt reports she falls and trips a lot and will feel nervous going up/down big stair cases. 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 She has exercise induced asthma issues so struggles with longer distance heavy activity. Has hx of concussion w/running backwards. Pt did take dance when younger and liked them but wasn't advancing in them. Dad does report issues w/fine motor skills. Did get an eval w/OT here but was told she didn't need it. Pt reports ant B thighs cramp up and pain in mid thoracic. She has some L pec and lat region. Pt likes creative writing, theater, video creation, and video games. Pt had difficulty with balancing on a bike and went off the [place] trail and down into ditch. Treatment Goals Patient/Caregiver Goals Dec falling over and tripping; improve timing and coordination for dancing PT-OP-C Subjective Start: 07/26/22 15:22 Freq: Status: Active Protocol: Document 04/19/23 13:48 [facility] (Rec: 04/19/23 14:20 [facility] [id number]) OP-PT Subjective Patient Comments Patient Comments Pt denies doing exercises. PT-OP-D Balance Start: 07/26/22 15:22 Freq: Status: Active Protocol: Document 10/11/22 18:45 [facility] (Rec: 10/12/22 18:54 [facility] [id number]) Balance Tests Single Limb Standing Single Limb- Right 17 sec Single Limb- Left 13sec PT-OP-G Mobility & Gait Start: 07/26/22 15:22 Freq: Status: Active Protocol: Document 07/26/22 15:22 [facility] (Rec: 07/26/22 17:33 [facility] [id number]) OP Gait Assessment Comments Gait Comments Pt amb w/heel strike today but overall dec push off and significant toe out and pronation. Running: slower speed and dec push off and foot clearance, head down PT-OP-J Posture/Palpation/Skin Start: 07/26/22 15:22 Freq: Status: Active Protocol: Document 07/26/22 15:22 [facility] (Rec: 07/26/22 17:33 [facility] [id number]) Posture Evaluation Comments Posture Comments Pt stands and sits w/excessive thoracic kyphosis & cervical flexion and tends to walk w/ head down. PT-OP-K Range of Motion Start: 07/26/22 15:22 Freq: Status: Active Protocol: Document 02/23/23 13:41 [facility] (Rec: 02/23/23 16:27 [facility] [id number]) Ankle and Foot Goniometric Range of Motion Ankle and Foot Right Active Dorsiflexion with Knee Flexed 3 Dorsiflexion with Knee Extended 5 Comments lacking DF to neutral in both positions Left Active Dorsiflexion with Knee Flexed 5 Dorsiflexion with Knee Extended 9 Comments lacking DF in both directions PT-OP-Q Treatments Start: 07/26/22 15:22 Freq: Status: Active Protocol: Document 04/19/23 13:48 [facility] (Rec: 04/19/23 14:20 [facility] [id number]) Cardio Equipment Treadmill Duration (Minutes) 9 Speed 2.2-3 mph Incline 3 Other gradual inc of incline and speed(.37miles) Therapeutic Exercises Standing Exercises DARRON Side bilateral Reps/Minutes 1 min stretch Standing Exercise Name stair B; standing fwd lean :1. gastroc 2. soleus Side bilateral Reps/Minutes 1 min ea Manual Therapy Treatment Soft Tissue Mobilization calf Body Location b calf and achilles Mobilization Type Rolling Intensity/Depth Moderate Comments w/passive & active DF Joint Mobilizations talus Joint B distraction calcaneus Joint B distraction Neuro Re-Education Treatment Balance Activities bosu Comments 1.black side squats x10 2. step up to SLS x10 B 3. lat step up to SLS x10 B Coordination Activities stairs Details No rails encouraged Equipment Milk crate w/ weight to simulate laundry Reps/Duration 1x Comments 1.milk crate w/#15 cues for full foot on step going up and down. Pt needed more encouragement stepping down PT-OP-T Assessment and Plan Start: 07/26/22 15:22 Freq: Status: Active Protocol: Document 04/19/23 13:48 [facility] (Rec: 04/19/23 14:20 [facility] [id number]) Physical Therapy Assessment Goals walking Short Term Goal (STG) pt elvira be able to walk 3 blocks so that they can walk to class on campus w/out increased pain STG Duration 04/09/23 Kitchen Worker Goal (LTG) Pt will be able to walk at least 1/2 mile with weight to simualte a backapack so that they can walk to classes on campus w/out increased pain. LTG Duration 05/18/23 stairs Kitchen Worker Goal (LTG) Pt will be able to reciprocate up/down stairs w/wt in hand ( like groceries) safely w/o rail. 12/14-pt able to but does occ have to step to catch her balance or lean against rail 02/23/23- pt able to walk up/ down stairs with 10# no rail assistance LTG Duration achieved 02/23/23 coordination Short Term Goal (STG) Pt will be able to walk line fwd tandem w/o stepping off at least 20 ft. 10/12-18ft STG Duration achieved 12/14 [facility] Goal (LTG) Pt will be able to walk line backwards tandem w/o stepping off at least 15 ft. LTG Duration achieved 10/11 pain Kitchen Worker Goal (LTG) Pt will report a 75% reduction in abdomen, thigh pain and thoracic pain. 10/11-no change 12/14-dad reports about 30% fewer complaints 02/23/23- pt reports that she only gets abdominal pain if someone touches it. She reports no thigh or thoracic pain. LTG Duration achieved 02/23/23 ROM Short Term Goal (STG) Pt will have B DF to neutral in knee flexed position 10/12-improved on L but still limited 12/14-improved but still limited STG Duration 04/09/23 [facility] Goal (LTG) Pt will have B DF to at least 5 deg in knee ext and flexed positon to improve pt's ability to drive and imrpove 10/12-improved on L but still limited LTG Duration 05/18/23 balance Short Term Goal (STG) Pt will be able to do SLS for at least 12 sec B STG Duration achieved 10/11 [facility] Goal (LTG) Pt will be able to SLS for at least 30 sec B to show improved stability 10/12-improved 12/14-22 sec L; 23 sec R 02/23/23- 25sec L, 23 sec R LTG Duration 05/18/23 Assessment Summary Assessment Pt required very little cueing w/stretches, mostly for soleus fwd lean stretch. She did well with balance activities but does require ceus to not reach for rails Physical Therapy Plan Frequency and Duration Frequency of Treatment 1x/wk Duration of treatment (weeks) 12 Plan of Care Start Date 02/23/23 Plan of Care End Date 05/18/23 Next Visit Focus/Plan Next Note Type Treatment Note Next Visit Plan cont to work dynamic coordination activities especially to focus on ability to DF
--- NOTE | 2023-05-02 11:20 | PT.OTN ---
Current Diagnoses Stiffness of unspecified joint, not elsewhere classified (05/02/23) Muscle weakness (generalized) (05/02/23) Other lack of coordination (05/02/23) Unspecified lack of coordination (05/02/23) Physical Therapy Treatment Note PT-OP-A Visit Information Start: 07/26/22 15:22 Freq: Status: Active Protocol: Document 05/02/23 09:27 [facility] (Rec: 05/02/23 10:17 [facility] [id number]) Out-Patient Physical Therapy Visit Information Visit Information Visit Type Treatment Note Visit Start Time 09:30 Visit Stop Time 10:12 Total Visit Minutes 42 Visit Number 28 Number of REHABILITATION TEAM LEAD Visits 1 PT-OP-B Current Condition Start: 07/26/22 15:22 Freq: Status: Active Protocol: Document 07/26/22 15:22 [facility] (Rec: 07/26/22 16:04 [facility] [id number]) Current Condition History of Current Condition Onset Date youth Current Complaints Dec coordination & inc falls History of Current Condition 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 Pt has bio brother that has been in PT since 4 months. Focus was on speech therapy. She didn't do any PT. She has had issues with coordination, toe walking and balance. They are noticing a problem while pt is working on driving. Recently they discovered she has low vit B 12 levels. Has eating disorder where she just eats when she feels like it and changes food preferences. She goes a couple days before [facility] has a good size bowel movement and has constipation and c/o lots of belly pain. She had acid reflux a lot as a kid. Pt reports she falls and trips a lot and will feel nervous going up/down big stair cases. 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 She has exercise induced asthma issues so struggles with longer distance heavy activity. Has hx of concussion w/running backwards. Pt did take dance when younger and liked them but wasn't advancing in them. Dad does report issues w/fine motor skills. Did get an eval w/OT here but was told she didn't need it. Pt reports ant B thighs cramp up and pain in mid thoracic. She has some L pec and lat region. Pt likes creative writing, theater, video creation, and video games. Pt had difficulty with balancing on a bike and [place] the [place] and down into ditch. Treatment Goals Patient/Caregiver Goals Dec falling over and tripping; improve timing and coordination for dancing PT-OP-C Subjective Start: 07/26/22 15:22 Freq: Status: Active Protocol: Document 05/02/23 09:27 [facility] (Rec: 05/02/23 10:17 [facility] [id number]) OP-PT Subjective Patient Comments Patient Comments Nola reports not doing HEP. They start school at [employer] in a couple of weeks. PT-OP-D Balance Start: 07/26/22 15:22 Freq: Status: Active Protocol: Document 10/11/22 18:45 [facility] (Rec: 10/12/22 18:54 [facility] [id number]) Balance Tests Single Limb Standing Single Limb- Right 17 sec Single Limb- Left 13sec PT-OP-G Mobility & Gait Start: 07/26/22 15:22 Freq: Status: Active Protocol: Document 07/26/22 15:22 [facility] (Rec: 07/26/22 17:33 [facility] [id number]) OP Gait Assessment Comments Gait Comments Pt amb w/heel strike today but overall dec push off and significant toe out and pronation. Running: slower speed and dec push off and foot clearance, head down PT-OP-J Posture/Palpation/Skin Start: 07/26/22 15:22 Freq: Status: Active Protocol: Document 07/26/22 15:22 [facility] (Rec: 07/26/22 17:33 [facility] [id number]) Posture Evaluation Comments Posture Comments Pt stands and sits w/excessive thoracic kyphosis & cervical flexion and tends to walk w/ head down. PT-OP-K Range of Motion Start: 07/26/22 15:22 Freq: Status: Active Protocol: Document 02/23/23 13:41 [facility] (Rec: 02/23/23 16:27 [facility] [id number]) Ankle and Foot Goniometric Range of Motion Ankle and Foot Right Active Dorsiflexion with Knee Flexed 3 Dorsiflexion with Knee Extended 5 Comments lacking DF to neutral in both positions Left Active Dorsiflexion with Knee Flexed 5 Dorsiflexion with Knee Extended 9 Comments lacking DF in both directions PT-OP-Q Treatments Start: 12/06/22 15:22 Freq: Status: Active Protocol: Document 05/02/23 09:27 [facility] (Rec: 05/02/23 10:17 [facility] [id number]) Cardio Equipment Treadmill Duration (Minutes) 9 Speed 2.2-3.3 mph Incline 3 Other gradual inc of incline and speed (.38miles) Therapeutic Exercises Standing Exercises DARRON Side bilateral Reps/Minutes 1 min stretch Standing Exercise Name stair B; standing fwd lean :1. gastroc 2. soleus Side bilateral Reps/Minutes 1 min ea Manual Therapy Treatment Soft Tissue Mobilization calf Body Location b calf and achilles Mobilization Type Rolling Intensity/Depth Moderate Comments w/passive & active DF Joint Mobilizations calcaneus Joint B distraction Neuro Re-Education Treatment Balance Activities bosu Comments 1.black side squats x10 2. step up to SLS x10 B 3. lat step up to SLS x10 B ( flamingo hold) Coordination Activities stairs Details No rails encouraged Equipment Milk crate w/ weight to simulate laundry Speed 6<>4 Reps/Duration 1x ea Comments 1.milk crate w/#15 no cues needed for full foot on step going up and down. PT-OP-T Assessment and Plan Start: 07/26/22 15:22 Freq: Status: Active Protocol: Document 05/02/23 09:27 [facility] (Rec: 05/02/23 10:17 [facility] [id number]) Physical Therapy Assessment Goals walking Short Term Goal (STG) pt elvira be able to walk 3 blocks so that they can walk to class on campus w/out increased pain STG Duration 04/09/23 Senior Care Goal (LTG) Pt will be able to walk at least 1/2 mile with weight to simualte a backapack so that they can walk to classes on campus w/out increased pain. LTG Duration 05/18/23 stairs Senior Care Goal (LTG) Pt will be able to reciprocate up/down stairs w/wt in hand ( like groceries) safely w/o rail. 12/14-pt able to but does occ have to step to catch her balance or lean against rail 02/23/23- pt able to walk up/ down stairs with 10# no rail assistance LTG Duration achieved 02/23/23 coordination Short Term Goal (STG) Pt will be able to walk line fwd tandem w/o stepping off at least 20 ft. 10/12-18ft STG Duration achieved 12/14 Senior Care Goal (LTG) Pt will be able to walk line backwards tandem w/o stepping off at least 15 ft. LTG Duration achieved 10/11 pain Foreign Policy Officer Goal (LTG) Pt will report a 75% reduction in abdomen, thigh pain and thoracic pain. 10/11-no change 12/14-dad reports about 30% fewer complaints 02/23/23- pt reports that she only gets abdominal pain if someone touches it. She reports no thigh or thoracic pain. LTG Duration achieved 02/23/23 ROM Short Term Goal (STG) Pt will have B DF to neutral in knee flexed position 10/12-improved on L but still limited 12/14-improved but still limited STG Duration 04/09/23 Foreign Policy Officer Goal (LTG) Pt will have B DF to at least 5 deg in knee ext and flexed positon to improve pt's ability to drive and imrpove 10/12-improved on L but still limited LTG Duration 05/18/23 balance Short Term Goal (STG) Pt will be able to do SLS for at least 12 sec B STG Duration achieved 10/11 Foreign Policy Officer Goal (LTG) Pt will be able to SLS for at least 30 sec B to show improved stability 10/12-improved 12/14-22 sec L; 23 sec R 02/23/23- 25sec L, 23 sec R LTG Duration 05/18/23 Assessment Summary Assessment Next visit last scheduled before pt moves for school. Pt continues to require little cueing for stretches except for soleus. Pt is able to teach back ex's except for lateral step-ups to single leg stance on BOSU. They are able to perform crate carry w/ 15# lifting from floor walking 15 ft then up/down recip on 4 and 6 training steps without cueing for full foot on step. Palpable tightess to calves noted R>L. Squat form on flat BOSU improves with cues for hip hinge. Physical Therapy Plan Frequency and Duration Frequency of Treatment 1x/wk Duration of treatment (weeks) 12 Plan of Care Start Date 02/23/23 Plan of Care End Date 05/18/23 Therapeutic Interventions Therapeutic Interventions Aquatic Therapy,Balance Training,Coordination Training ,Gait Training,Home Exercise Program,Joint Mobilizations, Manual Therapy,Neuromuscular Re-education,Orthotic/ Prosthetic Management,Patient/ Caregiver Education,Self-Care/ Home Management,Sensory Integration,Soft Tissue Mobilization,Taping, Therapeutic Activities, Therapeutic Exercises Modalities Cold Pack/Ice Massage,Electric Stimulation,Hot Packs Next Visit Focus/Plan Next Note Type Treatment Note Next Visit Plan cont to work dynamic coordination activities especially to focus on ability to DF
--- NOTE | 2023-05-10 10:49 | PT.OTN ---
Current Diagnoses Stiffness of unspecified joint, not elsewhere classified (05/10/23) Muscle weakness (generalized) (05/10/23) Other lack of coordination (05/10/23) Unspecified lack of coordination (05/10/23) Physical Therapy Treatment Note PT-OP-A Visit Information Start: 07/26/22 15:22 Freq: Status: Active Protocol: Document 05/10/23 10:02 [facility] (Rec: 05/10/23 10:49 [facility] [id number]) Out-Patient Physical Therapy Visit Information Visit Information Visit Type Discharge Summary Visit Start Time 10:01 Visit Stop Time 10:43 Total Visit Minutes 42 Visit Number 29 Number of RADIOISOTOPE TECHNOLOGIST Visits 0 PT-OP-B Current Condition Start: 07/26/22 15:22 Freq: Status: Active Protocol: Document 07/26/22 15:22 [facility] (Rec: 07/26/22 16:04 [facility] [id number]) Current Condition History of Current Condition Onset Date youth Current Complaints Dec coordination & inc falls History of Current Condition 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 Pt has bio brother that has been in PT since 4 months. Focus was on speech therapy. She didn't do any PT. She has had issues with coordination, toe walking and balance. They are noticing a problem while pt is working on driving. Recently they discovered she has low vit B 12 levels. Has eating disorder where she just eats when she feels like it and changes food preferences. She goes a couple days before [facility] has a good size bowel movement and has constipation and c/o lots of belly pain. She had acid reflux a lot as a kid. Pt reports she falls and trips a lot and will feel nervous going up/down big stair cases. 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 She has exercise induced asthma issues so struggles with longer distance heavy activity. Has hx of concussion w/running backwards. Pt did take dance when younger and liked them but wasn't advancing in them. Dad does report issues w/fine motor skills. Did get an eval w/OT here but was told she didn't need it. Pt reports ant B thighs cramp up and pain in mid thoracic. She has some L pec and lat region. Pt likes creative writing, theater, video creation, and video games. Pt had difficulty with balancing on a bike and went off the [place] trail and down into ditch. Treatment Goals Patient/Caregiver Goals Dec falling over and tripping; improve timing and coordination for dancing PT-OP-C Subjective Start: 07/26/22 15:22 Freq: Status: Active Protocol: Document 05/10/23 10:02 [facility] (Rec: 05/10/23 10:49 [facility] [id number]) OP-PT Subjective Patient Comments Patient Comments Pt moves to school tomorrow. PT-OP-D Balance Start: 07/26/22 15:22 Freq: Status: Active Protocol: Document 05/10/23 10:02 [facility] (Rec: 05/10/23 10:49 [facility] [id number]) Balance Tests Single Limb Standing Single Limb- Right 22 sec Single Limb- Left 30 sec PT-OP-G Mobility & Gait Start: 07/26/22 15:22 Freq: Status: Active Protocol: Document 07/26/22 15:22 [facility] (Rec: 07/26/22 17:33 [facility] [id number]) OP Gait Assessment Comments Gait Comments Pt amb w/heel strike today but overall dec push off and significant toe out and pronation. Running: slower speed and dec push off and foot clearance, head down PT-OP-J Posture/Palpation/Skin Start: 07/26/22 15:22 Freq: Status: Active Protocol: Document 07/26/22 15:22 [facility] (Rec: 07/26/22 17:33 [facility] [id number]) Posture Evaluation Comments Posture Comments Pt stands and sits w/excessive thoracic kyphosis & cervical flexion and tends to walk w/ head down. PT-OP-K Range of Motion Start: 07/26/22 15:22 Freq: Status: Active Protocol: Document 05/10/23 10:02 [facility] (Rec: 05/10/23 10:49 [facility] [id number]) Ankle and Foot Goniometric Range of Motion Ankle and Foot Right Active Dorsiflexion with Knee Flexed 1 Dorsiflexion with Knee Extended 7 Comments lacking DF to neutral in knee ext B Left Active Dorsiflexion with Knee Flexed 0 Dorsiflexion with Knee Extended 10 Comments lacking DF in both in knee ext PT-OP-Q Treatments Start: 07/26/22 15:22 Freq: Status: Active Protocol: Document 05/10/23 10:02 [facility] (Rec: 05/10/23 10:49 [facility] [id number]) Cardio Equipment Treadmill Duration (Minutes) 9 Speed 2.7-3.3 mph Incline 3 Therapeutic Exercises Standing Exercises DARRON Side bilateral Reps/Minutes 1 min stretch Standing Exercise Name stair B; standing fwd lean :1. gastroc 2. soleus Side bilateral Reps/Minutes 1 min ea DF Standing Exercise Name w/back at wall Side bilateral Reps/Minutes 20 Other Exercises roll out Other Exercise Name foam roll & ball Side bilateral Reps/Minutes 3 min downdog Side bilateral Reps/Minutes 30 sec Manual Therapy Treatment Soft Tissue Mobilization calf Body Location b calf and achilles Mobilization Type Rolling Intensity/Depth Moderate Comments w/passive & active DF Neuro Re-Education Treatment Balance Activities SLS Details B trials Coordination Activities stairs Details No rails encouraged Equipment Milk crate w/ weight to simulate laundry Reps/Duration 1x ea Comments 1.milk crate w/#15 no cues needed for full foot on step going up and down. on loby stairs 2. on outside steps PT-OP-T Assessment and Plan Start: 07/26/22 15:22 Freq: Status: Active Protocol: Document 05/10/23 10:02 [facility] (Rec: 05/10/23 10:49 [facility] [id number]) Physical Therapy Assessment Goals walking Short Term Goal (STG) pt elvira be able to walk 3 blocks so that they can walk to class on campus w/out increased pain STG Duration achieved Clinical Microbiologist Goal (LTG) Pt will be able to walk at least 1/2 mile with weight to simualte a backapack so that they can walk to classes on campus w/out increased pain. LTG Duration has not tried stairs Mcc Goal (LTG) Pt will be able to reciprocate up/down stairs w/wt in hand ( like groceries) safely w/o rail. 12/14-pt able to but does occ have to step to catch her balance or lean against rail 02/23/23- pt able to walk up/ down stairs with 10# no rail assistance LTG Duration achieved 02/23/23 coordination Short Term Goal (STG) Pt will be able to walk line fwd tandem w/o stepping off at least 20 ft. 10/12-18ft STG Duration achieved 12/14 Mcc Goal (LTG) Pt will be able to walk line backwards tandem w/o stepping off at least 15 ft. LTG Duration achieved 10/11 pain Mcc Goal (LTG) Pt will report a 75% reduction in abdomen, thigh pain and thoracic pain. 10/11-no change 12/14-dad reports about 30% fewer complaints 02/23/23- pt reports that she only gets abdominal pain if someone touches it. She reports no thigh or thoracic pain. LTG Duration achieved 02/23/23 ROM Short Term Goal (STG) Pt will have B DF to neutral in knee flexed position 10/12-improved on L but still limited 12/14-improved but still limited STG Duration achieved Mcc Goal (LTG) Pt will have B DF to at least 5 deg in knee ext and flexed positon to improve pt's ability to drive and imrpove 10/12-improved on L but still limited LTG Duration advancing balance Short Term Goal (STG) Pt will be able to do SLS for at least 12 sec B STG Duration achieved 10/11 Clinical Microbiologist Goal (LTG) Pt will be able to SLS for at least 30 sec B to show improved stability 10/12-improved 12/14-22 sec L; 23 sec R 02/23/23- 25sec L, 23 sec R LTG Duration achieved on L Assessment Summary Assessment Pt has made excellent progress w/PT and is able to balance much better and do functional activities with greater ease and confidence. She sitll lacks DF and has options for stretching at home. DC to [facility]. Physical Therapy Plan Discharge Physical Therapy Discharge Comments pt moving for school
--- NOTE | 2023-05-10 14:56 | PT.OPDS ---
Current Diagnoses Stiffness of unspecified joint, not elsewhere classified (05/10/23) Muscle weakness (generalized) (05/10/23) Other lack of coordination (05/10/23) Unspecified lack of coordination (05/10/23) Visit Care Team Role Provider Type Risa Drake DO Attending Provider Physician Family Provider Primary Care Provider Referring Provider Specialty: Pediatrics Address: [address] [place] [address], [facility] Email: Visit Number Visit Number 29 Discharge Summary PT-OP-B Current Condition Start: 07/26/22 15:22 Freq: Status: Active Protocol: Document 07/26/22 15:22 [facility] (Rec: 07/26/22 16:04 [facility] [id number]) Current Condition History of Current Condition Onset Date youth Current Complaints Dec coordination & inc falls History of Current Condition 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 Pt has bio brother that has been in PT since 4 months. Focus was on speech therapy. She didn't do any PT. She has had issues with coordination, toe walking and balance. They are noticing a problem while pt is working on driving. Recently they discovered she has low vit B 12 levels. Has eating disorder where she just eats when she feels like it and changes food preferences. She goes a couple days before h has a good size bowel movement and has constipation and c/o lots of belly pain. She had acid reflux a lot as a kid. Pt reports she falls and trips a lot and will feel nervous going up/down big stair cases. 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 She has exercise induced asthma issues so struggles with longer distance heavy activity. Has hx of concussion w/running backwards. Pt did take dance when younger and liked them but wasn't advancing in them. Dad does report issues w/fine motor skills. Did get an eval w/OT here but was told she didn't need it. Pt reports ant B thighs cramp up and pain in mid thoracic. She has some L pec and lat region. Pt likes creative writing, theater, video creation, and video games. Pt had difficulty with balancing on a bike and went off the [place] trail and down into ditch. Treatment Goals Patient/Caregiver Goals Dec falling over and tripping; improve timing and coordination for dancing PT-OP-C Subjective Start: 07/26/22 15:22 Freq: Status: Active Protocol: Document 05/10/23 10:02 [facility] (Rec: 05/10/23 10:49 [facility] [id number]) OP-PT Subjective Patient Comments Patient Comments Pt moves to school tomorrow. PT-OP-D Balance Start: 07/26/22 15:22 Freq: Status: Active Protocol: Document 05/10/23 10:02 [facility] (Rec: 05/10/23 10:49 [facility] [id number]) Balance Tests Single Limb Standing Single Limb- Right 22 sec Single Limb- Left 30 sec PT-OP-G Mobility & Gait Start: 07/26/22 15:22 Freq: Status: Active Protocol: Document 07/26/22 15:22 [facility] (Rec: 07/26/22 17:33 [facility] [id number]) OP Gait Assessment Comments Gait Comments Pt amb w/heel strike today but overall dec push off and significant toe out and pronation. Running: slower speed and dec push off and foot clearance, head down PT-OP-J Posture/Palpation/Skin Start: 07/26/22 15:22 Freq: Status: Active Protocol: Document 07/26/22 15:22 [facility] (Rec: 07/26/22 17:33 [facility] [id number]) Posture Evaluation Comments Posture Comments Pt stands and sits w/excessive thoracic kyphosis & cervical flexion and tends to walk w/ head down. PT-OP-K Range of Motion Start: 07/26/22 15:22 Freq: Status: Active Protocol: Document 05/10/23 10:02 [facility] (Rec: 05/10/23 10:49 [facility] [id number]) Ankle and Foot Goniometric Range of Motion Ankle and Foot Right Active Dorsiflexion with Knee Flexed 1 Dorsiflexion with Knee Extended 7 Comments lacking DF to neutral in knee ext B Left Active Dorsiflexion with Knee Flexed 0 Dorsiflexion with Knee Extended 10 Comments lacking DF in both in knee ext PT-OP-T Assessment and Plan Start: 07/26/22 15:22 Freq: Status: Active Protocol: Document 05/10/23 10:02 [facility] (Rec: 05/10/23 10:49 [facility] [id number]) Physical Therapy Assessment Goals walking Short Term Goal (STG) pt elvira be able to walk 3 blocks so that they can walk to class on campus w/out increased pain STG Duration achieved Ela Teacher Goal (LTG) Pt will be able to walk at least 1/2 mile with weight to simualte a backapack so that they can walk to classes on campus w/out increased pain. LTG Duration has not tried stairs Retirement Goal (LTG) Pt will be able to reciprocate up/down stairs w/wt in hand ( like groceries) safely w/o rail. 12/14-pt able to but does occ have to step to catch her balance or lean against rail 02/23/23- pt able to walk up/ down stairs with 10# no rail assistance LTG Duration achieved 02/23/23 coordination Short Term Goal (STG) Pt will be able to walk line fwd tandem w/o stepping off at least 20 ft. 10/12-18ft STG Duration achieved 12/14 Ela Teacher Goal (LTG) Pt will be able to walk line backwards tandem w/o stepping off at least 15 ft. LTG Duration achieved 10/11 pain Retirement Goal (LTG) Pt will report a 75% reduction in abdomen, thigh pain and thoracic pain. 10/11-no change 12/14-dad reports about 30% fewer complaints 02/23/23- pt reports that she only gets abdominal pain if someone touches it. She reports no thigh or thoracic pain. LTG Duration achieved 02/23/23 ROM Short Term Goal (STG) Pt will have B DF to neutral in knee flexed position 10/12-improved on L but still limited 12/14-improved but still limited STG Duration achieved Ela Teacher Goal (LTG) Pt will have B DF to at least 5 deg in knee ext and flexed positon to improve pt's ability to drive and imrpove 10/12-improved on L but still limited LTG Duration advancing balance Short Term Goal (STG) Pt will be able to do SLS for at least 12 sec B STG Duration achieved 10/11 Retirement Goal (LTG) Pt will be able to SLS for at least 30 sec B to show improved stability 10/12-improved 12/14-22 sec L; 23 sec R 02/23/23- 25sec L, 23 sec R LTG Duration achieved on L Assessment Summary Assessment Pt has made excellent progress w/PT and is able to balance much better and do functional activities with greater ease and confidence. She sitll lacks DF and has options for stretching at home. DC to [facility]. Physical Therapy Plan Discharge Physical Therapy Discharge Comments pt moving for school
== END 2023-05-11 13:19 ==
LOC: PHYS 10:00
PROVIDERS: Family Provider Pediatrics; PCP Pediatrics; Referring Provider Pediatrics; Visit Provider Pediatrics
DX: M25.60 Stiffness of unspecified joint, not elsewhere classified (principal); R27.9 Unspecified lack of coordination; R27.8 Other lack of coordination; M62.81 Muscle weakness (generalized)
CPT/HCPCS: 97110; 97112; 97140; 97161; 97535

== ENCOUNTER → 2023-10-28 11:20 | Outpatient (CLI) | payer OTHER, MEDICAID, SELFPAY ==
[2023-10-28 12:17] LABS: Add Manual Diff / Slide Review NO; Basophils Absolute Auto 0 /uL (0-100); Basophils Percent Auto 0.3 % (0-2); Eosinophils Absolute Auto 100 /uL (0-450); Eosinophils Percent Auto 0.8 % (2-4); Hematocrit 37.3 % (41-53); Hemoglobin 12.4 g/dL (13.5-17.5); Lymphocytes Absolute Auto 2200 /uL (1100-4500); Lymphocytes Percent Auto 30.3 % (25-40); Mean Corpuscular HGB Conc 33.3 % (30-36); Mean Corpuscular Hemoglobin 30.7 PG (26-34); Mean Corpuscular Volume 92.2 fL (80-100); Monocytes Absolute Auto 600 /uL (0-900); Monocytes Percent Auto 7.9 % (3-14); Neutrophils Absolute Auto 4500 /uL (1500-7000); Neutrophils Percent Auto 60.7 % (50-75); Platelet Count 348 X10^3/uL (150-400); Red Blood Cell Count 4.04 X10^6/uL (4.5-5.9); White Blood Cell Count 7.4 X10^3/uL (4.5-11.0)
[2023-10-28 12:37] LABS: HEMOLYSIS < 15 (0-50); Iron 103 ug/dL (49-181)
[2023-10-28 12:39] LABS: Alanine Aminotransferase 16 IU/L (<50); Albumin Globulin Ratio 1.6 (1.0-2.8); Alkaline Phosphatase 63 U/L (38-126); Aspartate Aminotransferase 18 IU/L (17-59); BUN Creatinine Ratio 16.3 (6-22); Bilirubin Total 0.7 mg/dL (0.2-1.3); Blood Urea Nitrogen 8 mg/dL (9-20); Calcium 9.1 mg/dL (8.4-10.2); Carbon Dioxide 25 mmol/L (22-32); Chloride 109 mmol/L (98-107); Cholesterol 198 mg/dL (140-199); Estimated Glomerular Filt Rate > 60 mL/min (>60); Globulin 2.5 g/dL (1.7-4.1); Glucose 96 mg/dL (70-100); HDL Cholesterol 82 mg/dL (40-60); HEMOLYSIS < 15 (0-50); Hemoglobin A1C% w Est Avg Glu 5.3 % (4.0-6.0); LDL Cholesterol Calculated 86 mg/dL (<100); Potassium 4.4 mmol/L (3.4-5.1); Sodium 140 mmol/L (137-145); Total Protein 6.5 g/dL (6.3-8.2); Triglycerides 152 mg/dL (35-150)
[2023-10-28 12:50] LABS: Percent Iron Saturation 32 % (20-50); Total Iron Binding Capacity 322 ug/dL (261-462); Transferrin 270 mg/dL (206-381)
[2023-10-28 13:10] LABS: TSH w/ Reflex to FT4 1.08 uIU/mL (0.47-4.68)
[2023-10-28 13:44] LABS: Folate 9.8 ng/mL (2.76-20.0); Vitamin B12 426 pg/mL (239-931)
[2023-10-28 14:46] LABS: Vitamin D 25 Hydroxy (D3) 52.1 ng/mL (30.0-100.0)
[2023-10-28 15:02] LABS: Estradiol, Total 289.7 pg/mL
== END ==
PROVIDERS: Family Provider Pediatrics; PCP Pediatrics; Referring Provider Psychiatry & Neurology Child & Adolescent Psychiatry; Visit Provider Psychiatry & Neurology Child & Adolescent Psychiatry
DX: F50.82 Avoidant/restrictive food intake disorder (principal)
CPT/HCPCS: 36415; 80053; 80061; 82306; 82607; 82670; 82746; 83036; 83540; 83550; 84443; 85025

== ENCOUNTER 2023-12-19 13:45 | Outpatient (RCR) | payer MEDICARE, MEDICAID, SELFPAY ==
--- NOTE | 2023-11-28 16:00 | OT.OPPOC ---
Physical, Occupational & Speech Therapy At [facility] Nola Ward [id number] 2005 Visit Care Team Role Provider Type Janet Marvin MD Attending Provider Physician Family Provider Primary Care Provider Referring Provider Address: [facility] [place], [address] Fax: Occupational Therapy Plan of Care OT Outpatient Adult Evaluation Start: 11/29/23 09:14 Freq: Status: Active Protocol: Document 11/28/23 16:00 [facility] (Rec: 11/29/23 09:41 [facility] [id number]) General Information - Adult Visit Information Visit Number 1 Plan of Care Dates 11/28/23 - 01/09/24 Insurance Information [employer]; *Pre-auth initial x 12 visits; x 12 visits PCY; 24 PT/OT PCY Session Time Visit Start Time 13:45 Visit Stop Time 14:28 Setting Treatment Setting Outpatient Care Visit Type Note Type Initial Evaluation Referral Referring Physician Janet Marvin MD Identification Identification Confirmed Yes Identification Confirmed By Self, Nola Goals Treatment Treatment Tool manipulation. Short Term Goals Short Term Goals 1. Nola will actively participate in additional standardized assessments in order to establish baseline. Detention Goals Solar Thermal Installer Goals 1. Nola will be modified independent with home exercise program with support of family utilizing written/ visual instructions as needed. Assessment/Plan Assessment Treatment Assessment Nola is 18 years old and is right hand dominant. Medical history is significant for allergies/tape/latex, arthritis, back pain, depression, shortness of breath, psychological disorder and spectrum disorder. She has received extra support since she was younger and has a brother that is 1 1/2 years younger. Family goals include addressing tool manipulation and supporting functional motor coordination/functional independence. QuickDASH UE Outcome Measure Score = 65.91; she is currently not working or playing a sport or playing an instrument. Pain Assessment Grid was completed; indication of 6 out of 10 superior (tops of bilateral shoulders, 7 out of 10 pain of the radial surface distal to L deltoid, 8 out of 10 pain just distal to L elbow/prox to medial R forearm, 3 out of 10 pain bilateral posterior shoulders, 3 out of 10 pain dorsal bilateral knees, 2 out of 10 pain R toes, 3 out of 10 L toes, and 4 out of 10 pain of the abdominant region. Hand/ Wrist Pain Assessment Grid was also completed; 5 out of 10 pain volar surface of L thumb CMC -> MPJ, 2 out of 10 volar surface of L 2-5 MPJs, and 2 out of 10 volar surface medial L 4th metacarpal --> proximal to PIPJ and 4 out of 10 pain L CMCJ dorsally, 5 out of 10 pain L MPJ distally to PIPJ and 2 out of 10 pain between 4th and 5th digits, 3rd and 4th digits, 2nd and 3rd digits , and 1st and 2nd digits. 3 out of 10 pain R CMCJ, 2 out of 10 pain volar surface of R 2-5 MPJs, 4 out of 10 volar surface R 4th MCPJ --> PIPJ, 3 out of 10 dorsal surface of R 4th PIPJ, and 2 out of 10 pain between 4th and 5th digits, 3rd and 4th digits, 2nd and 3rd digits, and 1st and 2nd digits. Please refer to EMR/scanned in Pain Assessment Grids. Nola was attending class in person and completing schoolwork online; she reportedly prefers keyboarding /typing and is able to complete this skill much faster than handwritten work. Handwriting speed and efficiency is a concern, as well as legibility. Nola was attending class in person and completing schoolwork online; she reportedly prefers keyboarding/typing and is able to complete this skill much faster than handwritten work. Handwriting speed and efficiency is a concern, as well as legibility. She was able to rotate pencil x 10 consecutive trials CW on 1 attempt w/ R hand; initially performance was variable. She struggles with g/h tasks, including brushing her hair ( particularly the back area), although, she was observed to be able to fingercomb hair particularly w/ the R hand 4-5 inches from her scalp w/ increased time. Her wardrobe has been adjusted given speed and efficiency w/ fasteners, particularly buttons, w/ most clothing items having elastic bands and shoes are step-in/ slide in with no laces. She also reportedly struggles w/ simple meal preparation and light house keeping tasks. Demonstrates UE ROM WFL; able to oppose thumbs bilaterally to each digit pad. Dynamometer II strength testing results = 32.0# of force R laundry room attendant w/ elbow in 90 degrees flex vs 45 .0# of force L laundry room attendant w/ elbow in 90 degrees flex. Pinchometer strength testing results = 9.0# of force R lateral downing pinch vs 10.0# of force L lateral downing pinch; 5.0 # of force bilateral tip pinch ; 8.0# of force R 3-jaw pinch 6.5# of force L 3-jaw pinch. OT to support functional coordination and functional independence. Plan Length of treatment (weeks) 6 Plan of Care Start Date 11/28/23 Plan of Care End Date 01/09/24 Treatment Frequency Once a Week Therapeutic Contents Active Range of Motion, Adaptive Equipment Education, Functional Activities,Home Exercise Program,Joint Protection,Education, Neurodevelopment Treatment, Neuromuscular Re-Education, Self-Care,Stretching/ Flexibility Activities, Therapeutic Activities, Therapeutic Exercises Functional Wrist/Hand Scan Hand Side Sensory Assessment Sensory Profile2 Electronically Signed by: Phoebe Aldana OT 11/29/23 2729 If you are in agreement with this Plan of Care, please return a signed and dated copy. I have reviewed this Plan of Care and certify that the skilled therapy services above are required to meet the patient?s needs. Physician Signature Date Printed Name and Credentials Clinical Instructor Signature Printed Name and Credentials
--- NOTE | 2023-12-05 15:48 | OT.OP.TRT ---
Visit Care Team Role Provider Type Janet Marvin MD Attending Provider Physician Family Provider Primary Care Provider Referring Provider Specialty: Family Practice CHILD'S NURSE Address: [address] [place], [address] Fax: Email: [email or web address] Occupational Therapy Treatment Note OT Outpatient Treatment Note - Adult Start: 11/29/23 09:14 Freq: Status: Active Protocol: Document 12/05/23 15:34 AMS (Rec: 12/05/23 15:48 AMS [id number]) OT Outpatient Adult Treatment Note Session Time Visit Start Time 13:45 Visit Stop Time 14:28 Visit Information Visit Number 2 Plan of Care Dates 11/28/23 - 01/09/24 Insurance Information Stevens; *Pre-auth initial x 12 visits; x 12 visits PCY; 24 PT/OT PCY Setting Treatment Setting Outpatient Care Visit Type Note Type Treatment Note General Information General Information Nola is 18 years old and is right hand dominant. Medical history is significant for allergies/tape/latex, arthritis, back pain, depression, shortness of breath, psychological disorder and spectrum disorder. She has received extra support since she was younger and has a brother that is 1 1/2 years younger. - Subjective Observations Nola is considering returning to school in the fall; she is also considering applying to a summer program. She is interested in creative writing (screen plays, fictional writings) and considering rivet passer given that her Mother is a retired nurse. Nola indicated that her Mother retired from [employer] after she gave to Nola . Nola came to session equipped with personal hair brush; she indicated that she has difficulties w/ braiding her hair and putting her hair in a pony tail. Parent/Guardian/Ticket Chopper Assembler Expectation/ Address tool manipulation/ Goals support functional motor coordination/ind - Objective Objective Measurements Please refer to below for progress towards meeting established OT goals: 12/05/23 = WFL w/ brushing hair (without visual feedback) Short Term Goals 1. Nola will actively participate in additional standardized assessments in order to establish baseline. Parcel Post Carrier Goals 1. Nola will be modified independent with home exercise program with support of family utilizing written/ visual instructions as needed. - Treatment 3 Descriptor Finger/hand strengthening. Resistant clothespins. 1# of force to 8# of force; R hand only w/ clipping and unclipping clothespins. 2 Descriptor In-hand manipulation. 2-small sized bouncy balls in palm of hand. CCW rotation. Leap frog. L <-> R in-hand manipulation. Palm -> fingertips. 1 Descriptor Functional activities. Brushing of hair. - Assessment Assessment of Improvement Nola demonstrated WFL w/ brushing of hair utilizing personal hair brush w/ increased time needed; this may be d/t length of time between brushings or d/t length of hair. Able to brush from base of neck/back of head /top of head w/ hair brush. Report of inability to braid hair, put hair in a pony tail, or put hair half-up into half bun. Able to manage resistant clothespins w/ R hand w/ encouragement. Report of inability to shuffle deck of cards w/ primary use of computer for [place]/engaging in card games with peers. Intermittent success w/ rotating pencil in R hand x 5 trials, as well as walking pencil from between thumb and 2nd digit --> between 4th and 5th digits w/ R hand x 4 trials. Intermittent success w / rotating stress balls around one another in palm of hand/ execution of moving 1 ball over the top of other ball, and w/ translation and moving ball from radial <-> ulnar surface w/ observed choice to execute w/ non-dominant hand. OT to support functional coordination and functional independence. - Plan Therapy Recommendations Advance per Rehabilitation Protocol
--- NOTE | 2023-12-19 14:51 | OT.OP.TRT ---
Visit Care Team Role Provider Type Janet Marvin MD Attending Provider Physician Family Provider Primary Care Provider Referring Provider Specialty: Family Practice QUOTATION CHECKER Address: [facility] [place], [address] Fax: Email: [email or web address] Occupational Therapy Treatment Note OT Outpatient Treatment Note - Adult Start: 11/29/23 09:14 Freq: Status: Active Protocol: Document 12/19/23 14:37 AMS (Rec: 12/19/23 14:51 AMS [id number]) OT Outpatient Adult Treatment Note Session Time Visit Start Time 13:45 Visit Stop Time 14:28 Visit Information Visit Number 3 Plan of Care Dates 11/28/23 - 01/09/24 Insurance Information Stevens; *Pre-auth initial x 12 visits; x 12 visits PCY; 24 PT/OT PCY Setting Treatment Setting Outpatient Care Visit Type Note Type Treatment Note General Information General Information Nola is 18 years old and is right hand dominant. Medical history is significant for allergies/tape/latex, arthritis, back pain, depression, shortness of breath, psychological disorder and spectrum disorder. She has received extra support since she was younger and has a brother that is 1 1/2 years younger. - Subjective Observations Nola is considering returning to school in the fall; she is also considering applying to a summer program. She is interested in creative writing (screen plays, fictional writings). Nola came to session equipped with personal hair brush; she indicated that she has difficulties w/ braiding her hair and putting her hair in a pony tail. Parent/Guardian/Taker Off Braker Machine Expectation/ Address tool manipulation/ Goals support functional motor coordination/ind - Objective Objective Measurements Please refer to below for progress towards meeting established OT goals: 12/05/23 = WFL w/ brushing hair (without visual feedback) Short Term Goals 1. Nola will actively participate in additional standardized assessments in order to establish baseline. [facility]cf Goals 1. Nola will be modified independent with home exercise program with support of family utilizing written/ visual instructions as needed. - Treatment 3 Descriptor Finger/hand strengthening. Resistant clothespins. 1# of force to 8# of force; R hand w / intermittent L hand assist clipping and unclipping clothespins. Red flex-bar. Supination. 1 x 10. Red flex-bar. Pronation. 1 x 10. Passing of 6.6# weighted spherical ball between hands. 1 x 10. Picking up of and replacing weighted spherical ball on TT. 5.5# weighted spherical ball 1 x 10. 6.6# weighted spherical ball 1 x 10. Blue theraputty. Formation of ball. Twisting of putty. Lateral downing pinch strengthening. 2 Descriptor In-hand manipulation. 2-small sized bouncy balls in palm of hand. CCW rotation. Leap frog. L <-> R in-hand manipulation. Palm -> fingertips. 1 Descriptor Functional activities. Brushing of hair. Placement of rubberbands on bottle. 2-handed approach. Twisting of rubberband onto handle of brush. 2-handed approach. - Assessment Assessment of Improvement Nola demonstrated WFL w/ brushing of hair utilizing personal hair brush w/ increased time needed. Able to brush from base of neck/back of head/top of head w/ hair brush. Report of inability to braid hair, put hair in a pony tail, or put hair half-up into half bun; worked on positioning of rubberband around plastic bottle and on handle of hair brush. She was able to do these motor tasks utilizing various approaches relative to transferring of rubberband from wrist -> around bottle. Nola did quite well w/ manipulating the blue, firm theraputty and manipulating the red flex-bar. She indicated that she did not wish to bring the blue theraputty home. Nola also did quite well w/ transporting and manipulating the weighted spherical balls of resistance 5.5# and 6.6#. May need to have pony tail readily available to determine motor approach w/ putting hair up. Given that Nola did quite well with the blue, firm theraputty, weighted spherical balls, and red flex bar, rec increased time spent on functional motor planning w/ intermixing of distal UE strengthening activities time permitting. OT to support functional coordination and functional independence. - Plan Therapy Recommendations Advance per Rehabilitation Protocol
--- NOTE | 2024-01-19 11:22 | OT.OP.DC ---
Visit Care Team Role Provider Type Janet Marvin MD Attending Provider Physician Family Provider Primary Care Provider Referring Provider Address[facility] [address] [place], [place] [address] [place], [address] Fax: Email: [email or web address] OT Outpatient OT Outpatient Adult Evaluation Start: 11/29/23 09:14 Freq: Status: Active Protocol: Document 11/28/23 16:00 AMS (Rec: 11/29/23 09:41 AMS [id number]) General Information - Adult Visit Information Visit Number 1 Plan of Care Dates 11/28/23 - 01/09/24 Insurance Information Stevens; *Pre-auth initial x 12 visits; x 12 visits PCY; 24 PT/OT PCY Session Time Visit Start Time 13:45 Visit Stop Time 14:28 Setting Treatment Setting Outpatient Care Visit Type Note Type Initial Evaluation Referral Referring Physician Janet Marvin MD Identification Identification Confirmed Yes Identification Confirmed By Self, Nola Goals Treatment Treatment Tool manipulation. Short Term Goals Short Term Goals 1. Nola will actively participate in additional standardized assessments in order to establish baseline. Carry Out Clerk Goals Carry Out Clerk Goals 1. Nola will be modified independent with home exercise program with support of family utilizing written/ visual instructions as needed. Assessment/Plan Assessment Treatment Assessment Nola is 18 years old and is right hand dominant. Medical history is significant for allergies/tape/latex, arthritis, back pain, depression, shortness of breath, psychological disorder and spectrum disorder. She has received extra support since she was younger and has a brother that is 1 1/2 years younger. Family goals include addressing tool manipulation and supporting functional motor coordination/functional independence. QuickDASH UE Outcome Measure Score = 65.91; she is currently not working or playing a sport or playing an instrument. Pain Assessment Grid was completed; indication of 6 out of 10 superior (tops of bilateral shoulders, 7 out of 10 pain of the radial surface distal to L deltoid, 8 out of 10 pain just distal to L elbow/prox to medial R forearm, 3 out of 10 pain bilateral posterior shoulders, 3 out of 10 pain dorsal bilateral knees, 2 out of 10 pain R toes, 3 out of 10 L toes, and 4 out of 10 pain of the abdominant region. Hand/ Wrist Pain Assessment Grid was also completed; 5 out of 10 pain volar surface of L thumb CMC -> MPJ, 2 out of 10 volar surface of L 2-5 MPJs, and 2 out of 10 volar surface medial L 4th metacarpal --> proximal to PIPJ and 4 out of 10 pain L CMCJ dorsally, 5 out of 10 pain L MPJ distally to PIPJ and 2 out of 10 pain between 4th and 5th digits, 3rd and 4th digits, 2nd and 3rd digits , and 1st and 2nd digits. 3 out of 10 pain R CMCJ, 2 out of 10 pain volar surface of R 2-5 MPJs, 4 out of 10 volar surface R 4th MCPJ --> PIPJ, 3 out of 10 dorsal surface of R 4th PIPJ, and 2 out of 10 pain between 4th and 5th digits, 3rd and 4th digits, 2nd and 3rd digits, and 1st and 2nd digits. Please refer to EMR/scanned in Pain Assessment Grids. Nola was attending class in person and completing schoolwork online; she reportedly prefers keyboarding /typing and is able to complete this skill much faster than handwritten work. Handwriting speed and efficiency is a concern, as well as legibility. Nola was attending class in person and completing schoolwork online; she reportedly prefers keyboarding/typing and is able to complete this skill much faster than handwritten work. Handwriting speed and efficiency is a concern, as well as legibility. She was able to rotate pencil x 10 consecutive trials CW on 1 attempt w/ R hand; initially performance was variable. She struggles with g/h tasks, including brushing her hair ( particularly the back area), although, she was observed to be able to fingercomb hair particularly w/ the R hand 4-5 inches from her scalp w/ increased time. Her wardrobe has been adjusted given speed and efficiency w/ fasteners, particularly buttons, w/ most clothing items having elastic bands and shoes are step-in/ slide in with no laces. She also reportedly struggles w/ simple meal preparation and light house keeping tasks. Demonstrates UE ROM WFL; able to oppose thumbs bilaterally to each digit pad. Dynamometer II strength testing results = 32.0# of force R gang pusher w/ elbow in 90 degrees flex vs 45 .0# of force L gang pusher w/ elbow in 90 degrees flex. Pinchometer strength testing results = 9.0# of force R lateral downing pinch vs 10.0# of force L lateral downing pinch; 5.0 # of force bilateral tip pinch ; 8.0# of force R 3-jaw pinch 6.5# of force L 3-jaw pinch. OT to support functional coordination and functional independence. Plan Length of treatment (weeks) 6 Plan of Care Start Date 11/28/23 Plan of Care End Date 01/09/24 Treatment Frequency Once a Week Therapeutic Contents Active Range of Motion, Adaptive Equipment Education, Functional Activities,Home Exercise Program,Joint Protection,Education, Neurodevelopment Treatment, Neuromuscular Re-Education, Self-Care,Stretching/ Flexibility Activities, Therapeutic Activities, Therapeutic Exercises Functional Wrist/Hand Scan Hand Side Sensory Assessment Sensory Profile2 OT Outpatient Treatment Note - Adult Start: 11/29/23 09:14 Freq: Status: Active Protocol: Document 01/19/24 11:20 [facility] (Rec: 01/19/24 11:22 [facility] [id number]) OT Outpatient Adult Treatment Note Visit Information Visit Number 3 Plan of Care Dates 11/28/23 - 01/09/24 Insurance Information Stevens; *Pre-auth initial x 12 visits; x 12 visits PCY; 24 PT/OT PCY Setting Treatment Setting Outpatient Care Visit Type Note Type Discharge Summary General Information General Information Nola is 18 years old and is right hand dominant. Medical history is significant for allergies/tape/latex, arthritis, back pain, depression, shortness of breath, psychological disorder and spectrum disorder. She has received extra support since she was younger and has a brother that is 1 1/2 years younger. - Subjective Observations Nola has not been seen in the outpatient setting by OT since 12/19/23 and OT POC on 01/09/24; thus, recommend d/c from outpatient OT and re-evaluate as deemed appropriate by PCP with receipt of new referral. - Objective Objective Measurements Please refer to below for progress towards meeting established OT goals: 12/05/23 = WFL w/ brushing hair (without visual feedback) Short Term Goals ALL GOALS D/C 01/19/24 1. Nola will actively participate in additional standardized assessments in order to establish baseline. Detention Goals ALL GOALS D/C 5/31/24 1. Nola will be modified independent with home exercise program with support of family utilizing written/ visual instructions as needed. - - Assessment Assessment of Improvement Nola has not been seen in the outpatient setting by OT since 12/19/23 and OT POC on 01/09/24; thus, recommend d/c from outpatient OT and re-evaluate as deemed appropriate by PCP with receipt of new referral. - Plan Therapy Recommendations Discharge from Occupational Therapy
== END 2024-02-19 14:06 | disposition home or self-care (01) ==
LOC: OT 13:45
PROVIDERS: Family Provider Family Medicine; PCP Family Medicine; Referring Provider Family Medicine; Visit Provider Family Medicine
DX: Z78.9 Other specified health status (principal); R29.818 Other symptoms and signs involving the nervous system; R29.898 Other symptoms and signs involving the musculoskeletal system; F64.0 Transsexualism
CPT/HCPCS: 97165; 97530

== ENCOUNTER → 2024-03-13 13:09 | Outpatient (CLI) | payer MEDICARE, MEDICAID, SELFPAY ==
[2024-03-13 14:36] LABS: HEMOLYSIS < 15 (0-50); Iron 127 ug/dL (49-181)
[2024-03-13 14:47] LABS: Percent Iron Saturation 39 % (20-50); Total Iron Binding Capacity 323 ug/dL (261-462); Transferrin 283 mg/dL (206-381)
[2024-03-13 15:10] LABS: Ferritin 30 ng/mL (18-464); TSH w/ Reflex to FT4 0.84 uIU/mL (0.47-4.68)
[2024-03-13 18:40] LABS: Follicle Stimulating Hormone < 0.66 mIU/mL; Luteinizing Hormone < 0.216 mIU/mL
[2024-03-13 18:55] LABS: Estradiol, Total 181.9 pg/mL
== END ==
PROVIDERS: Family Provider Family Medicine; PCP Family Medicine; Referring Provider Family Medicine; Visit Provider Family Medicine
DX: F64.0 Transsexualism (principal); R53.82 Chronic fatigue, unspecified
CPT/HCPCS: 36415; 82670; 82728; 83001; 83002; 83540; 83550; 84402; 84403; 84443

== ENCOUNTER → 2024-04-08 09:22 | Outpatient (CLI) | payer MEDICARE, MEDICAID, SELFPAY ==
[2024-04-08 11:31] LABS: Hemoglobin A1C% w Est Avg Glu 5.3 % (4.0-6.0)
[2024-04-08 11:40] LABS: Erythrocyte Sedimentation Rate 7 MM/HR (0-15)
[2024-04-08 11:43] LABS: C-Reactive Protein Quant 0.6 mg/dL (<1.0); Creatine Kinase 55 U/L (55-170)
[2024-04-08 11:49] LABS: Rheumatoid Factor < 8.6 IU/mL (<12.0)
== END ==
PROVIDERS: Family Provider Family Medicine; PCP Family Medicine; Referring Provider Family Medicine; Visit Provider Family Medicine
DX: Z13.1 Encounter for screening for diabetes mellitus (principal); M25.50 Pain in unspecified joint; R53.83 Other fatigue
CPT/HCPCS: 36415; 82550; 83036; 85651; 86140; 86200; 86430

== ENCOUNTER 2024-04-26 20:11 | Emergency (ER) | payer MEDICARE, MEDICAID, SELFPAY ==
[2024-04-26 20:21] VITALS: BP 108/69; PULSE 74; RESP 18; TEMP 36.4; O2SAT 96; BMI 31.4
[2024-04-26 21:38] LABS: Add Manual Diff / Slide Review NO; Basophils Absolute Auto 100 /uL (0-100); Basophils Percent Auto 0.7 % (0-2); Eosinophils Absolute Auto 100 /uL (0-450); Eosinophils Percent Auto 0.6 % (2-4); Hematocrit 39.3 % (41-53); Hemoglobin 13.4 g/dL (13.5-17.5); Lymphocytes Absolute Auto 3000 /uL (1100-4500); Mean Corpuscular HGB Conc 34.1 % (30-36); Mean Corpuscular Hemoglobin 30.8 PG (26-34); Mean Corpuscular Volume 90.3 fL (80-100); Monocytes Absolute Auto 800 /uL (0-900); Monocytes Percent Auto 7.7 % (3-14); Neutrophils Absolute Auto 6100 /uL (1500-7000); Platelet Count 305 X10^3/uL (150-400); Red Blood Cell Count 4.36 X10^6/uL (4.5-5.9); Red Cell Distribution Width 13.2 % (11.6-14.8); White Blood Cell Count 9.9 X10^3/uL (4.5-11.0)
[2024-04-26 21:49] LABS: Alanine Aminotransferase 24 IU/L (<50); Albumin 4.3 g/dL (3.5-5.0); Albumin Globulin Ratio 1.5 (1.0-2.8); Alkaline Phosphatase 72 U/L (38-126); Aspartate Aminotransferase 25 IU/L (17-59); BUN Creatinine Ratio 23.9 (6-22); Bilirubin Total 0.5 mg/dL (0.2-1.3); Blood Urea Nitrogen 11 mg/dL (9-20); Calcium 9.1 mg/dL (8.4-10.2); Carbon Dioxide 24 mmol/L (22-32); Chloride 104 mmol/L (98-107); Estimated Glomerular Filt Rate > 60 mL/min (>60); Globulin 2.9 g/dL (1.7-4.1); Glucose 113 mg/dL (70-100); HEMOLYSIS < 15 (0-50); Lipase 45 U/L (23-300); Potassium 4.1 mmol/L (3.4-5.1); Sodium 137 mmol/L (137-145); Total Protein 7.2 g/dL (6.3-8.2)
[2024-04-26 22:45] VITALS: BP 109/68; PULSE 75; O2SAT 95
[2024-04-26 23:00] VITALS: BP 99/65; PULSE 76; O2SAT 95
[2024-04-26 23:30] VITALS: BP 104/61; PULSE 86; O2SAT 97
--- NOTE | 2024-04-26 23:44 | ED.ABDPAIN ---
HPI - Abdominal Pain General Chief Complaint: Abdominal Pain Stated Complaint: intense abd pain Time Seen by Provider: 04/26/24 23:35 Source: patient and family Mode of arrival: Ambulatory History of Present Illness HPI narrative: Patient is a 18-year-old transgender male to female currently on hormones prior abdominal surgery presenting today with abdominal pain. She reports she has had worsening pain from left upper quadrant or right lower quadrant today. Quite tender to touch. No vomiting fever or flank pain. She has had ongoing abdominal pain for awhile. She has suffered chronic constipation as well. No painful frequent urination no significant back pain chest pain or cough. Is scheduled for an ultrasound in a couple of days. She has not had any further imaging of this ongoing abdominal pain. Related Data Home Medications Medication Instructions Recorded Confirmed docusate sodium 100 mg capsule ##0 11/21/17 04/19/24 (Colace) melatonin 3 mg tablet ##0 11/21/17 04/19/24 Histrelin implant implant 07/08/23 04/19/24 ziprasidone HCl 40 mg capsule 40 mg PO DAILY 07/08/23 04/19/24 estradiol 2 mg tablet mg PO 11/22/23 04/19/24 lamotrigine 25 mg tablet mg PO BID 11/22/23 04/19/24 sertraline 50 mg tablet 50 mg PO DAILY 11/22/23 04/19/24 Previous Rx's Medication Instructions Recorded cholecalciferol (vitamin D3) 100 4,000 unit PO Q DAY #90 caps 03/28/17 mcg (4,000 unit) capsule (Vitamin D3) fluticasone propionate 50 2 spray intranasal Q DAY ##1 03/28/17 mcg/actuation nasal spray,suspension (Flonase Allergy Relief) inhalational spacing device #1 ea 01/15/19 ([facility] spacer) [L-methylfolate] 15 mg PO Q DAY #90 caplets 10/16/19 gabapentin 100 mg capsule See Rx Instructions .Route 06/11/20 .COMPLEX #0 caps ziprasidone HCl 20 mg capsule See Rx Instructions .Route 06/11/20 .COMPLEX #0 caps albuterol sulfate 90 mcg/actuation 2 inh inhalation Q6H PRN shortness 12/17/21 breath activated powder inhaler of breath or wheezing #2 ea (ProAir RespiClick) prochlorperazine maleate 5 mg 5 mg PO TID PRN nausea, headache 04/19/24 tablet (Compazine) #30 tabs Allergies Allergy/AdvReac Type Severity Reaction Status Date / Time Penicillins AdvReac Intermediate Rash Verified 04/19/24 15:53 Patient History Medical History Abdominal pain Postnasal drip Joint pain Poor fine motor skills Sore throat Excessive cerumen in right ear canal [id number] transgender person Anxiety ADHD (attention deficit hyperactivity disorder), combined type Autism spectrum disorder Sensorineural hearing loss (SNHL) of right ear Social History Smoking Status: Never smoker Smoking Status: Never smoker Exam Initial Vital Signs Initial Vital Signs: Vital Signs Temperature 97.5 F L 04/26/24 20:21 Pulse Rate 74 04/26/24 20:21 Respiratory Rate 18 04/26/24 20:21 Blood Pressure 108/69 04/26/24 20:21 Pulse Oximetry 96 04/26/24 20:21 Oxygen Delivery Method Room Air 04/26/24 20:21 GENERAL: Alert well-appearing 18-year-old female and in no acute distress. HEENT: Head atraumatic,EOMI, pupils reactive, face symmetric, moist mucous membranes CARDIOVASCULAR: Regular rate and rhythm without murmurs, rubs or gallops. RESPIRATORY: Breath sounds equal bilaterally, no wheezes rales or rhonchi. ABDOMEN: Soft, mild tenderness no significant distention no guarding or rebound no right upper quadrant pain mild right lower quadrant pain mild left upper quadrant pain mild periumbilical : No CVA tenderness EXTREMITIES: Normal range of motion, no clubbing or edema. Neurovascularly intact NEUROLOGICAL: Alert and oriented x4.Normal gait and speech. SKIN: Warm, dry, no laceration, no petechiae, no rashes or lesions. Course Orders Ordered: ED Orders 04/26/24 21:25 Complete Blood Count AUTO DIFF Stat Comprehensive Metabolic Panel Stat Lipase Stat 04/26/24 23:50 CT abdomen pelvis w con Stat Discontinued Medications Ketorolac Tromethamine (Ketorolac 30 Mg/Ml Vial) 15 mg IV NOW ONE Stop: 04/26/24 23:51 Last Admin: 04/26/24 23:56 Dose: 15 mg Documented By: Ondansetron HCl (Ondansetron 4 Mg/2 Ml Inj) 4 mg IV NOW PRN PRN Reason: Nausea And Vomiting Last Admin: 04/26/24 23:56 Dose: 4 mg Documented By: Ondansetron HCl (Ondansetron 4 Mg Odt) 4 mg PO NOW PRN PRN Reason: Nausea And Vomiting Vital Signs Vital signs: Vital Signs - 8 hr 04/26/24 22:45 04/26/24 22:45 04/26/24 23:00 Pulse Rate 75 76 Blood Pressure 109/68 Pulse Oximetry 95 95 04/26/24 23:00 04/26/24 23:30 04/26/24 23:30 Pulse Rate 86 Blood Pressure 99/65 104/61 Pulse Oximetry 97 04/27/24 00:00 04/27/24 01:18 04/27/24 01:18 Pulse Rate 74 78 Blood Pressure 105/72 Pulse Oximetry 98 95 MDM - Abdominal Pain Lab Data 04/26/24 21:25 04/26/24 21:25 Labs: Lab Results 04/26/24 Range/Units 21:25 WBC 9.9 (4.5-11.0) X10^3/uL RBC 4.36 L (4.5-5.9) X10^6/uL Hgb 13.4 L (13.5-17.5) g/dL Hct 39.3 L (41-53) % MCV 90.3 (80-100) fL MCH 30.8 (26-34) PG MCHC 34.1 (30-36) % RDW 13.2 (11.6-14.8) % Plt Count 305 (150-400) X10^3/uL Neut % (Auto) 61.0 (50-75) % Lymph % (Auto) 30.0 (25-40) % Rains % (Auto) 7.7 (3-14) % Eos % (Auto) 0.6 L (2-4) % Baso % (Auto) 0.7 (0-2) % Neut # (Auto) 6100 (2833-0649) /uL Lymph # (Auto) 3000 (5554-0399) /uL Rains # (Auto) 800 (0-900) /uL Eos # (Auto) 100 (0-450) /uL Baso # (Auto) 100 (0-100) /uL Sodium 137 (137-145) mmol/L Potassium 4.1 (3.4-5.1) mmol/L Chloride 104 (98-107) mmol/L Carbon Dioxide 24 (22-32) mmol/L BUN 11 (9-20) mg/dL Creatinine 0.46 L (0.66-1.25) mg/dL Estimated GFR > 60 (>60) mL/min BUN/Creatinine Ratio 23.9 H (6-22) Glucose 113 H (70-100) mg/dL Calcium 9.1 (8.4-10.2) mg/dL Total Bilirubin 0.5 (0.2-1.3) mg/dL AST 25 (17-59) IU/L ALT 24 (<50) IU/L Alkaline Phosphatase 72 (38-126) U/L Total Protein 7.2 (6.3-8.2) g/dL Albumin 4.3 (3.5-5.0) g/dL Globulin 2.9 (1.7-4.1) g/dL Albumin/Globulin Ratio 1.5 (1.0-2.8) Lipase 45 (23-300) U/L Point of care testing: Point of Care Testing Test Results Negative Urine Dip Bedside Urine Glucose Negative Bedside Urine Bilirubin - Negative Bedside Urine Ketone - Negative Urine Specific [place] 1.015 Bedside Urine Occult Blood - Negative Bedside Urine pH 6.5 Bedside Urine Protein +/- 15 Bedside Urine Urobilinogen - Negative Bedside Urine Nitrite - Negative Bedside Urine Leukocytes - Negative Esterase Imaging Data CT scan - abdomen/pelvis: Radiologist's Impression: PROCEDURE: CT ABDOMEN PELVIS W CON INDICATIONS: mid ab pain TECHNIQUE: After the administration of intravenous contrast, axial sections acquired from the lung bases to the pubic symphysis. Coronal and sagittal reformats were performed. For radiation dose reduction, the following was used: automated exposure control, adjustment of mA and/or kV according to patient size. COMPARISON: None. FINDINGS: Image quality: Diagnostic. Lower Chest: No significant findings. ABDOMEN: Liver: Hepatomegaly. Prominent hepatic steatosis with geographic areas of fat sparing. No solid mass. Gallbladder: No wall thickening or calcified stones. Biliary ducts: No biliary dilation. Pancreas: No ductal dilation. Spleen: Size is within normal limits. Adrenal Glands: No adrenal nodules. Kidneys and Ureters: No hydronephrosis. No solid mass. No complex renal cystic lesion which requires follow up. Stomach and Bowel: Stomach and small bowel loops are normal caliber. The appendix was not well seen. The terminal ileum is fluid-filled. Other bowel loops are fairly decompressed. Normal colon. Peritoneum: No abnormal intraperitoneal fluid. No free air. Ventral Wall: No significant ventral hernia. Abdominal Nodes: No retroperitoneal or mesenteric adenopathy by size criteria. Vessels: The abdominal aorta, IVC, and portal vein are of normal caliber. PELVIS: Pelvic Organs: Extremely atrophied prostate gland. Bladder: No bladder wall thickening, accounting for underdistention. Pelvic Nodes: No enlarged lymph nodes. Miscellaneous: No inguinal hernias are seen. Bones: No aggressive osseous abnormality. IMPRESSION: Hepatomegaly and hepatic steatosis. Consider steatohepatitis. Dictated by: Tamika Claire M.D. on 04/27/2024 at 0:52 MDM Narrative Medical decision making narrative: Patient 18-year-old female presenting today with ongoing abdominal pain. It sounds like it has been ongoing for awhile no significant workup has been done it is worse today. Blood work has been reviewed she has no leukocytosis anemia electrolyte abnormality LEIGH or pancreatitis. Urinalysis also does not show any evidence of UTI CT shows hepatomegaly and hepatic steatosis but no acute abnormality She was given Toradol which did help a little bit for her pain At this time no further indication for workup can follow-up as an outpatient Differential diagnosis nephrolithiasis pancreatitis diverticulitis appendicitis Discharge Plan Departure Patient Disposition: Home Clinical Impression: Abdominal pain Instructions: DI for Abdominal Pain-Adult Activity Restrictions/Additional Instructions: *You have been diagnosed with abdominal *What to do: At this time blood work is overall reassuring. CT scan does show mild fatty liver but this is not likely causing your pain and discomfort. You may need referral to GI. *Continue to take medications as directed *Follow up with your primary care provider in 2-3 days or call [phone] *Return to ER if you should have increasing pain persistent vomiting or any new, worsening or concerning symptoms Prescriptions: No Action (DME) [facility] Goldstein [facility] spacer See Dose Instructions .ROUTE .MEDSUPPLY Qty: 1 0RF Dose Instruction: As directed Rx Instructions: As directed gabapentin 100 mg capsule See Rx Instructions .ROUTE .COMPLEX MDD 1200mg Qty: 0 0RF Rx Instructions: Take 100mg (1 capsule) by mouth in the morning, and 300mg (3 capsules) by mouth in the evening. ziprasidone HCl 20 mg capsule See Rx Instructions .ROUTE .COMPLEX Qty: 0 1RF Rx Instructions: Take 20mg at lunch, take 60mg at bedtime. prochlorperazine maleate [Compazine] 5 mg tablet 5 mg PO TID PRN (Reason: nausea, headache) Qty: 30 0RF ProAir RespiClick 90 mcg/actuation aerosol powdr breath activated 2 inh inhalation Q6H PRN (Reason: shortness of breath or wheezing) Qty: 2 0RF Rx Instructions: Use 15 minutes before activity ziprasidone HCl 40 mg capsule 40 mg PO DAILY Histrelin implant implant estradiol 2 mg tablet PO lamotrigine 25 mg tablet PO BID sertraline 50 mg tablet 50 mg PO DAILY fluticasone propionate [Flonase Allergy Relief] 9.9 ML spray,suspension 2 spray Intranasal Q DAY Qty: 1 3RF cholecalciferol (vitamin D3) [Vitamin D3] 4,000 UNIT capsule 4,000 unit PO Q DAY Qty: 90 3RF Hold Instructions: not taking melatonin 3 MG tablet Qty: 0 Hold Instructions: not taking docusate sodium [Colace] 100 MG capsule Qty: 0 Hold Instructions: not taking [L-methylfolate] 15 mg PO Q DAY Qty: 90 3RF Referrals: Janet Marvin MD [Primary Care Provider] - Stand Alone Forms: Patient Portal/API
--- NOTE | 2024-04-26 23:50 | DI.CT.S_ITS ---
PROCEDURE: CT ABDOMEN PELVIS W CON INDICATIONS: mid ab pain TECHNIQUE: After the administration of intravenous contrast, axial sections acquired from the lung bases to the pubic symphysis. Coronal and sagittal reformats were performed. For radiation dose reduction, the following was used: automated exposure control, adjustment of mA and/or kV according to patient size. COMPARISON: None. FINDINGS: Image quality: Diagnostic. Lower Chest: No significant findings. ABDOMEN: Liver: Hepatomegaly. Prominent hepatic steatosis with geographic areas of fat sparing. No solid mass. Gallbladder: No wall thickening or calcified stones. Biliary ducts: No biliary dilation. Pancreas: No ductal dilation. Spleen: Size is within normal limits. Adrenal Glands: No adrenal nodules. Kidneys and Ureters: No hydronephrosis. No solid mass. No complex renal cystic lesion which requires follow up. Stomach and Bowel: Stomach and small bowel loops are normal caliber. The appendix was not well seen. The terminal ileum is fluid-filled. Other bowel loops are fairly decompressed. Normal colon. Peritoneum: No abnormal intraperitoneal fluid. No free air. Ventral Wall: No significant ventral hernia. Abdominal Nodes: No retroperitoneal or mesenteric adenopathy by size criteria. Vessels: The abdominal aorta, IVC, and portal vein are of normal caliber. PELVIS: Pelvic Organs: Extremely atrophied prostate gland. Bladder: No bladder wall thickening, accounting for underdistention. Pelvic Nodes: No enlarged lymph nodes. Miscellaneous: No inguinal hernias are seen. Bones: No aggressive osseous abnormality. IMPRESSION: Hepatomegaly and hepatic steatosis. Consider steatohepatitis. Dictated by: Tamika Claire M.D. on 04/27/2024 at 0:52 Approved by: Tamika Claire M.D. on 04/27/2024 at 1:05
[2024-04-26] MEDS: ONDANSETRON 4 MG/2 ML INJ IV (23:56)
[2024-04-26] MEDS: KETOROLAC 30 MG/ML VIAL 15 MG IV (23:56)
[2024-04-27] VITALS: PULSE 74; O2SAT 98
[2024-04-27 01:18] VITALS: BP 105/72; PULSE 78; O2SAT 95
== END 2024-04-27 01:22 | disposition home or self-care (01) ==
PROVIDERS: Emergency Provider Emergency Medicine; Family Provider Family Medicine; PCP Family Medicine
DX: R10.9 Unspecified abdominal pain (principal)
CPT/HCPCS: 36415; 74177; 80053; 81003; 81025; 83690; 85025; 96374; 96375; 99284; J1885; J2405; Q9967

== ENCOUNTER → 2024-05-02 07:25 | Outpatient (CLI) | payer OTHER, MEDICAID, SELFPAY ==
--- NOTE | 2024-05-02 07:45 | DI.US.S_ITS ---
PROCEDURE: US ABDOMEN COMPLETE INDICATIONS: nausea + postprandial abd , r/o gallstones TECHNIQUE: Real-time scanning was performed of the abdominal and retroperitoneal organs, with image documentation. COMPARISON: [facility], CT, CT ABDOMEN PELVIS W CON, 04/26/2024, 23:57. FINDINGS: Liver: Liver is normal in size and steatosis. Gallbladder: Unremarkable. Biliary ducts: Intrahepatic bile ducts are non-dilated. Extrahepatic bile duct caliber measures 3.6 mm. Normal is 6-7 mm or less in diameter, or 10 mm or less post-cholecystectomy. Pancreas: Visualized portions of the pancreas are sonographically normal. Spleen: Spleen is normal in size and homogeneous in echotexture. Kidneys: Kidneys are normal in size and echotexture. Right kidney measures 10.7 cm long; left kidney measures 11.0 cm long. No hydronephrosis or nephrolithiasis. No solid masses. Aorta: Visualized aorta is normal in caliber at less than 3 cm. Iliacs: Proximal common iliac arteries are not well seen. IVC: Intrahepatic inferior vena cava is patent. Miscellaneous: No free abdominal fluid. IMPRESSION: Hepatic steatosis. Dictated by: Jacque Gurrola M.D. on 05/02/2024 at 12:03 Approved by: Jacque Gurrola M.D. on 05/02/2024 at 13:05
== END ==
LOC: US 07:26
PROVIDERS: Family Provider Family Medicine; PCP Family Medicine; Referring Provider Family Medicine; Visit Provider Family Medicine
DX: K76.0 Fatty (change of) liver, not elsewhere classified (principal); R11.0 Nausea; R10.9 Unspecified abdominal pain
CPT/HCPCS: 76700

== ENCOUNTER → 2025-03-04 09:45 | Outpatient (CLI) | payer MEDICARE, MEDICAID, SELFPAY ==
[2025-03-04 10:32] LABS: Add Manual Diff / Slide Review NO; Hematocrit 38.7 % (41-53); Hemoglobin 12.8 g/dL (13.5-17.5); Lymphocytes Absolute Auto 3000 /uL (1100-4500); Mean Corpuscular HGB Conc 33.1 % (30-36); Mean Corpuscular Hemoglobin 30.3 PG (26-34); Mean Corpuscular Volume 91.6 fL (80-100); Platelet Count 263 X10^3/uL (150-400)
[2025-03-04 10:40] LABS: Hemoglobin A1C% w Est Avg Glu 5.4 % (4.0-6.0)
[2025-03-04 10:52] LABS: Alanine Aminotransferase 65 IU/L (<50); Albumin 4.3 g/dL (3.5-5.0); Albumin Globulin Ratio 1.9 (1.0-2.8); Alkaline Phosphatase 76 U/L (38-126); Blood Urea Nitrogen 8 mg/dL (9-20); Calcium 9.3 mg/dL (8.4-10.2); Carbon Dioxide 24 mmol/L (22-32); Chloride 104 mmol/L (98-107); Cholesterol 230 mg/dL (140-199); Estimated Glomerular Filt Rate > 60 mL/min (>60); Globulin 2.3 g/dL (1.7-4.1); Glucose 99 mg/dL (70-99); HDL Cholesterol 71 mg/dL (40-60); HEMOLYSIS < 15 (0-50); Magnesium 1.7 mg/dL (1.6-2.3); Potassium 4.4 mmol/L (3.4-5.1); Sodium 139 mmol/L (137-145); Total Protein 6.6 g/dL (6.3-8.2); Triglycerides 181 mg/dL (35-150)
[2025-03-04 11:23] LABS: TSH w/ Reflex to FT4 4.61 uIU/mL (0.47-4.68)
== END ==
PROVIDERS: PCP Family Medicine; Referring Provider Psychiatry & Neurology Child & Adolescent Psychiatry; Visit Provider Psychiatry & Neurology Child & Adolescent Psychiatry
DX: Z13.1 Encounter for screening for diabetes mellitus (principal); Z51.81 Encounter for therapeutic drug level monitoring; E63.9 Nutritional deficiency, unspecified; R79.89 Other specified abnormal findings of blood chemistry; F50.82 Avoidant/restrictive food intake disorder; F64.0 Transsexualism; K76.0 Fatty (change of) liver, not elsewhere classified
CPT/HCPCS: 36415; 80053; 80061; 82672; 83036; 83735; 84403; 84443; 85025

== ENCOUNTER 2025-03-14 09:01 | Emergency (ER) | payer MEDICARE, MEDICAID, SELFPAY ==
[2025-03-14] VITALS (49 sets, daily range): BP systolic 100–203; BP diastolic 61–112; PULSE 97–155; RESP 20–63; TEMP 31.5; O2SAT 50–97; BMI 34.4
--- NOTE | 2025-03-14 09:11 | DI.RAD.S_ITS ---
PROCEDURE: XR CHEST 1V INDICATIONS: Shortness of breath TECHNIQUE: One view of the chest was acquired. COMPARISON: [facility], CT, CT ABDOMEN PELVIS W CON, 04/26/2024, 23:57. FINDINGS: Surgical changes and devices: None. Lungs and pleura: Diffuse left-sided pneumonia. Mediastinum: Mediastinal contours appear normal. Heart size is normal. Bones and chest wall: No suspicious bony lesions. Overlying soft tissues appear unremarkable. IMPRESSION: Diffuse left-sided pneumonia. Comment: Progress films are recommended until clear. Dictated by: Lebron Padilla M.D. on 03/14/2025 at 10:05 Approved by: Lebron Padilla M.D. on 03/14/2025 at 10:06
[2025-03-14] MEDS: ALBUTEROL/IPRATROPIUM 3 ML AMPUL INH (09:15)
--- NOTE | 2025-03-14 09:17 | ED.SOB ---
HPI - SOB/Dyspnea General Chief Complaint: Shortness of Breath/Dyspnea Stated Complaint: Strep, Poss. Sepsis Time Seen by Provider: 03/14/25 09:04 Source: patient Mode of arrival: EMS History of Present Illness HPI Narrative: Subjective: Pt presents to the ER with a past medical history significant for asthma and fibromyalgia. Nola was recently diagnosed with strep throat and prescribed antibiotics, which she has not been taking. This morning, she experienced shortness of breath and difficulty breathing, prompting her to call emergency services. Upon arrival, her oxygen saturation was in the low 80s on room air. She was given oxygen therapy, initially on 15 liters non-rebreather, then transitioned to an oxymask, but her saturation remained low at 74%. Nola reports having a sore throat, congestion, and cough. She also mentions mild body aches and recent diarrhea earlier today. She has a history of asthma but hasn't used her inhaler in a few years. Nola is a transgender patient. She denies alcohol use or recreational drug use. She was seen at a facility in [place] where a strep and CoViD test was done and only positive for strep. Related Data Home Medications ?Medication ?Instructions ?Recorded ?Confirmed Histrelin implant implant replaced 01/1207/08/23 02/26/25 NatureMade melatonin w/L theanine PO 05/06/24 02/26/25 and ramila melatonin 5 mg disintegrating 5 mg PO Sleep aid 02/20/25 02/26/25 tablet escitalopram oxalate 5 mg tablet 5 mg PO DAILY 02/26/25 03/14/25 ziprasidone HCl 20 mg capsule See Rx Instructions .Route .COMPLEX 02/26/25 03/14/25 estradiol 2 mg tablet 2 mg PO BID 03/14/25 03/14/25 Previous Rx's ?Medication ?Instructions ?Recorded cholecalciferol (vitamin D3) 100 4,000 unit PO Q DAY #90 caps 03/28/17 mcg (4,000 unit) capsule (Vitamin D3) Held on 06/11/20. Instructions: not taking fluticasone propionate 50 2 spray intranasal Q DAY ##1 03/28/17 mcg/actuation nasal spray,suspension (Flonase Allergy Relief) inhalational spacing device #1 ea 01/15/19 ([facility] spacer) gabapentin 100 mg capsule See Rx Instructions .Route 06/11/20 .COMPLEX #0 caps ondansetron 4 mg disintegrating 4 mg PO Q8H PRN nausea and 06/27/24 tablet vomiting #30 tabs Allergies Allergy/AdvReac Type Severity Reaction Status Date / Time Penicillins AdvReac Intermediate Rash Verified 03/14/25 09:03 Patient History Medical History (Updated 03/15/25 @ 15:59 by Jeff Vieira MD) Fibromyalgia Obesity NAFLD (nonalcoholic fatty liver disease) Elevated LFTs Abdominal pain Postnasal drip Joint pain Poor fine motor skills Sore throat Excessive cerumen in right ear canal [id number] transgender person Anxiety ADHD (attention deficit hyperactivity disorder), combined type Autism spectrum disorder Sensorineural hearing loss (SNHL) of right ear Social History Smoking Status: Never smoker Smoking Status: Never smoker Exam Narrative Exam Narrative: VS as noted above Focused physical exam as follows: General: Well developed, well nourished, morbidly obese, anxious appearing, speaking in few word sentences HEENT: pink palpebral conjunctiva, anicteric sclera, JAMES, moist mucous membranes, no JVD, no cervical lymphadenopathy Lungs: crackles in lung berry bilaterally but primarily on the left, moderate tachypnea Heart: normal rate, regular rhythm, no appreciable murmurs Abdomen: soft, nontender, no rebound or rigidity Musculoskeletal: no gross deformities with full ROM in all extremities, no pedal edema Skin: pink, warm; no rashes Neuro: ?AAOx3, GCS 15, nonfocal exam Psyche: no SI/HI, anxious appearing Initial Vital Signs Initial Vital Signs: Vital Signs Pulse Rate 115 H 03/14/25 09:03 Respiratory Rate 36 H 03/14/25 09:03 Blood Pressure 118/74 03/14/25 09:03 Pulse Oximetry 75 L 03/14/25 09:03 Oxygen Delivery Method Non -Rebreather 03/14/25 09:03 Oxygen Flow Rate 15 03/14/25 09:03 Procedures Intubation Time of Intubation: 12:45 Time out performed: Yes sedative: Etomidate Mg Given: 30 paralytic: Rocuronium Mg Given: 100 Laryngoscope: [place] Assist Device Used: fiber optic device ET Tube Size: 7 ET Tube Uncuffed: No Tube Secured Depth (cm): 22 Tube Secured Location: teeth Tube Placement Confirmation: Equal breath sounds bilaterally, No breath sounds over epigastrium, Confirmation by capnometry and Chest Xray Intubation Complications: difficult intubation Additional Comments: multiple attempts were made complicated by pt's morbid obesity/body habitus and copious secretions obscuring the vocal cords Course Orders Ordered: Discontinued Medications Albuterol/Ipratropium (Albuterol/Ipratropium 3 Ml Ampul) 3 ml INH NOW ONE Stop: 03/14/25 09:12 Last Admin: 03/14/25 09:15 Dose: 3 ml Documented By: ROXANA Dexamethasone (Dexamethasone 10 Mg/Ml Vial) 6 mg IV NOW ONE Stop: 03/14/25 11:09 Last Admin: 03/14/25 11:23 Dose: 6 mg Documented By: Diazepam (Diazepam 10 Mg/2 Ml Syringe) 5 mg IV NOW ONE Stop: 03/14/25 13:09 Last Admin: 03/14/25 13:12 Dose: 5 mg Documented By: Etomidate (Etomidate 2 Mg/Ml 10 Ml Vial) 29.9 mg 0.3 mg/kg (29.9 mg) IV NOW ONE Stop: 03/14/25 14:22 Last Admin: 03/14/25 13:38 Dose: 29.9 mg Documented By: Furosemide (Furosemide 40 Mg/4 Ml Vial) 40 mg IV NOW ONE Stop: 03/14/25 14:02 Last Admin: 03/14/25 14:08 Dose: 40 mg Documented By: Heparin Sodium (Porcine) (Heparin 5,000 Unit/Ml Vial) 5,000 unit IV NOW ONE Stop: 03/14/25 10:39 Last Admin: 03/14/25 10:54 Dose: 5,000 unit Documented By: Sodium Chloride (Normal Saline 0.9%) 1,000 mls @ 1,000 mls/hr IV BOLUS ONE Stop: 03/14/25 10:12 Last Admin: 03/14/25 10:03 Dose: Not Given Documented By: RB Sodium Chloride (Normal Saline 0.9%) 2,993.7 mls @ 997.9 mls/hr 30 ml/kg infuse over 3 hr (2993.7 ml) IV NOW ONE Stop: 03/14/25 12:30 Last Admin: 03/14/25 09:45 Dose: 997.9 mls/hr Documented By: Ceftriaxone Sodium 2,000 mg/ (Sodium Chloride) 100 mls @ 200 mls/hr IV NOW ONE Stop: 03/14/25 10:04 Last Infusion: 03/14/25 10:47 Dose: Infused Documented By: Admin: 03/14/25 10:09 Dose: 200 mls/hr Documented By: Doxycycline Hyclate 100 mg/ (Sodium Chloride) 100 mls @ 100 mls/hr IV NOW ONE Stop: 03/14/25 10:04 Last Infusion: 03/14/25 11:43 Dose: Infused Documented By: Admin: 03/14/25 10:44 Dose: 100 mls/hr Documented By: Heparin Sodium/Dextrose (Heparin Drip) 25,000 unit in 500 mls @ 23.95 mls/hr IV CONT GABE; Protocol Last Admin: 03/14/25 10:55 Dose: 12 units/kg/hr, 23.95 mls/hr Documented By: Co-signed By: HE Remdesivir 200 mg/ Sodium (Chloride) 250 mls @ 250 mls/hr IV NOW ONE Stop: 03/14/25 11:53 Last Infusion: 03/14/25 13:16 Dose: Infused Documented By: Admin: 03/14/25 11:24 Dose: 250 mls/hr Documented By: Propofol (Diprivan) 1,000 mg in 100 mls @ 2.994 mls/hr IV TITRATE GABE; Protocol Last Admin: 03/14/25 13:50 Dose: 5 mcg/kg/min, 2.994 mls/hr Documented By: Ondansetron HCl (Ondansetron 4 Mg/2 Ml Inj) 4 mg IV NOW PRN PRN Reason: Nausea And Vomiting Last Admin: 03/14/25 10:29 Dose: 4 mg Documented By: Ondansetron HCl (Ondansetron 4 Mg Odt) 4 mg PO NOW PRN PRN Reason: Nausea And Vomiting Rocuronium [place] (Rocuronium 50 Mg/5 Ml Inj) 99 mg IV NOW ONE Stop: 03/14/25 14:23 Last Admin: 03/14/25 13:40 Dose: 99 mg Documented By: Rocuronium [place] (Rocuronium 50 Mg/5 Ml Inj) 60 mg 0.6 mg/kg (60 mg) IV NOW ONE Stop: 03/14/25 14:30 Last Admin: 03/14/25 13:39 Dose: 60 mg Documented By: Vital Signs Vital signs: Vital Signs - 8 hr 03/14/25 09:03 03/14/25 09:03 03/14/25 09:08 Pulse Rate 115 H 112 H 114 H Respiratory Rate 36 H Blood Pressure 118/74 Pulse Oximetry 75 L 84 L 72 L Oxygen Delivery Method Non -Rebreather Oxygen Flow Rate 15 Fraction of Inspired Oxygen 03/14/25 09:08 03/14/25 09:15 03/14/25 09:30 Pulse Rate 114 H 110 H Respiratory Rate 52 H 41 H Blood Pressure 118/74 Pulse Oximetry 89 L 88 L Oxygen Delivery Method Non -Rebreather Non -Rebreather Oxygen Flow Rate 15 Fraction of Inspired Oxygen 03/14/25 09:30 03/14/25 09:35 03/14/25 09:35 Pulse Rate 109 H Respiratory Rate 50 H Blood Pressure 123/61 107/65 Pulse Oximetry 82 L Oxygen Delivery Method Oxygen Flow Rate Fraction of Inspired Oxygen 03/14/25 09:40 03/14/25 09:40 03/14/25 09:40 Pulse Rate 114 H 106 H Respiratory Rate 52 H 49 H Blood Pressure 100/69 Pulse Oximetry 89 L 88 L Oxygen Delivery Method Heated High Flow Oxygen Flow Rate 45 Fraction of Inspired Oxygen 100 03/14/25 09:45 03/14/25 09:45 03/14/25 09:50 Pulse Rate 104 H 105 H Respiratory Rate 40 H 35 H Blood Pressure 105/73 Pulse Oximetry 82 L 82 L Oxygen Delivery Method Oxygen Flow Rate Fraction of Inspired Oxygen 03/14/25 09:50 03/14/25 09:55 03/14/25 09:55 Pulse Rate 104 H Respiratory Rate 35 H Blood Pressure 109/73 112/75 Pulse Oximetry 89 L Oxygen Delivery Method Oxygen Flow Rate Fraction of Inspired Oxygen 03/14/25 10:00 03/14/25 10:00 03/14/25 10:05 Pulse Rate 99 H Respiratory Rate 41 H Blood Pressure 112/82 117/80 Pulse Oximetry 96 Oxygen Delivery Method Oxygen Flow Rate Fraction of Inspired Oxygen 03/14/25 10:05 03/14/25 10:10 03/14/25 10:10 Pulse Rate 97 H 105 H Respiratory Rate 37 H 41 H Blood Pressure 115/68 Pulse Oximetry 97 83 L Oxygen Delivery Method Heated High Flow Oxygen Flow Rate Fraction of Inspired Oxygen 03/14/25 10:15 03/14/25 10:15 03/14/25 10:21 Pulse Rate 99 H Respiratory Rate 37 H Blood Pressure 117/72 117/66 Pulse Oximetry 82 L Oxygen Delivery Method Oxygen Flow Rate Fraction of Inspired Oxygen 03/14/25 10:21 03/14/25 10:25 03/14/25 10:25 Pulse Rate 111 H 106 H Respiratory Rate 41 H 41 H Blood Pressure 127/75 Pulse Oximetry 84 L 89 L Oxygen Delivery Method Heated High Flow Oxygen Flow Rate Fraction of Inspired Oxygen 03/14/25 10:30 03/14/25 10:30 03/14/25 10:46 Pulse Rate 104 H Respiratory Rate 47 H Blood Pressure 115/72 161/91 H Pulse Oximetry 83 L Oxygen Delivery Method Oxygen Flow Rate Fraction of Inspired Oxygen 03/14/25 10:46 03/14/25 10:47 03/14/25 10:47 Pulse Rate 105 H 106 H Respiratory Rate 49 H 43 H Blood Pressure 123/86 Pulse Oximetry 81 L 82 L Oxygen Delivery Method Oxygen Flow Rate Fraction of Inspired Oxygen 03/14/25 11:00 03/14/25 11:00 03/14/25 11:15 Pulse Rate 112 H Respiratory Rate 52 H Blood Pressure 115/83 128/96 H Pulse Oximetry 84 L Oxygen Delivery Method Oxygen Flow Rate Fraction of Inspired Oxygen 03/14/25 11:15 03/14/25 11:30 03/14/25 11:30 Pulse Rate 106 H 110 H Respiratory Rate 48 H 53 H Blood Pressure 118/83 Pulse Oximetry 76 L 69 L Oxygen Delivery Method Oxygen Flow Rate Fraction of Inspired Oxygen 03/14/25 11:45 03/14/25 11:45 03/14/25 12:00 Pulse Rate 106 H 108 H Respiratory Rate 53 H 56 H Blood Pressure 114/72 Pulse Oximetry 73 L 71 L Oxygen Delivery Method Oxygen Flow Rate Fraction of Inspired Oxygen 03/14/25 12:02 03/14/25 12:02 03/14/25 12:11 Pulse Rate 109 H 104 H Respiratory Rate 51 H 35 H Blood Pressure 112/76 115/72 Pulse Oximetry 71 L 70 L Oxygen Delivery Method Oxygen Flow Rate Fraction of Inspired Oxygen 03/14/25 12:15 03/14/25 12:15 03/14/25 12:30 Pulse Rate 106 H 116 H Respiratory Rate 47 H 54 H Blood Pressure 115/80 Pulse Oximetry 73 L 70 L Oxygen Delivery Method High Flow Nasal Cannula Oxygen Flow Rate Fraction of Inspired Oxygen 03/14/25 12:30 03/14/25 12:45 03/14/25 12:45 Pulse Rate 129 H Respiratory Rate 56 H Blood Pressure 131/94 H 115/78 Pulse Oximetry 63 L Oxygen Delivery Method Oxygen Flow Rate Fraction of Inspired Oxygen 03/14/25 13:00 03/14/25 13:00 03/14/25 13:15 Pulse Rate 116 H Respiratory Rate 63 H Blood Pressure 116/82 Pulse Oximetry 82 L Oxygen Delivery Method Oxygen Flow Rate Fraction of Inspired Oxygen 100 03/14/25 13:30 03/14/25 13:37 03/14/25 13:37 Pulse Rate 119 H 122 H Respiratory Rate 53 H 61 H Blood Pressure 108/68 Pulse Oximetry 81 L 81 L Oxygen Delivery Method BiPAP Oxygen Flow Rate Fraction of Inspired Oxygen 03/14/25 13:40 03/14/25 13:40 03/14/25 13:45 Pulse Rate 131 H Respiratory Rate 59 H Blood Pressure 127/83 203/91 H Pulse Oximetry 56 L Oxygen Delivery Method Oxygen Flow Rate Fraction of Inspired Oxygen 03/14/25 13:45 03/14/25 13:50 03/14/25 13:50 Pulse Rate 111 H 144 H Respiratory Rate 26 H 23 Blood Pressure 177/109 H Pulse Oximetry 59 L 72 L Oxygen Delivery Method Oxygen Flow Rate Fraction of Inspired Oxygen 03/14/25 13:55 03/14/25 13:55 03/14/25 14:00 Pulse Rate 148 H Respiratory Rate 20 Blood Pressure 158/96 H 146/92 H Pulse Oximetry 50 L Oxygen Delivery Method Mechanical Ventilation Oxygen Flow Rate Fraction of Inspired Oxygen 03/14/25 14:00 03/14/25 14:05 03/14/25 14:05 Pulse Rate 132 H 128 H Respiratory Rate 20 21 Blood Pressure 146/103 H Pulse Oximetry 63 L 64 L Oxygen Delivery Method Oxygen Flow Rate Fraction of Inspired Oxygen 03/14/25 14:10 03/14/25 14:10 03/14/25 14:15 Pulse Rate 138 H 137 H Respiratory Rate 20 22 Blood Pressure 153/103 H Pulse Oximetry 62 L 57 L Oxygen Delivery Method Mechanical Ventilation Oxygen Flow Rate Fraction of Inspired Oxygen 03/14/25 14:15 Pulse Rate Respiratory Rate Blood Pressure 159/112 H Pulse Oximetry Oxygen Delivery Method Oxygen Flow Rate Fraction of Inspired Oxygen MDM - SOB/Dyspnea Lab Data 03/14/25 09:08 03/14/25 09:08 Labs: Lab Results 03/14/25 03/14/25 03/14/25 Range/Units 09:08 09:08 09:08 WBC 16.0 H (4.5-11.0) X10^3/uL RBC 3.79 L (4.5-5.9) X10^6/uL Hgb 11.7 L (13.5-17.5) g/dL Hct 34.6 L (41-53) % MCV 91.1 (80-100) fL MCH 30.8 (26-34) PG MCHC 33.8 (30-36) % RDW 14.0 (11.6-14.8) % Plt Count 285 (150-400) X10^3/uL Neut % (Auto) 88.6 H (50-75) % Lymph % (Auto) 6.5 L (25-40) % [place] % (Auto) 4.4 (3-14) % Eos % (Auto) 0.1 L (2-4) % Baso % (Auto) 0.4 (0-2) % Neut # (Auto) 86840 H (4759-9907) /uL Lymph # (Auto) 1000 L (6198-9116) /uL [place] # (Auto) 700 (0-900) /uL Eos # (Auto) 0 (0-450) /uL Baso # (Auto) 100 (0-100) /uL PT 13.0 H (9.4-12.5) SECONDS INR 1.1 (0.9-1.3) APTT 25 L (25.1-36.5) SECONDS D-Dimer 397 (<500) ng/ml ABG Sample Site ABG pH (7.35-7.45) ABG pCO2 (35-45) mmHg ABG pO2 (80-100) mmHg ABG HCO3 (23-27) mmol/L ABG Total CO2 (23-27) mmol/L ABG O2 Saturation (95-100) % ABG Base Excess (-2-3) mmol/L Dimitry Test Respiration Rate O2 Delivery Device Mode of Support FiO2 % % PEEP or CPAP Sodium Cancelled 137 Potassium Cancelled 3.4 Chloride Cancelled Carbon Dioxide BUN Creatinine Estimated GFR BUN/Creatinine Ratio Glucose Lactate (0.7-2.1) mmol/L Calcium Total Bilirubin AST ALT Alkaline Phosphatase Troponin I (0.01-0.034) ng/mL NT-Pro-B Natriuret Pep (<125) pg/mL Total Protein Albumin Globulin Albumin/Globulin Ratio Lipase (23-300) U/L Procalcitonin (<0.5) ng/mL SARS-CoV-2 (PCR) (Negative) Influenza A (RT-PCR) (NEGATIVE) Influenza B (RT-PCR) (NEGATIVE) RSV (PCR) (Negative) Blood Type Antibody Screen 03/14/25 03/14/25 03/14/25 Range/Units 09:08 09:08 09:08 WBC (4.5-11.0) X10^3/uL RBC (4.5-5.9) X10^6/uL Hgb (13.5-17.5) g/dL Hct (41-53) % MCV (80-100) fL MCH (26-34) PG MCHC (30-36) % RDW (11.6-14.8) % Plt Count (150-400) X10^3/uL Neut % (Auto) (50-75) % Lymph % (Auto) (25-40) % [place] % (Auto) (3-14) % Eos % (Auto) (2-4) % Baso % (Auto) (0-2) % Neut # (Auto) (1159-7091) /uL Lymph # (Auto) (8019-7496) /uL [place] # (Auto) (0-900) /uL Eos # (Auto) (0-450) /uL Baso # (Auto) (0-100) /uL PT (9.4-12.5) SECONDS INR (0.9-1.3) APTT (25.1-36.5) SECONDS D-Dimer (<500) ng/ml ABG Sample Site ABG pH (7.35-7.45) ABG pCO2 (35-45) mmHg ABG pO2 (80-100) mmHg ABG HCO3 (23-27) mmol/L ABG Total CO2 (23-27) mmol/L ABG O2 Saturation (95-100) % ABG Base Excess (-2-3) mmol/L Dimitry Test Respiration Rate O2 Delivery Device Mode of Support FiO2 % % PEEP or CPAP Sodium Potassium Chloride 105 Carbon Dioxide Cancelled 23 BUN Cancelled 11 Creatinine Cancelled Estimated GFR BUN/Creatinine Ratio Glucose Lactate (0.7-2.1) mmol/L Calcium Total Bilirubin AST ALT Alkaline Phosphatase Troponin I (0.01-0.034) ng/mL NT-Pro-B Natriuret Pep (<125) pg/mL Total Protein Albumin Globulin Albumin/Globulin Ratio Lipase (23-300) U/L Procalcitonin (<0.5) ng/mL SARS-CoV-2 (PCR) (Negative) Influenza A (RT-PCR) (NEGATIVE) Influenza B (RT-PCR) (NEGATIVE) RSV (PCR) (Negative) Blood Type Antibody Screen 03/14/25 03/14/25 03/14/25 Range/Units 09:08 09:08 09:08 WBC (4.5-11.0) X10^3/uL RBC (4.5-5.9) X10^6/uL Hgb (13.5-17.5) g/dL Hct (41-53) % MCV (80-100) fL MCH (26-34) PG MCHC (30-36) % RDW (11.6-14.8) % Plt Count (150-400) X10^3/uL Neut % (Auto) (50-75) % Lymph % (Auto) (25-40) % [place] % (Auto) (3-14) % Eos % (Auto) (2-4) % Baso % (Auto) (0-2) % Neut # (Auto) (7637-6537) /uL Lymph # (Auto) (0775-9761) /uL [place] # (Auto) (0-900) /uL Eos # (Auto) (0-450) /uL Baso # (Auto) (0-100) /uL PT (9.4-12.5) SECONDS INR (0.9-1.3) APTT (25.1-36.5) SECONDS D-Dimer (<500) ng/ml ABG Sample Site ABG pH (7.35-7.45) ABG pCO2 (35-45) mmHg ABG pO2 (80-100) mmHg ABG HCO3 (23-27) mmol/L ABG Total CO2 (23-27) mmol/L ABG O2 Saturation (95-100) % ABG Base Excess (-2-3) mmol/L Dimitry Test Respiration Rate O2 Delivery Device Mode of Support FiO2 % % PEEP or CPAP Sodium Potassium Chloride Carbon Dioxide BUN Creatinine 0.61 L Estimated GFR Cancelled > 60 BUN/Creatinine Ratio Cancelled 18.0 Glucose Cancelled Lactate (0.7-2.1) mmol/L Calcium Total Bilirubin AST ALT Alkaline Phosphatase Troponin I (0.01-0.034) ng/mL NT-Pro-B Natriuret Pep (<125) pg/mL Total Protein Albumin Globulin Albumin/Globulin Ratio Lipase (23-300) U/L Procalcitonin (<0.5) ng/mL SARS-CoV-2 (PCR) (Negative) Influenza A (RT-PCR) (NEGATIVE) Influenza B (RT-PCR) (NEGATIVE) RSV (PCR) (Negative) Blood Type Antibody Screen 03/14/25 03/14/25 03/14/25 Range/Units 09:08 09:08 09:08 WBC (4.5-11.0) X10^3/uL RBC (4.5-5.9) X10^6/uL Hgb (13.5-17.5) g/dL Hct (41-53) % MCV (80-100) fL MCH (26-34) PG MCHC (30-36) % RDW (11.6-14.8) % Plt Count (150-400) X10^3/uL Neut % (Auto) (50-75) % Lymph % (Auto) (25-40) % [place] % (Auto) (3-14) % Eos % (Auto) (2-4) % Baso % (Auto) (0-2) % Neut # (Auto) (5881-3848) /uL Lymph # (Auto) (5695-3632) /uL [place] # (Auto) (0-900) /uL Eos # (Auto) (0-450) /uL Baso # (Auto) (0-100) /uL PT (9.4-12.5) SECONDS INR (0.9-1.3) APTT (25.1-36.5) SECONDS D-Dimer (<500) ng/ml ABG Sample Site ABG pH (7.35-7.45) ABG pCO2 (35-45) mmHg ABG pO2 (80-100) mmHg ABG HCO3 (23-27) mmol/L ABG Total CO2 (23-27) mmol/L ABG O2 Saturation (95-100) % ABG Base Excess (-2-3) mmol/L Dimitry Test Respiration Rate O2 Delivery Device Mode of Support FiO2 % % PEEP or CPAP Sodium Potassium Chloride Carbon Dioxide BUN Creatinine Estimated GFR BUN/Creatinine Ratio Glucose 138 H Lactate 1.7 (0.7-2.1) mmol/L Calcium Cancelled 8.0 L Total Bilirubin Cancelled 0.6 AST Cancelled ALT Alkaline Phosphatase Troponin I (0.01-0.034) ng/mL NT-Pro-B Natriuret Pep (<125) pg/mL Total Protein Albumin Globulin Albumin/Globulin Ratio Lipase (23-300) U/L Procalcitonin (<0.5) ng/mL SARS-CoV-2 (PCR) (Negative) Influenza A (RT-PCR) (NEGATIVE) Influenza B (RT-PCR) (NEGATIVE) RSV (PCR) (Negative) Blood Type Antibody Screen 03/14/25 03/14/25 03/14/25 Range/Units 09:08 09:08 09:08 WBC (4.5-11.0) X10^3/uL RBC (4.5-5.9) X10^6/uL Hgb (13.5-17.5) g/dL Hct (41-53) % MCV (80-100) fL MCH (26-34) PG MCHC (30-36) % RDW (11.6-14.8) % Plt Count (150-400) X10^3/uL Neut % (Auto) (50-75) % Lymph % (Auto) (25-40) % [place] % (Auto) (3-14) % Eos % (Auto) (2-4) % Baso % (Auto) (0-2) % Neut # (Auto) (2416-0173) /uL Lymph # (Auto) (3642-9391) /uL [place] # (Auto) (0-900) /uL Eos # (Auto) (0-450) /uL Baso # (Auto) (0-100) /uL PT (9.4-12.5) SECONDS INR (0.9-1.3) APTT (25.1-36.5) SECONDS D-Dimer (<500) ng/ml ABG Sample Site ABG pH (7.35-7.45) ABG pCO2 (35-45) mmHg ABG pO2 (80-100) mmHg ABG HCO3 (23-27) mmol/L ABG Total CO2 (23-27) mmol/L ABG O2 Saturation (95-100) % ABG Base Excess (-2-3) mmol/L Dimitry Test Respiration Rate O2 Delivery Device Mode of Support FiO2 % % PEEP or CPAP Sodium Potassium Chloride Carbon Dioxide BUN Creatinine Estimated GFR BUN/Creatinine Ratio Glucose Lactate (0.7-2.1) mmol/L Calcium Total Bilirubin AST 61 H ALT Cancelled 64 H Alkaline Phosphatase Cancelled 60 Troponin I 0.169 H* (0.01-0.034) ng/mL NT-Pro-B Natriuret Pep 5870 H (<125) pg/mL Total Protein Cancelled Albumin Globulin Albumin/Globulin Ratio Lipase (23-300) U/L Procalcitonin (<0.5) ng/mL SARS-CoV-2 (PCR) (Negative) Influenza A (RT-PCR) (NEGATIVE) Influenza B (RT-PCR) (NEGATIVE) RSV (PCR) (Negative) Blood Type Antibody Screen 03/14/25 03/14/25 03/14/25 Range/Units 09:08 09:08 09:08 WBC (4.5-11.0) X10^3/uL RBC (4.5-5.9) X10^6/uL Hgb (13.5-17.5) g/dL Hct (41-53) % MCV (80-100) fL MCH (26-34) PG MCHC (30-36) % RDW (11.6-14.8) % Plt Count (150-400) X10^3/uL Neut % (Auto) (50-75) % Lymph % (Auto) (25-40) % [place] % (Auto) (3-14) % Eos % (Auto) (2-4) % Baso % (Auto) (0-2) % Neut # (Auto) (2872-7648) /uL Lymph # (Auto) (5780-6708) /uL [place] # (Auto) (0-900) /uL Eos # (Auto) (0-450) /uL Baso # (Auto) (0-100) /uL PT (9.4-12.5) SECONDS INR (0.9-1.3) APTT (25.1-36.5) SECONDS D-Dimer (<500) ng/ml ABG Sample Site ABG pH (7.35-7.45) ABG pCO2 (35-45) mmHg ABG pO2 (80-100) mmHg ABG HCO3 (23-27) mmol/L ABG Total CO2 (23-27) mmol/L ABG O2 Saturation (95-100) % ABG Base Excess (-2-3) mmol/L Dimitry Test Respiration Rate O2 Delivery Device Mode of Support FiO2 % % PEEP or CPAP Sodium Potassium Chloride Carbon Dioxide BUN Creatinine Estimated GFR BUN/Creatinine Ratio Glucose Lactate (0.7-2.1) mmol/L Calcium Total Bilirubin AST ALT Alkaline Phosphatase Troponin I (0.01-0.034) ng/mL NT-Pro-B Natriuret Pep (<125) pg/mL Total Protein 6.3 Albumin Cancelled 3.8 Globulin Cancelled 2.5 Albumin/Globulin Ratio Cancelled Lipase (23-300) U/L Procalcitonin (<0.5) ng/mL SARS-CoV-2 (PCR) (Negative) Influenza A (RT-PCR) (NEGATIVE) Influenza B (RT-PCR) (NEGATIVE) RSV (PCR) (Negative) Blood Type Antibody Screen 03/14/25 03/14/25 03/14/25 Range/Units 09:08 09:27 09:35 WBC (4.5-11.0) X10^3/uL RBC (4.5-5.9) X10^6/uL Hgb (13.5-17.5) g/dL Hct (41-53) % MCV (80-100) fL MCH (26-34) PG MCHC (30-36) % RDW (11.6-14.8) % Plt Count (150-400) X10^3/uL Neut % (Auto) (50-75) % Lymph % (Auto) (25-40) % [place] % (Auto) (3-14) % Eos % (Auto) (2-4) % Baso % (Auto) (0-2) % Neut # (Auto) (9698-0170) /uL Lymph # (Auto) (6532-6648) /uL [place] # (Auto) (0-900) /uL Eos # (Auto) (0-450) /uL Baso # (Auto) (0-100) /uL PT (9.4-12.5) SECONDS INR (0.9-1.3) APTT (25.1-36.5) SECONDS D-Dimer (<500) ng/ml ABG Sample Site Right radial ABG pH 7.39 (7.35-7.45) ABG pCO2 38.6 (35-45) mmHg ABG pO2 63 L (80-100) mmHg ABG HCO3 24 (23-27) mmol/L ABG Total CO2 22 L (23-27) mmol/L ABG O2 Saturation 92 L (95-100) % ABG Base Excess -1.2 (-2-3) mmol/L Dimitry Test Positive Respiration Rate O2 Delivery Device nrb Mode of Support FiO2 % % PEEP or CPAP Sodium Potassium Chloride Carbon Dioxide BUN Creatinine Estimated GFR BUN/Creatinine Ratio Glucose Lactate (0.7-2.1) mmol/L Calcium Total Bilirubin AST ALT Alkaline Phosphatase Troponin I (0.01-0.034) ng/mL NT-Pro-B Natriuret Pep (<125) pg/mL Total Protein Albumin Globulin Albumin/Globulin Ratio 1.5 Lipase 22 L (23-300) U/L Procalcitonin 0.171 (<0.5) ng/mL SARS-CoV-2 (PCR) Positive H (Negative) Influenza A (RT-PCR) Flu a negative (NEGATIVE) Influenza B (RT-PCR) Flu b negative (NEGATIVE) RSV (PCR) Negative (Negative) Blood Type A Positive Antibody Screen Negative 03/14/25 03/14/25 03/14/25 Range/Units 11:50 13:02 14:22 WBC (4.5-11.0) X10^3/uL RBC (4.5-5.9) X10^6/uL Hgb (13.5-17.5) g/dL Hct (41-53) % MCV (80-100) fL MCH (26-34) PG MCHC (30-36) % RDW (11.6-14.8) % Plt Count (150-400) X10^3/uL Neut % (Auto) (50-75) % Lymph % (Auto) (25-40) % [place] % (Auto) (3-14) % Eos % (Auto) (2-4) % Baso % (Auto) (0-2) % Neut # (Auto) (4503-2462) /uL Lymph # (Auto) (8289-3679) /uL [place] # (Auto) (0-900) /uL Eos # (Auto) (0-450) /uL Baso # (Auto) (0-100) /uL PT (9.4-12.5) SECONDS INR (0.9-1.3) APTT (25.1-36.5) SECONDS D-Dimer (<500) ng/ml ABG Sample Site Right radial Left brachial ABG pH 7.30 L 7.16 L* (7.35-7.45) ABG pCO2 42.1 68.7 H* (35-45) mmHg ABG pO2 56 L 51 L (80-100) mmHg ABG HCO3 21 L 24 (23-27) mmol/L ABG Total CO2 20 L 24 (23-27) mmol/L ABG O2 Saturation 86 L 74 L* (95-100) % ABG Base Excess -5.2 L -5.8 L (-2-3) mmol/L Dimitry Test Positive N/a Respiration Rate 20 O2 Delivery Device High flow noe cannul Mode of Support Assist cont ventilat FiO2 % 100.0 % 100.0 % % PEEP or CPAP 12 Sodium Potassium Chloride Carbon Dioxide BUN Creatinine Estimated GFR BUN/Creatinine Ratio Glucose Lactate (0.7-2.1) mmol/L Calcium Total Bilirubin AST ALT Alkaline Phosphatase Troponin I 0.340 H* (0.01-0.034) ng/mL NT-Pro-B Natriuret Pep (<125) pg/mL Total Protein Albumin Globulin Albumin/Globulin Ratio Lipase (23-300) U/L Procalcitonin (<0.5) ng/mL SARS-CoV-2 (PCR) (Negative) Influenza A (RT-PCR) (NEGATIVE) Influenza B (RT-PCR) (NEGATIVE) RSV (PCR) (Negative) Blood Type Antibody Screen Imaging Data Chest x-ray: Radiologist's Impression: IMPRESSION: The tip of the endotracheal tube is seen 5-6 cm above the linnea. Clear interval worsening of the appearance of the lungs compared to the study performed earlier in the day, now with complete opacification of the left hemithorax and significant interval worsening of the right lung centrally. Given the rapid change, please consider significant pulmonary edema. Initial CXR: Radiologist's Impression: IMPRESSION: Diffuse left-sided pneumonia. Comment: Progress films are recommended until clear. ECG Data Interpretation: 0920 - sinus tach @ 116; nonspecific STTW changes; QTc 472 MDM Narrative Medical decision making narrative: HPI, PMHx, PSHx, Medication list, Allergies, ROS and Focused exam were reviewed above. ?Differential diagnosis as noted below. ?Social determinants affecting care considered. ?All of these were taken into consideration warranting above listed work up. ?Consultations as deemed necessary were documented below (if listed). Labs (if ordered and noted) were independently reviewed by me. Imaging studies (if ordered and noted) were independently reviewed by me EKG (if noted) was independently reviewed by me External documents (if reviewed) are documented above Initial VS noted above. ? Differential diagnosis considered include (but not limited to) the following: pneumonia, viral resp illness, CHF, cardiac dysrhythmia, cardiomyopathy, PE, pleural effusion, PTX, sepsis, asthma exacerbation, liver or kidney failure, symptomatic anemia, adverse effect of illicit drug/ETOH Pt interviewed and examined. Currently on NRB mask and POx in the 80s. Pt awake, alert and oriented. POCUS of the lungs showed Isauro B lines on the L but none on the R. Normal sliding lung sign. CXR showed diffuse infiltrates on the L. Duoneb Tx, Rocephin, Doxycycline IV ordered while awaiting studies. Bedside EKG showed sinus tachycardia with no ST elevation. ABG results reviewed. Will place pt on high flow oxygen at this time. No intubation is indicated at this time. Pt meets sepsis criteria. Sepsis identified @ 0930 Initial Troponin noted to be 0.169. Will recheck in 2 hours. BNP noted to be 5870 Lactate noted to be 1.7. Discussed case with Dr. Ward (floor representative) who reviewed EKG and feels this is type 2 NSTEMI (demand ischemia) secondary to sepsis/pneumonia. He feels pt can be admitted here, heparin x 48 hours, repeat Trop, echo and consider diuresis. Will admit to hospitalist once work up is complete. D-dimer noted to be normal - PE is less likely. CXR read by radiologist as diffuse L sided pneumonia Pt is CoViD positive. Rpt Troponin has doubled in value. No change in management at this time as pt is already on Heparin. Discussed case with Dr. Hernandez (hospitalist) - due to limitations in staffing, we are unable to take pt here at our facility as her care needs exceeds what we can provide. Recommends transfer to facility with higher level of care. See Dr. Hernandez's consultation note. 1230 - Discussed case with Dr. Ruelas (profiler operator @ ) - will recheck ABG, lactate, attempt Bipap. Called for transfer via [facility]. 1300 - pt continues to appear ill, tachypneic and poor POx readings despite HFNC. Attempted BiPAP but provided no additional improvement in ventilation. Pt now appearing weak and current respiratory effort does not appear sustainable without aggressive intervention. Will go ahead and intubate pt. See procedure note for intubation. See consult notes from anesthesia as well Intubation was complicated by body habitus, copious clear, frothy secretions noted in the posterior pharynx and coming out from the vocal cords. Requiring several intubation attempts and ultimately intubated with the assistance of nurse high school band teacher who came down to assist from the OR. After the ETT was secured, inline suctioning was aggressively performed. In line albuterol nebulizer treatments (continuous) was administered. Post-intubation CXR showed ETT above linnea but now near white out of both lung berry. Lasix 40mg IV ordered. Pt was started on Propofol drip for sedation/ventilation. [employer] crew arrived and secured pt for transport. Severe Sepsis Criteria POSITIVE FINDINGS ARE BOLDED Definition: 1. Source of infection or suspected infection; 2. Two SIRS Criteria (HR >90, Temp >38 or <36, RR >20, WBC <4k or >12k, or >10% bands); 3. At least 1 organ dysfunction: SBP <90mmHg or MAP<65mmHg ? SBP decrease >40mmHg from baseline ? Lactate >2 ? Mechanical ventilation ? Altered mental status Cr > 2.0 or UO < 0.5ml for 2 hours ? Bilirubin > 2 ? Platelets < 100,000 ? INR > 1.5 or aPTT > 60 sec ? Documentation of severe sepsis Severe Sepsis Determination The patient has been screened and ??DOES / ?does not meet criteria for severe sepsis Within 3 Hours Within 6 Hours Blood cultures drawn (prior to antibiotics) ? Antibiotics administered ? Lactic acid level checked Repeat lactic acid if initial is > 2.0 Critical Care Time Critical Care Time Critical Care Time: Yes Total Critical Care Time: 75 Attestation: Pt requiring close monitoring and life saving intervention considering rapidly progressing respiratory failure, failing less invasive respiratory support and ultimately requiring intubation and rpt vent setting changes Discharge Plan Departure Patient Disposition: [facility] Clinical Impression: Acute hypoxemic respiratory failure due to COVID-19, Acute non-ST elevation myocardial infarction (NSTEMI), COVID-19 Sepsis Qualifiers: Sepsis type: sepsis due to unspecified organism Sepsis acute organ dysfunction status: with acute organ dysfunction Severe sepsis acute organ dysfunction type: acute respiratory failure Acute respiratory failure type: with hypoxia Severe sepsis shock status: without septic shock Qualified Code(s): A41.9 - Sepsis, unspecified organism Pneumonia Qualifiers: Pneumonia type: due to unspecified organism Laterality: left Lung location: unspecified part of lung Qualified Code(s): J18.9 - Pneumonia, unspecified organism Acute CHF Qualifiers: Heart failure type: unspecified Qualified Code(s): I50.9 - Heart failure, unspecified Prescriptions: No Action (DME) [facility] spacer See Dose Instructions .ROUTE .MEDSUPPLY Qty: 1 0RF Dose Instruction: As directed Rx Instructions: As directed gabapentin 100 mg capsule See Rx Instructions .ROUTE .COMPLEX MDD 1200mg Qty: 0 0RF Rx Instructions: Take 100mg (1 capsule) by mouth in the morning, and 300mg (3 capsules) by mouth in the evening. NatureMade melatonin w/L theanine and ramila PO ondansetron 4 mg tablet,disintegrating 4 mg PO Q8H PRN (Reason: nausea and vomiting) Qty: 30 2RF melatonin 5 mg tablet,disintegrating 5 mg PO Histrelin implant implant fluticasone propionate [Flonase Allergy Relief] 9.9 ML spray,suspension 2 spray Intranasal Q DAY Qty: 1 3RF Vitamin D3 4,000 UNIT capsule 4,000 unit PO Q DAY Qty: 90 3RF escitalopram oxalate 5 mg tablet 5 mg PO DAILY ziprasidone HCl 20 mg capsule See Rx Instructions .ROUTE .COMPLEX Rx Instructions: Take 20mg at lunch, take 40mg at bedtime. estradiol 2 mg tablet 2 mg PO BID Referrals: Janet Marvin MD [Primary Care Provider, Family Practice]
--- NOTE | 2025-03-14 09:19 | EKG_ITS ---
[address] [address] Test Date: 2025-03-14 Pat Name: Nola Ward Department: [facility] Room: Gender: Male In Processing Instructor: JAROD : 2005 Requested By: Order Number: [id number] Reading MD: Dimitry Morillo Measurements Intervals [place] Rate: 116 P: 52 IA: 130 QRS: 53 QRSD: 78 T: 6 QT: 340 QTc: 472 Interpretive Statements Sinus tachycardia Electronically Signed On 03-28-2025 8:09:47 PDT by Dimitry Morillo
--- NOTE | 2025-03-14 09:20 | PC.NURSE ---
Pt arrives by EMS on 15L per NRB. Pt is able to respond with one word. Pt is awake and alert. Looking around the room.
[2025-03-14 09:29] LABS: Add Manual Diff / Slide Review NO; Hematocrit 34.6 % (41-53); Hemoglobin 11.7 g/dL (13.5-17.5); Lymphocytes Absolute Auto 1000 /uL (1100-4500); Mean Corpuscular HGB Conc 33.8 % (30-36); Mean Corpuscular Hemoglobin 30.8 PG (26-34); Mean Corpuscular Volume 91.1 fL (80-100); Platelet Count 285 X10^3/uL (150-400)
[2025-03-14 09:32] LABS: INR 1.1 (0.9-1.3); Prothrombin Time 13.0 SECONDS (9.4-12.5)
[2025-03-14 09:34] LABS: Allen Test for ABG Passed? Positive; Blood Gas Collection Site Right Radial; Delivery System nrb; HCO3 ABG 24 mmol/L (23-27); Oxygen Saturation ABG 92 % (95-100); PCO2 ABG 38.6 mmHg (35-45); PO2 ABG 63 mmHg (80-100); TCO2 ABG 22 mmol/L (23-27)
[2025-03-14 09:35] LABS: Lactate (Lactic Acid) 1.7 mmol/L (0.7-2.1); PTT Partial Thromboplastin Tim 25 SECONDS (25.1-36.5)
[2025-03-14 09:36] LABS: Alanine Aminotransferase 64 IU/L (<50); Albumin 3.8 g/dL (3.5-5.0); Albumin Globulin Ratio 1.5 (1.0-2.8); Alkaline Phosphatase 60 U/L (38-126); Blood Urea Nitrogen 11 mg/dL (9-20); Calcium 8.0 mg/dL (8.4-10.2); Carbon Dioxide 23 mmol/L (22-32); Chloride 105 mmol/L (98-107); Estimated Glomerular Filt Rate > 60 mL/min (>60); Globulin 2.5 g/dL (1.7-4.1); Glucose 138 mg/dL (70-99); HEMOLYSIS < 15 (0-50); Lipase 22 U/L (23-300); Potassium 3.4 mmol/L (3.4-5.1); Sodium 137 mmol/L (137-145); Total Protein 6.3 g/dL (6.3-8.2)
--- NOTE | 2025-03-14 09:41 | PC.NURSE ---
High flow NC started by RT. Sats improve to 97%.
[2025-03-14] MEDS: SODIUM CHLORIDE 0.9% 2,993.7 ML 997.9 ML IV (09:45)
[2025-03-14 09:48] LABS: NT-proBNP (BNP-Adult 18+) 5870 pg/mL (<125)
[2025-03-14 09:53] LABS: Procalcitonin 0.171 ng/mL (<0.5)
[2025-03-14 09:54] LABS: Troponin I 0.169 ng/mL (0.01-0.034)
[2025-03-14] MEDS: cefTRIAXone 2,000 MG in SODIUM CHLORIDE 0.9% 100 ML 200 MG IV (10:09)
[2025-03-14 10:15] LABS: Influenza A - CEPHEID Flu A NEGATIVE (NEGATIVE); Influenza B - CEPHEID Flu B NEGATIVE (NEGATIVE)
--- NOTE | 2025-03-14 10:15 | PC.NURSE ---
Pt sats from 83-95and back down to 84. Dr Nicole notified. RT at bedside, discussed plan of care.
[2025-03-14 10:16] LABS: COVID-19 CEPHEID 4-PLEX PCR POSITIVE (Negative)
[2025-03-14] MEDS: ONDANSETRON 4 MG/2 ML INJ IV (10:29)
--- NOTE | 2025-03-14 10:32 | RT ---
pt rohit nice tx well, placed back on NRB and abg obtained followed by DIMA. at bedside
[2025-03-14] MEDS: DOXYCYCLINE 100 MG in SODIUM CHLORIDE 0.9% 100 ML IV (10:44)
[2025-03-14] MEDS: HEPARIN 5,000 UNIT/ML VIAL 5000 UNIT IV (10:54)
[2025-03-14] MEDS: HEPARIN DRIP 25,000 UNIT/500 ML IV.SOLN 23.95 UNIT IV (10:55)
--- NOTE | 2025-03-14 11:11 | PC.NURSE ---
MD aware of High Flow sats 73%.
[2025-03-14] MEDS: DEXAMETHASONE 10 MG/ML VIAL 6 MG IV (11:23)
[2025-03-14] MEDS: REMDESIVIR 200 MG in SODIUM CHLORIDE 0.9% 250 ML 250 MG IV (11:24)
--- NOTE | 2025-03-14 11:35 | PM.CN ---
History of Present Illness Consult details Date Patient Seen: 03/14/25 Time Patient Seen: 11:52 Chief complaint: Respiratory failure secondary to COVID pneumonia Reason for consult: Recommendations for clinical management Requesting provider: Jeff Vieira Narrative: Chief complaint: Dyspnea and respiratory failure secondary to COVID pneumonia and Streptococcus History of present illness: 19-year-old trans female (male to female) was recently diagnosed with strep throat and was taking an antibiotic which she had discontinued because she started feeling weird and increasing short of breath and difficulty breathing this morning. Was brought into the emergency room with hypoxia. Her oxygen requirement escalated from 15 L non breather to high-flow nasal oxygen. Findings in the emergency department significant for COVID positive on screening chest x-ray which shows a large left-sided pneumonia diffusely and densely affecting 80% +of the airspace of the left lung and patchy infiltrates of the right lung. White blood cell count was 22281 with 89% neutrophils arterial blood gas 7.39 pCO2 39 PO2 63 on non-rebreather. Basic metabolic unremarkable pro BNP 5900 troponin slightly out of reference range at 0.17 EKG shows a sinus tachycardia rate of 116 Review of systems: Patient is autistic and unable to verbally respond to a review of systems Physical exam: Young morbidly obese phenotypically-appearing female in extremis with respiratory rate of 110 HEENT unremarkable Breath sounds could not be appreciated Heart sounds very distant Extremities no edema and no cyanosis Moves all extremities regards with eyes Recommendations: Transfer to tertiary care intensive care unit by stat flight helicopter Acute respiratory failure with hypoxia secondary to COVID SARS with COVID infection with Streptococcus testing positive Significant risk of mortality in this patient given the advanced respiratory failure pulmonary infiltrates and obese habitus High-dose Decadron and remdesivir Clindamycin intravenously for Streptococcus for bacteriostatic effect and reduction of toxemia Transfer to tertiary care ICU Screening for HIV [facility] does not have staffing: Pulmonology Infectious Disease or reproduction order processor on-site Anticipate subacute imminent need for mechanical ventilation for hypoxic respiratory failure but should delay as long as possible due to risk of barotrauma Prognosis very guarded 65 minutes were involved in the management of this patient discussion with patient's family emergency room staff and consultants review of imaging and laboratory findings. Meds Home Medications and Allergies Home Medications ?Medication ?Instructions ?Recorded ?Confirmed ?Type cholecalciferol (vitamin D3) 100 4,000 unit PO Q DAY #90 caps 03/28/17 03/14/25 Rx mcg (4,000 unit) capsule (Vitamin D3) Held on 06/11/20. Instructions: not taking fluticasone propionate 50 2 spray intranasal Q DAY ##1 03/28/17 02/26/25 Rx mcg/actuation nasal spray,suspension (Flonase Allergy Relief) inhalational spacing device #1 ea 01/15/19 12/20/24 Rx (OptiChamber [facility] spacer) gabapentin 100 mg capsule See Rx Instructions .Route 06/11/20 03/14/25 Rx .COMPLEX #0 caps Histrelin implant implant replaced 01/1207/08/23 02/26/25 History NatureMade melatonin w/L theanine PO 05/06/24 02/26/25 History and ramila ondansetron 4 mg disintegrating 4 mg PO Q8H PRN nausea and 06/27/24 03/14/25 Rx tablet vomiting #30 tabs melatonin 5 mg disintegrating 5 mg PO Sleep aid 02/20/25 02/26/25 History tablet escitalopram oxalate 5 mg tablet 5 mg PO DAILY 02/26/25 03/14/25 History ziprasidone HCl 20 mg capsule See Rx Instructions .Route .COMPLEX 02/26/25 03/14/25 History estradiol 2 mg tablet 2 mg PO BID 03/14/25 03/14/25 History Allergies Allergy/AdvReac Type Severity Reaction Status Date / Time Penicillins AdvReac Intermediate Rash Verified 03/14/25 09:03 Exam Vital Signs (past 8 hours): - 03/14/25 09:03 03/14/25 09:03 03/14/25 09:08 Pulse Rate 115 H 112 H 114 H Respiratory Rate 36 H Blood Pressure 118/74 Pulse Oximetry 75 L 84 L 72 L Oxygen Delivery Method Non -Rebreather Oxygen Flow Rate 15 Fraction of Inspired Oxygen 03/14/25 09:08 03/14/25 09:15 03/14/25 09:30 Pulse Rate 114 H 110 H Respiratory Rate 52 H 41 H Blood Pressure 118/74 Pulse Oximetry 89 L 88 L Oxygen Delivery Method Non -Rebreather Non -Rebreather Oxygen Flow Rate 15 Fraction of Inspired Oxygen 03/14/25 09:30 03/14/25 09:35 03/14/25 09:35 Pulse Rate 109 H Respiratory Rate 50 H Blood Pressure 123/61 107/65 Pulse Oximetry 82 L Oxygen Delivery Method Oxygen Flow Rate Fraction of Inspired Oxygen 03/14/25 09:40 03/14/25 09:40 03/14/25 09:40 Pulse Rate 114 H 106 H Respiratory Rate 52 H 49 H Blood Pressure 100/69 Pulse Oximetry 89 L 88 L Oxygen Delivery Method Heated High Flow Oxygen Flow Rate 45 Fraction of Inspired Oxygen 100 03/14/25 09:45 03/14/25 09:45 03/14/25 09:50 Pulse Rate 104 H 105 H Respiratory Rate 40 H 35 H Blood Pressure 105/73 Pulse Oximetry 82 L 82 L Oxygen Delivery Method Oxygen Flow Rate Fraction of Inspired Oxygen 03/14/25 09:50 03/14/25 09:55 03/14/25 09:55 Pulse Rate 104 H Respiratory Rate 35 H Blood Pressure 109/73 112/75 Pulse Oximetry 89 L Oxygen Delivery Method Oxygen Flow Rate Fraction of Inspired Oxygen 03/14/25 10:00 03/14/25 10:00 03/14/25 10:05 Pulse Rate 99 H Respiratory Rate 41 H Blood Pressure 112/82 117/80 Pulse Oximetry 96 Oxygen Delivery Method Oxygen Flow Rate Fraction of Inspired Oxygen 03/14/25 10:05 03/14/25 10:10 03/14/25 10:10 Pulse Rate 97 H 105 H Respiratory Rate 37 H 41 H Blood Pressure 115/68 Pulse Oximetry 97 83 L Oxygen Delivery Method Heated High Flow Oxygen Flow Rate Fraction of Inspired Oxygen 03/14/25 10:15 03/14/25 10:15 03/14/25 10:21 Pulse Rate 99 H Respiratory Rate 37 H Blood Pressure 117/72 117/66 Pulse Oximetry 82 L Oxygen Delivery Method Oxygen Flow Rate Fraction of Inspired Oxygen 03/14/25 10:21 03/14/25 10:25 03/14/25 10:25 Pulse Rate 111 H 106 H Respiratory Rate 41 H 41 H Blood Pressure 127/75 Pulse Oximetry 84 L 89 L Oxygen Delivery Method Heated High Flow Oxygen Flow Rate Fraction of Inspired Oxygen 03/14/25 10:30 03/14/25 10:30 Pulse Rate 104 H Respiratory Rate 47 H Blood Pressure 115/72 Pulse Oximetry 83 L Oxygen Delivery Method Oxygen Flow Rate Fraction of Inspired Oxygen Fraction of Inspired Oxygen 100 SaO2/FiO2 Ratio 93 Oxygen Delivery Method Heated High Flow Oxygen Flow Rate 45 Objective Labs 03/14/25 09:08 03/14/25 09:08 Labs: Laboratory Results - last 24 hr 03/14/25 03/14/25 03/14/25 09:08 09:08 09:08 WBC 16.0 H RBC 3.79 L Hgb 11.7 L Hct 34.6 L MCV 91.1 MCH 30.8 MCHC 33.8 RDW 14.0 Plt Count 285 Neut % (Auto) 88.6 H Lymph % (Auto) 6.5 L [place] % (Auto) 4.4 Eos % (Auto) 0.1 L Baso % (Auto) 0.4 Neut # (Auto) 06760 H Lymph # (Auto) 1000 L [place] # (Auto) 700 Eos # (Auto) 0 Baso # (Auto) 100 PT 13.0 H INR 1.1 APTT 25 L D-Dimer 397 ABG Sample Site ABG pH ABG pCO2 ABG pO2 ABG HCO3 ABG Total CO2 ABG O2 Saturation ABG Base Excess Dimitry Test O2 Delivery Device Sodium Cancelled 137 Potassium Cancelled 3.4 Chloride Cancelled Carbon Dioxide BUN Creatinine Estimated GFR BUN/Creatinine Ratio Glucose Lactate Calcium Total Bilirubin AST ALT Alkaline Phosphatase Troponin I NT-Pro-B Natriuret Pep Total Protein Albumin Globulin Albumin/Globulin Ratio Lipase Procalcitonin SARS-CoV-2 (PCR) Influenza A (RT-PCR) Influenza B (RT-PCR) RSV (PCR) Blood Type Antibody Screen 03/14/25 03/14/25 03/14/25 09:08 09:08 09:08 WBC RBC Hgb Hct MCV MCH MCHC RDW Plt Count Neut % (Auto) Lymph % (Auto) [place] % (Auto) Eos % (Auto) Baso % (Auto) Neut # (Auto) Lymph # (Auto) [place] # (Auto) Eos # (Auto) Baso # (Auto) PT INR APTT D-Dimer ABG Sample Site ABG pH ABG pCO2 ABG pO2 ABG HCO3 ABG Total CO2 ABG O2 Saturation ABG Base Excess Dimitry Test O2 Delivery Device Sodium Potassium Chloride 105 Carbon Dioxide Cancelled 23 BUN Cancelled 11 Creatinine Cancelled Estimated GFR BUN/Creatinine Ratio Glucose Lactate Calcium Total Bilirubin AST ALT Alkaline Phosphatase Troponin I NT-Pro-B Natriuret Pep Total Protein Albumin Globulin Albumin/Globulin Ratio Lipase Procalcitonin SARS-CoV-2 (PCR) Influenza A (RT-PCR) Influenza B (RT-PCR) RSV (PCR) Blood Type Antibody Screen 03/14/25 03/14/25 03/14/25 09:08 09:08 09:08 WBC RBC Hgb Hct MCV MCH MCHC RDW Plt Count Neut % (Auto) Lymph % (Auto) [place] % (Auto) Eos % (Auto) Baso % (Auto) Neut # (Auto) Lymph # (Auto) [place] # (Auto) Eos # (Auto) Baso # (Auto) PT INR APTT D-Dimer ABG Sample Site ABG pH ABG pCO2 ABG pO2 ABG HCO3 ABG Total CO2 ABG O2 Saturation ABG Base Excess Dimitry Test O2 Delivery Device Sodium Potassium Chloride Carbon Dioxide BUN Creatinine 0.61 L Estimated GFR Cancelled > 60 BUN/Creatinine Ratio Cancelled 18.0 Glucose Cancelled Lactate Calcium Total Bilirubin AST ALT Alkaline Phosphatase Troponin I NT-Pro-B Natriuret Pep Total Protein Albumin Globulin Albumin/Globulin Ratio Lipase Procalcitonin SARS-CoV-2 (PCR) Influenza A (RT-PCR) Influenza B (RT-PCR) RSV (PCR) Blood Type Antibody Screen 03/14/25 03/14/25 03/14/25 09:08 09:08 09:08 WBC RBC Hgb Hct MCV MCH MCHC RDW Plt Count Neut % (Auto) Lymph % (Auto) [place] % (Auto) Eos % (Auto) Baso % (Auto) Neut # (Auto) Lymph # (Auto) [place] # (Auto) Eos # (Auto) Baso # (Auto) PT INR APTT D-Dimer ABG Sample Site ABG pH ABG pCO2 ABG pO2 ABG HCO3 ABG Total CO2 ABG O2 Saturation ABG Base Excess Dimitry Test O2 Delivery Device Sodium Potassium Chloride Carbon Dioxide BUN Creatinine Estimated GFR BUN/Creatinine Ratio Glucose 138 H Lactate 1.7 Calcium Cancelled 8.0 L Total Bilirubin Cancelled 0.6 AST Cancelled ALT Alkaline Phosphatase Troponin I NT-Pro-B Natriuret Pep Total Protein Albumin Globulin Albumin/Globulin Ratio Lipase Procalcitonin SARS-CoV-2 (PCR) Influenza A (RT-PCR) Influenza B (RT-PCR) RSV (PCR) Blood Type Antibody Screen 03/14/25 03/14/25 03/14/25 09:08 09:08 09:08 WBC RBC Hgb Hct MCV MCH MCHC RDW Plt Count Neut % (Auto) Lymph % (Auto) [place] % (Auto) Eos % (Auto) Baso % (Auto) Neut # (Auto) Lymph # (Auto) [place] # (Auto) Eos # (Auto) Baso # (Auto) PT INR APTT D-Dimer ABG Sample Site ABG pH ABG pCO2 ABG pO2 ABG HCO3 ABG Total CO2 ABG O2 Saturation ABG Base Excess Dimitry Test O2 Delivery Device Sodium Potassium Chloride Carbon Dioxide BUN Creatinine Estimated GFR BUN/Creatinine Ratio Glucose Lactate Calcium Total Bilirubin AST 61 H ALT Cancelled 64 H Alkaline Phosphatase Cancelled 60 Troponin I 0.169 H* NT-Pro-B Natriuret Pep 5870 H Total Protein Cancelled Albumin Globulin Albumin/Globulin Ratio Lipase Procalcitonin SARS-CoV-2 (PCR) Influenza A (RT-PCR) Influenza B (RT-PCR) RSV (PCR) Blood Type Antibody Screen 03/14/25 03/14/25 03/14/25 09:08 09:08 09:08 WBC RBC Hgb Hct MCV MCH MCHC RDW Plt Count Neut % (Auto) Lymph % (Auto) [place] % (Auto) Eos % (Auto) Baso % (Auto) Neut # (Auto) Lymph # (Auto) [place] # (Auto) Eos # (Auto) Baso # (Auto) PT INR APTT D-Dimer ABG Sample Site ABG pH ABG pCO2 ABG pO2 ABG HCO3 ABG Total CO2 ABG O2 Saturation ABG Base Excess Dimitry Test O2 Delivery Device Sodium Potassium Chloride Carbon Dioxide BUN Creatinine Estimated GFR BUN/Creatinine Ratio Glucose Lactate Calcium Total Bilirubin AST ALT Alkaline Phosphatase Troponin I NT-Pro-B Natriuret Pep Total Protein 6.3 Albumin Cancelled 3.8 Globulin Cancelled 2.5 Albumin/Globulin Ratio Cancelled Lipase Procalcitonin SARS-CoV-2 (PCR) Influenza A (RT-PCR) Influenza B (RT-PCR) RSV (PCR) Blood Type Antibody Screen 03/14/25 03/14/25 03/14/25 09:08 09:27 09:35 WBC RBC Hgb Hct MCV MCH MCHC RDW Plt Count Neut % (Auto) Lymph % (Auto) [place] % (Auto) Eos % (Auto) Baso % (Auto) Neut # (Auto) Lymph # (Auto) [place] # (Auto) Eos # (Auto) Baso # (Auto) PT INR APTT D-Dimer ABG Sample Site Right radial ABG pH 7.39 ABG pCO2 38.6 ABG pO2 63 L ABG HCO3 24 ABG Total CO2 22 L ABG O2 Saturation 92 L ABG Base Excess -1.2 Dimitry Test Positive O2 Delivery Device nrb Sodium Potassium Chloride Carbon Dioxide BUN Creatinine Estimated GFR BUN/Creatinine Ratio Glucose Lactate Calcium Total Bilirubin AST ALT Alkaline Phosphatase Troponin I NT-Pro-B Natriuret Pep Total Protein Albumin Globulin Albumin/Globulin Ratio 1.5 Lipase 22 L Procalcitonin 0.171 SARS-CoV-2 (PCR) Positive H Influenza A (RT-PCR) Flu a negative Influenza B (RT-PCR) Flu b negative RSV (PCR) Negative Blood Type A Positive Antibody Screen Negative [facility] Medical History (Updated 03/14/25 @ 10:47 by Jeff Vieira MD) Fibromyalgia Obesity NAFLD (nonalcoholic fatty liver disease) Elevated LFTs Abdominal pain Postnasal drip Joint pain Poor fine motor skills Sore throat Excessive cerumen in right ear canal [id number] transgender person Anxiety ADHD (attention deficit hyperactivity disorder), combined type Autism spectrum disorder Sensorineural hearing loss (SNHL) of right ear Tobacco & Substance Use Smoking Status: Never smoker Assessment & Plan Time-Based Coding :: [TOTAL MINUTES] spent with patient and on the chart (including review of chart, obtaining history, exam, reviewing outside data, placing orders, documenting exam and treatment plan, and counseling patient) on [DATE].
--- NOTE | 2025-03-14 12:10 | PC.NURSE ---
Pt trialed on BiPap briefly. PT not able to tolerate. MD notified. Prepared for intubation. RT at bedside. Anesthesia called to assist in placing tube.
--- NOTE | 2025-03-14 12:12 | PC.NURSE ---
Pt sats 76% on high flow NC. aware, RT in room adjusting high flow for pt comfort. Pt reports that NC is too irritating.
[2025-03-14 12:33] LABS: Troponin I 0.340 ng/mL (0.01-0.034)
--- NOTE | 2025-03-14 12:36 | PC.NURSE ---
Pt continues to sat 73% on CO High Flow, notified. Dr Nicole asking this RN to call RT to possibly trial BiPap. RT called, RT in room with pt turning pt per Covid protocol
[2025-03-14 13:18] LABS: Allen Test for ABG Passed? Positive; Blood Gas Collection Site Right Radial; Delivery System High Flow Nas Cannul; HCO3 ABG 21 mmol/L (23-27); Oxygen Saturation ABG 86 % (95-100); PCO2 ABG 42.1 mmHg (35-45); PO2 ABG 56 mmHg (80-100); TCO2 ABG 20 mmol/L (23-27)
[2025-03-14] MEDS: ETOMIDATE 2 MG/ML 10 ML VIAL 29.9 MG IV (13:38)
[2025-03-14] MEDS: ROCURONIUM 50 MG/5 ML INJ 60 MG IV (13:39)
[2025-03-14] MEDS: ROCURONIUM 50 MG/5 ML INJ 99 MG IV (13:40)
--- NOTE | 2025-03-14 13:48 | DI.RAD.S_ITS ---
PROCEDURE: XR CHEST 1V INDICATIONS: intubation TECHNIQUE: One view of the chest was acquired. COMPARISON: [facility], CR, XR CHEST 1V, 03/14/2025, 9:05. FINDINGS: Surgical changes and devices: An endotracheal tube is seen, with the tip 5-6 cm above the linnea. A gastric tube is seen, with the tip not visible, yet traversing below the level of the diaphragm. Lungs and pleura: There is complete opacification of the left chest cavity, with air bronchograms seen. There is significant opacification now seen within the central right lung. Mediastinum: Mediastinal contours appear normal. Heart size is normal. Bones and chest wall: No suspicious bony lesions. Overlying soft tissues appear unremarkable. IMPRESSION: The tip of the endotracheal tube is seen 5-6 cm above the linnea. Clear interval worsening of the appearance of the lungs compared to the study performed earlier in the day, now with complete opacification of the left hemithorax and significant interval worsening of the right lung centrally. Given the rapid change, please consider significant pulmonary edema. Dictated by: Sanford Wright M.D. on 03/14/2025 at 13:10 Approved by: Sanford Wright M.D. on 03/14/2025 at 13:12
[2025-03-14] MEDS: FUROSEMIDE 40 MG/4 ML VIAL IV (14:08)
[2025-03-14 14:27] LABS: Blood Gas Collection Site Left Brachial; Blood Gas Mode Assist Cont Ventilat; HCO3 ABG 24 mmol/L (23-27); Oxygen Saturation ABG 74 % (95-100); PCO2 ABG 68.7 mmHg (35-45); PEEP 12; PO2 ABG 51 mmHg (80-100); TCO2 ABG 24 mmol/L (23-27)
--- NOTE | 2025-03-14 16:52 | PM.PROC.1 ---
Procedures Date/Time Date of procedure: 03/14/25 Time of procedure: 13:50 Intubation Sedative: etomidate (given by ER physician prior to my arrival) Paralytic: rocuronium (given by ER physician prior to my arrival) Laryngoscope: other (Glidescope) ET tube size: 7 ET tube uncuffed: No Tube secured depth (cm): 22 Tube secured location: teeth Tube placement confirmation: visualized tube passing through cords, equal breath sounds bilaterally, no breath sounds over epigastrium and confirmation by capnometry Patient tolerated procedure: well and no complications Intubation complications: none Additional comments: Was called to bedside for difficult intubation, with previous intubation attempted unsuccessfully by ER physician x at least once. At time of arrival, RT was ventilating with OPA and bag mask with positive etco2 return and SpO2 in the 40's. Optimized patient into sniffing position using 3 blankets stacked under shoulders. Utilizing glidescope, initial visualization of glottic aperture was obscured by secretions. After suctioning with yankauer a grade 2b view was revealed. ETT was then passed through cords in atraumatic fashion. Breath sounds were course and equal bilaterally with +etCO2 return on initial bag mask ventilation. In line suction was performed by RT. Tube was secured. Propofol gtt initiated by nursing. Assisted RT in optimizing ventilator setting prior to leaving bedside and at this time SpO2 was improving to the 70's on 15 of PEEP, with peak pressures in the high 30's. Suggested albuterol neb which was being initiated as I left bedside.
== END 2025-03-14 15:40 | disposition short-term general hospital (02) ==
PROVIDERS: Emergency Provider Emergency Medicine; PCP Family Medicine
DX: J96.01 Acute respiratory failure with hypoxia (principal); U07.1 COVID-19; I21.4 Non-ST elevation (NSTEMI) myocardial infarction; A41.9 Sepsis, unspecified organism; J18.9 Pneumonia, unspecified organism; I50.9 Heart failure, unspecified
CPT/HCPCS: 31500; 36415; 36600; 71045; 80053; 82805; 83605; 83690; 83880; 84145; 84484; 85025; 85379; 85610; 85730; 86850; 86900; 86901; 87040; 87637; 93005; 94640; 94660; 94799; 96365; 96366; 96367; 96375; 99285; 99291; 99292; J0696; J1100; J1644; J1938; J2405; J2704; J3360

== ENCOUNTER 2025-07-02 14:30 | Outpatient (RCR) | payer MEDICARE, MEDICAID, SELFPAY ==
[2025-04-08 16:41] VITALS: PULSE 155; RESP 26; O2SAT 72; BMI 35.2
--- NOTE | 2025-04-25 12:49 | OT.OPPOC ---
Physical, Occupational & Speech Therapy At [facility] Nola Ward [id number] 2005 Visit Care Team Role Provider Type Janet Marvin MD Attending Provider Physician Primary Care Provider Referring Provider Address: [facility] [place], [address] Fax: Occupational Therapy Plan of Care OT Outpatient Adult Evaluation Start: 04/24/25 11:26 Freq: Status: Active Protocol: Document 04/25/25 10:45 (Rec: 04/24/25 11:45 [id number]) General Information - Adult Visit Information Visit Number 1 of 12 Plan of Care Dates 04/24/25-07/18/25 Insurance no preauth;no copay;KX modifier required after 19 OT Information visits pcy Session Time Visit Start Date 04/25/25 Visit Start Time 10:45 Visit Stop Time 11:30 Setting Treatment Setting Outpatient Care Visit Type Note Type Initial Evaluation Referral Referring Physician Dr. Janet Marvin Reason for Referral s/p COVID PNA Identification Identification Yes Confirmed Identification EMR Confirmed By Patient Patient Goals incr BUE strength and coord for ADL/IADL performance and incr endurance Medical Information Medical History ASD, ADHD, NAFLD, Fibromyalgia, Anemia, sensorineural hearing loss of R ear, male to female transgender Pt with recent hospitalization for covid PNA with ARDS during which she required intubation and ECMO with subsequent readmission for right PE at at which time she was started on Lovenox and transitioned to Eliquis Previous Therapy Current Therapy/ Receiving PT at [facility] since 04/03/25 2x/week Therapies Social Information Social History Its so early and I am so tired; father present for eval to assist with interview Patient Questionnaires Quick Dash- Upper Extremity Quick Dash UE Score 63.6 Quick Dash UE 60 to 79% Impaired (Score 60-79) Impairment ADLs Feeding Devices adapted knife Goals Objective Measurements Objective ~Nine Hole Peg Test: Measurements R hand: 32.67 seconds L hand: 28.95 seconds ~Manual Muscle Testing (UE): Grossly 4/5 in all planes bilaterally ~BUE AROM grossly WFL ~Admissions Assistant Strength (average of 3 trials): R hand: 26.7 lbs (40, 15, 25) L hand: 12.0 lbs (25, 5, 6) ~3-jaw marvin (tripod) pinch (average of 3 trials): R hand: 9.7 lbs (9, 9, 11) L hand: 7.3 lbs (7, 6, 9) ~Lateral/downing pinch (average of 3 trials): R hand: 9.0 lbs (8, 10, 9) L hand: 9.7 lbs (12, 9, 8) with mild pain reported in L hand Treatment Treatment Patient and father were educated on the role and goals of occupational therapy, with emphasis on restoring independence in self-care and functional daily tasks. A brief initial HEP was introduced, including gentle chair yoga, level 1 resistance band exercises ( horizontal abduction and shoulder flexion), and fine motor strengthening with soft therapy putty. Patient demonstrated understanding and father verbalized support. A more comprehensive HEP will be introduced in subsequent visits as tolerance allows. Short Term Goals Short Term Goals Within 6 weeks: 1. Patient will demonstrate improved yarding supervisor strength by at least 5 lbs bilaterally to support functional tasks such as opening containers. 2. Patient will independently perform basic hair care tasks (e.g., brushing/shampooing hair) with minimal rest breaks and no more than 1 verbal cue for initiating task per parent report. 3. Patient will complete light meal preparation tasks ( e.g., retrieving, opening, and preparing a single container of food) with use of adaptive equipment and no more than standby assistance for sequencing and following simple recipe. 4. Patient will independently complete her initial HEP 5/7 days per week with good form and minimal symptom provocation per patient and/or parent report. Fdc Goals Lard Renderer Goals Within 12 weeks: 1. Patient will demonstrate improved bilateral yarding supervisor strength to >20 lbs on the left and >35 lbs on the right to allow independence with container management and utensil use during ADL and IADL tasks. 2. Patient will independently prepare a simple meal ( including safe use of microwave and adapted devices PRN ) with appropriate pacing and adaptive strategies. 3. Patient will independently complete full hair care and hygiene routine (washing, brushing, drying as tolerated) without caregiver assistance. 4. Patient will demonstrate improved activity tolerance to complete a 20?30 minute table top or standing functional task while upright with HR remaining within safe limits and requiring no more than 1 rest break of 1 min or less. Assessment/Plan Assessment Patient Response Fair Rehabilitation Fair Potential Impairments ADLs,Attention,Balance,Functional Activities,Motor Identified Function,Weakness,Recreational Activities,Meaningful Activities,Motor Planning,Eye-Hand Coordination Treatment Assessment 19-year-old RHD female with history of ASD, ADHD, and fibromyalgia presenting following a recent hospitalization 03/31-04/04/25 for COVID-19 with ARDS requiring intubation and ECMO, followed by readmission for pulmonary embolism. She presents with significant deconditioning, generalized fatigue, tachycardia with minimal exertion, and reduced functional endurance. At baseline prior to hospitalization, she had ongoing difficulties with bilateral coordination, fine motor skills, and some upper body ADLs (hair care, container management, cutting food with adapted knife). Since hospitalization, she has experienced marked decline below her baseline, now unable to complete many self- care tasks independently. Objective testing reveals generalized upper extremity weakness, reduced yarding supervisor/ pinch strength, slowed fine motor coordination, and functional limitations impacting independence with ADLs /IADLs. OT will address upper extremity strength, fine motor coordination, activity tolerance, and adaptive strategies to maximize independence in daily life. Home Exercise Initial: Theraband: horizontal shoulder abduction, Program shoulder flexion Theraputty: squeeze, pinch, manipulative search Reviewed with Goals,Progress Being Made,Home Exercise Program Patient Patient Fair Understanding Plan Length of treatment 12 (weeks) Plan of Care Start 04/25/25 Date Plan of Care End 07/18/25 Date Treatment Frequency Once a Week Treatment Duration 45 Minutes Treatment Emphasis Complete [facility] VMI Next Session Therapeutic Contents Adaptive Equipment Education,Client Education,Cognitive Skills Development,Functional Activities,Home Exercise Program,Education,Self-Care,Therapeutic Activities, Therapeutic Exercises Modalities As Needed Patient Instruction Home Exercise Program,Plan of Care,Questions/Concerns Patient Continue with Current Program Recommendations Electronically Signed by: Iesha Gonzalez OT 04/25/25 [id number] If you are in agreement with this Plan of Care, please return a signed and dated copy. I have reviewed this Plan of Care and certify that the skilled therapy services above are required to meet the patient?s needs. Physician Signature Date Printed Name and Credentials Clinical Instructor Signature Printed Name and Credentials
--- NOTE | 2025-05-02 17:48 | OT.OP.TRT ---
Visit Care Team Role Provider Type Janet Marvin MD Attending Provider Physician Primary Care Provider Referring Provider Specialty: [facility] DEPUTY JUVENILE OFFICER Address: [address] [place], [address] Fax: Email: [email or web address] Occupational Therapy Treatment Note OT Outpatient Treatment Note - Adult Start: 04/24/25 11:26 Freq: Status: Active Protocol: Document 05/02/25 15:15 (Rec: 04/29/25 12:10 [id number]) OT Outpatient Adult Treatment Note Session Time Visit Start Date 05/02/25 Visit Start Time 15:15 Visit Stop Time 16:00 Visit Information Visit Number 2 of 12 Plan of Care Dates 04/24/25-07/18/25 Insurance no preauth;no copay;KX modifier required after 19 OT Information Setting Treatment Setting Outpatient Care Visit Type Note Type Treatment Note - Subjective Identification Type Name Identification Medical Record Reconciled With Observations It is just easier if you tell my dad and he can do it for me Patient/Caregiver Poor Compliance with Home Exercise Program - Objective Objective Beery VMI - Raw score: 21; Standard score: 57; Very low Measurements Visual Perceptual - Raw score: 27; Standard score: 92; Average Motor Coordination - Raw score: 24; Standard score 76; Low Short Term Goals Within 6 weeks: 1. Patient will demonstrate improved packer and carry out strength by at least 5 lbs bilaterally to support functional tasks such as opening containers. 2. Patient will independently perform basic hair care tasks (e.g., brushing/shampooing hair) with minimal rest breaks and no more than 1 verbal cue for initiating task per parent report. 3. Patient will complete light meal preparation tasks ( e.g., retrieving, opening, and preparing a single container of food) with use of adaptive equipment and no more than standby assistance for sequencing and following simple recipe. 4. Patient will independently complete her initial HEP 5/7 days per week with good form and minimal symptom provocation per patient and/or parent report. Shelter Goals Within 12 weeks: 1. Patient will demonstrate improved bilateral packer and carry out strength to >20 lbs on the left and >35 lbs on the right to allow independence with container management and utensil use during ADL and IADL tasks. 2. Patient will independently prepare a simple meal ( including safe use of microwave and adapted devices PRN ) with appropriate pacing and adaptive strategies. 3. Patient will independently complete full hair care and hygiene routine (washing, brushing, drying as tolerated) without caregiver assistance. 4. Patient will demonstrate improved activity tolerance to complete a 20?30 minute table top or standing functional task while upright with HR remaining within safe limits and requiring no more than 1 rest break of 1 min or less. - Treatment 4 Descriptor Today the Beery VMI was administered with both subtests . Patient scored a standard score of 57 on the Beery VMI, falling within the very low category. On the visual perceptual subtest she scored a 92, in the average range, and on the motor coordination subtest she scored a 76, in the low range. During treatment, her affect was more energetic though she was frequently off topic, often deflecting tasks to her father. We reviewed her HEP, including therapy band exercises for horizontal abduction, shoulder retraction, and shoulder flexion, as well as putty exercises. She required maximal verbal and visual cues with redirection to task in order to complete return demonstration. Attention was limited and she often stopped after 1?2 repetitions , reporting ?that would be all the exercise I?m doing today.? She demonstrated difficulty imitating body movements and poor carryover without heavy prompting. Her father brought in her utensils and hairbrush for functional practice. When attempting to cut Velcro food with her adaptive knife, she initially pushed through items rather than using a slicing motion. Instruction was provided in safe and effective cutting strategies using a sawing action with the knife tip, and she demonstrated some improvement in technique by the third attempt. When brushing her hair, no biomechanical limitations were observed; however, she demonstrated a low threshold for frustration and frequently deferred to her father, stating it would be easier for him to complete the task. Education was provided on strategies for brushing knots, beginning from the bottom and working gently upward. Therapist reinforced the importance of practicing tasks that are difficult in order to strengthen skills, increase independence, and prevent loss of ability with aging. Patient demonstrated poor sustained attention to discussion, though she verbalized basic understanding. - Assessment Patient Response to Fair Treatment Rehabilitation Fair Potential Impairments ADLs,Attention,Coordination/Dexterity,Functional Identified Activities,Weakness,Posture,Range of Motion, Recreational Activities,Meaningful Activities,Insight, Regulating Sensory System Progress Towards Slow Progress Goals Assessment of Unchanged Overall Progress Assessment of Patient presents with ongoing deficits in fine motor Improvement coordination, bilateral coordination, upper extremity strength, and independent ADL/IADL performance. VMI testing indicates very low visual-motor integration and low motor coordination, though visual perception was average, suggesting motor planning, execution, and endurance are more impaired than perceptual skills. Session participation was limited by poor attention, low frustration tolerance, and reduced intrinsic motivation, which appear to be primary barriers to skill acquisition and carryover. Despite these challenges, patient demonstrated some improvement in functional utensil use after repeated trials, indicating capacity for learning with consistent practice. Education was provided to patient and father regarding the importance of repetition and participation in skill-building tasks both in and outside of therapy sessions. Continued skilled OT is indicated to address strength, fine motor control, bilateral coordination, activity tolerance, and independence with ADLs/IADLs. Reviewed with Goals,Progress Being Made,Home Exercise Program Patient/Caregiver Patient/Caregiver Fair Understanding - Plan Therapy Continue with Current Program Recommendations Amount of Therapy 3-4 Months Recommended Frequency of Once a Week Treatment Length of Session 45 Minutes Treatment Emphasis Complete Sugar TAYLORI Next Session Therapeutic Contents Adaptive Equipment Education,Client Education, Functional Activities,Home Exercise Program,Education, Neuromuscular Re-Education,Self-Care,Stretching/ Flexibility Activities,Therapeutic Activities, Therapeutic Exercises,Sensory Re-education Modalities As Needed
--- NOTE | 2025-05-22 16:54 | OT.OP.TRT ---
Visit Care Team Role Provider Type Janet Marvin MD Attending Provider Physician Primary Care Provider Referring Provider Specialty: [facility] COATING MACHINE HELPER Address: [address], [place], [address] Fax: Email: [email or web address] Occupational Therapy Treatment Note OT Outpatient Treatment Note - Adult Start: 04/24/25 11:26 Freq: Status: Active Protocol: Document 05/22/25 15:15 (Rec: 05/22/25 15:04 [id number]) OT Outpatient Adult Treatment Note Session Time Visit Start Date 05/22/25 Visit Start Time 15:15 Visit Stop Time 16:15 Visit Information Visit Number 2 of 12 Plan of Care Dates 04/24/25-07/18/25 Insurance no preauth;no copay;KX modifier required after 19 OT Information Setting Treatment Setting Outpatient Care Visit Type Note Type Treatment Note - Subjective Identification Type Name Identification Medical Record Reconciled With Others Present Family Observations I think a big problem for me trying new things is anxiety about failing so I don't want to try Patient/Caregiver Poor Compliance with Home Exercise Program - Objective Short Term Goals Within 6 weeks: 1. Patient will demonstrate improved charger tester strength by at least 5 lbs bilaterally to support functional tasks such as opening containers. 2. Patient will independently perform basic hair care tasks (e.g., brushing/shampooing hair) with minimal rest breaks and no more than 1 verbal cue for initiating task per parent report. 3. Patient will complete light meal preparation tasks ( e.g., retrieving, opening, and preparing a single container of food) with use of adaptive equipment and no more than standby assistance for sequencing and following simple recipe. 4. Patient will independently complete her initial HEP 5/7 days per week with good form and minimal symptom provocation per patient and/or parent report. Sharepoint Solutions Developer Goals Within 12 weeks: 1. Patient will demonstrate improved bilateral charger tester strength to >20 lbs on the left and >35 lbs on the right to allow independence with container management and utensil use during ADL and IADL tasks. 2. Patient will independently prepare a simple meal ( including safe use of microwave and adapted devices PRN ) with appropriate pacing and adaptive strategies. 3. Patient will independently complete full hair care and hygiene routine (washing, brushing, drying as tolerated) without caregiver assistance. 4. Patient will demonstrate improved activity tolerance to complete a 20?30 minute table top or standing functional task while upright with HR remaining within safe limits and requiring no more than 1 rest break of 1 min or less. - Treatment 4 Descriptor Patient and father were seen following a two-week gap in services. Both reported that the prescribed home exercise program had not been attempted during this time. Upon discussion, it became evident that patient frequently identifies reasons she ?cannot? complete tasks but has not attempted strategies or accommodations to address these perceived barriers. Session focus shifted to extensive education on the concepts of learned helplessness, the purpose and meaning of self-participation in daily tasks, and the relationship between activity engagement, strength, endurance, and independence. Therapist explained the process of grading activities, differentiating between skill development, strengthening, and accommodations, and emphasized that motivation must be internally driven though OT can provide tools, support, and structured opportunities. Together with the patient and her father, a new plan was established for gradual re-engagement in functional tasks. The first step will include observing and video -recording her father preparing simple meals such as spaghetti, with the expectation of 2?3 observations per week. Patient will be encouraged to remain actively engaged during these observations by asking questions and taking notes. This plan is intended to build confidence, provide concrete strategies, and set the stage for future independent participation. Discussion also included how strength and endurance may be built through both exercise and functional activity, such as cooking or household participation. Both patient and father verbalized understanding and expressed agreement to approach these activities as new learning opportunities without negativity or preconceptions. - Assessment Patient Response to Good Treatment Rehabilitation Fair Potential Impairments ADLs,Attention,Coordination/Dexterity,Functional Identified Activities,Weakness,Posture,Range of Motion, Recreational Activities,Meaningful Activities,Insight, Regulating Sensory System Progress Towards Slow Progress Goals Assessment of Unchanged Overall Progress Assessment of Patient continues to present with limited functional Improvement independence in ADLs and IADLs, influenced by weakness, poor activity tolerance, and low intrinsic motivation. Despite reporting difficulty with tasks, she has not attempted her home program or functional tasks, suggesting learned helplessness is a significant barrier. During today?s session, patient and father were receptive to extensive education on the importance of graded participation, practice, and willingness to attempt tasks in order to build strength, endurance, and skill. A collaborative plan was created to begin with structured observation of cooking activities, allowing for gradual skill-building, confidence development, and eventual transition to independent task performance. Patient demonstrates potential for progress if consistent participation can be achieved, though carryover remains dependent on engagement and willingness. Skilled OT remains indicated to facilitate graded participation, provide adaptive strategies, and support increased independence in self-care and household management. Reviewed with Goals,Progress Being Made,Home Exercise Program Patient/Caregiver Patient/Caregiver Fair Understanding - Plan Therapy Continue with Current Program Recommendations Amount of Therapy 3-4 Months Recommended Frequency of Once a Week Treatment Length of Session 45 Minutes Therapeutic Contents Adaptive Equipment Education,Client Education, Functional Activities,Home Exercise Program,Education, Neuromuscular Re-Education,Self-Care,Stretching/ Flexibility Activities,Therapeutic Activities, Therapeutic Exercises,Sensory Re-education Modalities As Needed
--- NOTE | 2025-05-29 17:18 | OT.OP.TRT ---
Visit Care Team Role Provider Type Janet Marvin MD Attending Provider Physician Primary Care Provider Referring Provider Specialty: [facility] SERGEANT OF CORRECTIONS Address: [address] [place], [address] Fax: Email: [email or web address] Occupational Therapy Treatment Note OT Outpatient Treatment Note - Adult Start: 04/24/25 11:26 Freq: Status: Active Protocol: Document 05/29/25 15:15 (Rec: 05/28/25 16:57 [id number]) OT Outpatient Adult Treatment Note Session Time Visit Start Date 05/29/25 Visit Start Time 15:15 Visit Stop Time 16:15 Visit Information Visit Number 4 of 12 Plan of Care Dates 04/24/25-07/18/25 Insurance no preauth;no copay;KX modifier required after 19 OT Information Setting Treatment Setting Outpatient Care Visit Type Note Type Progress Note - Subjective Identification Type Name Identification Medical Record Reconciled With Others Present Family Observations I video recorded my dad making spaghetti and tried cutting strawberries Patient/Caregiver Poor Compliance with Home Exercise Program - Objective Short Term Goals Within 6 weeks: 1. 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 [PROGRESSING 05/29/25] 2. Patient will independently perform basic hair care tasks (e.g., brushing/shampooing hair) with minimal rest breaks and no more than 1 verbal cue for initiating task per parent report. [PROGRESSING 05/29/25 ] 3. Patient will complete light meal preparation tasks ( e.g., retrieving, opening, and preparing a single container of food) with use of adaptive equipment and no more than standby assistance for sequencing and following simple recipe. [PROGRESSING 05/29/25] 4. Patient will independently complete her initial HEP 5/7 days per week with good form and minimal symptom provocation per patient and/or parent report. [ PROGRESSING 05/29/25] Alf Goals Within 12 weeks: 1. Patient will demonstrate improved bilateral piece dye worker strength to >20 lbs on the left and >35 lbs on the right to allow independence with container management and utensil use during ADL and IADL tasks. [PROGRESSING 05/29/25] 2. Patient will independently prepare a simple meal ( including safe use of microwave and adapted devices PRN ) with appropriate pacing and adaptive strategies. [ PROGRESSING 05/29/25] 3. Patient will independently complete full hair care and hygiene routine (washing, brushing, drying as tolerated) without caregiver assistance. [PROGRESSING 05/29/25] 4. Patient will demonstrate improved activity tolerance to complete a 20?30 minute table top or standing functional task while upright with HR remaining within safe limits and requiring no more than 1 rest break of 1 min or less. [PROGRESSING 05/29/25] - Treatment 4 Descriptor Today?s session focused on reviewing the patient?s progress with her home-based cooking schedule and promoting continued engagement in meaningful, functional activities to support independence. Patient and father reported they have followed the agreed Monday/Monday/Monday cooking schedule, during which she observes or participates in meal preparation. Patient reported recording her father preparing spaghetti and stated that following along felt easy and achievable, though she continues to express some anxiety regarding potential orona or forgetting steps. She demonstrated improved insight into her own barriers and greater motivation to problem-solve or identify tools and resources to support independence. Patient also reported successfully attempting to cut strawberries at home, noting mild uncoordinated movements but overall satisfaction with the task and understanding that improvement will come with practice. In session, she practiced safe cutting skills using therapy putty shaped to simulate fruits and vegetables. Education was provided on stabilizing the item, hand placement for safety, and using a sawing motion to improve control. Use of a built-up foam handle improved piece dye worker stability, though intrinsic weakness contributed to occasional wrist rotation during slicing. Strategies were discussed to support improved control and endurance. The session also included discussion of leisure exploration and motivation. Together, patient and therapist identified potential fine motor and coordination-based hobbies of interest including scrapbooking, DIY craft kits, origami, jewelry making, makeup application, and gardening. Patient was encouraged to explore these options and commit to fully learning one process before moving to another. Father joined for the latter portion of the session, and the importance of positive reinforcement, encouragement of autonomy, and reduction of over-assistance was discussed at length. Both agreed to implement a reinforcement system in which consistent engagement in learning or hobbies would lead to access to new materials or opportunities related to those interests. Therapist emphasized that independence, confidence, and functional engagement are critical for improving strength, endurance, and fatigue management. Education was provided on sleep hygiene and the essential role of sleep in recovery, energy, and neurocognitive function . Both patient and father verbalized understanding and commitment to continue following through with recommendations. Visual Cues Max Cues Verbal Cues Max Cues Tolerance Good - Assessment Patient Response to Good Treatment Rehabilitation Fair Potential Impairments ADLs,Attention,Coordination/Dexterity,Functional Identified Activities,Weakness,Posture,Range of Motion, Recreational Activities,Meaningful Activities,Insight, Regulating Sensory System Progress Towards Slow Progress Goals Assessment of Unchanged Overall Progress Assessment of Patient demonstrates measurable improvement in Improvement motivation, engagement, and self-awareness regarding her role in developing functional independence. She is showing early carryover of home strategies, including adherence to the semi-structured cooking schedule and initiation of food preparation tasks with reduced avoidance. Mild coordination and strength deficits persist but are now accompanied by willingness to attempt and practice, suggesting a positive shift from previous patterns of learned helplessness toward emerging self-efficacy. The addition of leisure exploration and positive reinforcement strategies between patient and father represents an important behavioral step in promoting sustainable engagement and internal motivation. Continued skilled OT intervention remains indicated to support carryover of functional skills, address fine motor and intrinsic hand weakness, and build endurance and executive function through structured, meaningful tasks and graded participation. Progress toward goals is evident in both attitude and participation. Reviewed with Goals,Progress Being Made Patient/Caregiver Patient/Caregiver Fair Understanding - Plan Therapy Continue with Current Program Recommendations Amount of Therapy 3-4 Months Recommended Frequency of Once a Week Treatment Length of Session 45 Minutes Treatment Emphasis review daily gratitude practice, review schedule/hobby Next Session progress Therapeutic Contents Adaptive Equipment Education,Client Education, Functional Activities,Home Exercise Program,Education, Neuromuscular Re-Education,Self-Care,Stretching/ Flexibility Activities,Therapeutic Activities, Therapeutic Exercises,Sensory Re-education Modalities As Needed
--- NOTE | 2025-06-05 14:54 | OT.OP.TRT ---
Visit Care Team Role Provider Type Janet Marvin MD Attending Provider Physician Primary Care Provider Referring Provider Specialty: [facility] QUALITY IMPROVEMENT COORDINATOR Address: [address] [place], [address] Fax: Email: [email or web address] Occupational Therapy Treatment Note OT Outpatient Treatment Note - Adult Start: 04/24/25 11:26 Freq: Status: Active Protocol: Document 06/05/25 13:00 (Rec: 06/04/25 13:21 [id number]) OT Outpatient Adult Treatment Note Session Time Visit Start Date 06/05/25 Visit Start Time 13:00 Visit Stop Time 13:45 Visit Information Visit Number 5 of 12 Plan of Care Dates 04/24/25-07/18/25 Insurance no preauth;no copay;KX modifier required after 19 OT Information Setting Treatment Setting Outpatient Care Visit Type Note Type Treatment Note - Subjective Identification Type Name Identification Medical Record Reconciled With Others Present Family Observations I made spaghetti by myself this week, I forgot a couple things but my dad was able to remind me Patient/Caregiver Fair Compliance with Home Exercise Program - Objective Short Term Goals Within 6 weeks: 1. 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 [PROGRESSING 05/29/25] 2. Patient will independently perform basic hair care tasks (e.g., brushing/shampooing hair) with minimal rest breaks and no more than 1 verbal cue for initiating task per parent report. [PROGRESSING 05/29/25 ] 3. Patient will complete light meal preparation tasks ( e.g., retrieving, opening, and preparing a single container of food) with use of adaptive equipment and no more than standby assistance for sequencing and following simple recipe. [PROGRESSING 05/29/25] 4. Patient will independently complete her initial HEP 5/7 days per week with good form and minimal symptom provocation per patient and/or parent report. [ PROGRESSING 05/29/25] Care Home Goals Within 12 weeks: 1. Patient will demonstrate improved bilateral textile coating machine operator strength to >20 lbs on the left and >35 lbs on the right to allow independence with container management and utensil use during ADL and IADL tasks. [PROGRESSING 05/29/25] 2. Patient will independently prepare a simple meal ( including safe use of microwave and adapted devices PRN ) with appropriate pacing and adaptive strategies. [ PROGRESSING 05/29/25] 3. Patient will independently complete full hair care and hygiene routine (washing, brushing, drying as tolerated) without caregiver assistance. [PROGRESSING 05/29/25] 4. Patient will demonstrate improved activity tolerance to complete a 20?30 minute table top or standing functional task while upright with HR remaining within safe limits and requiring no more than 1 rest break of 1 min or less. [PROGRESSING 05/29/25] - Treatment 4 Descriptor Patient was seen today and reported that she independently attempted to make spaghetti this week. She stated she forgot a few steps but was able to complete the task with minimal assistance from her father. She noted significant difficulty managing cookware once weight such as sauce or water was added to the farah. Therapist and patient discussed various strengthening options including traditional free weights, therapy bands, and resistance exercises compared with functional task simulation. Patient expressed that she is more motivated to engage in strengthening activities when they directly relate to meaningful daily tasks. Patient brought her own saucepan from home for use in today?s session. Therapist and patient trialed varying water levels to assess current upper extremity strength and endurance. Patient was able to hold 6 ounces of water for 30 seconds in her left hand and 12 ounces in her right hand before onset of fatigue. Together, therapist and patient set a home goal to hold the saucepan with the same water volumes for 30 seconds, gradually progressing to 60 seconds, one to two times per day. A second goal was established for holding a stockpot with both hands at belly-button height containing 48 ounces of water for 60 seconds, progressing as tolerated. Once stable, she will begin alternating hands and incorporating pronation, supination, ulnar, and radial deviation movements for strengthening and coordination. Patient demonstrated significant fatigue with all tasks and required extended rest breaks. Education was provided on principles of functional endurance, activity grading, and methods for safely increasing challenge by adjusting water volume, time held, or distance of the cookware from the body. Fine motor strengthening with therapy putty was also reviewed, and patient reported this task to be challenging. Therapist recommended pairing putty use with a passive activity, such as while riding in the car, to improve compliance and engagement. Patient was receptive to this strategy and demonstrated improved willingness to participate. Overall, she showed increased engagement, motivation, and insight into her progress and limitations, with ongoing fair compliance to home and in-clinic treatment recommendations. Physical Assistance Mod Assistance Visual Cues Max Cues Verbal Cues Max Cues Tolerance Fair Modifications Yes: time and weight graded down to meet pt tolerance Required Complexity Reduced - Assessment Patient Response to Good Treatment Rehabilitation Fair Potential Impairments ADLs,Attention,Coordination/Dexterity,Functional Identified Activities,Weakness,Posture,Range of Motion, Recreational Activities,Meaningful Activities,Insight, Regulating Sensory System Progress Towards Slow Progress Goals Assessment of Improving Overall Progress Assessment of Patient continues to demonstrate gradual improvement in Improvement motivation, self-efficacy, and follow-through with functional skill practice. She is increasingly receptive to education and demonstrates greater initiative toward independence with cooking and daily routines. Endurance and upper extremity strength remain limited, particularly in the left upper extremity, contributing to difficulty safely handling cookware. Today?s session successfully established measurable, functional strengthening parameters tied to meaningful ADL performance. Fatigue and decreased carryover continue to be primary barriers, but patient?s motivation and participation are trending positively. Continued skilled OT remains indicated to address upper extremity strength, fine motor coordination, and activity tolerance through functional and goal-directed interventions aimed at improving independence in cooking and other ADLs/IADLs. Home Exercise Functional strengthening for cooking: With sauce farah Program filled with 6oz of water for L hand and 12 oz of water for R hand pt will hold farah with 1 UE resisting gravity x30 sec working toward 60sec, With Stockpot filled with 48 oz, will hold against gravity at belly button height x60sec working toward lifts (bicep curls). Once these are stable, will progress to include pronation/ supination and ulnar/radial deviation with sauce farah Reviewed with Goals,Progress Being Made,Home Exercise Program Patient/Caregiver Patient/Caregiver Fair Understanding - Plan Therapy Continue with Current Program Recommendations Amount of Therapy 3-4 Months Recommended Frequency of Once a Week Treatment Length of Session 45 Minutes Treatment Emphasis review daily gratitude practice/HEP, review schedule/ Next Session hobby progress Therapeutic Contents Adaptive Equipment Education,Client Education, Functional Activities,Home Exercise Program,Education, Neuromuscular Re-Education,Self-Care,Stretching/ Flexibility Activities,Therapeutic Activities, Therapeutic Exercises,Sensory Re-education Modalities As Needed
--- NOTE | 2025-06-11 09:00 | OT.OP.TRT ---
Visit Care Team Role Provider Type Janet Marvin MD Attending Provider Physician Primary Care Provider Referring Provider Specialty: [facility] Practice SPEECH THERAPY ASSISTANT Address: [address] [place], [address] Fax: Email: [email or web address] Occupational Therapy Treatment Note OT Outpatient Treatment Note - Adult Start: 04/24/25 11:26 Freq: Status: Active Protocol: Document 06/10/25 13:45 (Rec: 06/06/25 14:55 [id number]) OT Outpatient Adult Treatment Note Session Time Visit Start Date 06/10/25 Visit Start Time 13:45 Visit Stop Time 14:30 Visit Information Visit Number 6 of 12 Plan of Care Dates 04/24/25-07/18/25 Insurance no preauth;no copay;KX modifier required after 19 OT Information Setting Treatment Setting Outpatient Care Visit Type Note Type Treatment Note - Subjective Identification Type Name Identification Medical Record Reconciled With Others Present Family Observations I did the exercises yesterday! Patient/Caregiver Fair Compliance with Home Exercise Program - Objective Short Term Goals Within 6 weeks: 1. 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 [PROGRESSING 05/29/25] 2. Patient will independently perform basic hair care tasks (e.g., brushing/shampooing hair) with minimal rest breaks and no more than 1 verbal cue for initiating task per parent report. [PROGRESSING 05/29/25 ] 3. Patient will complete light meal preparation tasks ( e.g., retrieving, opening, and preparing a single container of food) with use of adaptive equipment and no more than standby assistance for sequencing and following simple recipe. [PROGRESSING 05/29/25] 4. Patient will independently complete her initial HEP 5/7 days per week with good form and minimal symptom provocation per patient and/or parent report. [ PROGRESSING 05/29/25] Corporate Communications Associate Goals Within 12 weeks: 1. Patient will demonstrate improved bilateral phlebotomy technologist strength to >20 lbs on the left and >35 lbs on the right to allow independence with container management and utensil use during ADL and IADL tasks. [PROGRESSING 05/29/25] 2. Patient will independently prepare a simple meal ( including safe use of microwave and adapted devices PRN ) with appropriate pacing and adaptive strategies. [ PROGRESSING 05/29/25] 3. Patient will independently complete full hair care and hygiene routine (washing, brushing, drying as tolerated) without caregiver assistance. [PROGRESSING 05/29/25] 4. Patient will demonstrate improved activity tolerance to complete a 20?30 minute table top or standing functional task while upright with HR remaining within safe limits and requiring no more than 1 rest break of 1 min or less. [PROGRESSING 05/29/25] - Treatment 4 Descriptor Patient was seen today and reported completing her home exercise program only once since the previous visit. She shared that she had difficulty completing her saucepan strengthening exercise because the smaller pot used last week was in the business dean, so she used a larger pot with the same amount of water, resulting in increased difficulty. Therapist provided education on personal accountability to ensure materials are available for practice and discussed the concept of grading an activity by adjusting water volume to match pot size for appropriate challenge. Discussion also focused on the patient?s progress toward identifying a leisure or hobby to pursue for fine motor and cognitive engagement. Patient reported she has not yet selected one but acknowledged the need to find an activity she enjoys enough to sustain through the learning curve. Therapist and patient discussed strategies for organization and cleanup to address her father?s concerns about managing hobby supplies, including the use of clear storage bins, lay- flat or drawstring organizers, and establishing routines that include setup and cleanup as part of the hobby process to promote accountability and independence. Session concluded with discussion on personal responsibility and the connection between engagement, effort, and confidence-building through self-reliant practice. Exercises 1 Descriptor 2x10 with yellow theraband flex bar: -wrist flex/ext -ulnar/radial deviation -pronation/supination In-session, patient completed flex bar exercises targeting wrist, hand, and forearm strength, performing 2 sets of 10 repetitions of wrist flexion/extension, ulnar/radial deviation, and pronation/supination. She required maximal verbal and visual cues and maximal physical assistance for proper setup during ulnar and radial deviation, with fair return demonstration. Therapist encouraged patient to count her own repetitions to promote cognitive engagement and self- management, as she initially reported difficulty performing exercises and counting simultaneously. Education was provided on the benefits of consistent participation and frequency of exercise for faster progress. Physical Assistance Max Assistance Visual Cues Max Cues Verbal Cues Max Cues Tolerance Fair Modifications Yes Required - Assessment Patient Response to Good Treatment Rehabilitation Fair Potential Impairments ADLs,Attention,Coordination/Dexterity,Functional Identified Activities,Weakness,Posture,Range of Motion, Recreational Activities,Meaningful Activities,Insight, Regulating Sensory System Progress Towards Slow Progress Goals Assessment of Improving Overall Progress Assessment of Patient continues to demonstrate modest but consistent Improvement progress in engagement, self-awareness, and willingness to participate in functional strengthening and therapeutic activities. Motivation and follow-through remain variable, with continued tendencies toward self- limiting beliefs and justification of task avoidance. However, she is beginning to recognize her own thought patterns and their impact on motivation, which reflects increased insight and readiness for change. Physical participation today was fair, with good tolerance and appropriate fatigue after completion of flex bar exercises. She is showing improved compliance with in- clinic activities and slow but steady gains in motivation toward independent follow-through at home. Continued emphasis on personal accountability, task ownership, and consistent engagement in her HEP will be essential to maintain progress. Patient continues to benefit from skilled OT intervention to address upper extremity strength, fine motor control, activity tolerance, and psychosocial barriers to independent ADL and IADL participation. Home Exercise Functional strengthening for cooking: With sauce farah Program filled with 6oz of water for L hand and 12 oz of water for R hand pt will hold farah with 1 UE resisting gravity x30 sec working toward 60sec, With Stockpot filled with 48 oz, will hold against gravity at belly button height x60sec working toward lifts (bicep curls). Once these are stable, will progress to include pronation/ supination and ulnar/radial deviation with sauce farah Reviewed with Goals,Progress Being Made,Home Exercise Program Patient/Caregiver Patient/Caregiver Fair Understanding - Plan Therapy Continue with Current Program Recommendations Amount of Therapy 3-4 Months Recommended Frequency of Once a Week Treatment Length of Session 45 Minutes Treatment Emphasis review daily gratitude practice/HEP, review schedule/ Next Session hobby progress Therapeutic Contents Adaptive Equipment Education,Client Education, Functional Activities,Home Exercise Program,Education, Neuromuscular Re-Education,Self-Care,Stretching/ Flexibility Activities,Therapeutic Activities, Therapeutic Exercises,Sensory Re-education Modalities As Needed
--- NOTE | 2025-06-20 15:31 | OT.OP.TRT ---
Visit Care Team Role Provider Type Janet Marvin MD Attending Provider Physician Primary Care Provider Referring Provider Specialty: [facility] TYPING CHECKER Address: [facility] [place], [address] Fax: Email: [email or web address] Occupational Therapy Treatment Note OT Outpatient Treatment Note - Adult Start: 04/24/25 11:26 Freq: Status: Active Protocol: Document 06/20/25 14:30 (Rec: 06/20/25 12:48 [id number]) OT Outpatient Adult Treatment Note Session Time Visit Start Date 06/20/25 Visit Start Time 14:30 Visit Stop Time 15:15 Visit Information Visit Number 7 of 12 Plan of Care Dates 04/24/25-07/18/25 Insurance no preauth;no copay;KX modifier required after 19 OT Information Setting Treatment Setting Outpatient Care Visit Type Note Type Treatment Note - Subjective Identification Type Name Identification Medical Record Reconciled With Others Present Family Observations I have mastered pretty much all the steps to making spaghetti, its just still really heavy Patient/Caregiver Fair Compliance with Home Exercise Program - Objective Short Term Goals Within 6 weeks: 1. Patient will demonstrate improved brush trimming machine setter strength by at least 5 lbs bilaterally to support functional tasks such as opening containers. [PROGRESSING 05/29/25] 2. Patient will independently perform basic hair care tasks (e.g., brushing/shampooing hair) with minimal rest breaks and no more than 1 verbal cue for initiating task per parent report. [PROGRESSING 05/29/25 ] 3. Patient will complete light meal preparation tasks ( e.g., retrieving, opening, and preparing a single container of food) with use of adaptive equipment and no more than standby assistance for sequencing and following simple recipe. [PROGRESSING 05/29/25] 4. Patient will independently complete her initial HEP 5/7 days per week with good form and minimal symptom provocation per patient and/or parent report. [ PROGRESSING 05/29/25] [facility]cf Goals Within 12 weeks: 1. Patient will demonstrate improved bilateral brush trimming machine setter strength to >20 lbs on the left and >35 lbs on the right to allow independence with container management and utensil use during ADL and IADL tasks. [PROGRESSING 05/29/25] 2. Patient will independently prepare a simple meal ( including safe use of microwave and adapted devices PRN ) with appropriate pacing and adaptive strategies. [ PROGRESSING 05/29/25] 3. Patient will independently complete full hair care and hygiene routine (washing, brushing, drying as tolerated) without caregiver assistance. [PROGRESSING 05/29/25] 4. Patient will demonstrate improved activity tolerance to complete a 20?30 minute table top or standing functional task while upright with HR remaining within safe limits and requiring no more than 1 rest break of 1 min or less. [PROGRESSING 05/29/25] - Treatment 4 Descriptor Today?s session focused on fine motor coordination, bilateral hand use, and sequencing through a functional grooming-related activity. Patient expressed interest in learning how to put her hair into a ponytail. To build foundational motor patterns, therapist introduced a preparatory task of looping a ponytail anglin around a highlighter to simulate the motion of securing hair. Patient initially demonstrated significant difficulty coordinating small fine motor movements and sequencing bilateral hand motions. Instruction was provided to create an ?X? in the band by twisting it and using the same hand holding the band to grasp and loop over the highlighter. After approximately 4?5 repetitions, patient demonstrated the ability to complete three loops with fair coordination and return demonstration. Task difficulty was then increased by completing the same exercise with eyes closed to challenge proprioceptive awareness. The first 2?3 trials required maximal verbal and visual cueing, but by the third trial, patient achieved three full loops with fair control and accuracy. The activity was further graded by attempting to loop the hair band around a small section of her own hair positioned near the front of her head for visual feedback. This presented significant difficulty, as she struggled to coordinate stabilizing the hair with one hand while manipulating the band with the other. Multiple attempts were made with maximal verbal, visual, and physical assistance. Patient was instructed to continue practicing this task at home, either using her own hair or a wig, and to incorporate brushing from bottom to top to support bilateral upper extremity strengthening and endurance. Patient reported that her schedule had been chaotic the prior week, allowing minimal time for cooking or strengthening practice, though she feels she has mastered most of the steps required to make spaghetti. She continues to report anxiety about potential orona and limited upper extremity strength when managing cookware. Therapist provided reinforcement on the importance of consistent practice and gradual exposure to tasks to increase confidence and reduce fear avoidance. - Assessment Patient Response to Good Treatment Rehabilitation Fair Potential Impairments ADLs,Attention,Coordination/Dexterity,Functional Identified Activities,Weakness,Posture,Range of Motion, Recreational Activities,Meaningful Activities,Insight, Regulating Sensory System Progress Towards Slow Progress Goals Assessment of Improving Overall Progress Assessment of Patient continues to demonstrate gradual progress in Improvement fine motor coordination, bilateral integration, and motivation to participate in self-care skill development. Despite ongoing motor planning and strength challenges, she is showing improved persistence, engagement, and tolerance for trial and error. Her ability to complete multiple repetitions of the simulated ponytail task with fair success reflects increasing proprioceptive awareness and emerging motor learning. Anxiety, limited strength, and low endurance remain barriers, yet patient?s self-initiated interest in learning functional grooming tasks singh a positive shift toward self-reliance and intrinsic motivation. Continued skilled OT intervention remains indicated to address bilateral coordination, fine motor control, and confidence in performing self-care and IADL tasks to foster greater independence and carryover at home. Home Exercise Functional strengthening for cooking: With sauce farah Program filled with 6oz of water for L hand and 12 oz of water for R hand pt will hold farah with 1 UE resisting gravity x30 sec working toward 60sec, With Stockpot filled with 48 oz, will hold against gravity at belly button height x60sec working toward lifts (bicep curls). Once these are stable, will progress to include pronation/ supination and ulnar/radial deviation with sauce farah Reviewed with Goals,Progress Being Made,Home Exercise Program Patient/Caregiver Patient/Caregiver Fair Understanding - Plan Therapy Continue with Current Program Recommendations Amount of Therapy 3-4 Months Recommended Frequency of Once a Week Treatment Length of Session 45 Minutes Treatment Emphasis review daily gratitude practice/HEP, review schedule/ Next Session hobby progress Therapeutic Contents Adaptive Equipment Education,Client Education, Functional Activities,Home Exercise Program,Education, Neuromuscular Re-Education,Self-Care,Stretching/ Flexibility Activities,Therapeutic Activities, Therapeutic Exercises,Sensory Re-education Modalities As Needed
--- NOTE | 2025-06-26 15:34 | OT.OP.TRT ---
Visit Care Team Role Provider Type Janet Marvin MD Attending Provider Physician Primary Care Provider Referring Provider Specialty: [facility] SHANK SKINNER Address: [facility] [place], [address] Fax: Email: [email or web address] Occupational Therapy Treatment Note OT Outpatient Treatment Note - Adult Start: 04/24/25 11:26 Freq: Status: Active Protocol: Document 06/26/25 13:00 (Rec: 06/24/25 10:23 [id number]) OT Outpatient Adult Treatment Note Session Time Visit Start Date 06/26/25 Visit Start Time 13:00 Visit Stop Time 13:45 Visit Information Visit Number 8 of 12 Plan of Care Dates 04/24/25-07/18/25 Insurance no preauth;no copay;KX modifier required after 19 OT Information Setting Treatment Setting Outpatient Care Visit Type Note Type Progress Note - Subjective Identification Type Name Identification Medical Record Reconciled With Others Present Family Observations I have been out a lot this week so I haven't done any cooking this week Patient/Caregiver Fair Compliance with Home Exercise Program - Objective Short Term Goals Within 6 weeks: 1. Patient will demonstrate improved optical store manager strength by at least 5 lbs bilaterally to support functional tasks such as opening containers. [PROGRESSING 05/29/25] 2. Patient will independently perform basic hair care tasks (e.g., brushing/shampooing hair) with minimal rest breaks and no more than 1 verbal cue for initiating task per parent report. [PROGRESSING 05/29/25 ] 3. Patient will complete light meal preparation tasks ( e.g., retrieving, opening, and preparing a single container of food) with use of adaptive equipment and no more than standby assistance for sequencing and following simple recipe. [PROGRESSING 05/29/25] 4. Patient will independently complete her initial HEP 5/7 days per week with good form and minimal symptom provocation per patient and/or parent report. [ PROGRESSING 05/29/25] Skilled Nursing Goals Within 12 weeks: 1. Patient will demonstrate improved bilateral optical store manager strength to >20 lbs on the left and >35 lbs on the right to allow independence with container management and utensil use during ADL and IADL tasks. [PROGRESSING 05/29/25] 2. Patient will independently prepare a simple meal ( including safe use of microwave and adapted devices PRN ) with appropriate pacing and adaptive strategies. [ PROGRESSING 05/29/25] 3. Patient will independently complete full hair care and hygiene routine (washing, brushing, drying as tolerated) without caregiver assistance. [PROGRESSING 05/29/25] 4. Patient will demonstrate improved activity tolerance to complete a 20?30 minute table top or standing functional task while upright with HR remaining within safe limits and requiring no more than 1 rest break of 1 min or less. [PROGRESSING 05/29/25] - Treatment 4 Descriptor Patient was seen today and requested to work on shoe- tying skills. She demonstrated the ability to independently tie a bow on her tennis shoe when it was positioned on the table; however, the knot was loose and not secured adequately. Therapist provided instruction on leaving sufficient lace length to allow tightening, using thumbs through the loops to pull in opposite directions for a secure bow, and performing a double knot to prevent the laces from coming undone. Patient then donned her shoe and used a figure-4 position to practice tying, requiring standby assistance primarily for lace management and sequencing to ensure adequate tension and a complete double knot. Mod verbal cues required throughout with emphasis was placed on repetition to promote motor learning and automaticity of the movement sequence. Session progressed to fine motor strengthening tasks using small pop beads. Patient was able to connect and disconnect 15 beads twice each with good accuracy and coordination. She then participated in a Ctripe activity, completing approximately 30% of an image within the allotted time. She demonstrated good accuracy inserting pegs through the paper template but began to fatigue toward the end of the activity, evidenced by increased frequency of dropping pegs and difficulty removing them due to optical store manager fatigue and reduced endurance. Despite mild physical fatigue, patient maintained good effort, attention, and engagement throughout the session with only minimal redirection required for off-topic conversation. - Assessment Patient Response to Good Treatment Rehabilitation Fair Potential Impairments ADLs,Attention,Coordination/Dexterity,Functional Identified Activities,Weakness,Posture,Range of Motion, Recreational Activities,Meaningful Activities,Insight, Regulating Sensory System Progress Towards Slow Progress Goals Assessment of Improving Overall Progress Assessment of Patient continues to make gradual, measurable progress Improvement in fine motor coordination, bilateral integration, and independence with self-care tasks. Her ability to tie her shoes with minimal assistance singh a meaningful step toward functional independence and demonstrates improving motor planning and sequencing. Fatigue and mild optical store manager weakness remain limiting factors during sustained fine motor activities, though her tolerance and sustained attention have improved notably. Compliance with her home exercise program remains poor, but intrinsic motivation, engagement, and willingness to participate in therapeutic activities have continued to improve. Patient benefits from structured, functional, and repetitive task practice to reinforce motor learning and promote carryover into daily routines. Continued skilled OT intervention is warranted to further develop fine motor strength, coordination, and endurance to enhance independence with ADLs and IADLs. Home Exercise Functional strengthening for cooking: With sauce farah Program filled with 6oz of water for L hand and 12 oz of water for R hand pt will hold farah with 1 UE resisting gravity x30 sec working toward 60sec, With Stockpot filled with 48 oz, will hold against gravity at belly button height x60sec working toward lifts (bicep curls). Once these are stable, will progress to include pronation/ supination and ulnar/radial deviation with sauce farah Reviewed with Goals,Progress Being Made,Home Exercise Program Patient/Caregiver Patient/Caregiver Fair Understanding - Plan Therapy Continue with Current Program Recommendations Amount of Therapy 3-4 Months Recommended Frequency of Once a Week Treatment Length of Session 45 Minutes Treatment Emphasis review daily gratitude practice/HEP, review schedule/ Next Session hobby progress Therapeutic Contents Adaptive Equipment Education,Client Education, Functional Activities,Home Exercise Program,Education, Neuromuscular Re-Education,Self-Care,Stretching/ Flexibility Activities,Therapeutic Activities, Therapeutic Exercises,Sensory Re-education Modalities As Needed
--- NOTE | 2025-07-02 15:32 | OT.OP.DC ---
Visit Care Team Role Provider Type Janet Marvin MD Attending Provider Physician Primary Care Provider Referring Provider Address: [address] [place], [address] Fax: Email: [email or web address] Outpatient OT Outpatient Adult Evaluation Start: 04/24/25 11:26 Freq: Status: Active Protocol: Document 04/25/25 10:45 (Rec: 04/24/25 11:45 [id number]) General Information - Adult Visit Information Visit Number 1 of 12 Plan of Care Dates 04/24/25-07/18/25 Insurance no preauth;no copay;KX modifier required after 19 OT Information visits pcy Session Time Visit Start Date 04/25/25 Visit Start Time 10:45 Visit Stop Time 11:30 Setting Treatment Setting Outpatient Care Visit Type Note Type Initial Evaluation Referral Referring Physician Dr. Janet Marvin Reason for Referral s/p COVID PNA Identification Identification Yes Confirmed Identification EMR Confirmed By Patient Patient Goals incr BUE strength and coord for ADL/IADL performance and incr endurance Medical Information Medical History ASD, ADHD, NAFLD, Fibromyalgia, Anemia, sensorineural hearing loss of R ear, male to female transgender Pt with recent hospitalization for covid PNA with ARDS during which she required intubation and ECMO with subsequent readmission for right PE at at which time she was started on Lovenox and transitioned to Eliquis Previous Therapy Current Therapy/ Receiving PT at [facility] since 04/03/25 2x/week Therapies Social Information Social History Its so early and I am so tired; father present for eval to assist with interview Patient Questionnaires Quick Dash- Upper Extremity Quick Dash UE Score 63.6 Quick Dash UE 60 to 79% Impaired (Score 60-79) Impairment ADLs Feeding Devices adapted knife Goals Objective Measurements Objective ~Nine Hole Peg Test: Measurements R hand: 32.67 seconds L hand: 28.95 seconds ~Manual Muscle Testing (UE): Grossly 4/5 in all planes bilaterally ~BUE AROM grossly WFL ~Affiliate Marketing Specialist Strength (average of 3 trials): R hand: 26.7 lbs (40, 15, 25) L hand: 12.0 lbs (25, 5, 6) ~3-jaw marvin (tripod) pinch (average of 3 trials): R hand: 9.7 lbs (9, 9, 11) L hand: 7.3 lbs (7, 6, 9) ~Lateral/downing pinch (average of 3 trials): R hand: 9.0 lbs (8, 10, 9) L hand: 9.7 lbs (12, 9, 8) with mild pain reported in L hand Treatment Treatment Patient and father were educated on the role and goals of occupational therapy, with emphasis on restoring independence in self-care and functional daily tasks. A brief initial HEP was introduced, including gentle chair yoga, level 1 resistance band exercises ( horizontal abduction and shoulder flexion), and fine motor strengthening with soft therapy putty. Patient demonstrated understanding and father verbalized support. A more comprehensive HEP will be introduced in subsequent visits as tolerance allows. Short Term Goals Short Term Goals Within 6 weeks: 1. Patient will demonstrate improved wound treatment rn strength by at least 5 lbs bilaterally to support functional tasks such as opening containers. 2. Patient will independently perform basic hair care tasks (e.g., brushing/shampooing hair) with minimal rest breaks and no more than 1 verbal cue for initiating task per parent report. 3. Patient will complete light meal preparation tasks ( e.g., retrieving, opening, and preparing a single container of food) with use of adaptive equipment and no more than standby assistance for sequencing and following simple recipe. 4. Patient will independently complete her initial HEP 5/7 days per week with good form and minimal symptom provocation per patient and/or parent report. Correction Goals Poultry Dresser Goals Within 12 weeks: 1. Patient will demonstrate improved bilateral wound treatment rn strength to >20 lbs on the left and >35 lbs on the right to allow independence with container management and utensil use during ADL and IADL tasks. 2. Patient will independently prepare a simple meal ( including safe use of microwave and adapted devices PRN ) with appropriate pacing and adaptive strategies. 3. Patient will independently complete full hair care and hygiene routine (washing, brushing, drying as tolerated) without caregiver assistance. 4. Patient will demonstrate improved activity tolerance to complete a 20?30 minute table top or standing functional task while upright with HR remaining within safe limits and requiring no more than 1 rest break of 1 min or less. Assessment/Plan Assessment Patient Response Fair Rehabilitation Fair Potential Impairments ADLs,Attention,Balance,Functional Activities,Motor Identified Function,Weakness,Recreational Activities,Meaningful Activities,Motor Planning,Eye-Hand Coordination Treatment Assessment 19-year-old RHD female with history of ASD, ADHD, and fibromyalgia presenting following a recent hospitalization 03/31-04/04/25 for COVID-19 with ARDS requiring intubation and ECMO, followed by readmission for pulmonary embolism. She presents with significant deconditioning, generalized fatigue, tachycardia with minimal exertion, and reduced functional endurance. At baseline prior to hospitalization, she had ongoing difficulties with bilateral coordination, fine motor skills, and some upper body ADLs (hair care, container management, cutting food with adapted knife). Since hospitalization, she has experienced marked decline below her baseline, now unable to complete many self- care tasks independently. Objective testing reveals generalized upper extremity weakness, reduced wound treatment rn/ pinch strength, slowed fine motor coordination, and functional limitations impacting independence with ADLs /IADLs. OT will address upper extremity strength, fine motor coordination, activity tolerance, and adaptive strategies to maximize independence in daily life. Home Exercise Initial: Theraband: horizontal shoulder abduction, Program shoulder flexion Theraputty: squeeze, pinch, manipulative search Reviewed with Goals,Progress Being Made,Home Exercise Program Patient Patient Fair Understanding Plan Length of treatment 12 (weeks) Plan of Care Start 04/25/25 Date Plan of Care End 07/18/25 Date Treatment Frequency Once a Week Treatment Duration 45 Minutes Treatment Emphasis Complete Sugar VMI Next Session Therapeutic Contents Adaptive Equipment Education,Client Education,Cognitive Skills Development,Functional Activities,Home Exercise Program,Education,Self-Care,Therapeutic Activities, Therapeutic Exercises Modalities As Needed Patient Instruction Home Exercise Program,Plan of Care,Questions/Concerns Patient Continue with Current Program Recommendations Functional Wrist/Hand Scan Hand Side Sensory Assessment Sensory Profile2 OT Outpatient Treatment Note - Adult Start: 04/24/25 11:26 Freq: Status: Active Protocol: Document 07/02/25 14:30 (Rec: 07/02/25 11:39 [id number]) OT Outpatient Adult Treatment Note Session Time Visit Start Date 07/02/25 Visit Start Time 14:30 Visit Stop Time 15:15 Visit Information Visit Number 9 of 12 Plan of Care Dates 04/24/25-07/18/25 Insurance no preauth;no copay;KX modifier required after 19 OT Information Setting Treatment Setting Outpatient Care Visit Type Note Type Discharge Summary - Subjective Identification Type Name Identification Medical Record Reconciled With Others Present Family Observations I have been really busy so I haven't had a chance to do my exercises but I have been really active Patient/Caregiver Fair Compliance with Home Exercise Program - Objective Objective Affiliate Marketing Specialist: (R: Avlb); (L: Av.3lb Measurements ) [ON EVAL 04/24: R: Avg 26.7 lb; L: Avg 12 lb] Tripod Pinch: (R: 05/30/10 Average: 10lb); (L: ; Average: 8.7 lb) [ON EVAL 04/24: Averages: R 9.7 lb; L: 7.3 lb] Lateral Pinch: (R: 11.5/.12/29 Average: 11.3 lb); (L: ./05/29 Average: 10.2lb ) [ON EVAL 04/24: R: 9; L: 9.7 ] Quick DASH: 38.6 (63.6 on eval 04/24) 9 Hole peg: R: 21.40, 27.03 (On eval 04/24) R: 32.67, L 28.95 Short Term Goals Within 6 weeks: 1. Patient will demonstrate improved wound treatment rn strength by at least 5 lbs bilaterally to support functional tasks such as opening containers. [MET 07/02/25] 2. Patient will independently perform basic hair care tasks (e.g., brushing/shampooing hair) with minimal rest breaks and no more than 1 verbal cue for initiating task per parent report. [NOT MET 07/02/25] 3. Patient will complete light meal preparation tasks ( e.g., retrieving, opening, and preparing a single container of food) with use of adaptive equipment and no more than standby assistance for sequencing and following simple recipe. [NOT MET 07/02/25] 4. Patient will independently complete her initial HEP 5/7 days per week with good form and minimal symptom provocation per patient and/or parent report. [NOT MET 07/02/25] Poultry Dresser Goals Within 12 weeks: 1. Patient will demonstrate improved bilateral wound treatment rn strength to >20 lbs on the left and >35 lbs on the right to allow independence with container management and utensil use during ADL and IADL tasks. [PARTIALLY MET 07/02/25] 2. Patient will independently prepare a simple meal ( including safe use of microwave and adapted devices PRN ) with appropriate pacing and adaptive strategies. [NOT MET 07/02/25] 3. Patient will independently complete full hair care and hygiene routine (washing, brushing, drying as tolerated) without caregiver assistance. [NOT MET 07/02] 4. Patient will demonstrate improved activity tolerance to complete a 20?30 minute table top or standing functional task while upright with HR remaining within safe limits and requiring no more than 1 rest break of 1 min or less. [MET 07/02/25] - Treatment 4 Descriptor Patient was seen today for re-testing and review of goal progress. Outcome measures and standardized testing were re-administered for comparison to initial evaluation. Results demonstrated significant improvement in wound treatment rn, pinch, and fine motor coordination , as well as overall reduction in perceived disability per QuickDASH. Education was provided on continued progression of strengthening, endurance, and activity tolerance following discharge, with emphasis on incorporating challenge into daily routines to maintain and further improve function. Patient was encouraged to continue practicing self-care and meal preparation tasks independently, using strategies discussed throughout therapy such as brushing hair from ends to root, pausing before asking for help to promote independence, and continuing to build fine motor and upper extremity strength through meaningful daily tasks and hobbies. Therapist reinforced that functional strengthening can occur through both structured exercise and natural activities such as cooking, grooming, and creative pursuits. Education was also provided on monitoring for regression and the process for requesting a new referral should function decline or new goals arise. Patient verbalized understanding of discharge recommendations and plan. - Assessment Patient Response to Good Treatment Rehabilitation Fair Potential Impairments ADLs,Attention,Coordination/Dexterity,Functional Identified Activities,Weakness,Posture,Range of Motion, Recreational Activities,Meaningful Activities,Insight, Regulating Sensory System Progress Towards Slow Progress Goals Assessment of Improving Overall Progress Assessment of 19-year-old female with a history of autism spectrum Improvement disorder, ADHD, fibromyalgia, anemia, and recent hospitalization for COVID-19 with ARDS and ECMO, followed by pulmonary embolism. She was referred to occupational therapy for deconditioning, fatigue, and reduced independence in self-care and instrumental activities of daily living. At the time of evaluation, patient demonstrated generalized weakness, limited activity tolerance, decreased fine motor coordination, and dependence in ADL and IADL tasks such as cooking, grooming, and managing utensils. Throughout the course of skilled occupational therapy, treatment interventions included progressive upper extremity strengthening with graded resistance (putty, flex bar, and functional task simulations), fine motor and bilateral coordination activities, ADL retraining in grooming and meal preparation, activity tolerance training, and extensive education on motivation, self- efficacy, and functional independence. Patient and father were also educated on learned helplessness, graded activity progression, and positive reinforcement strategies to promote carryover and intrinsic motivation. Since the initial evaluation, patient has made notable functional gains, including significant improvement in bilateral wound treatment rn and pinch strength, improved fine motor coordination on the Nine-Hole Peg Test, and a substantial reduction in disability score on the QuickDASH from 63.6 to 38.6, indicating improved upper extremity use and confidence in daily activities. Patient demonstrates improved motivation, engagement, and follow-through with functional tasks, though remains below full independence for some ADL and IADL activities. Overall, patient has made excellent progress toward her goals with measurable improvements in strength, fine motor control, endurance, and independence. She continues to demonstrate emerging self-awareness and intrinsic motivation to engage in self-care and hobby- related activities. At this time, patient is requesting discharge due to therapist availability and scheduling conflict. She was educated on the option to return with a new referral should function decline or if she wishes to continue progress at a later date. Patient verbalized understanding and agreement with this plan. Home Exercise Functional strengthening for cooking: With sauce farah Program filled with 6oz of water for L hand and 12 oz of water for R hand pt will hold farah with 1 UE resisting gravity x30 sec working toward 60sec, With Stockpot filled with 48 oz, will hold against gravity at belly button height x60sec working toward lifts (bicep curls). Once these are stable, will progress to include pronation/ supination and ulnar/radial deviation with sauce farah Reviewed with Goals,Progress Being Made,Home Exercise Program Patient/Caregiver Patient/Caregiver Fair Understanding - Plan Therapy Discharge to Home Exercise Program Recommendations Amount of Therapy No Further Therapy Recommended Frequency of No Further Therapy Treatment
== END 2025-07-03 13:07 | disposition home or self-care (01) ==
LOC: OT 14:30
PROVIDERS: PCP Family Medicine; Referring Provider Family Medicine; Visit Provider Family Medicine
DX: R29.898 Other symptoms and signs involving the musculoskeletal system (principal); Z78.9 Other specified health status
CPT/HCPCS: 97110; 97165; 97530

== ENCOUNTER → 2025-07-21 05:41 | Outpatient (CLI) | payer MEDICARE, OTHER, MEDICAID, SELFPAY ==
[2025-04-08 16:41] VITALS: PULSE 155; RESP 26; O2SAT 72; BMI 35.2
== END ==
PROVIDERS: PCP Family Medicine; Referring Provider Family Medicine; Visit Provider Family Medicine
DX: R00.0 Tachycardia, unspecified (principal)
CPT/HCPCS: 93242

== ENCOUNTER → 2025-07-21 13:58 | Outpatient (CLI) | payer MEDICARE, MEDICAID, SELFPAY ==
[2025-04-08 16:41] VITALS: PULSE 155; RESP 26; O2SAT 72; BMI 35.2
[2025-07-21 14:35] LABS: HEMOLYSIS 18 (0-50); Iron 100 ug/dL (49-181)
[2025-07-21 14:45] LABS: Percent Iron Saturation 30 % (20-50); Total Iron Binding Capacity 330 ug/dL (261-462); Transferrin 305 mg/dL (206-381)
[2025-07-21 15:10] LABS: Ferritin 80 ng/mL (18-464)
== END ==
PROVIDERS: PCP Family Medicine; Referring Provider Family Medicine; Visit Provider Family Medicine
DX: D64.9 Anemia, unspecified (principal)
CPT/HCPCS: 36415; 82728; 83540; 83550

== ENCOUNTER → 2025-07-29 15:48 | Outpatient (CLI) | payer MEDICARE, MEDICAID, SELFPAY ==
[2025-04-08 16:41] VITALS: PULSE 155; RESP 26; O2SAT 72; BMI 35.2
--- NOTE | 2025-07-29 15:50 | DI.CT.S_ITS ---
PROCEDURE: CT ANGIO CHEST PE PROTOCOL INDICATIONS: previous PE, persistent SOB/dypnea on exertion TECHNIQUE: After the administration of intravenous contrast, 2 mm thick sections acquired from the pulmonary apices to the posterior costophrenic angles. 3-dimensional maximum intensity projection (MIP) coronal and sagittal reformats were then acquired through the thorax. For radiation dose reduction, the following was used: automated exposure control, adjustment of mA and/or kV according to patient size. COMPARISON: [facility], CT, CT ANGIO CHEST PE PROTOCOL, 03/31/2025, 8:25. FINDINGS: Image quality: Diagnostic Lungs and pleura: Scattered scarring and atelectasis. Mild diffuse mosaic attenuation. No airspace consolidation. No pleural effusions. Mediastinum, heart, and esophagus: No acute pulmonary embolism. No enlarged lymph nodes by size criteria. There is increased soft tissue thickening in the anterior mediastinum, measuring 5.3 x [address] appearance of the esophagus. Chest wall and thyroid: Unremarkable Upper abdomen: Partially seen suspected hepatic steatosis Bones: There are degenerative osseous changes. No aggressive appearing osseous abnormality. IMPRESSION: No acute pulmonary embolism. No airspace consolidation or pleural effusion. Mosaic attenuation of the lung parenchyma, which can be associated with bronchiolitis. New lesion in the anterior mediastinum measuring up to 5.3 x 1.8 cm. This could represent thymic hyperplasia. Differential includes an anterior mediastinal soft tissue lesion. A chest MRI is recommended. Probable hepatic steatosis partially seen Other findings above. Dictated by: Vicente Durant M.D. on 07/30/2025 at 15:00 Approved by: Vicente Durant M.D. on 07/30/2025 at 15:05
== END ==
LOC: CT 15:50
PROVIDERS: PCP Family Medicine; Referring Provider Family Medicine; Visit Provider Family Medicine
DX: J98.59 Other diseases of mediastinum, not elsewhere classified (principal); R06.09 Other forms of dyspnea; I26.90 Septic pulmonary embolism without acute cor pulmonale
CPT/HCPCS: 71275; Q9967

== ENCOUNTER → 2025-08-05 15:48 | Outpatient (CLI) | payer MEDICARE, MEDICAID, SELFPAY ==
[2025-04-08 16:41] VITALS: PULSE 155; RESP 26; O2SAT 72; BMI 35.2
--- NOTE | 2025-08-05 15:49 | DI.MRI.S_ITS ---
PROCEDURE: MR CHEST WO/W CON INDICATIONS: f/up possible thymic mass TECHNIQUE: MR images obtained of the chest with and without contrast using the chest lesion protocol COMPARISON: None. FINDINGS: Image quality: Mild motion artifact Lungs and pleura: Lungs are not well assessed on MRI. No focal nodule or pleural effusion identified. Mediastinum, heart, and esophagus: Anterior mediastinal lesion again seen, measuring about 2.8 cm in thickness and 7 cm in length (/). This is slightly asymmetric on the right-sided mediastinum. This appears wing shaped. On chemical shift imaging, only mild degree of signal loss is seen on opposed phase. No lymph nodes enlarged by size criteria. Heart size is at the upper limit of normal Chest wall and thyroid: Partially visualized, unremarkable Upper abdomen: Partially seen significant attic steatosis and hepatomegaly Bones: Partially seen, unremarkable IMPRESSION: Anterior mediastinal lesion again seen, with only mild signal loss on opposed phase imaging indicating mild degree of intravoxel fat. This is slightly asymmetric on the right side of the mediastinum. This could represent reactive or lymphoid thymic hyperplasia, although appearance is not classic. Neoplastic etiologies remain a consideration, in this age group, lymphoma is possible. A 3 month follow-up is suggested with MRI to reassess size. If persistent or enlarging, consider PET-CT or sampling. Dictated by: Vicente Durant M.D. on 08/06/2025 at 9:53 Approved by: Vicente Durant M.D. on 08/06/2025 at 15:50
== END ==
LOC: MRI 15:49
PROVIDERS: PCP Family Medicine; Referring Provider Family Medicine; Visit Provider Family Medicine
DX: J98.59 Other diseases of mediastinum, not elsewhere classified (principal)
CPT/HCPCS: 71552; A9579